=== PATIENT | male | born 1970 | race Caucasian/White ===

== ENCOUNTER → 2020-05-12 10:05 | Outpatient (BNVA) | payer OTHER, SELFPAY | PROVIDERS: PCP Internal Medicine; Visit Provider Physician Assistant | DX: S92.014D Nondisplaced fracture of body of right calcaneus, subsequent encounter for fracture with routine healing (principal) ==

== ENCOUNTER 2020-12-16 05:51 | Emergency (ER) | payer OTHER, SELFPAY ==
--- NOTE | ~2020-12-16 | CT_ITS ---
EXAMINATION: CT ABDOMEN AND PELVIS WITH CONTRAST CLINICAL INFORMATION: Left flank pain COMPARISON: previous CT of the abdomen and pelvis November 2012 TECHNIQUE: Multidetector volumetric images were obtained from the superior aspect of the liver through the pubic symphysis following administration 85 mL of Omnipaque 350 intravenous contrast. Sagittal and coronal reformatted images were obtained on the technologist's workstation. Oral contrast: Yes This CT examination was performed using dose optimization techniques as appropriate, variously including the following: *Automated exposure control *Adjustment of mA and/or kV according to patient size (this includes techniques or standardized protocols for targeted exams where dose is matched to indication/reason for exam; i.e. extremities or head) *Use of iterative reconstruction technique DLP: 2 8 1 mGy-cm FINDINGS: LUNG BASES: The visualized lung bases are unremarkable. LIVER, GALLBLADDER, AND BILIARY TREE: The liver is low in attenuation suggestive of fatty infiltration. No focal liver lesion is seen. The gallbladder is normal. There is no biliary duct dilatation. PANCREAS: Unremarkable. SPLEEN: Unremarkable. ADRENAL GLANDS: Unremarkable. KIDNEYS AND URETERS: The kidneys are normal in size, shape, and attenuation. No hydronephrosis, hydroureter, or calculi seen. There is a small cyst in the lower pole of the left kidney. No follow-up is needed. BLADDER: Unremarkable. GASTROINTESTINAL TRACT: There is diverticulosis of the colon. There is question of mild wall thickening of the sigmoid colon versus changes due to underdistention. There are fluid-filled loops of small and large bowel suggestive of an ileus. There is no evidence of obstruction, perforation or free air. The appendix is normal. The stomach is not optimally distended. ABDOMINAL WALL: No significant hernia is appreciated. There is a soft tissue seen in the left inguinal canal questionable for an undescended testicle. There are postsurgical changes to the left anterior abdominal wall. LYMPH NODES: Normal. VASCULAR: There are varices seen in the pelvis. There is evidence of mild atherosclerotic disease. No aneurysm is seen. PELVIC VISCERA: Unremarkable. OSSEOUS STRUCTURES: There are postoperative changes at the L5-S1 disc level. There is a L4 vertebral body compression fracture. This is new in the interval from 2013 exam but does not appear. CT/CT abdomen pelvis w con IMPRESSION: Diverticulosis of the colon. Question mild wall thickening of the sigmoid colon from mild diverticulitis or colitis versus changes due to underdistention. Enlarged fatty liver. Pelvic varices. Question partially undescended testicle in the left inguinal canal. This could be better evaluated with scrotal ultrasound. Postsurgical changes at the L5-S1 disc space. Moderate L4 vertebral body compression fracture that does not appear acute but is new in the interval from 2013 exam. Fatty liver.
[2020-12-16 06:31] VITALS: BP 128/85; PULSE 80; RESP 16; TEMP 36.9; O2SAT 97; BMI 17.8
--- NOTE | 2020-12-16 06:38 | ED_ITS ---
HPI - Abdominal Pain General Chief Complaint: Abdominal Pain Stated Complaint: Abd pain Time Seen by Provider: 12/16/20 06:34 Source: patient Mode of arrival: ambulatory Limitations: no limitations History of Present Illness HPI narrative: reports weight loss as well MD elicited complaint: abdominal pain Pertinent past history: other (chronic diarrhea and abdominal pain since back surgery 2013) Onset (ago): week(s) (3 (worse over past 3 weeks but chronic issue) ) Pain Consistency: intermittent Location: LUQ and L flank Severity: moderate Quality: stabbing Radiation: none Exacerbating factors: bowel movement Relieving factors: nothing Context: history of similar episodes (since surgery 2013 (back) has had negative colonoscopy) Associated symptoms: nausea and diarrhea Related Data Previous Rx's Medication Instructions Recorded amoxicillin-pot clavulanate 1 tab PO BID #14 tab 12/16/20 [Augmentin] ondansetron 4 mg PO Q8H PRN #20 tab 12/16/20 oxycodone 5 mg PO TID PRN #8 tab 12/16/20 Allergies Allergy/AdvReac Type Severity Reaction Status Date / Time meperidine [Demerol] Allergy Unknown Vomiting Verified 05/12/20 10:09 Review of Systems Review of Systems Constitutional : No Weight loss, No Fever, No Chills ENT/Mouth : No sore throat, No Rhinorrhea Eyes: No Swelling, No Redness Cardiovascular : No Chest Pain, No SOB, NoEdema Respiratory : No Cough, No Sputum, No Wheezing Gastrointestinal : no Nausea, no Vomiting, positive Diarrhea, positive abdominal Pain, No Hematochezia, No Melena Genitourinary : No Dysuria, No Urinary Frequency, No Hematuria, No Urgency Musculoskeletal : No joint pain, No Myalgias, No Joint Swelling Skin : No Skin Lesions, No rash Neuro : No Weakness, No Numbness, No Dizziness, No Headache Psych : No Anxiety/Panic, No Depression Heme/Lymph: No Bruising, No Lymphadenopathy Endocrine : No Polyuria, No Polydipsia All other systems reviewed and are negative. Physical Exam Vital Signs: Vital Signs: Last Vital Signs Temp 98.5 F 12/16/20 07:55 Pulse 90 12/16/20 09:57 Resp 16 12/16/20 09:57 BP 104/77 12/16/20 09:57 Pulse Ox 97 12/16/20 09:57 Body Mass Index 17.8 Appearance: Alert. Oriented X3. No acute distress. Eyes: Pupils equal, round and reactive to light. ENT: Pharynx normal. Neck: Normal inspection. Neck supple. CVS: Normal heart rate and rhythm. Pulses normal. Respiratory: No respiratory distress. Breath sounds normal. Abdomen: Soft and mild LUQ ttp no rebound or guarding Skin: Skin warm and dry. Normal skin color. Normal skin turgor. Extremities: No lower extremity edema. No calf ttp Neuro: Oriented X 3. No motor deficit. No sensory deficit. Course Course Course Narrative: not toxic, not bleeding, no WBC count able to tolerate PO without issue, can be managed as outpatient and follow up with PCP repeat LFTs with PCP MDM - Abdominal Pain MDM Narrative Medical decision making narrative: 50 yo male s/p back surgery in 2013 through abdomen - since then bouts of abdominal pain and > 6 stools per day at this time will need labs, CT scan for mass/obstruction, dispo per results and findings. Differential Diagnosis Differential diagnosis: Likely abdominal pain, constipation, gastroenteritis, ga stritis and pancreatitis Lab Data Result diagrams: 12/16/20 07:41 12/16/20 07:41 Labs: Lab Results 12/16/20 12/16/20 12/16/20 Range/Units 07:41 07:41 07:41 WBC 7.2 (4.8-10.8) X10*3/uL RBC 4.55 L (4.60-5.80) X10*6/uL Hgb 13.4 L (14.0-18.0) g/dl Hct 39.8 L (42-52) % MCV 87.5 (80-98) fL MCH 29.5 (27.0-33.0) pg MCHC 33.7 (31.0-36.0) g/dl RDW 14.7 (11.0-16.0) % Plt Count 221 (160-400) X10*3/uL MPV 9.9 (9.4-12.4) fL Immature Gran % (Auto) 0.3 (0.0-0.4) % Neut % (Auto) 63.2 (45-73) % Lymph % (Auto) 23.5 (20-40) % Stanley % (Auto) 9.9 (2-11) % Eos % (Auto) 2.0 (0-4) % Baso % (Auto) 1.1 (0-2) % Lymph # (Auto) 1.7 (1.2-4.9) X10*3/uL Stanley # (Auto) 0.7 (0.1-1.2) X10*3/uL Eos # (Auto) 0.1 (0.0-0.4) X10*3/uL Baso # (Auto) 0.1 (0.0-0.2) X10*3/uL Abs Immat Gran (auto) 0.02 (0.00-0.03) X10*3/uL Absolute Neuts (auto) 4.5 (2.0-8.3) X10*3/uL Absolute Nucleated RBC 0.000 (0.0-0.012) X10*3/uL Nucleated RBC % (auto) 0.0 (0.0-0.2) /100WBC Hold Blue Top SEE NOTE Sodium 137 (135-145) mmol/L Potassium 4.8 (3.3-5.1) mmol/L Chloride 97 (96-108) mmol/L Carbon Dioxide 26 (22-29) mmol/L Anion Gap 19 (12-20) BUN 3 L (9-16) mg/dL Creatinine 0.70 (0.5-1.4) mg/dL Estim Creat Clear Calc 86.1 Estimated GFR > 60 Random Glucose 77 (60-115) mg/dL Calcium 9.7 (8.4-10.2) mg/dL Total Bilirubin 0.5 (0.0-1.0) mg/dL AST 253 H (5-37) U/L ALT 157 H (0-40) U/L Alkaline Phosphatase 75 (39-117) U/L Total Protein 7.7 (6.5-8.0) g/dL Albumin 4.9 (3.5-5.0) g/dL Lipase 51 (8-78) U/L TSH (0.32-4.0) uIU/mL Urine Color Urine Appearance Urine pH (5.0-8.0) Ur Specific [place] (1.005-1.025) Urine Protein (NEG-TRACE) MG/DL Urine Glucose (UA) (NEG) MG/DL Urine Ketones (NEG) MG/DL Urine Blood (NEG) Urine Nitrite (NEG) Ur Leukocyte Esterase (NEG) Urine Opiates Screen (Not Detect) Ur Barbiturates Screen (Not Detect) Ur Phencyclidine Scrn (Not Detect) Ur Amphetamines Screen (Not Detect) U Benzodiazepines Scrn (Not Detect) Urine Cocaine Screen (Not Detect) U Marijuana (THC) Screen (Not Detect) 12/16/20 12/16/20 12/16/20 Range/Units 07:41 07:43 07:43 WBC (4.8-10.8) X10*3/uL RBC (4.60-5.80) X10*6/uL Hgb (14.0-18.0) g/dl Hct (42-52) % MCV (80-98) fL MCH (27.0-33.0) pg MCHC (31.0-36.0) g/dl RDW (11.0-16.0) % Plt Count (160-400) X10*3/uL MPV (9.4-12.4) fL Immature Gran % (Auto) (0.0-0.4) % Neut % (Auto) (45-73) % Lymph % (Auto) (20-40) % Stanley % (Auto) (2-11) % Eos % (Auto) (0-4) % Baso % (Auto) (0-2) % Lymph # (Auto) (1.2-4.9) X10*3/uL Stanley # (Auto) (0.1-1.2) X10*3/uL Eos # (Auto) (0.0-0.4) X10*3/uL Baso # (Auto) (0.0-0.2) X10*3/uL Abs Immat Gran (auto) (0.00-0.03) X10*3/uL Absolute Neuts (auto) (2.0-8.3) X10*3/uL Absolute Nucleated RBC (0.0-0.012) X10*3/uL Nucleated RBC % (auto) (0.0-0.2) /100WBC Hold Blue Top Sodium (135-145) mmol/L Potassium (3.3-5.1) mmol/L Chloride (96-108) mmol/L Carbon Dioxide (22-29) mmol/L Anion Gap (12-20) BUN (9-16) mg/dL Creatinine (0.5-1.4) mg/dL Estim Creat Clear Calc Estimated GFR Random Glucose (60-115) mg/dL Calcium (8.4-10.2) mg/dL Total Bilirubin (0.0-1.0) mg/dL AST (5-37) U/L ALT (0-40) U/L Alkaline Phosphatase (39-117) U/L Total Protein (6.5-8.0) g/dL Albumin (3.5-5.0) g/dL Lipase (8-78) U/L TSH 0.88 (0.32-4.0) uIU/mL Urine Color YELLOW Urine Appearance CLEAR Urine pH 6.0 (5.0-8.0) Ur Specific [place] <= 1.005 (1.005-1.025) Urine Protein NEG (NEG-TRACE) MG/DL Urine Glucose (UA) NEG (NEG) MG/DL Urine Ketones NEG (NEG) MG/DL Urine Blood NEG (NEG) Urine Nitrite NEG (NEG) Ur Leukocyte Esterase NEG (NEG) Urine Opiates Screen Not Detected (Not Detect) Ur Barbiturates Screen Not Detected (Not Detect) Ur Phencyclidine Scrn Not Detected (Not Detect) Ur Amphetamines Screen Not Detected (Not Detect) U Benzodiazepines Scrn Not Detected (Not Detect) Urine Cocaine Screen Not Detected (Not Detect) U Marijuana (THC) Screen POSITIVE H (Not Detect) Discharge Plan Discharge Clinical Impression: Diverticulitis, Abdominal pain, Fatty liver, Elevated liver enzymes Patient Disposition: Home, Self-Care Instructions: Diverticulitis (ED) Additional Instructions: incidental findings on CT scan Moderate L4 vertebral body compression fracture that does not appear acute but is new in the interval from 2013 exam. Enlarged fatty liver avoid tylenol and alcohol Prescriptions: New ondansetron 4 mg tablet,disintegrating 4 mg PO Q8H PRN (Reason: nausea and vomiting) Qty: 20 RF: 0 amoxicillin-pot clavulanate [Augmentin] 875-125 mg tablet 1 tab PO BID Qty: 14 RF: 0 oxycodone 5 mg tablet 5 mg PO TID PRN (Reason: pain) Qty: 8 RF: 0 Referrals: Kerri Bermudez MD [Primary Care Provider] - 5 days (repeat liver function tests) Stand Alone Forms: Work/School Release [facility] Past Medical History Attestation statement: The following information was validated with the patient. Medical History Calcaneus fracture Surgical History History of back surgery History of hernia surgery History of knee surgery Family History Family History Father No problems noted. Mother No problems noted. Son No problems noted. Daughter No problems noted. Social History Social History (Updated 12/16/20 @ 06:58 by No Hi DO) Alcohol intake: current Alcohol intake frequency: other Alcohol type: beer Smoking Status: Never smoker Use of substances other than those prescribed or required for medical reasons: No Advance Directives: No
[2020-12-16 07:53] LABS: MANUAL DIFF FLAG NO
[2020-12-16 07:55] VITALS: BP 129/80; PULSE 78; RESP 16; TEMP 36.9; O2SAT 97
[2020-12-16 07:58] LABS: Glucose Urine UA NEG (NEG); Leukocyte Esterase Urine NEG (NEG); Nitrite Urine NEG (NEG); Specific Gravity - Urine <= 1.005 (1.005-1.025); Urine Blood NEG (NEG); Urine Ketones NEG (NEG); Urine Protein NEG (NEG-TRACE)
[2020-12-16 07:59] LABS: Appearance Urine CLEAR; Color Urine YELLOW
[2020-12-16 07:59] LABS: Basophils Absolute Auto 0.1 X10*3/uL (0.0-0.2); Basophils Percent Auto 1.1 % (0-2); Eosinophils Absolute Auto 0.1 X10*3/uL (0.0-0.4); Hematocrit 39.8 % (42-52); Hemoglobin 13.4 g/dl (14.0-18.0); Imm Gran Abs Auto 0.02 X10*3/uL (0.00-0.03); Imm Gran Pct Auto 0.3 % (0.0-0.4); Lymphocytes Absolute Auto 1.7 X10*3/uL (1.2-4.9); Lymphocytes Percent Auto 23.5 % (20-40); Mean Corpuscular HGB Conc 33.7 g/dl (31.0-36.0); Mean Corpuscular Hemoglobin 29.5 pg (27.0-33.0); Mean Corpuscular Volume 87.5 fL (80-98); Mean Platelet Volume 9.9 fL (9.4-12.4); Monocytes Absolute Auto 0.7 X10*3/uL (0.1-1.2); Monocytes Percent Auto 9.9 % (2-11); Neutrophils Absolute Auto 4.5 X10*3/uL (2.0-8.3); Neutrophils Percent Auto 63.2 % (45-73); Platelet Count 221 X10*3/uL (160-400); Red Blood Count 4.55 X10*6/uL (4.60-5.80); Red Cell Distribution Width 14.7 % (11.0-16.0); White Blood Count 7.2 X10*3/uL (4.8-10.8)
[2020-12-16] MEDS: 0.9 % Sodium Chloride 1,000 ML 999 ML IVCONT (08:08)
[2020-12-16] MEDS: LORazepam 2 MG/ML VIAL 1 MG IVPUSH (08:09)
[2020-12-16 08:27] LABS: Amphetamine Screen Urine Not Detected (Not Detect); Barbiturates, Urine Not Detected (Not Detect); Benzodiazepines Screen Urine Not Detected (Not Detect); Cannabinoid Screen Urine POSITIVE (Not Detect); Cocaine Screen Urine Not Detected (Not Detect); Opiate Screen Urine Not Detected (Not Detect); Phencyclidine Screen Urine Not Detected (Not Detect)
[2020-12-16 08:32] LABS: Alanine Aminotransferase 157 U/L (0-40); Albumin Level 4.9 g/dL (3.5-5.0); Alkaline Phosphatase 75 U/L (39-117); Anion Gap 19 (12-20); Aspartate Amino Transferase 253 U/L (5-37); Bilirubin Total 0.5 mg/dL (0.0-1.0); Blood Urea Nitrogen 3 mg/dL (9-16); Calcium 9.7 mg/dL (8.4-10.2); Carbon Dioxide 26 mmol/L (22-29); Chloride 97 mmol/L (96-108); Creatinine Clr Calc Pharmacy 86.1; Estimated Glomerular Filt Rate > 60; Glucose Random 77 mg/dL (60-115); Lipase 51 U/L (8-78); Potassium 4.8 mmol/L (3.3-5.1); Sodium 137 mmol/L (135-145); Total Protein 7.7 g/dL (6.5-8.0)
[2020-12-16 08:50] LABS: Thyroid Stimulating Hormone 0.88 uIU/mL (0.32-4.0)
[2020-12-16] MEDS: iohexoL 350 MG/ML 100 ML INFUS..BTL IV (09:32)
[2020-12-16 09:57] VITALS: BP 104/77; PULSE 90; RESP 16; O2SAT 97
[2020-12-16 10:19] VITALS: BP 104/77; PULSE 90; RESP 16; O2SAT 97
== END 2020-12-16 10:35 | disposition home or self-care (01) ==
PROVIDERS: Student in an Organized Health Care Education/Training Program; Emergency Provider Emergency Medicine; PCP Internal Medicine
DX: K57.32 Diverticulitis of large intestine without perforation or abscess without bleeding (principal); R10.10 Upper abdominal pain, unspecified; R79.89 Other specified abnormal findings of blood chemistry; K76.0 Fatty (change of) liver, not elsewhere classified; F12.90 Cannabis use, unspecified, uncomplicated
CPT/HCPCS: 36415; 74177; 80053; 80307; 81003; 83690; 84443; 85025; 96361; 96374; 99284; J2060; Q9967

== ENCOUNTER 2020-12-20 11:30 | Inpatient (IN) | payer OTHER, SELFPAY ==
--- NOTE | ~2020-12-20 | MR_ITS ---
EXAMINATION: MR BRAIN WITHOUT AND WITH CONTRAST CLINICAL INFORMATION: Seizure. COMPARISON: CT head from 12/21/2020. TECHNIQUE: MRI of the brain was obtained using routine sequences without and following the administration of 5 mL of Gadavist intravenous contrast. FINDINGS: No focal restricted diffusion is demonstrated to suggest acute or subacute cerebral ischemia. No evidence of acute or chronic hemorrhagic products on heme-sensitive imaging. Basal ganglia mineralization. Few nonspecific scattered periventricular and deep white matter T2 FLAIR hyperintensities, most notably within the right centrum semiovale. Proportional prominence of the ventricles and sulcal spaces without evidence of obstructive hydrocephalus. No abnormal mass effect. No midline shift. The hippocampi are symmetric in size, contour, and signal intensity. The temporal horns appear symmetric. Normal appearance of the pituitary gland. No abnormalities of the posterior fossa with normal appearance of the brainstem and cerebellum. Normal arterial and venous vascular flow voids are present. No abnormal contrast enhancement. Normal, homogeneous marrow signal. Mild to moderate mucosal thickening of the paranasal sinuses. No signal abnormalities within the mastoids. MR/MR head/brain wo/w con IMPRESSION: 1. No acute intracranial abnormalities. No abnormal intracranial enhancement. 2. Nonspecific white matter changes. Mild generalized cerebral volume loss. 3. No additional MRI abnormalities to explain the patient's spells.
--- NOTE | ~2020-12-20 | CT_ITS ---
EXAMINATION: CT ABDOMEN AND PELVIS WITH CONTRAST CLINICAL INFORMATION: Left lower quadrant pain. Nausea and vomiting. Rule out obstruction. COMPARISON: Previous CT of the abdomen and pelvis 12/16/2020 TECHNIQUE: Multidetector volumetric images were obtained from the superior aspect of the liver through the pubic symphysis following administration 85 mL of Omnipaque 350 intravenous contrast. Sagittal and coronal reformatted images were obtained on the technologist's workstation. Oral contrast: Yes This CT examination was performed using dose optimization techniques as appropriate, variously including the following: *Automated exposure control *Adjustment of mA and/or kV according to patient size (this includes techniques or standardized protocols for targeted exams where dose is matched to indication/reason for exam; i.e. extremities or head) *Use of iterative reconstruction technique DLP: 270 mGy-cm FINDINGS: LUNG BASES: The visualized lung bases are unremarkable. LIVER, GALLBLADDER, AND BILIARY TREE: The liver is low in attenuation suggestive of fatty infiltration. No focal hepatic lesion or biliary ductal dilatation is present. The gallbladder is unremarkable with no evidence of radiopaque gallstones, gallbladder wall thickening, or obvious pericholecystic inflammatory changes. PANCREAS: Unremarkable. SPLEEN: Unremarkable. ADRENAL GLANDS: Unremarkable. KIDNEYS AND URETERS: The kidneys are normal in size, shape, and attenuation. There is a small left renal cyst. No hydronephrosis, hydroureter, or calculi seen. No perinephric stranding. BLADDER: Unremarkable. GASTROINTESTINAL TRACT: There is diverticulosis of the distal colon. There is wall thickening of the distal colon questionable for mild diverticulitis or colitis. This is similar to previous exam. There is no evidence of obstruction. There are fluid-filled loops of small bowel in large bowel probably representing an ileus. The appendix is not identified the stomach is unremarkable. ABDOMINAL WALL: There are postsurgical changes to the left abdominal wall. No hernia is seen. There is increased soft tissue seen high in the left inguinal canal questionable for a partially undescended testicle. Be better evaluated with ultrasound if clinically indicated. LYMPH NODES: Normal. VASCULAR: There are pelvic varices. PELVIC VISCERA: Unremarkable. OSSEOUS STRUCTURES: Postsurgical change at L5-S1. Old L4 compression fracture unchanged. CT/CT abdomen pelvis w con IMPRESSION: Diverticulosis of the distal colon. Mild wall thickening of the distal colon questionable for mild diverticulitis or colitis similar to recent exam. No evidence of obstruction. There are fluid-filled loops of small and large bowel suggestive of an ileus. Fatty liver. Question partially descended left testicle. Pelvic varices.
--- NOTE | ~2020-12-20 | CT_ITS ---
EXAMINATION: CT HEAD WITHOUT CONTRAST CLINICAL INFORMATION: Dizziness and seizure COMPARISON: None TECHNIQUE: Contiguous axial imaging was performed from the skull base to vertex without intravenous administration of contrast. This CT examination was performed using dose optimization techniques as appropriate, variously including the following: *Automated exposure control *Adjustment of mA and/or kV according to patient size (this includes techniques or standardized protocols for targeted exams where dose is matched to indication/reason for exam; i.e. extremities or head) *Use of iterative reconstruction technique DLP: 587 mGy-cm FINDINGS: There is no evidence of acute intracranial hemorrhage or territorial infarction. No abnormal mass effect or midline shift is seen. Ro to white matter differentiation is well preserved. No extra-axial fluid collections are identified. The ventricles are normal in size. There is no abnormal attenuation within the brain parenchyma. No focal bone lesion or fracture is seen. The mastoid air cells and visualized portions of the paranasal sinuses are well aerated. CT/CT head/brain wo con IMPRESSION: Unremarkable exam.
[2020-12-20 11:58] VITALS: BP 152/82; PULSE 88; RESP 16; TEMP 37.1; O2SAT 96; BMI 19.0
[2020-12-20 12:49] LABS: MANUAL DIFF FLAG NO
[2020-12-20 12:51] LABS: Basophils Absolute Auto 0.1 X10*3/uL (0.0-0.2); Basophils Percent Auto 1.3 % (0-2); Eosinophils Absolute Auto 0.2 X10*3/uL (0.0-0.4); Eosinophils Percent Auto 2.7 % (0-4); Hematocrit 39.9 % (42-52); Hemoglobin 13.3 g/dl (14.0-18.0); Imm Gran Abs Auto 0.01 X10*3/uL (0.00-0.03); Imm Gran Pct Auto 0.2 % (0.0-0.4); Lymphocytes Absolute Auto 1.6 X10*3/uL (1.2-4.9); Lymphocytes Percent Auto 26.8 % (20-40); Mean Corpuscular HGB Conc 33.3 g/dl (31.0-36.0); Mean Corpuscular Volume 86.9 fL (80-98); Mean Platelet Volume 9.8 fL (9.4-12.4); Monocytes Absolute Auto 0.6 X10*3/uL (0.1-1.2); Monocytes Percent Auto 10.6 % (2-11); Neutrophils Absolute Auto 3.5 X10*3/uL (2.0-8.3); Neutrophils Percent Auto 58.4 % (45-73); Platelet Count 233 X10*3/uL (160-400); Red Blood Count 4.59 X10*6/uL (4.60-5.80); Red Cell Distribution Width 14.9 % (11.0-16.0)
--- NOTE | 2020-12-20 13:04 | ED.ABDPAIN ---
HPI - Abdominal Pain General Chief Complaint: Abdominal Pain Stated Complaint: abd pain Time Seen by Provider: 12/20/20 12:08 Source: patient Mode of arrival: ambulatory Limitations: no limitations History of Present Illness HPI narrative: 50 y/o male presenting with left sided abdominal pain, nausea, vomiting and diarrhea for the last 5 days. He was seen her adrienne 12/16 for the same - diagnosed with mild diverticulitis and discharged home on Augmentin and pain control. He states he took his 1st dose of antibiotics yesterday. He states he's not a pill fabiano and doesn't like to take medications. He reports vomiting and diarrhea increased in severity over the last 48 hours. He reports vomiting after taking Augmentin last night and again this morning. He contacted his PCP who instructed him to come to the ER for IV antibiotics. MD elicited complaint: abdominal pain Pertinent past history: diverticulitis Onset (ago): day(s) Pain Consistency: constant Location: LLQ Severity: moderate Quality: stabbing and sharp Radiation: L flank Migration to: no migration Exacerbating factors: eating Relieving factors: nothing Context: recent antibiotic use and history of similar episodes Associated symptoms: nausea, vomiting and diarrhea Related Data Previous Rx's Medication Instructions Recorded amoxicillin-pot clavulanate 1 tab PO BID #14 tab 12/16/20 [Augmentin] ondansetron 4 mg PO Q8H PRN #20 tab 12/16/20 oxycodone 5 mg PO TID PRN #8 tab 12/16/20 levofloxacin 500 mg PO DAILY 6 Days #6 tab 12/20/20 metronidazole [Flagyl] 500 mg PO Q12H #14 tab 12/20/20 Allergies Allergy/AdvReac Type Severity Reaction Status Date / Time meperidine [Demerol] Allergy Unknown Vomiting Verified 05/12/20 10:09 Review of Systems Review of Systems Constitutional: No Fever, No Chills ENT/Mouth: No sore throat, No Rhinorrhea, No Swallowing Difficulty Eyes: No Eye Pain, No Swelling, No Redness Cardiovascular: No Chest Pain, No SOB, No Orthopnea, No Edema Respiratory: No Cough, No Sputum, No Wheezing, No dyspnea Gastrointestinal: + Nausea, + Vomiting, + Diarrhea, + abdominal Pain, No Hematochezia, No Melena Genitourinary: No Dysuria, No Urinary Frequency, No Hematuria Musculoskeletal: No joint pain, No Myalgias Skin: No Skin Lesions, No rash Neuro: No Weakness, No Numbness, No Dizziness, + Headache Psych: No Anxiety/Panic, No Depression Heme/Lymph: No Bruising, No Lymphadenopathy Endocrine: No Polyuria, No Polydipsia Physical Exam Vital Signs: Vital Signs: Last Vital Signs Temp 98.7 F 12/20/20 11:58 Pulse 90 12/20/20 16:45 Resp 16 12/20/20 16:45 BP 122/87 12/20/20 16:45 Pulse Ox 95 12/20/20 16:45 Body Mass Index 19.0 Appearance: Alert. Oriented X3. No acute distress. Eyes: Pupils equal, round and reactive to light. ENT: Pharynx normal. Neck: Normal inspection. Neck supple. CVS: Normal heart rate and rhythm. Pulses normal. Respiratory: No respiratory distress. Breath sounds normal. Abdomen: Flat, soft, with LLQ tenderness, no rebound or guarding. +BS x4 Skin: Skin warm and dry. Normal skin color. Normal skin turgor. No rashes. Extremities: No lower extremity edema. Neuro: Oriented X 3. No motor deficit. No sensory deficit. Course Course Course Narrative: 50 y/o male with recently diagnosed mild diverticulitis/colitis, non-compliant with prescribed antibiotics who presents back with vomiting after the 2 doses of Augmentin. Eating and drinking in triage - patient denies. States he has not eaten since yesterday. Vomiting prior to arrival. No blood on vomitus or stool. No fevers or urinary symptoms. Exam reveals some mild LLQ tenderness but not peritonitic. Doubt obstruction, perforation or abscess. Will repeat labs, check lactic acid CRP. IV antibiotics, antiemetics and IVF ordered. Hold off on repeat imaging for now. Reevaluation(s) Reevaluation #1: No leukocytosis. Lactic acid normal. CRP normal. Patient is feeling ok. Given PO trial now, will reassess. Reevaluation #2: Upon reassessment patient reports he did not tolerate PO. He had burning pain and dry heaving. No emesis noted in the bag. He reports he was just dry heaving and had increased pain. Given his persistent N/V and report of pain will get repeat imaging to f/u and r/o abscess, perforation or obstruction. D/w Dr. Hi. Reevaluation #3: CT scan done. IV reglan ordered for reports of ongoing nausea. Pending CT report and tolerance of PO for admission vs d/c home with abx. Signed out to Florence DURAN who will assume care. MDM - Abdominal Pain Lab Data Result diagrams: 12/20/20 12:44 12/20/20 12:44 Labs: Lab Results 12/20/20 12/20/20 12/20/20 Range/Units 12:44 12:44 12:44 WBC 6.0 (4.8-10.8) X10*3/uL RBC 4.59 L (4.60-5.80) X10*6/uL Hgb 13.3 L (14.0-18.0) g/dl Hct 39.9 L (42-52) % MCV 86.9 (80-98) fL MCH 29.0 (27.0-33.0) pg MCHC 33.3 (31.0-36.0) g/dl RDW 14.9 (11.0-16.0) % Plt Count 233 (160-400) X10*3/uL MPV 9.8 (9.4-12.4) fL Immature Gran % (Auto) 0.2 (0.0-0.4) % Neut % (Auto) 58.4 (45-73) % Lymph % (Auto) 26.8 (20-40) % [place] % (Auto) 10.6 (2-11) % Eos % (Auto) 2.7 (0-4) % Baso % (Auto) 1.3 (0-2) % Lymph # (Auto) 1.6 (1.2-4.9) X10*3/uL [place] # (Auto) 0.6 (0.1-1.2) X10*3/uL Eos # (Auto) 0.2 (0.0-0.4) X10*3/uL Baso # (Auto) 0.1 (0.0-0.2) X10*3/uL Abs Immat Gran (auto) 0.01 (0.00-0.03) X10*3/uL Absolute Neuts (auto) 3.5 (2.0-8.3) X10*3/uL Absolute Nucleated RBC 0.000 (0.0-0.012) X10*3/uL Nucleated RBC % (auto) 0.0 (0.0-0.2) /100WBC Sodium 132 L (135-145) mmol/L Potassium 3.9 (3.3-5.1) mmol/L Chloride 93 L (96-108) mmol/L Carbon Dioxide 27 (22-29) mmol/L Anion Gap 16 (12-20) BUN 2 L (9-16) mg/dL Creatinine 0.72 (0.5-1.4) mg/dL Estim Creat Clear Calc 83.7 Estimated GFR > 60 Random Glucose 87 (60-115) mg/dL Lactic Acid 1.3 (0.5-2.0) mmol/L Calcium 9.8 (8.4-10.2) mg/dL Magnesium 2.3 (1.6-2.6) mg/dL Total Bilirubin 0.6 (0.0-1.0) mg/dL Direct Bilirubin 0.2 (0.0-0.5) mg/dL AST 156 H (5-37) U/L ALT 112 H (0-40) U/L Alkaline Phosphatase 73 (39-117) U/L C-Reactive Protein 0.13 (< or = 0.50) mg/dL Total Protein 7.9 (6.5-8.0) g/dL Albumin 5.1 H (3.5-5.0) g/dL Urine Color Urine Appearance Urine pH (5.0-8.0) Ur Specific [place] (1.005-1.025) Urine Protein (NEG-TRACE) MG/DL Urine Glucose (UA) (NEG) MG/DL Urine Ketones (NEG) MG/DL Urine Blood (NEG) Urine Nitrite (NEG) Ur Leukocyte Esterase (NEG) 12/20/20 Range/Units 13:22 WBC (4.8-10.8) X10*3/uL RBC (4.60-5.80) X10*6/uL Hgb (14.0-18.0) g/dl Hct (42-52) % MCV (80-98) fL MCH (27.0-33.0) pg MCHC (31.0-36.0) g/dl RDW (11.0-16.0) % Plt Count (160-400) X10*3/uL MPV (9.4-12.4) fL Immature Gran % (Auto) (0.0-0.4) % Neut % (Auto) (45-73) % Lymph % (Auto) (20-40) % [place] % (Auto) (2-11) % Eos % (Auto) (0-4) % Baso % (Auto) (0-2) % Lymph # (Auto) (1.2-4.9) X10*3/uL [place] # (Auto) (0.1-1.2) X10*3/uL Eos # (Auto) (0.0-0.4) X10*3/uL Baso # (Auto) (0.0-0.2) X10*3/uL Abs Immat Gran (auto) (0.00-0.03) X10*3/uL Absolute Neuts (auto) (2.0-8.3) X10*3/uL Absolute Nucleated RBC (0.0-0.012) X10*3/uL Nucleated RBC % (auto) (0.0-0.2) /100WBC Sodium (135-145) mmol/L Potassium (3.3-5.1) mmol/L Chloride (96-108) mmol/L Carbon Dioxide (22-29) mmol/L Anion Gap (12-20) BUN (9-16) mg/dL Creatinine (0.5-1.4) mg/dL Estim Creat Clear Calc Estimated GFR Random Glucose (60-115) mg/dL Lactic Acid (0.5-2.0) mmol/L Calcium (8.4-10.2) mg/dL Magnesium (1.6-2.6) mg/dL Total Bilirubin (0.0-1.0) mg/dL Direct Bilirubin (0.0-0.5) mg/dL AST (5-37) U/L ALT (0-40) U/L Alkaline Phosphatase (39-117) U/L C-Reactive Protein (< or = 0.50) mg/dL Total Protein (6.5-8.0) g/dL Albumin (3.5-5.0) g/dL Urine Color YELLOW Urine Appearance CLEAR Urine pH 6.5 (5.0-8.0) Ur Specific [place] <= 1.005 (1.005-1.025) Urine Protein NEG (NEG-TRACE) MG/DL Urine Glucose (UA) NEG (NEG) MG/DL Urine Ketones NEG (NEG) MG/DL Urine Blood NEG (NEG) Urine Nitrite NEG (NEG) Ur Leukocyte Esterase NEG (NEG) Discharge Plan Discharge Clinical Impression: Diverticulitis Patient Disposition: Home, Self-Care Instructions: Diverticulitis (ED), Diverticulitis Diet (ED) Additional Instructions: Your lab workup today was unremarkable. Recommend STOPPING the Augmentin antibiotic that was previously prescribed. START taking the levofloxacin tomorrow. You were given the 1st dose in the ER. START taking the metronidazole tonight. Take BOTH antibiotics as directed for 1 full week. Stick to the diet in the information provided. Follow up with your doctor this week. Recommend following up with GI as well. If you have worsening symptoms come back to the ER for further evaluation. Prescriptions: New levofloxacin 500 mg tablet 500 mg PO DAILY 6 Days Qty: 6 RF: 0 metronidazole [Flagyl] 500 mg tablet 500 mg PO Q12H Qty: 14 RF: 0 No Action ondansetron 4 mg tablet,disintegrating 4 mg PO Q8H PRN (Reason: nausea and vomiting) Qty: 20 RF: 0 amoxicillin-pot clavulanate [Augmentin] 875-125 mg tablet 1 tab PO BID Qty: 14 RF: 0 oxycodone 5 mg tablet 5 mg PO TID PRN (Reason: pain) Qty: 8 RF: 0 PMFSH Past Medical History Attestation statement: The following information was validated with the patient. Medical History Calcaneus fracture Surgical History History of back surgery History of hernia surgery History of knee surgery Family History Family History Father No problems noted. Mother No problems noted. Son No problems noted. Daughter No problems noted. Social History Social History (Updated 12/16/20 @ 06:58 by No Hi DO) Alcohol intake: never Smoking Status: Never smoker Use of substances other than those prescribed or required for medical reasons: No Advance Directives: No Advance Directives Information Provided: No
[2020-12-20 13:17] LABS: Lactic Acid 1.3 mmol/L (0.5-2.0)
[2020-12-20] MEDS: ondansetron HCL 4 MG/2 ML VIAL IVPUSH ×2 (13:18→20:21)
[2020-12-20] MEDS: Ketorolac Tromethamine 30 MG/ML VIAL IVPUSH (13:18)
[2020-12-20] MEDS: metroNIDAZOLE/NS 500 MG/100 ML PIGGYBACK 100 MG IV ×2 (13:18→23:04)
[2020-12-20] MEDS: 0.9 % Sodium Chloride 1,000 ML 999 ML IVCONT (13:19)
[2020-12-20 13:30] LABS: Glucose Urine UA NEG (NEG); Leukocyte Esterase Urine NEG (NEG); Nitrite Urine NEG (NEG); PH 6.5 (5.0-8.0); Specific Gravity - Urine <= 1.005 (1.005-1.025); Urine Blood NEG (NEG); Urine Ketones NEG (NEG); Urine Protein NEG (NEG-TRACE)
[2020-12-20 13:31] LABS: Alanine Aminotransferase 112 U/L (0-40); Albumin Level 5.1 g/dL (3.5-5.0); Alkaline Phosphatase 73 U/L (39-117); Anion Gap 16 (12-20); Aspartate Amino Transferase 156 U/L (5-37); Bilirubin Direct 0.2 mg/dL (0.0-0.5); Bilirubin Total 0.6 mg/dL (0.0-1.0); Blood Urea Nitrogen 2 mg/dL (9-16); Calcium 9.8 mg/dL (8.4-10.2); Carbon Dioxide 27 mmol/L (22-29); Chloride 93 mmol/L (96-108); Creatinine Clr Calc Pharmacy 83.7; Estimated Glomerular Filt Rate > 60; Glucose Random 87 mg/dL (60-115); Magnesium 2.3 mg/dL (1.6-2.6); Potassium 3.9 mmol/L (3.3-5.1); Sodium 132 mmol/L (135-145); Total Protein 7.9 g/dL (6.5-8.0)
[2020-12-20 13:32] LABS: Appearance Urine CLEAR; Color Urine YELLOW
[2020-12-20] MEDS: levoFLOXacin/D5W 500 MG/100 ML PIGGYBACK 100 MG IV (14:20)
[2020-12-20 14:34] LABS: C Reactive Protein 0.13 mg/dL (< or = 0.50)
[2020-12-20 14:42] VITALS: BP 129/75; PULSE 82; RESP 21; O2SAT 96
[2020-12-20] MEDS: Metoclopramide HCl 10 MG/2 ML VIAL IVPUSH (16:21)
[2020-12-20] MEDS: iohexoL 350 MG/ML 100 ML INFUS..BTL IV (16:36)
[2020-12-20 16:45] VITALS: BP 122/87; PULSE 90; RESP 16; O2SAT 95
--- NOTE | 2020-12-20 18:16 | PM.IMHP ---
History of Present Illness Date of Service: 12/20/20 Chief Complaint: Abdominal pain. Review of Systems Review of Systems: Gen: no fever Resp: no sob, no cough CV: no chest, no ADKINS, no leg edema GI: + n/v, + abd pain Neuro: No confusion Yes all other systems are reviewed and are negative [facility] Medical History Calcaneus fracture Cognitive capacity: 50-year-old male with no significant past medical history although he states that he has a issues with weight loss of unclear etiology. He was seen in the emergency room on December 16 with acute abdominal pain and a CT scan at the time showed mild diverticulitis and he was prescribed Augmentin and has failed to take any of the pills citing that he is not a pill person he finally took a dose yesterday and stated that he could not tolerate the medicine as is induced nausea and vomiting and abdominal discomfort. He related that he was having trouble eating as soon as he eats he will experience diarrhea shortly thereafter. He reports no blood in the stool there is no fever or chill. A CT scan in the abdomen and pelvis today reveal a mild persistent diverticulitis his WBC is normal he has no fever he is given IV Levaquin in the emergency room. Functional capacity: independent ambulation Family History Father No problems noted. Mother No problems noted. Son No problems noted. Daughter No problems noted. Pertinent family history: heart disease, diabetes, HTN Surgical History History of back surgery History of hernia surgery History of knee surgery Social History (Updated 12/21/20 @ 09:18 by Sly Malik MD) Household Members: Friend(s) Housing: House Smoking Status: Never smoker Use of substances other than those prescribed or required for medical reasons: Yes Substance Use Type: Marijuana Substance Use Type Other:: Denies other substances Currently Displaying Signs/Symptoms of Drug Intoxication Withdrawal: No Have you been hit, kicked, punched, or otherwise hurt by someone within the past year? If so, by whom?: No Do you feel safe in your current relationship?: No Current Relationship Is there a partner from a previous relationship who is making you feel unsafe now?: No Are you made to feel afraid or neglected: No Advance Directives: No Advance Directives Information Provided: No Do you have thoughts of harming others: None Do you have a plan to hurt others: No Plan Recently lost weight without trying: No Eating poorly because of decreased appetite: Yes Nutrition Risks: Acute nausea or vomiting x1 week and Poor intake 0-25% >4 days service: No Current occupational status: unemployed Meds Allergies Allergy/AdvReac Type Severity Reaction Status Date / Time meperidine [Demerol] Allergy Unknown Vomiting Verified 05/12/20 10:09 Physical Exam Vital Signs and Narrative: Vital Signs: Last Vital Signs Temp 98.7 F 12/20/20 11:58 Pulse 90 12/20/20 16:45 Resp 16 12/20/20 16:45 BP 122/87 12/20/20 16:45 Pulse Ox 95 12/20/20 16:45 Body Mass Index 19.0 Constitutional Awake and Alert, No apparent distress Neck Supple, No lymphadenopathy Cardiovascular RRR, No M/R/G, S1 S2, No S3 S4, No pedal edema Respiratory Lungs clear, No respiratory distress Gastrointestinal soft, mild tendernes, no guarding, no distention Skin No rash Neurological Alert & oriented x3 Psychological Appropriate affect Results Labs CBC and Chem 7: 12/20/20 12:44 12/20/20 12:44 Labs: Laboratory Results - last 24 hr 12/20/20 12/20/20 12/20/20 12:44 12:44 12:44 MCV 86.9 MCH 29.0 MCHC 33.3 RDW 14.9 Plt Count 233 MPV 9.8 Immature Gran % (Auto) 0.2 Neut % (Auto) 58.4 Lymph % (Auto) 26.8 Benson % (Auto) 10.6 Eos % (Auto) 2.7 Baso % (Auto) 1.3 Lymph # (Auto) 1.6 Benson # (Auto) 0.6 Eos # (Auto) 0.2 Baso # (Auto) 0.1 Abs Immat Gran (auto) 0.01 Absolute Neuts (auto) 3.5 Absolute Nucleated RBC 0.000 Nucleated RBC % (auto) 0.0 Anion Gap 16 Estim Creat Clear Calc 83.7 Estimated GFR > 60 Random Glucose 87 Lactic Acid 1.3 Calcium 9.8 Magnesium 2.3 Total Bilirubin 0.6 Direct Bilirubin 0.2 AST 156 H ALT 112 H Alkaline Phosphatase 73 C-Reactive Protein 0.13 Total Protein 7.9 Albumin 5.1 H Urine Color Urine Appearance Urine pH Ur Specific [place] Urine Protein Urine Glucose (UA) Urine Ketones Urine Blood Urine Nitrite Ur Leukocyte Esterase 12/20/20 13:22 MCV MCH MCHC RDW Plt Count MPV Immature Gran % (Auto) Neut % (Auto) Lymph % (Auto) Benson % (Auto) Eos % (Auto) Baso % (Auto) Lymph # (Auto) Benson # (Auto) Eos # (Auto) Baso # (Auto) Abs Immat Gran (auto) Absolute Neuts (auto) Absolute Nucleated RBC Nucleated RBC % (auto) Anion Gap Estim Creat Clear Calc Estimated GFR Random Glucose Lactic Acid Calcium Magnesium Total Bilirubin Direct Bilirubin AST ALT Alkaline Phosphatase C-Reactive Protein Total Protein Albumin Urine Color YELLOW Urine Appearance CLEAR Urine pH 6.5 Ur Specific [place] <= 1.005 Urine Protein NEG Urine Glucose (UA) NEG Urine Ketones NEG Urine Blood NEG Urine Nitrite NEG Ur Leukocyte Esterase NEG Imaging Radiologist's Impressions: Impressions Abdomen/Pelvis CT 12/20/20 16:01 IMPRESSION: Diverticulosis of the distal colon. Mild wall thickening of the distal colon questionable for mild diverticulitis or colitis similar to recent exam. No evidence of obstruction. There are fluid-filled loops of small and large bowel suggestive of an ileus. Fatty liver. Question partially descended left testicle. Pelvic varices. Assessment and Plan (1) Diverticulitis: Status: Acute (2) Unintentional weight loss: Status: Acute 50 year old male with mild acute diverticulitis, abdominal pain and chronic weight loss and mild to moderate protein calory malnutrion of some sort Diverticultisl appear mild--continue Flagyl and Levaquin, liquid diet, GI consult Weight loss and protein calory malnutrition--work up for celiac disease work Elevated LFTs mild trend and see what GI has to say mild hyponatremia--monitor Diarrhea, check cdif,
--- NOTE | 2020-12-20 18:47 | PC.NURSE ---
called for report, no answer
--- NOTE | 2020-12-20 19:16 | PC.NURSE ---
nurse to nurse report given to Tavon TORRES
[2020-12-20 19:46] VITALS: BP 141/86; PULSE 72; RESP 20; TEMP 36.4; O2SAT 96
[2020-12-20] MEDS: Morphine Sulfate 2 MG/ML CARTRIDGE IVPUSH (20:21)
[2020-12-20] MEDS: Dextrose 5 % and 0.45 % NaCl 1,000 ML 100 ML IVCONT (20:21)
[2020-12-20] MEDS: Enoxaparin Sodium 40 MG/0.4 ML SYRINGE SUBCUT (20:22)
[2020-12-20 23:31] VITALS: BP 132/91; PULSE 91; RESP 20; TEMP 36.3; O2SAT 97
[2020-12-21] VITALS (7 sets, daily range): BP systolic 112–151; BP diastolic 71–88; PULSE 74–86; RESP 16–20; TEMP 36.2–36.8; O2SAT 94–97
[2020-12-21] MEDS: Morphine Sulfate 2 MG/ML CARTRIDGE IVPUSH ×4 (02:30→21:00)
[2020-12-21 03:55] LABS: CDIFF Ag Negative (Negative); CDiff Toxin Negative (Negative)
[2020-12-21 03:56] LABS: CDIFF Internal ctrl Dots and bkg OK (V)
[2020-12-21] MEDS: metroNIDAZOLE/NS 500 MG/100 ML PIGGYBACK 100 MG IV ×3 (06:52→22:22)
[2020-12-21] MEDS: Dextrose 5 % and 0.45 % NaCl 1,000 ML 100 ML IVCONT ×2 (08:11→20:47)
[2020-12-21] MEDS: 0.9 % Sodium Chloride Flush 3 ML SYRINGE IVFLUSH (08:12)
--- NOTE | 2020-12-21 08:41 | MHC.CM.PN ---
EMR REVIEWED, PT ADMITTED W/ACUTE DIVERTICULITIS, CM MET W/PT WHO REPORTS HE IS INDEPENDENT, DENIES USE OF DME, NO HOME SERVICES, PT VERIFIES HIS PCP DR WYNNE AT [facility] AND REPORTS HE WOULD LIKE TO COMPLETE A HCP PRIOR TO D/C. D/C PLAN: HOME SELF-CARE, FAMILY FOR TRANSPORT.
[2020-12-21] MEDS: LORazepam 2 MG/ML VIAL IM (08:47)
[2020-12-21] MEDS: Haloperidol Lactate 5 MG/ML VIAL 2 MG IM (08:50)
--- NOTE | 2020-12-21 09:30 | HO.PM.IMPN ---
Subjective Subjective Date of Service: 12/21/20 Interval History: Seen in follow-up of acute diverticulitis. While the patient is not having any more abdominal pain. He had an episode of seizure this morning followed by a violent-like, agresive post ictal state requiring multiple medication to restrain him and also required hald and ativan to treat his agitation, he bit his tongue with the seizure and lost a tooth--He is back to his baseline and denies taking any substance, he state he last drank 2 beers a week ago Review of Systems Gen: no fever Resp: no sob, no cough CV: no chest, no ADKINS, no leg edema GI: No n/v, no abd pain Neuro: No confusion after seizure Physical Exam Vital Signs: Vital Signs: Last Vital Signs Temp 98.2 F 12/21/20 08:00 Pulse 74 12/21/20 08:00 Resp 18 12/21/20 08:00 BP 123/79 12/21/20 08:00 Pulse Ox 95 12/21/20 08:00 Body Mass Index 19.0 Const: Other: Constitutional Awake and Alert, No apparent distress Neck Supple, No lymphadenopathy\ HEEnT--he bit his tongue on right side Cardiovascular RRR, No M/R/G, S1 S2, No S3 S4, No pedal edema Respiratory Lungs clear, No respiratory distress Gastrointestinal Non tender, Non-distended Skin No rash Neurological Alert & oriented x3, no focal deficit but earlier right after seizure was confused Psychological Appropriate affect Objective Data Current Medications Generic Name Dose Route Start Last Admin Trade Name Freq PRN Reason Stop Dose Admin Acetaminophen 650 mg 12/20/20 19:13 Acetaminophen Supp 650 Mg Supp.Rect SD Q6H PRN Pain, Mild (Pain Scale 1-3) Enoxaparin Sodium 40 mg 12/20/20 21:00 12/20/20 20:22 Enoxaparin Sodium 40 Mg/0.4 Ml Syringe SUBCUT 40 mg Q24H SERGIO Administration Dextrose/Sodium Chloride 1,000 mls @ 100 mls/hr 12/20/20 20:00 12/21/20 08:11 D51/2ns IVCONT 100 mls/hr .Q10H SERGIO Administration Metronidazole 500 mg in 100 mls @ 100 mls/hr 12/20/20 23:00 12/21/20 08:11 Flagyl IV Infused Q8H SERGIO Infusion Morphine Sulfate 2 mg 12/20/20 19:16 12/21/20 06:51 Morphine Sulfate 2 Mg/Ml Cartridge IVPUSH 2 mg Q4H PRN Administration Pain, Severe (Pain Scale 7-10) Ondansetron HCl 4 mg 12/20/20 19:13 12/20/20 20:21 Ondansetron Hcl 4 Mg/2 Ml Vial IVPUSH 4 mg Q8H PRN Administration Nausea and Vomiting Sodium Chloride 3 ml 12/21/20 00:00 12/21/20 08:12 0.9 % Sodium Chloride Flush 3 Ml Syringe IVFLUSH 3 ml QSHIFT SERGIO Administration Labs CBC & Chem 7: 12/20/20 12:44 12/20/20 12:44 Assessment and Plan (1) Diverticulitis: Status: Acute (2) Unintentional weight loss: Status: Acute Assessment and Plan: 50 year old male with mild acute diverticulitis, abdominal pain and chronic weight loss and mild to moderate protein calory malnutrion of some sort Diverticultisl appear mild--continue Flagyl and Ceftriaxone, liquid diet, GI consult Weight loss and protein calory malnutrition--work up for celiac disease work Elevated LFTs mild trend and see what GI has to say--may need liver US mild hyponatremia--monitor Seizure--check divalent, CT of head, Neuro consult, EEG, Utox Diarrhea, Negative C dif
--- NOTE | 2020-12-21 10:35 | PC.NURSE ---
rapid response called for patient having seizure like episode. 2 mg im ativan taken from pyxis and given to patient. 2 mg im haldol given. charted by primary rn
--- NOTE | 2020-12-21 10:36 | PM.NEUROCN ---
History of Present Illness Data of Consult Service Date: 12/21/20 Primary Care Provider: Mariah 50 years old man who apparently had no significant past medical history except recent abdominal pain attributed to diverticulitis was admitted for treatment and had received dose of antibiotic, probably Levaquin. He had no previous history of seizure disorder. This morning he was noted to have a generalized seizure. He had no recollection of what had happened. There was no physical injury or incontinence. He was in the bed when this happened. [facility] Past Medical History Medical History Calcaneus fracture Functional capacity: independent ambulation Family History Family History Father No problems noted. Mother No problems noted. Son No problems noted. Daughter No problems noted. Surgical History Surgical History History of back surgery History of hernia surgery History of knee surgery Social History Social History (Updated 12/21/20 @ 09:18 by Sly Malik MD) Household Members: Friend(s) Housing: House Smoking Status: Never smoker Use of substances other than those prescribed or required for medical reasons: Yes Substance Use Type: Marijuana Substance Use Type Other:: Denies other substances Currently Displaying Signs/Symptoms of Drug Intoxication Withdrawal: No Have you been hit, kicked, punched, or otherwise hurt by someone within the past year? If so, by whom?: No Do you feel safe in your current relationship?: No Current Relationship Is there a partner from a previous relationship who is making you feel unsafe now?: No Are you made to feel afraid or neglected: No Advance Directives: No Advance Directives Information Provided: No Do you have thoughts of harming others: None Do you have a plan to hurt others: No Plan Recently lost weight without trying: No Eating poorly because of decreased appetite: Yes Nutrition Risks: Acute nausea or vomiting x1 week and Poor intake 0-25% >4 days service: No Current occupational status: unemployed Meds Allergies Allergy/AdvReac Type Severity Reaction Status Date / Time meperidine [Demerol] Allergy Unknown Vomiting Verified 05/12/20 10:09 Active Medications: Current Medications Generic Name Dose Route Start Last Admin Trade Name Freq PRN Reason Stop Dose Admin Acetaminophen 650 mg 12/20/20 19:13 Acetaminophen Supp 650 Mg Supp.Rect MS Q6H PRN Pain, Mild (Pain Scale 1-3) Enoxaparin Sodium 40 mg 12/20/20 21:00 12/20/20 20:22 Enoxaparin Sodium 40 Mg/0.4 Ml Syringe SUBCUT 40 mg Q24H SERGIO Administration Dextrose/Sodium Chloride 1,000 mls @ 100 mls/hr 12/20/20 20:00 12/21/20 08:11 D51/2ns IVCONT 100 mls/hr .Q10H SERGIO Administration Metronidazole 500 mg in 100 mls @ 100 mls/hr 12/20/20 23:00 12/21/20 08:11 Flagyl IV Infused Q8H SERGIO Infusion Morphine Sulfate 2 mg 12/20/20 19:16 12/21/20 06:51 Morphine Sulfate 2 Mg/Ml Cartridge IVPUSH 2 mg Q4H PRN Administration Pain, Severe (Pain Scale 7-10) Ondansetron HCl 4 mg 12/20/20 19:13 12/20/20 20:21 Ondansetron Hcl 4 Mg/2 Ml Vial IVPUSH 4 mg Q8H PRN Administration Nausea and Vomiting Sodium Chloride 3 ml 12/21/20 00:00 12/21/20 08:12 0.9 % Sodium Chloride Flush 3 Ml Syringe IVFLUSH 3 ml QSHIFT SERGIO Administration Physical Exam Vital Signs: Vital Signs: Last Vital Signs Temp 98.2 F 12/21/20 08:00 Pulse 74 12/21/20 08:00 Resp 18 12/21/20 08:00 BP 123/79 12/21/20 08:00 Pulse Ox 95 12/21/20 08:00 Body Mass Index 19.0 He was drowsy but able to open his eyes make an eye contact and answer questions. He knew where he was but was not sure why he was here. He was following commands. Pupils were equal and reactive to light and extraocular muscles were intact. Visual turner seem to be full. Skin was pale and yellowish. There was no pronator drift. Deep tendon reflexes were 1+ with equivocal plantars. There was no focal weakness. Results Labs CBC & Chem 7: 12/20/20 12:44 12/20/20 12:44 Labs: Short CBC 12/20/20 Range/Units 12:44 WBC 6.0 (4.8-10.8) X10*3/uL Hgb 13.3 L (14.0-18.0) g/dl Hct 39.9 L (42-52) % Plt Count 233 (160-400) X10*3/uL BMP 12/20/20 12:44 Sodium 132 L Potassium 3.9 Chloride 93 L Carbon Dioxide 27 BUN 2 L Creatinine 0.72 Calcium 9.8 Liver Function 12/20/20 Range/Units 12:44 Total Bilirubin 0.6 (0.0-1.0) mg/dL Direct Bilirubin 0.2 (0.0-0.5) mg/dL AST 156 H (5-37) U/L ALT 112 H (0-40) U/L Alkaline Phosphatase 73 (39-117) U/L Albumin 5.1 H (3.5-5.0) g/dL Urine 12/20/20 Range/Units 13:22 Urine Color YELLOW Urine Appearance CLEAR Urine pH 6.5 (5.0-8.0) Ur Specific [place] <= 1.005 (1.005-1.025) Urine Protein NEG (NEG-TRACE) MG/DL Urine Glucose (UA) NEG (NEG) MG/DL His head CT revealed mild diffuse cerebral and cerebellar atrophy and mild chronic microvascular ischemic type changes. Assessment and Plan (1) Seizure: Problem details: 50 years old man who was admitted with abdominal pain and diagnosis of diverticulitis was noted to have a generalized convulsion this morning. He was awake historian but reported no previous history of seizure disorder. At this time he was also somewhat postictal and history could not be relied upon. His head CT reveal diffuse atrophy for his age suggesting that they might be long-term exposure to alcohol. Also he was probably treated with Levaquin type of antibiotic recently, which sometime can trigger seizure. At this time my recommendation is appropriate treatment for abdominal issues but a voiding Levaquin type of antibiotic, and EEG, an MRI of brain with and without contrast. Status: Acute
--- NOTE | 2020-12-21 10:41 | PM.GICN ---
History of Present Illness Data of Consult Service Date: 12/21/20 Requesting physician: Sly Malik Primary Care Provider: Unknown Physician HPI Reason for consult: diverticulitis, weight loss 50-year-old male with hx of back surgery 2005 who I am asked to see for assessment for diverticulitis and weight loss. He had lower abdominal pain 1 week ago and came to ED with dx of diverticulitis made. He was non compliant with PO augmentin given to him on d/c and came back to the ED with further c/o post prandial diarrhea and ongoing abdominal pain. The pain is midl to moderate and in LLQ and goes to the right side of abdomen. He has poor appetite and lost about 10# over 2 weeks. He does say he never felt right since back surgery 2005 but can;t really specify in what sense. He also had colonoscopy 2013 but is vague on details. does admit to small amounts of red blood on wiping sometimes, A repeat CT scan revealed persistent mild diverticulitis, but no fever or raised WCC. He got levaquin. Today he had a seizure on the floor and is awaiting further neuro w/u--Ct head was negative. He doens;t feel 100% still after the seizure. He denies alcohol intake or recreational drug use. LFT were mildly raised, Review of Systems Review of Systems: Gen: no fever Resp: no sob, no cough CV: no chest, no ADKINS, no leg edema GI: No n/v, no abd pain Neuro: No confusion after seizure Yes all other systems are reviewed and are negative [facility] Past Medical History Medical History Calcaneus fracture Functional capacity: independent ambulation Family History Family History Father No problems noted. Mother No problems noted. Son No problems noted. Daughter No problems noted. Pertinent family history: heart disease, diabetes, HTN Surgical History Surgical History History of back surgery History of hernia surgery History of knee surgery Social History Social History (Updated 12/21/20 @ 09:18 by Sly Malik MD) Household Members: Friend(s) Housing: House Smoking Status: Never smoker Use of substances other than those prescribed or required for medical reasons: Yes Substance Use Type: Marijuana Substance Use Type Other:: Denies other substances Currently Displaying Signs/Symptoms of Drug Intoxication Withdrawal: No Have you been hit, kicked, punched, or otherwise hurt by someone within the past year? If so, by whom?: No Do you feel safe in your current relationship?: No Current Relationship Is there a partner from a previous relationship who is making you feel unsafe now?: No Are you made to feel afraid or neglected: No Advance Directives: No Advance Directives Information Provided: No Do you have thoughts of harming others: None Do you have a plan to hurt others: No Plan Recently lost weight without trying: No Eating poorly because of decreased appetite: Yes Nutrition Risks: Acute nausea or vomiting x1 week and Poor intake 0-25% >4 days service: No Current occupational status: unemployed Meds Allergies Allergy/AdvReac Type Severity Reaction Status Date / Time meperidine [Demerol] Allergy Unknown Vomiting Verified 05/12/20 10:09 Active Medications: Current Medications Generic Name Dose Route Start Last Admin Trade Name Freq PRN Reason Stop Dose Admin Acetaminophen 650 mg 12/20/20 19:13 Acetaminophen Supp 650 Mg Supp.Rect [place] Q6H PRN Pain, Mild (Pain Scale 1-3) Enoxaparin Sodium 40 mg 12/20/20 21:00 12/20/20 20:22 Enoxaparin Sodium 40 Mg/0.4 Ml Syringe SUBCUT 40 mg Q24H SERGIO Administration Dextrose/Sodium Chloride 1,000 mls @ 100 mls/hr 12/20/20 20:00 12/21/20 08:11 D51/2ns IVCONT 100 mls/hr .Q10H SERGIO Administration Metronidazole 500 mg in 100 mls @ 100 mls/hr 12/20/20 23:00 12/21/20 08:11 Flagyl IV Infused Q8H SERGIO Infusion Morphine Sulfate 2 mg 12/20/20 19:16 12/21/20 06:51 Morphine Sulfate 2 Mg/Ml Cartridge IVPUSH 2 mg Q4H PRN Administration Pain, Severe (Pain Scale 7-10) Ondansetron HCl 4 mg 12/20/20 19:13 12/20/20 20:21 Ondansetron Hcl 4 Mg/2 Ml Vial IVPUSH 4 mg Q8H PRN Administration Nausea and Vomiting Sodium Chloride 3 ml 12/21/20 00:00 12/21/20 08:12 0.9 % Sodium Chloride Flush 3 Ml Syringe IVFLUSH 3 ml QSHIFT SERGIO Administration Physical Exam Vital Signs: Vital Signs: Last Vital Signs Temp 98.2 F 12/21/20 08:00 Pulse 74 12/21/20 08:00 Resp 18 12/21/20 08:00 BP 123/79 12/21/20 08:00 Pulse Ox 95 12/21/20 08:00 Body Mass Index 19.0 Const: Other: Constitutional Awake and Alert, No apparent distress Neck Supple, No lymphadenopathy\ HEEnT--he bit his tongue on right side Cardiovascular RRR, No M/R/G, S1 S2, No S3 S4, No pedal edema Respiratory Lungs clear, No respiratory distress Gastrointestinal Non tender, Non-distended Skin No rash Neurological Alert & oriented x3, no focal deficit but earlier right after seizure was confused Psychological Appropriate affect Results Labs CBC & Chem 7: 12/20/20 12:44 12/20/20 12:44 Labs: Short CBC 12/20/20 Range/Units 12:44 WBC 6.0 (4.8-10.8) X10*3/uL Hgb 13.3 L (14.0-18.0) g/dl Hct 39.9 L (42-52) % Plt Count 233 (160-400) X10*3/uL BMP 12/20/20 12:44 Sodium 132 L Potassium 3.9 Chloride 93 L Carbon Dioxide 27 BUN 2 L Creatinine 0.72 Calcium 9.8 Liver Function 12/20/20 Range/Units 12:44 Total Bilirubin 0.6 (0.0-1.0) mg/dL Direct Bilirubin 0.2 (0.0-0.5) mg/dL AST 156 H (5-37) U/L ALT 112 H (0-40) U/L Alkaline Phosphatase 73 (39-117) U/L Albumin 5.1 H (3.5-5.0) g/dL Urine 12/20/20 Range/Units 13:22 Urine Color YELLOW Urine Appearance CLEAR Urine pH 6.5 (5.0-8.0) Ur Specific [place] <= 1.005 (1.005-1.025) Urine Protein NEG (NEG-TRACE) MG/DL Urine Glucose (UA) NEG (NEG) MG/DL Imaging CT scan - pelvis: Attestation: I personally reviewed and interpreted this imaging study as follows: My impression: gastric thickening, duodenal hyperattenuation, diverticular disease with mild stranding in sigmoid area Assessment and Plan (1) Unintentional weight loss: Status: Acute (2) Diverticulitis: Status: Acute (3) Elevated LFTs: Status: Acute 1/ Weight loss with mild diverticulitis, post prandial diarrhea, BUN only 2! 2/ abn LFT 3/ mild anemia PLAN 1/ discussed EGD and colonoscopy for further eval to r/o neoplasial, colitis, crohns enteropathy, he wants to hold off on colonoscopy and prefers to go with the EGD onyl at this time. 2/ Recommend US liver, r/o gallstones, structural liver disease, check hep serologies, celiac panel, AMa, ALYCIA< SMA, SLA, Igg, iron studies, and ferritin, TSH 3/ fecal fat, fecal elastase, fecal calprotectin 4/ measure stool output and consistency-look for objective signs of diarrhea 5/ chekc UPEP and SPEP
[2020-12-21 11:03] LABS: Alanine Aminotransferase 78 U/L (0-40); Alkaline Phosphatase 60 U/L (39-117); Aspartate Amino Transferase 90 U/L (5-37); Bilirubin Direct 0.3 mg/dL (0.0-0.5); Bilirubin Total 0.5 mg/dL (0.0-1.0)
--- NOTE | 2020-12-21 11:15 | PC.NURSE ---
Patient witnessed by home housekeeper to be sitting on side of bed then suddenly lay backwards in bed. This RN was outside room and came in right away to find patient laying on back across the bed shaking and tremoring. Not responding. Rapid response called. Witnessed this activity for about 45 seconds. Turned patient around in bed and started bleeding from mouth. Layed patient on side. Patient then began thrashing arms and legs and trying to get up. 3 security guards restrained patient. IV access became dislodged during activity and struggle. IM ativan given per MD order. Patient woke up wide eyed and agitated, struggling to move. IM haldol given per MD order. Reassured patient that he was ok and explained what happened. patient bit tongue during seizure and lost a piece of his tooth which was placed in a small cup. Patient states he just fell asleep and then woke up with people around him holding him down. New orders for neuro and CT brain and labs. Patient currently resting comfortably in bed. vital signs stable.
[2020-12-21] MEDS: cefTRIAXone sodium 1 GM in 0.9 % Sodium Chloride 50 ML IV (14:12)
[2020-12-21 14:57] LABS: Amphetamine Screen Urine Not Detected (Not Detect); Barbiturates, Urine Not Detected (Not Detect); Benzodiazepines Screen Urine Not Detected (Not Detect); Cannabinoid Screen Urine POSITIVE (Not Detect); Cocaine Screen Urine Not Detected (Not Detect); Opiate Screen Urine POSITIVE (Not Detect); Phencyclidine Screen Urine Not Detected (Not Detect)
[2020-12-21] MEDS: Enoxaparin Sodium 40 MG/0.4 ML SYRINGE SUBCUT (20:50)
[2020-12-22] VITALS (10 sets, daily range): BP systolic 119–161; BP diastolic 78–96; PULSE 69–76; RESP 16–20; TEMP 36.6–36.9; O2SAT 96–99; BMI 19.0
--- NOTE | 2020-12-22 | EEG_ITS ---
This is a 16-channel EEG with an EKG lead. The patient is reported awake during the tracing. Background EEG rhythm is low amplitude fast with no obvious asymmetry or paroxysmal tendency. Photic stimulation does not produce any significant abnormality. Hyperventilation is not performed. Cardiac lead does not reveal any significant abnormality. No sharp wave spikes or paroxysmal tendency noted. IMPRESSION: Unremarkable EEG. MD CAT Ortiz/GOLD / [id number]
[2020-12-22] MEDS: Morphine Sulfate 2 MG/ML CARTRIDGE IVPUSH ×6 (01:25→23:14)
[2020-12-22] MEDS: Dextrose 5 % and 0.45 % NaCl 1,000 ML 100 ML IVCONT ×2 (06:49→18:54)
[2020-12-22] MEDS: metroNIDAZOLE/NS 500 MG/100 ML PIGGYBACK 100 MG IV ×3 (06:52→22:07)
--- NOTE | 2020-12-22 09:23 | HO.PM.IMPN ---
Subjective Subjective Date of Service: 12/22/20 Interval History: f/u for diverticulitis, yesterday had seizure--no further epsisode, MRI shows mild cerebral atrophy Review of Systems Gen: no fever Resp: no sob, no cough CV: no chest, no ADKINS, no leg edema GI: No n/v, no abd pain Neuro: No confusion Physical Exam Vital Signs: Vital Signs: Last Vital Signs Temp 98.4 F 12/22/20 08:00 Pulse 76 12/22/20 08:00 Resp 19 12/22/20 08:00 BP 131/78 12/22/20 08:00 Pulse Ox 97 12/22/20 08:00 Body Mass Index 19.0 Const: Other: Constitutional Awake and Alert, No apparent distress Neck Supple, No lymphadenopathy\ HEENT--he bit his tongue on right side Cardiovascular RRR, No M/R/G, S1 S2, No S3 S4, No pedal edema Respiratory Lungs clear, No respiratory distress Gastrointestinal Non tender, Non-distended Skin No rash Neurological Alert & oriented x3, no focal deficit but earlier right after seizure was confused Psychological Appropriate affect Objective Data Current Medications Generic Name Dose Route Start Last Admin Trade Name Freq PRN Reason Stop Dose Admin Acetaminophen 650 mg 12/20/20 19:13 Acetaminophen Supp 650 Mg Supp.Rect [place] Q6H PRN Pain, Mild (Pain Scale 1-3) Enoxaparin Sodium 40 mg 12/20/20 21:00 12/21/20 20:50 Enoxaparin Sodium 40 Mg/0.4 Ml Syringe SUBCUT 40 mg Q24H SERGIO Administration Dextrose/Sodium Chloride 1,000 mls @ 100 mls/hr 12/20/20 20:00 12/22/20 08:14 D51/2ns IVCONT 100 mls/hr .Q10H SERGIO Infusion Metronidazole 500 mg in 100 mls @ 100 mls/hr 12/20/20 23:00 12/22/20 07:56 Flagyl IV Infused Q8H SERGIO Infusion Ceftriaxone Sodium 1 gm/ 50 mls @ 100 mls/hr 12/21/20 13:00 12/21/20 14:45 Sodium Chloride IV Infused Q24H SERGIO Infusion Morphine Sulfate 2 mg 12/20/20 19:16 12/22/20 05:31 Morphine Sulfate 2 Mg/Ml Cartridge IVPUSH 2 mg Q4H PRN Administration Pain, Severe (Pain Scale 7-10) Ondansetron HCl 4 mg 12/20/20 19:13 12/20/20 20:21 Ondansetron Hcl 4 Mg/2 Ml Vial IVPUSH 4 mg Q8H PRN Administration Nausea and Vomiting Sodium Chloride 3 ml 12/21/20 00:00 12/22/20 00:14 0.9 % Sodium Chloride Flush 3 Ml Syringe IVFLUSH Not Given QSHIFT SERGIO Labs CBC & Chem 7: 12/20/20 12:44 12/20/20 12:44 Microbiology Microbiology Results: Microbiology 12/20/20 13:03 Blood - Venous Blood Culture - Preliminary No growth after 24 hours. 12/20/20 12:44 Blood - Venous Blood Culture - Preliminary No growth after 24 hours. Assessment and Plan (1) Diverticulitis: Status: Acute (2) Unintentional weight loss: Status: Acute Assessment and Plan: 50 year old male with mild acute diverticulitis, abdominal pain and chronic weight loss and mild to moderate protein calory malnutrion of some sort Diverticultisl appear mild--continue Flagyl and Ceftriaxone, liquid diet and advance as tolerated Weight loss and protein calory malnutrition--work up for celiac disease work, EGD on 12/[address] Garnett -Further workup and testing by GI Elevated LFTs mild trend and see what GI has to say--may need liver US mild hyponatremia--monitor Seizure--EEG today, MRI ok other mild volume loss Diarrhea, Negative C dif
[2020-12-22] MEDS: cefTRIAXone sodium 1 GM in 0.9 % Sodium Chloride 50 ML IV (12:07)
[2020-12-22] MEDS: ondansetron HCL 4 MG/2 ML VIAL IVPUSH (12:15)
--- NOTE | 2020-12-22 14:27 | MHC.CLN ---
RE: CONSULT PT IS MODERATELY MALNOURISHED PT WITH MILDLY DEPLETED SUBCUTANEOUS FAT AND MUSCLE MASS, BMI 19 AND REPORTED 10# WT LOSS X 2 WEEKS WITH PROLONGED POOR PO INTAKE AND CHRONIC DIARRHEA PT REPORTED GI ISSUES SINCE S/P BACK SURGERY 2005. PT REPORTS WORSENING SYMPTOMS WITH CHRONIC DIARRHEA X 2 WEEKS. PT'S GOAL WT 130#, BUT WT HX REVEALS 110# 12/2019 PT RECEPTIVE TO DRINKING ENSURE (S/B FLAVOR) TO INCREASE KCALS AND PROTEIN. PT CURRENTLY ABLE TO TOLERATE SOME CLEAR LIQUIDS WILL ADD ENSURE BID; SUPPLEMENT WILL PROVIDE 700KCALS, 40G PROTEIN SEE ALSO CLINICAL NUTRITION ASSESSMENT
[2020-12-22] MEDS: Enoxaparin Sodium 40 MG/0.4 ML SYRINGE SUBCUT (20:12)
[2020-12-22 23:27] LABS: Transglutaminase Ab IgG 1 U/mL; Transglutaminase IgA 1 U/mL
[2020-12-23] VITALS (9 sets, daily range): BP systolic 104–142; BP diastolic 59–84; PULSE 62–78; RESP 16–20; TEMP 36.1–36.8; O2SAT 96–99
[2020-12-23] MEDS: Morphine Sulfate 2 MG/ML CARTRIDGE IVPUSH ×3 (03:34→12:49)
[2020-12-23] MEDS: metroNIDAZOLE/NS 500 MG/100 ML PIGGYBACK 100 MG IV ×2 (06:21→15:14)
[2020-12-23] MEDS: 0.9 % Sodium Chloride Flush 3 ML SYRINGE IVFLUSH (08:33)
[2020-12-23] MEDS: Dextrose 5 % and 0.45 % NaCl 1,000 ML 100 ML IVCONT (08:36)
--- NOTE | 2020-12-23 10:05 | HO.PM.IMPN ---
Subjective Subjective Date of Service: 12/23/20 Interval History: f/u for diverticulitis, no further seizure Review of Systems Gen: no fever Resp: no sob, no cough CV: no chest, no ADKINS, no leg edema GI: No n/v, no abd pain Neuro: No confusion Physical Exam Vital Signs: Vital Signs: Last Vital Signs Temp 98.3 F 12/23/20 07:55 Pulse 74 12/23/20 07:55 Resp 17 12/23/20 07:55 BP 136/76 12/23/20 07:55 Pulse Ox 96 12/23/20 07:55 Body Mass Index 19.0 Const: Other: Constitutional Awake and Alert, No apparent distress Neck Supple, No lymphadenopathy\ HEENT--he bit his tongue on right side Cardiovascular RRR, No M/R/G, S1 S2, No S3 S4, No pedal edema Respiratory Lungs clear, No respiratory distress Gastrointestinal Non tender, Non-distended Skin No rash Neurological Alert & oriented x3, no focal deficit but earlier right after seizure was confused Psychological Appropriate affect Objective Data Current Medications Generic Name Dose Route Start Last Admin Trade Name Freq PRN Reason Stop Dose Admin Acetaminophen 650 mg 12/20/20 19:13 Acetaminophen Supp 650 Mg Supp.Rect [place] Q6H PRN Pain, Mild (Pain Scale 1-3) Enoxaparin Sodium 40 mg 12/20/20 21:00 12/22/20 20:12 Enoxaparin Sodium 40 Mg/0.4 Ml Syringe SUBCUT 40 mg Q24H SERGIO Administration Dextrose/Sodium Chloride 1,000 mls @ 100 mls/hr 12/20/20 20:00 12/23/20 08:36 D51/2ns IVCONT 100 mls/hr .Q10H SERGIO Administration Metronidazole 500 mg in 100 mls @ 100 mls/hr 12/20/20 23:00 12/23/20 07:43 Flagyl IV Infused Q8H SERGIO Infusion Ceftriaxone Sodium 1 gm/ 50 mls @ 100 mls/hr 12/21/20 13:00 12/22/20 13:23 Sodium Chloride IV Infused Q24H SERGIO Infusion Morphine Sulfate 2 mg 12/20/20 19:16 12/23/20 08:34 Morphine Sulfate 2 Mg/Ml Cartridge IVPUSH 2 mg Q4H PRN Administration Pain, Severe (Pain Scale 7-10) Ondansetron HCl 4 mg 12/20/20 19:13 12/22/20 12:15 Ondansetron Hcl 4 Mg/2 Ml Vial IVPUSH 4 mg Q8H PRN Administration Nausea and Vomiting Sodium Chloride 3 ml 12/21/20 00:00 12/23/20 08:33 0.9 % Sodium Chloride Flush 3 Ml Syringe IVFLUSH 3 ml QSHIFT SERGIO Administration Labs CBC & Chem 7: 12/20/20 12:44 12/20/20 12:44 Microbiology Microbiology Results: Microbiology 12/20/20 13:03 Blood - Venous Blood Culture - Preliminary No growth after 48 hours. 12/20/20 12:44 Blood - Venous Blood Culture - Preliminary No growth after 48 hours. Assessment and Plan (1) Diverticulitis: Status: Acute (2) Unintentional weight loss: Status: Acute Assessment and Plan: 50 year old male with mild acute diverticulitis, abdominal pain and chronic weight loss and mild to moderate protein calory malnutrion of some sort Diverticultisl appear mild--continue Flagyl and Ceftriaxone, liquid diet and advance as tolerated Weight loss and protein calory malnutrition--work up for celiac disease work, EGD on 12/[address] Garnett -Further workup and testing by GI, EGD today Elevated LFTs mild trend and see what GI has to say--may need liver US mild hyponatremia--monitor Seizure--EEG result pending, MRI 12/21, ok other mild volume loss Diarrhea, Negative C dif
--- NOTE | 2020-12-23 10:57 | P.CONAN_ITS ---
[facility] Active Problems Active Problems: All Active Problems (Updated 12/21/20 @ 10:53 by Esau Garnett MD) Elevated LFTs (Acute) Seizure (Acute) Unintentional weight loss (Acute) Diverticulitis (Acute) Past Medical History Medical History Calcaneus fracture Functional capacity: independent ambulation Family History Family History Father No problems noted. Mother No problems noted. Son No problems noted. Daughter No problems noted. Surgical History Surgical History History of back surgery History of hernia surgery History of knee surgery Social History Social History Household Members: Friend(s) Housing: House Smoking Status: Never smoker Use of substances other than those prescribed or required for medical reasons: No Substance Use Type: Marijuana Substance Use Type Other:: Denies other substances Currently Displaying Signs/Symptoms of Drug Intoxication Withdrawal: No Have you been hit, kicked, punched, or otherwise hurt by someone within the past year? If so, by whom?: No Do you feel safe in your current relationship?: No Current Relationship Is there a partner from a previous relationship who is making you feel unsafe now?: No Are you made to feel afraid or neglected: No Are you DNR?: No Advance Directives: No Advance Directives Information Provided: No Do you have thoughts of harming others: None Do you have a plan to hurt others: No Plan Recently lost weight without trying: No Eating poorly because of decreased appetite: Yes Nutrition Risks: Acute nausea or vomiting x1 week and Poor intake 0-25% >4 days service: No Current occupational status: unemployed Meds Allergies Allergy/AdvReac Type Severity Reaction Status Date / Time meperidine [Demerol] Allergy Unknown Vomiting Verified 05/12/20 10:09 Active Medications: Current Medications Generic Name Dose Route Start Last Admin Trade Name Freq PRN Reason Stop Dose Admin Acetaminophen 650 mg 12/20/20 19:13 Acetaminophen Supp 650 Mg Supp.Rect [place] Q6H PRN Pain, Mild (Pain Scale 1-3) Enoxaparin Sodium 40 mg 05/11/21 21:00 12/22/20 20:12 Enoxaparin Sodium 40 Mg/0.4 Ml Syringe SUBCUT 40 mg Q24H SERGIO Administration Dextrose/Sodium Chloride 1,000 mls @ 100 mls/hr 12/20/20 20:00 12/23/20 08:36 D51/2ns IVCONT 100 mls/hr .Q10H SERGIO Administration Metronidazole 500 mg in 100 mls @ 100 mls/hr 12/20/20 23:00 12/23/20 07:43 Flagyl IV Infused Q8H SERGIO Infusion Ceftriaxone Sodium 1 gm/ 50 mls @ 100 mls/hr 12/21/20 13:00 12/22/20 13:23 Sodium Chloride IV Infused Q24H SERGIO Infusion Morphine Sulfate 2 mg 12/20/20 19:16 12/23/20 08:34 Morphine Sulfate 2 Mg/Ml Cartridge IVPUSH 2 mg Q4H PRN Administration Pain, Severe (Pain Scale 7-10) Ondansetron HCl 4 mg 12/20/20 19:13 12/22/20 12:15 Ondansetron Hcl 4 Mg/2 Ml Vial IVPUSH 4 mg Q8H PRN Administration Nausea and Vomiting Sodium Chloride 3 ml 12/21/20 00:00 12/23/20 08:33 0.9 % Sodium Chloride Flush 3 Ml Syringe IVFLUSH 3 ml QSHIFT SERGIO Administration Exam Exam Date and Time: December 23, 2020 1057 Height,Weight and Vital Signs: Height 5 ft 2 in Weight 47.174 kg Last Vital Signs Temp 97.0 F 12/23/20 10:02 Pulse 64 12/23/20 10:02 Resp 18 12/23/20 10:02 BP 142/59 H 12/23/20 10:02 Pulse Ox 97 12/23/20 10:02 Pertinent Lab Results Pertinent Lab Results: Laboratory Tests 12/20/20 12/20/20 12/20/20 12:44 12:44 12:44 WBC 6.0 RBC 4.59 L Hgb 13.3 L Hct 39.9 L MCV 86.9 MCH 29.0 MCHC 33.3 RDW 14.9 Plt Count 233 MPV 9.8 Immature Gran % (Auto) 0.2 Neut % (Auto) 58.4 Lymph % (Auto) 26.8 Gilliam % (Auto) 10.6 Eos % (Auto) 2.7 Baso % (Auto) 1.3 Lymph # (Auto) 1.6 Gilliam # (Auto) 0.6 Eos # (Auto) 0.2 Baso # (Auto) 0.1 Abs Immat Gran (auto) 0.01 Absolute Neuts (auto) 3.5 Absolute Nucleated RBC 0.000 Nucleated RBC % (auto) 0.0 Sodium 132 L Potassium 3.9 Chloride 93 L Carbon Dioxide 27 Anion Gap 16 BUN 2 L Creatinine 0.72 Estim Creat Clear Calc 83.7 Estimated GFR > 60 Random Glucose 87 Lactic Acid 1.3 Calcium 9.8 Magnesium 2.3 Total Bilirubin 0.6 Direct Bilirubin 0.2 AST 156 H ALT 112 H Alkaline Phosphatase 73 C-Reactive Protein 0.13 Total Protein 7.9 Albumin 5.1 H Urine Color Urine Appearance Urine pH Ur Specific [place] Urine Protein Urine Glucose (UA) Urine Ketones Urine Blood Urine Nitrite Ur Leukocyte Esterase Urine Opiates Screen Ur Barbiturates Screen Ur Phencyclidine Scrn Ur Amphetamines Screen U Benzodiazepines Scrn Urine Cocaine Screen U Marijuana (THC) Screen Tiss Transglutamin IgG Tiss Transglutamin IgA C. difficile Toxin A&B C. difficile Antigen C. difficile Interpret 12/20/20 12/20/20 12/21/20 13:22 18:40 02:55 WBC RBC Hgb Hct MCV MCH MCHC RDW Plt Count MPV Immature Gran % (Auto) Neut % (Auto) Lymph % (Auto) Gilliam % (Auto) Eos % (Auto) Baso % (Auto) Lymph # (Auto) Gilliam # (Auto) Eos # (Auto) Baso # (Auto) Abs Immat Gran (auto) Absolute Neuts (auto) Absolute Nucleated RBC Nucleated RBC % (auto) Sodium Potassium Chloride Carbon Dioxide Anion Gap BUN Creatinine Estim Creat Clear Calc Estimated GFR Random Glucose Lactic Acid Calcium Magnesium Total Bilirubin Direct Bilirubin AST ALT Alkaline Phosphatase C-Reactive Protein Total Protein Albumin Urine Color YELLOW Urine Appearance CLEAR Urine pH 6.5 Ur Specific [place] <= 1.005 Urine Protein NEG Urine Glucose (UA) NEG Urine Ketones NEG Urine Blood NEG Urine Nitrite NEG Ur Leukocyte Esterase NEG Urine Opiates Screen Ur Barbiturates Screen Ur Phencyclidine Scrn Ur Amphetamines Screen U Benzodiazepines Scrn Urine Cocaine Screen U Marijuana (THC) Screen Tiss Transglutamin IgG 1 Tiss Transglutamin IgA 1 C. difficile Toxin A&B Negative C. difficile Antigen Negative C. difficile Interpret SEE NOTE 12/21/20 12/21/20 09:54 14:20 WBC RBC Hgb Hct MCV MCH MCHC RDW Plt Count MPV Immature Gran % (Auto) Neut % (Auto) Lymph % (Auto) Gilliam % (Auto) Eos % (Auto) Baso % (Auto) Lymph # (Auto) Gilliam # (Auto) Eos # (Auto) Baso # (Auto) Abs Immat Gran (auto) Absolute Neuts (auto) Absolute Nucleated RBC Nucleated RBC % (auto) Sodium Potassium Chloride Carbon Dioxide Anion Gap BUN Creatinine Estim Creat Clear Calc Estimated GFR Random Glucose Lactic Acid Calcium 9.0 D Magnesium 2.0 Total Bilirubin 0.5 Direct Bilirubin 0.3 AST 90 H ALT 78 H Alkaline Phosphatase 60 C-Reactive Protein Total Protein 6.0 L D Albumin 4.0 D Urine Color Urine Appearance Urine pH Ur Specific [place] Urine Protein Urine Glucose (UA) Urine Ketones Urine Blood Urine Nitrite Ur Leukocyte Esterase Urine Opiates Screen POSITIVE H Ur Barbiturates Screen Not Detected Ur Phencyclidine Scrn Not Detected Ur Amphetamines Screen Not Detected U Benzodiazepines Scrn Not Detected Urine Cocaine Screen Not Detected U Marijuana (THC) Screen POSITIVE H Tiss Transglutamin IgG Tiss Transglutamin IgA C. difficile Toxin A&B C. difficile Antigen C. difficile Interpret Airway Mallampati Class: II TM Dist: >3cm Neck ROM: Full Heart: RRR Lungs: CTA
--- NOTE | 2020-12-23 11:38 | MHC.SHP ---
Pre-Procedural Eval Section A The patient is an INPATIENT: Yes The History & Physical has been completed within 30 days and I have reviewed it.: Yes Section B Chief Complaint: Acute Diverticulitis Allergies: Allergies Allergy/AdvReac Type Severity Reaction Status Date / Time meperidine [Demerol] Allergy Unknown Vomiting Verified 05/12/20 10:09 Plan Diagnosis/Plan: Unchanged I have reviewed the history and physical and performed a pertinent physical examination on my patient. No changes have occurred unless specified.
--- NOTE | 2020-12-23 11:52 | P.BOP_ITS ---
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
--- NOTE | 2020-12-23 11:53 | W.PM.OPN ---
Operative Note Operative Note Date of Service: 12/23/20 Narrative: Procedure Description: EGD FLEXIBLE TRANSORAL UPPER GASTROINTESTINAL ENDOSCOPY UPPER ENDOSCOPY Consent: Indications for the procedure and potential complications of bleeding, perforation, reaction to medications and missed diagnosis were discussed with the patient and informed consent was obtained. Instrument: Olympus GIF H 190 J mid size upper endoscope Monitoring: Vital signs and clinical assessment, continuous EKG monitoring, Pulse oximetry, Carbon Dioxide monitoring and blood pressure monitoring were done throughout the procedure. Procedure: The patient was placed in the left lateral decubitis position and pre-procedure medications were administered and a bite block was placed. The endoscope was inserted into the mouth and advanced under direct vision to the third part of duodenum. A careful inspection was made as the upper endoscope was withdrawn including a retroflexed examination of the proximal stomach; Findings and interventions are described below. Findings: Larynx:normal Esophagus: GE junction at 40 cm, diaphragm hiatus at 40 cm, esophagitis noted, bx taken from GEJ Stomach: Patchy gastric erythema with nodularity. Biopsies were obtained. Grade 2 flap valve on retroflexed examination of the cardia. Duodenum: 10 mm crateriform ulcer in the distal bulb, bx taken, also superficial ulcer in proximal second part of duodneum 8-10 mm which was biopsied. random duodenal bx also taken. Intervention: Biopsies as noted above Impression/Findings: carolee grade III duodenal ulcers gastritis esophagitis PLAN: commence high dose PPI, i.e pantoprazole 40 mg bid for 3 months then titrate down check gastrin level if h pylori pos then treat confirm NSAID hx again with patient.
[2020-12-23] MEDS: cefTRIAXone sodium 1 GM in 0.9 % Sodium Chloride 50 ML IV (12:50)
--- NOTE | 2020-12-23 12:50 | MHC.CLN ---
F/U PT IS MODERATELY MALNOURISHED PT WITH MILDLY DEPLETED SUBCUTANEOUS FAT AND MUSCLE MASS, BMI 19 AND REPORTED 10# WT LOSS X 2 WEEKS WITH PROLONGED POOR PO INTAKE AND CHRONIC DIARRHEA DIET ADVANCED TO REGULAR PO 50% AVG PT RECEPTIVE TO DRINKING ENSURE (S/B FLAVOR) TO INCREASE KCALS AND PROTEIN. WILL RE-START ENSURE BID; SUPPLEMENT WILL PROVIDE 700KCALS, 40G PROTEIN MONITOR PO INTAKE CLOSELY
--- NOTE | 2020-12-23 15:57 | MHC.CM.PN ---
PER HOSPITALIST PT WILL D/C TODAY HOME SELF-CARE, FAMILY TO TRANSPORT.
--- NOTE | 2020-12-23 17:34 | PM.DS ---
DS: Providers Provider Date of Service: 01/10/21 Date of admission: 12/20/20 18:15 Primary care physician: Unknown Physician Consults: 12/20/20 19:13 Consult to Gastroenterology Routine Consulting Provider: Esau Garnett Reason for consultation: ACUTE DIVERTICULITIS 12/21/20 09:12 Consult to Neurology Routine Consulting Provider: [facility] Reason for consultation: seizure DS: Diagnosis Discharge Diagnosis (1) Diverticulitis: Status: Acute (2) Unintentional weight loss: Status: Acute DS: Medications Discharge Medications Home Medications: Previous Rx's Medication Instructions Recorded amoxicillin-pot clavulanate 1 tab PO BID #14 tab 12/16/20 [Augmentin] ondansetron 4 mg PO Q8H PRN #20 tab 12/16/20 oxycodone 5 mg PO TID PRN #8 tab 12/16/20 omeprazole 40 mg PO BID #60 cap 12/23/20 DS: Summary Hospital Course Hospital Course: Cognitive capacity: 50-year-old male with no significant past medical history although he states that he has a issues with weight loss of unclear etiology. He was seen in the emergency room on December 16 with acute abdominal pain and a CT scan at the time showed mild diverticulitis and he was prescribed Augmentin and has failed to take any of the pills citing that he is not a pill person he finally took a dose yesterday and stated that he could not tolerate the medicine as is induced nausea and vomiting and abdominal discomfort. He related that he was having trouble eating as soon as he eats he will experience diarrhea shortly thereafter. He reports no blood in the stool there is no fever or chill. A CT scan in the abdomen and pelvis today reveal a mild persistent diverticulitis his WBC is normal he has no fever he is given IV Levaquin in the emergency room. Functional capacity: independent ambulation Hospital course 1. Acute diverticultis--while in the hospital, he was treated with IV Cftriaxone and Flagyl and seem to have improved and should complete Augmentin that was previously prescribed yet he didn't take. Because he was having unsual abdominal pain and weight loss, he was evaluated by Dr. Garnett and ultimately had EGD whish showed duodenitis with biopsy taken 2. Duodenitis seen on EGD with be treated with BID Prilosec and will follow up with DR. Garnett for further workup 3. Seizure--he had a convulsive seizure day after admission, being his first, he states he doen't drink that much alcohol 2 beers or so a week and therefore we don't think related to alcohol, he was evaluated by Dr. day he had a CT and MRI of head both showed volume loss otherwise no acute finding. EEG was normal. Dr. Day instructs him not to drive for 6 months seizure freee and should follow up with Dr. Day Time Spent with Patient Time attestation: Total time spent providing and/or coordinating discharge services: Discharge coordination time: Greater than 30 minutes Quality: Stroke Does the patient have a stroke diagnosis?: No Physical Exam Vital Signs: Vital Signs: Last Vital Signs Temp 98 F 12/23/20 15:36 Pulse 62 12/23/20 15:36 Resp 18 12/23/20 15:36 BP 131/77 12/23/20 15:36 Pulse Ox 99 12/23/20 15:36 Body Mass Index 19.0 Constitutional Awake and Alert, No apparent distress Neck Supple, No lymphadenopathy Cardiovascular RRR, No M/R/G, S1 S2, No S3 S4, No pedal edema Respiratory Lungs clear, No respiratory distress Gastrointestinal Non tender, Non-distended Skin No rash Neurological Alert & oriented x3 Psychological Appropriate affect DS: Data Data Completed and Pending Pending studies at discharge: Pending at discharge 12/23/20 11:50 Surgical [PTH] Routine Labs on day of discharge: Laboratory Results - last 24 hr 12/20/20 18:40 Tiss Transglutamin IgG 1 Tiss Transglutamin IgA 1 Preliminary micro results at discharge 12/20/20 13:03 Blood Culture - Preliminary Blood - Venous No growth after 48 hours. 12/20/20 12:44 Blood Culture - Preliminary Blood - Venous No growth after 48 hours. Discharge Plan Discharge Anticipated Discharge Date/Time: 12/23/20 15:47 Patient Disposition: Home, Self-Care Discharge Diagnosis: Diverticulitis, seizure, weight loss Referrals: Esau Garnett MD [Physician] - 1 Week (call for appointment) Edil Day MD [Physician] - 1 Week (follow up on seizure, call for appointment) Physician,Unknown [Primary Care Provider] - 1 Week Discharge Medications: New omeprazole 40 mg capsule,delayed release(DR/EC) 40 mg PO BID Qty: 60 RF: 0 Continued ondansetron 4 mg tablet,disintegrating 4 mg PO Q8H PRN (Reason: nausea and vomiting) Qty: 20 RF: 0 amoxicillin-pot clavulanate [Augmentin] 875-125 mg tablet 1 tab PO BID Qty: 14 RF: 0 oxycodone 5 mg tablet 5 mg PO TID PRN (Reason: pain) Qty: 8 RF: 0 Discharge Orders: Discharge Order (Routine); Ordered 12/23/20 Ordered By: Sly Malik Diet: advance to usual diet Activity on Discharge: As tolerated Stand Alone Forms: Patient Portal Discharge page Activity Restrictions/Additional Instructions: No driving for 6 months Care Plan Goals: Full work up for weight loss, resulition of diverticulitis Health Concerns: Weight loss, seizure, diverticulitis Plan of Treatment: Take Augmentin previously given to you in Emergency Do no take Ibuprofen or asprin or drink alcohol alcohol and follow up with Dr. Garnett, GI doctor Because you had seizure, you should not drive for 6 months seeizure free--you should go see Dr. Day, Neurologist Assessment: SEE above Patient Instructions: Diverticulitis (ED), Diverticulitis Diet (ED) Discharge Date/Time: 12/23/20 17:40
[2020-12-26 10:41] LABS: Gastrin 42 pg/mL (<=100)
== END 2020-12-23 17:40 | disposition home or self-care (01) | DRG 384 ==
LOC: HO.ED 15:01 → HO.EDOVER 18:33 → HO.S3 18:38
PROVIDERS: Internal Medicine Gastroenterology; Physician Assistant; Admitting Provider Internal Medicine; Emergency Provider Emergency Medicine; Visit Provider Internal Medicine
PROC: 0DJ08ZZ Inspection of Upper Intestinal Tract, Via Natural or Artificial Opening Endoscopic (ICD-10-PCS; CPT 43235; principal; 2020-12-23 11:00)
DX: K26.9 Duodenal ulcer, unspecified as acute or chronic, without hemorrhage or perforation (principal); K57.32 Diverticulitis of large intestine without perforation or abscess without bleeding; E44.0 Moderate protein-calorie malnutrition; Z68.1 Body mass index [BMI] 19.9 or less, adult; K20.90 Esophagitis, unspecified without bleeding; K29.70 Gastritis, unspecified, without bleeding; R56.9 Unspecified convulsions
CPT/HCPCS: 36415; 70450; 70553; 74177; 80048; 80076; 80307; 81003; 82310; 82941; 83516; 83605; 83735; 85025; 86140; 87040; 87324; 87449; 88305; 88312; 88342; 94799; 95816; 96365; 96368; 96375; 99285; A9585; J0696; J1650; J1885; J1956; J2060; J2250; J2270; J2405; J2765; Q9967

== ENCOUNTER 2021-03-10 02:43 | Emergency (ER) | payer OTHER, SELFPAY ==
--- NOTE | ~2021-03-10 | CT_ITS ---
EXAMINATION: CT ABDOMEN AND PELVIS WITH CONTRAST CLINICAL INFORMATION: Left lower Quadrant pain COMPARISON: 12/20/2020 TECHNIQUE: Multidetector volumetric images were obtained from the superior aspect of the liver through the pubic symphysis following administration 85 mL of Omnipaque 350 intravenous contrast. Sagittal and coronal reformatted images were obtained on the technologist's workstation. Oral contrast: No This CT examination was performed using dose optimization techniques as appropriate, variously including the following: *Automated exposure control *Adjustment of mA and/or kV according to patient size (this includes techniques or standardized protocols for targeted exams where dose is matched to indication/reason for exam; i.e. extremities or head) *Use of iterative reconstruction technique DLP: 303 mGy-cm FINDINGS: LUNG BASES: The visualized lung bases are unremarkable. LIVER, GALLBLADDER, AND BILIARY TREE: The liver is normal in size, shape, and attenuation. No focal hepatic lesion or biliary ductal dilatation is present. Gallbladder unremarkable. PANCREAS: Unremarkable. SPLEEN: Unremarkable. ADRENAL GLANDS: Unremarkable. KIDNEYS AND URETERS: The kidneys are normal in size, shape, and attenuation. No hydronephrosis, hydroureter, or calculi seen. No perinephric stranding. BLADDER: Unremarkable. GASTROINTESTINAL TRACT: Sigmoid colonic diverticulosis. Stable chronic mild wall thickening sigmoid colon without pericolic fat stranding. Remainder of the gastrointestinal tract is unremarkable. ABDOMINAL WALL: No significant hernia is appreciated. LYMPH NODES: Normal. VASCULAR: Aorta is atherosclerotic but normal caliber. Patent venous structures. PELVIC VISCERA: Unremarkable. OSSEOUS STRUCTURES: Unremarkable. CT/CT abdomen pelvis w con IMPRESSION: * Chronic sigmoid diverticular disease. No filling evidence of active diverticulitis, although low-grade chronic inflammation is quite likely. * No additional potential etiology for the patient's left lower quadrant pain is identified.
[2021-03-10 03:07] VITALS: BP 136/88; PULSE 90; RESP 16; TEMP 36.7; O2SAT 95; BMI 17.2
--- NOTE | 2021-03-10 03:32 | ED.ABDPAIN ---
HPI - Abdominal Pain General Chief Complaint: Abdominal Pain Stated Complaint: Abd pain Time Seen by Provider: 03/10/21 03:20 Source: patient Mode of arrival: ambulatory History of Present Illness HPI narrative: 51-year-old male with history of diverticulitis comes in with worsening left lower quadrant pain for the past 3 days and associated nausea and vomiting as well as diarrhea. Otherwise, patient denies any shortness of breath, chest pain, urinary pain/burning. Related Data Previous Rx's Medication Instructions Recorded amoxicillin 875 mg-potassium 1 tab PO BID #14 tab 12/16/20 clavulanate 125 mg tablet (Augmentin) ondansetron 4 mg disintegrating 4 mg PO Q8H PRN #20 tab 12/16/20 tablet oxycodone 5 mg tablet 5 mg PO TID PRN #8 tab 12/16/20 omeprazole 40 mg capsule,delayed 40 mg PO BID #60 cap 12/23/20 release amoxicillin 875 mg-potassium 1 tab PO Q12H 10 Days #20 tab 03/10/21 clavulanate 125 mg tablet (Augmentin) ondansetron HCl 4 mg tablet 4 mg PO Q12H #20 tab 03/10/21 (Zofran) Allergies Allergy/AdvReac Type Severity Reaction Status Date / Time meperidine [Demerol] Allergy Unknown Vomiting Verified 05/12/20 10:09 Review of Systems Review of Systems Pertinent positives and negatives as stated in HPI 10 point review of systems is otherwise negative. Physical Exam Vital Signs: Vital Signs: Last Vital Signs Temp 98.1 F 03/10/21 03:07 Pulse 90 03/10/21 03:07 Resp 16 03/10/21 03:07 BP 136/88 03/10/21 03:07 Pulse Ox 95 03/10/21 03:07 Body Mass Index 17.2 VITAL SIGNS: Reviewed. GENERAL: Well developed, well nourished, in no acute distress. HEAD: Normocephalic/atraumatic EYES: PERRLA, EOMI EARS: Ext canals without abnormality OROPHARYNX: no oral lesions noted, posterior pharynx clear LUNGS: Normal breath sounds. No adventitious sounds or accessory muscle use. SpO2<95> CARDIOVASCULAR: Regular rate and rhythm without noted murmurs ABDOMEN: Soft, tenderness to palpation left lower quadrant with voluntary guarding but no rebound, non-distended with bowel sounds. SKIN: Inspection of the skin reveals no rashes NEUROLOGIC: Alert and oriented x 4. Strength and sensation to light touch were grossly intact x 4. Course Course Course Narrative: 51-year-old male with history and clinical presentation consistent with diverticulitis and less likely renal colic or UTI. Review of all investigations consistent with chronic diverticulitis and on further questioning patient states he stopped taking his antibiotics after his last episode citing that it impaired his ability to eat food which he needs because ?he does not weigh much?. Patient has no leukocytosis and is noted to be be intoxicated. Patient received IV fluids and an isolated dose of antibiotics. Patient continues to have dry heaves which is likely secondary to an alcoholic gastritis picture. He will receive Reglan/Benadryl and then be discharged on antibiotics and Zofran with instructions to take Zofran 20 minutes prior to antibiotics to help facilitate completion of the course of antibiotics. Signed out to Dr Astorga: f/u resolution of nausea/vomiting. MDM - Abdominal Pain Lab Data Result diagrams: 03/10/21 03:56 03/10/21 03:56 Labs: Lab Results 03/10/21 03/10/21 03/10/21 Range/Units 03:56 03:56 03:56 WBC 5.4 (4.8-10.8) X10*3/uL RBC 4.68 (4.60-5.80) X10*6/uL Hgb 13.3 L (14.0-18.0) g/dl Hct 39.5 L (42-52) % MCV 84.4 (80-98) fL MCH 28.4 (27.0-33.0) pg MCHC 33.7 (31.0-36.0) g/dl RDW 19.5 H (11.0-16.0) % Plt Count 162 D (160-400) X10*3/uL MPV 9.3 L (9.4-12.4) fL Immature Gran % (Auto) 0.2 (0.0-0.4) % Neut % (Auto) 56.2 (45-73) % Lymph % (Auto) 27.8 (20-40) % [place] % (Auto) 10.1 (2-11) % Eos % (Auto) 4.2 H (0-4) % Baso % (Auto) 1.5 (0-2) % Lymph # (Auto) 1.5 (1.2-4.9) X10*3/uL [place] # (Auto) 0.6 (0.1-1.2) X10*3/uL Eos # (Auto) 0.2 (0.0-0.4) X10*3/uL Baso # (Auto) 0.1 (0.0-0.2) X10*3/uL Abs Immat Gran (auto) 0.01 (0.00-0.03) X10*3/uL Absolute Neuts (auto) 3.1 (2.0-8.3) X10*3/uL Absolute Nucleated RBC 0.000 (0.0-0.012) X10*3/uL Nucleated RBC % (auto) 0.0 (0.0-0.2) /100WBC Sodium 137 (135-145) mmol/L Potassium 4.4 (3.3-5.1) mmol/L Chloride 100 (96-108) mmol/L Carbon Dioxide 25 (22-29) mmol/L Anion Gap 16 (12-20) BUN 3 L (9-16) mg/dL Creatinine 0.75 (0.5-1.4) mg/dL Estim Creat Clear Calc 76.4 Estimated GFR > 60 Random Glucose 81 (60-115) mg/dL Calcium 9.3 (8.4-10.2) mg/dL Total Bilirubin 0.5 (0.0-1.0) mg/dL AST 200 H (5-37) U/L ALT 111 H (0-40) U/L Alkaline Phosphatase 74 D (39-117) U/L Total Protein 7.3 D (6.5-8.0) g/dL Albumin 4.5 (3.5-5.0) g/dL Lipase 60 (8-78) U/L Urine Color Urine Appearance Urine pH (5.0-8.0) Ur Specific [place] (1.005-1.025) Urine Protein (NEG-TRACE) MG/DL Urine Glucose (UA) (NEG) MG/DL Urine Ketones (NEG) MG/DL Urine Blood (NEG) Urine Nitrite (NEG) Ur Leukocyte Esterase (NEG) Urine Opiates Screen (Not Detect) Ur Barbiturates Screen (Not Detect) Ur Phencyclidine Scrn (Not Detect) Ur Amphetamines Screen (Not Detect) U Benzodiazepines Scrn (Not Detect) Urine Cocaine Screen (Not Detect) U Marijuana (THC) Screen (Not Detect) Ethyl Alcohol 183 mg/dL 03/10/21 03/10/21 Range/Units 04:39 04:39 WBC (4.8-10.8) X10*3/uL RBC (4.60-5.80) X10*6/uL Hgb (14.0-18.0) g/dl Hct (42-52) % MCV (80-98) fL MCH (27.0-33.0) pg MCHC (31.0-36.0) g/dl RDW (11.0-16.0) % Plt Count (160-400) X10*3/uL MPV (9.4-12.4) fL Immature Gran % (Auto) (0.0-0.4) % Neut % (Auto) (45-73) % Lymph % (Auto) (20-40) % [place] % (Auto) (2-11) % Eos % (Auto) (0-4) % Baso % (Auto) (0-2) % Lymph # (Auto) (1.2-4.9) X10*3/uL [place] # (Auto) (0.1-1.2) X10*3/uL Eos # (Auto) (0.0-0.4) X10*3/uL Baso # (Auto) (0.0-0.2) X10*3/uL Abs Immat Gran (auto) (0.00-0.03) X10*3/uL Absolute Neuts (auto) (2.0-8.3) X10*3/uL Absolute Nucleated RBC (0.0-0.012) X10*3/uL Nucleated RBC % (auto) (0.0-0.2) /100WBC Sodium (135-145) mmol/L Potassium (3.3-5.1) mmol/L Chloride (96-108) mmol/L Carbon Dioxide (22-29) mmol/L Anion Gap (12-20) BUN (9-16) mg/dL Creatinine (0.5-1.4) mg/dL Estim Creat Clear Calc Estimated GFR Random Glucose (60-115) mg/dL Calcium (8.4-10.2) mg/dL Total Bilirubin (0.0-1.0) mg/dL AST (5-37) U/L ALT (0-40) U/L Alkaline Phosphatase (39-117) U/L Total Protein (6.5-8.0) g/dL Albumin (3.5-5.0) g/dL Lipase (8-78) U/L Urine Color STRAW Urine Appearance CLEAR Urine pH 6.0 (5.0-8.0) Ur Specific [place] <= 1.005 (1.005-1.025) Urine Protein NEG (NEG-TRACE) MG/DL Urine Glucose (UA) NEG (NEG) MG/DL Urine Ketones NEG (NEG) MG/DL Urine Blood NEG (NEG) Urine Nitrite NEG (NEG) Ur Leukocyte Esterase NEG (NEG) Urine Opiates Screen Not Detected (Not Detect) Ur Barbiturates Screen Not Detected (Not Detect) Ur Phencyclidine Scrn Not Detected (Not Detect) Ur Amphetamines Screen Not Detected (Not Detect) U Benzodiazepines Scrn Not Detected (Not Detect) Urine Cocaine Screen Not Detected (Not Detect) U Marijuana (THC) Screen POSITIVE H (Not Detect) Ethyl Alcohol mg/dL Discharge Plan Discharge Clinical Impression: Diverticulitis Patient Disposition: Home, Self-Care Instructions: Amoxicillin/Clavulanate Potassium (By mouth), Ondansetron (By mouth), Diverticulitis (ED), Diverticulitis Diet (ED) Additional Instructions: 1. Resume all home medications as prescribed and stop drinking alcohol. 2. Recommend taking the Zofran approximately 20 minutes prior to taking your antibiotic to help facilitate your completion of the entire course. 3. Follow-up with Dr. Garnett in the next 1-2 days for re-evaluation. Return to the ER for acute worsening of your symptoms. Prescriptions: New amoxicillin-pot clavulanate [Augmentin] 875-125 mg tablet 1 tab PO Q12H 10 Days Qty: 20 RF: 0 ondansetron HCl [Zofran] 4 mg tablet 4 mg PO Q12H Qty: 20 RF: 0 No Action ondansetron 4 mg tablet,disintegrating 4 mg PO Q8H PRN (Reason: nausea and vomiting) Qty: 20 RF: 0 amoxicillin-pot clavulanate [Augmentin] 875-125 mg tablet 1 tab PO BID Qty: 14 RF: 0 oxycodone 5 mg tablet 5 mg PO TID PRN (Reason: pain) Qty: 8 RF: 0 omeprazole 40 mg capsule,delayed release(DR/EC) 40 mg PO BID Qty: 60 RF: 0 Referrals: Esau Garnett MD [Physician] - 2 days (Re-evaluation for presentation abdominal discomfort, patient endorses he did not complete entire course of antibiotics that he was last prescribed. No acute disease identified, chronic diverticular disease, discharged on antibiotics with Zofran to help facilitate compliance.) [facility] Past Medical History Source: nursing notes reviewed Medical History Calcaneus fracture Diverticulitis Surgical History History of back surgery History of hernia surgery History of knee surgery Family History Family History Father No problems noted. Mother No problems noted. Son No problems noted. Daughter No problems noted. Social History Social History Household Members: Friend(s) Housing: House Alcohol intake: unknown Smoked in Last 30 Days: Yes Use of substances other than those prescribed or required for medical reasons: Refusing to respond Substance Use Type: Marijuana Advance Directives: No service: No Current occupational status: unemployed
[2021-03-10] MEDS: Ketorolac Tromethamine 15 MG/ML VIAL IVPUSH (04:00)
[2021-03-10 04:01] LABS: Basophils Absolute Auto 0.1 X10*3/uL (0.0-0.2); Basophils Percent Auto 1.5 % (0-2); Eosinophils Absolute Auto 0.2 X10*3/uL (0.0-0.4); Eosinophils Percent Auto 4.2 % (0-4); Hematocrit 39.5 % (42-52); Hemoglobin 13.3 g/dl (14.0-18.0); Imm Gran Abs Auto 0.01 X10*3/uL (0.00-0.03); Imm Gran Pct Auto 0.2 % (0.0-0.4); Lymphocytes Absolute Auto 1.5 X10*3/uL (1.2-4.9); Lymphocytes Percent Auto 27.8 % (20-40); MANUAL DIFF FLAG NO; Mean Corpuscular HGB Conc 33.7 g/dl (31.0-36.0); Mean Corpuscular Hemoglobin 28.4 pg (27.0-33.0); Mean Corpuscular Volume 84.4 fL (80-98); Mean Platelet Volume 9.3 fL (9.4-12.4); Monocytes Absolute Auto 0.6 X10*3/uL (0.1-1.2); Monocytes Percent Auto 10.1 % (2-11); Neutrophils Absolute Auto 3.1 X10*3/uL (2.0-8.3); Neutrophils Percent Auto 56.2 % (45-73); Platelet Count 162 X10*3/uL (160-400); Red Blood Count 4.68 X10*6/uL (4.60-5.80); Red Cell Distribution Width 19.5 % (11.0-16.0); White Blood Count 5.4 X10*3/uL (4.8-10.8)
[2021-03-10 04:36] LABS: Alanine Aminotransferase 111 U/L (0-40); Albumin Level 4.5 g/dL (3.5-5.0); Alkaline Phosphatase 74 U/L (39-117); Anion Gap 16 (12-20); Aspartate Amino Transferase 200 U/L (5-37); Bilirubin Total 0.5 mg/dL (0.0-1.0); Blood Urea Nitrogen 3 mg/dL (9-16); Calcium 9.3 mg/dL (8.4-10.2); Carbon Dioxide 25 mmol/L (22-29); Chloride 100 mmol/L (96-108); Creatinine Clr Calc Pharmacy 76.4; Estimated Glomerular Filt Rate > 60; Glucose Random 81 mg/dL (60-115); Lipase 60 U/L (8-78); Potassium 4.4 mmol/L (3.3-5.1); Sodium 137 mmol/L (135-145); Total Protein 7.3 g/dL (6.5-8.0)
[2021-03-10 05:05] LABS: Glucose Urine UA NEG (NEG); Leukocyte Esterase Urine NEG (NEG); Nitrite Urine NEG (NEG); Specific Gravity - Urine <= 1.005 (1.005-1.025); Urine Blood NEG (NEG); Urine Ketones NEG (NEG); Urine Protein NEG (NEG-TRACE)
[2021-03-10] MEDS: iohexoL 350 MG/ML 100 ML INFUS..BTL 85 ML IV (05:06)
[2021-03-10 05:19] LABS: Appearance Urine CLEAR; Color Urine STRAW
[2021-03-10 05:25] LABS: Amphetamine Screen Urine Not Detected (Not Detect); Barbiturates, Urine Not Detected (Not Detect); Benzodiazepines Screen Urine Not Detected (Not Detect); Cannabinoid Screen Urine POSITIVE (Not Detect); Cocaine Screen Urine Not Detected (Not Detect); Opiate Screen Urine Not Detected (Not Detect); Phencyclidine Screen Urine Not Detected (Not Detect)
[2021-03-10 06:31] LABS: Ethanol 183 mg/dL
[2021-03-10] MEDS: Piperacillin Sodium/Tazobactam 3.375 GM in 0.9 % Sodium Chloride 50 ML IV (06:39)
[2021-03-10] MEDS: 0.9 % Sodium Chloride 2,000 ML 999 ML IV (06:39)
--- NOTE | 2021-03-10 07:30 | PC.NURSE ---
md aware of pt vomiting- plan to order meds
[2021-03-10 07:33] VITALS: RESP 16
[2021-03-10] MEDS: Metoclopramide HCl 10 MG/2 ML VIAL IVPUSH (07:48)
[2021-03-10] MEDS: Famotidine/PF 20 MG/2 ML VIAL IVPUSH (07:48)
[2021-03-10] MEDS: diphenhydrAMINE HCL 50 MG/ML VIAL 25 MG IVPUSH (07:48)
--- NOTE | 2021-03-10 09:13 | PC.NURSE ---
pt sipping gatorade in room and given gingerale for po challenge and pt aware of plan of care to dc home.
--- NOTE | 2021-03-10 09:26 | PC.NURSE ---
pt presented with dc paperwork states im still sick and im still in pain! pt educated about importance of taking abx and finishing course to help him feel better. pt not happy with this rn responce and requested to speak to md. aware and will have a conversation with pt.
== END 2021-03-10 09:51 | disposition home or self-care (01) ==
PROVIDERS: Emergency Provider Student in an Organized Health Care Education/Training Program
DX: K57.32 Diverticulitis of large intestine without perforation or abscess without bleeding (principal); R10.32 Left lower quadrant pain; F10.920 Alcohol use, unspecified with intoxication, uncomplicated; Y90.6 Blood alcohol level of 120-199 mg/100 ml; F12.90 Cannabis use, unspecified, uncomplicated; Z79.899 Other long term (current) drug therapy
CPT/HCPCS: 36415; 74177; 80053; 80307; 81003; 82077; 83690; 85025; 96361; 96365; 96375; 99285; J1200; J1885; J2405; J2543; J2765; Q9967

== ENCOUNTER → 2021-04-14 08:58 | Outpatient (BNVA) | payer OTHER, SELFPAY | PROVIDERS: Visit Provider Internal Medicine Gastroenterology ==

== ENCOUNTER → 2021-05-03 08:11 | Day surgery (SDC) | payer OTHER, SELFPAY ==
[2021-04-27 13:15] VITALS: BMI 17.2
--- NOTE | 2021-05-02 09:16 | P.CONAN_ITS ---
Documented by User: Radha Graham NP 05/09/21 13:11 HPI - Anesthesia Eval Consult details Narrative: 51yo M for Upper Endoscopy s/p EGD with TIVA 12/2020 [facility] Active Problems Active Problems: All Active Problems (Updated 04/27/21 @ 13:11 by Meliza Clarke RN) Elevated LFTs (Acute) Peptic ulcer disease (Acute) Past Medical History Medical History (Updated 05/13/21 @ 00:03 by Maynor Rai) Asthma Calcaneus fracture Diverticulitis Diverticulitis Intractable vomiting Peptic ulcer disease Seizures Family History Family History Father No problems noted. Mother No problems noted. Son No problems noted. Daughter No problems noted. Surgical History Surgical History H/O colonoscopy History of back surgery History of esophagogastroduodenoscopy (EGD) History of hernia surgery History of knee surgery Social History Social History (Updated 05/04/21 @ 12:29 by Suzy Zeng MD) Household Members: Friend(s) Household Members Other:: 2 Housing: House Do you presently have visiting nurse or other home services: No Alcohol intake: current Alcohol intake frequency: a few times a month Alcohol type: beer Patient Tobacco Use Status: Former Tobacco user Substance Use Type: Marijuana service: No Current occupational status: unemployed Meds Allergies Allergy/AdvReac Type Severity Reaction Status Date / Time meperidine [Demerol] Allergy Unknown Vomiting Verified 04/14/21 08:59 Home Medications Medication Instructions Recorded Confirmed Last Taken Type multivitamin 1 tab PO DAILY 05/03/21 05/03/21 Unknown History Exam Exam Date and Time: May 02, 2021 0916 Height,Weight and Vital Signs: Height 5 ft 4 in Weight 45.452 kg Assessment and Plan Assessment Anesthesia Assessment: Chart Reviewed Documented by User: Suzy Zeng MD 05/25/21 09:53 [facility] Past Medical History Medical History (Updated 05/13/21 @ 00:03 by Maynor Rai) Asthma Calcaneus fracture Diverticulitis Diverticulitis Intractable vomiting Peptic ulcer disease Seizures Family History Family History Father No problems noted. Mother No problems noted. Son No problems noted. Daughter No problems noted. Family history of problems with anesthesia: No Surgical History Surgical History H/O colonoscopy History of back surgery History of esophagogastroduodenoscopy (EGD) History of hernia surgery History of knee surgery History of Problems with Anesthesia: No Social History Social History (Updated 05/04/21 @ 12:29 by Suzy Zeng MD) Household Members: Friend(s) Household Members Other:: 2 Housing: House Do you presently have visiting nurse or other home services: No Alcohol intake: current Alcohol intake frequency: a few times a month Alcohol type: beer Patient Tobacco Use Status: Former Tobacco user Substance Use Type: Marijuana service: No Current occupational status: unemployed Meds Allergies Allergy/AdvReac Type Severity Reaction Status Date / Time meperidine [Demerol] Allergy Unknown Vomiting Verified 04/14/21 08:59 Home Medications Medication Instructions Recorded Confirmed Last Taken Type multivitamin 1 tab PO DAILY 05/03/21 05/03/21 Unknown History Exam Airway Mallampati Class: II TM Dist: >3cm Neck ROM: Full Heart: RRR Lungs: CTAB Assessment and Plan Assessment Anesthesia Assessment: Anesthesia Plan Discussed Final Anesthetic Review Family History of Problems with Anesthesia: No History of Problems with Anesthesia: No NPO: Yes ASA Class: III Final Preanesthetic Review: No Changes in Pt Med Stat, Meds/Allgs Chart Reviewed, Consent Obtained/Reviewed and Anes Risks/Benef Reviewed Patient Risk: Intermediate Procedure Risk: Low Assessment/Block/Sedation in SS: Assess/Block/Sedation-SS Anesthetic Plan Anesthetic Plan: GA Disposition: Standard PACU and Inp. Admit - Standard Bed
--- NOTE | 2021-05-03 08:34 | PC.NURSE ---
pt arrived to [facility] c/o nausea, abd pain and diahrrea. pt stated i was up all night really sick vomitting green stuff. pt appears pale at this time. no temp noted. Dr. Ellington at bedside to evaluate patient per Dr. Ellington patient procedure to be cancelled for today. Dr. Garnett at bedside and agreeable. pt offered to go to ER for further workup and agreeable. MD to MD completed by Dr. Ellington. patient transported to ER via wheelchair by this RN.
== END ==
PROVIDERS: Visit Provider Internal Medicine Gastroenterology
DX: K27.9 Peptic ulcer, site unspecified, unspecified as acute or chronic, without hemorrhage or perforation (principal); Z53.29 Procedure and treatment not carried out because of patient's decision for other reasons

== ENCOUNTER 2021-05-03 08:45 | Inpatient (IN) | payer OTHER, SELFPAY ==
[2021-05-03] VITALS (10 sets, daily range): BP systolic 106–143; BP diastolic 66–93; PULSE 63–108; RESP 14–20; TEMP 36.7–36.9; O2SAT 4–99; BMI 17.2
--- NOTE | ~2021-05-03 | CT_ITS ---
EXAMINATION: CT ABDOMEN AND PELVIS WITH CONTRAST CLINICAL INFORMATION: Left-sided abdominal pain. History of diverticulitis. COMPARISON: Previous CT of the abdomen and pelvis February 2021 TECHNIQUE: Multidetector volumetric images were obtained from the superior aspect of the liver through the pubic symphysis following administration 85 mL of Omnipaque 350 intravenous contrast. Sagittal and coronal reformatted images were obtained on the technologist's workstation. Oral contrast: Yes This CT examination was performed using dose optimization techniques as appropriate, variously including the following: *Automated exposure control *Adjustment of mA and/or kV according to patient size (this includes techniques or standardized protocols for targeted exams where dose is matched to indication/reason for exam; i.e. extremities or head) *Use of iterative reconstruction technique DLP: 268 mGy-cm FINDINGS: LUNG BASES: The visualized lung bases are unremarkable. LIVER, GALLBLADDER, AND BILIARY TREE: The liver is low in attenuation suggestive of fatty infiltration. No focal liver lesion is seen. The gallbladder is normal. There is no biliary duct dilatation. PANCREAS: Unremarkable. SPLEEN: Unremarkable. ADRENAL GLANDS: Unremarkable. KIDNEYS AND URETERS: The kidneys are normal in size, shape, and attenuation. No hydronephrosis, hydroureter, or calculi seen. There is a small left renal cyst that is stable. No imaging follow-up needed.. BLADDER: Unremarkable. GASTROINTESTINAL TRACT: There is diverticulosis of the colon. There is wall thickening of the sigmoid colon and stranding of the surrounding fat suggestive of mild sigmoid diverticulitis or colitis. This is similar to previous exams. Bowel in the right lower quadrant is not well imaged due to artifact from orthopedic hardware. Small and large bowel is otherwise unremarkable. The appendix is normal. The stomach is normal. ABDOMINAL WALL: No significant hernia is appreciated. LYMPH NODES: Normal. VASCULAR: There is evidence of atherosclerotic disease. No hernia is seen. PELVIC VISCERA: Unremarkable. OSSEOUS STRUCTURES: There is evidence of previous disc surgery with orthopedic hardware at L5-S1. There is a moderate L1 vertebral body compression fracture and Schmorl's node that appears unchanged. CT/CT abdomen pelvis w con IMPRESSION: Diverticulosis of the colon. Wall thickening of the sigmoid colon and stranding of the fat suggestive of mild diverticulitis or colitis. This is similar to previous exams. Fatty infiltration of the liver.
--- NOTE | 2021-05-03 08:56 | ED.NAVMDI ---
HPI - Nausea/Vomiting/Diarrhea General Chief complaint: Abdominal Pain Stated complaint: n/v Time Seen by Provider: 05/03/21 08:48 Source: patient Mode of arrival: ambulatory Limitations: no limitations History of Present Illness HPI Narrative: 51 y/o male with history of diverticulitis, PUD, recurrent vomiting who presents to the ER from short stay surgery with intractable nausea and vomiting. Patient reports a longstanding issue with recurrent vomiting dating back to 2005 when he had back surgery. He was at short stay to get an EGD for further workup. He reports at 4am he woke up with left sided abdominal pain that followed persistent vomiting and dry heaving. He went to Short Stay with ongoing symptoms and was sent to the ER for further evaluation. He reports the pain and persistent dry heaving feels similar to his prior presentation in December when he had diverticulitis and required admission because of inability to tolerate PO. MD elicited complaint: nausea, vomiting and abdominal pain Onset (ago): hour(s) (8) Description of vomiting: watery Associated nausea: Yes Associated abdominal pain: Yes Location of pain: LLQ Radiation: LUQ Pain consistency: constant Severity: moderate Quality: cramping and stabbing Exacerbating factors: vomiting Relieving factors: none Associated symptoms: loss of appetite, malaise, nausea/vomiting and weakness Related Data Home Medications Medication Instructions Recorded Confirmed multivitamin 1 tab PO DAILY 05/03/21 05/03/21 Previous Rx's Medication Instructions Recorded ondansetron 4 mg disintegrating 4 mg PO Q8H #60 tab 04/14/21 tablet pantoprazole 40 mg granules 40 mg PO DAILY #30 ea 04/14/21 delayed-release for susp in packet sucralfate 100 mg/mL oral 10 ml PO BID #1000 ml 04/20/21 suspension (Carafate) Allergies Allergy/AdvReac Type Severity Reaction Status Date / Time meperidine [Demerol] Allergy Unknown Vomiting Verified 04/14/21 08:59 Review of Systems Review of Systems: Constitutional: No Fever, No Chills ENT/Mouth: No sore throat, No Rhinorrhea, No Swallowing Difficulty Eyes: No Eye Pain, No Swelling, No Redness Cardiovascular: No Chest Pain, No SOB, No Orthopnea, No Edema Respiratory: No Cough, No Sputum, No Wheezing, No dyspnea Gastrointestinal: + Nausea, + Vomiting, + Diarrhea, + abdominal Pain, No Hematochezia, No Melena Genitourinary: No Dysuria, No Urinary Frequency, No Hematuria Musculoskeletal: No joint pain, No Myalgias Skin: No Skin Lesions, No rash Neuro: + Weakness, No Numbness, No Dizziness, + Headache Psych: No Anxiety/Panic, No Depression Heme/Lymph: No Bruising, No Lymphadenopathy Endocrine: No Polyuria, No Polydipsia Gastrointestinal: Gastrointestinal: Reports nausea PMFSH Past Medical History Medical History (Updated 05/03/21 @ 12:02 by RICKI Valdez) Calcaneus fracture Diverticulitis Seizures Surgical History (Updated 04/27/21 @ 13:05 by Meliza Clarke RN) H/O colonoscopy History of back surgery History of esophagogastroduodenoscopy (EGD) History of hernia surgery History of knee surgery Family History Family History Father No problems noted. Mother No problems noted. Son No problems noted. Daughter No problems noted. Social History Social History (Updated 04/27/21 @ 13:18 by Meliza Clarke RN) Household Members: Friend(s) Housing: House Alcohol intake: unknown Patient Tobacco Use Status: Former Tobacco user Use of substances other than those prescribed or required for medical reasons: Unknown Advance Directives: No Advance Directives Information Provided: No service: No Current occupational status: unemployed Physical Exam Vital Signs: Vital Signs: Last Vital Signs Temp 98.1 F 05/03/21 11:43 Pulse 68 05/03/21 12:17 Resp 18 05/03/21 10:18 BP 131/66 05/03/21 12:17 Pulse Ox 97 05/03/21 12:17 Body Mass Index 17.2 Appearance: Alert. Oriented X3. Dry heaving Eyes: Pupils equal, round and reactive to light. ENT: Pharynx normal. Neck: Normal inspection. Neck supple. CVS: Normal heart rate and rhythm. Pulses normal. Respiratory: No respiratory distress. Breath sounds normal. Abdomen: Normal inspection, left sided tenderness and guarding. no rebound. +BS x4 Skin: Skin warm and dry. Normal skin color. Normal skin turgor. No rashes. Extremities: No lower extremity edema. Neuro: Oriented X 3. No motor deficit. No sensory deficit. Course Course Course Narrative: 51 y/o male presenting from short stay surgery with left sided abdominal pain and vomiting since 4am. Presentation feels similar to his prior episodes of diverticultiis. IV zofran, IV morphine and IVF ordered. Will get labs and CT scan for further evaluation - he has left sided tenderness and guarding on exam. HR elevated most likely due to pain and vomiting. Afebrile. Reevaluation(s) Reevaluation #1: No leukocytosis. CT scan pending. Pain continued and nausea persists. Additional IV morphine and zofran ordered. Reevaluation #2: CT scan showing mild diverticulitis / colitis similar to prior imaging. Given his pain and inability to tolerate PO will admit for further management. IV rocephin and flagyl ordered. Lactic acid elevated - getting IVF bolus. Hospitalist TT for admission. Reglan orderd for ongoing nausea. Plan for admission with GI consult. MDM - Nausea/Vomiting/Diarrhea Lab Data Result diagrams: 05/03/21 09:02 05/03/21 09:02 Labs: Lab Results 05/03/21 05/03/21 05/03/21 Range/Units 09:02 09:02 09:02 WBC 6.4 (4.8-10.8) X10*3/uL RBC 4.46 L (4.60-5.80) X10*6/uL Hgb 13.8 L (14.0-18.0) g/dl Hct 40.3 L (42-52) % MCV 90.4 (80-98) fL MCH 30.9 (27.0-33.0) pg MCHC 34.2 (31.0-36.0) g/dl RDW 16.7 H (11.0-16.0) % Plt Count 164 (160-400) X10*3/uL MPV 9.6 (9.4-12.4) fL Immature Gran % (Auto) 0.3 (0.0-0.4) % Neut % (Auto) 76.4 H (45-73) % Lymph % (Auto) 14.7 L (20-40) % [place] % (Auto) 6.4 (2-11) % Eos % (Auto) 0.6 (0-4) % Baso % (Auto) 1.6 (0-2) % Lymph # (Auto) 0.9 L (1.2-4.9) X10*3/uL [place] # (Auto) 0.4 (0.1-1.2) X10*3/uL Eos # (Auto) 0.0 (0.0-0.4) X10*3/uL Baso # (Auto) 0.1 (0.0-0.2) X10*3/uL Abs Immat Gran (auto) 0.02 (0.00-0.03) X10*3/uL Absolute Neuts (auto) 4.9 (2.0-8.3) X10*3/uL Absolute Nucleated RBC 0.000 (0.0-0.012) X10*3/uL Nucleated RBC % (auto) 0.0 (0.0-0.2) /100WBC Sodium 141 (135-145) mmol/L Potassium 4.3 (3.3-5.1) mmol/L Chloride 102 (96-108) mmol/L Carbon Dioxide 25 (22-29) mmol/L Anion Gap 18 (12-20) BUN 3 L (9-16) mg/dL Creatinine 0.75 (0.5-1.4) mg/dL Estim Creat Clear Calc 76.4 Estimated GFR > 60 Random Glucose 85 (60-115) mg/dL Lactic Acid (0.5-2.0) mmol/L Calcium 9.4 (8.4-10.2) mg/dL Magnesium 1.9 (1.6-2.6) mg/dL Total Bilirubin 0.4 (0.0-1.0) mg/dL Direct Bilirubin 0.3 (0.0-0.5) mg/dL AST 130 H (5-37) U/L ALT 61 H (0-40) U/L Alkaline Phosphatase 88 (39-117) U/L Total Protein 7.4 (6.5-8.0) g/dL Albumin 4.7 (3.5-5.0) g/dL Lipase 56 (8-78) U/L COVID-19 ([place]) Negative (Negative) COVID-19 Clin Com See Note 05/03/21 Range/Units 11:49 WBC (4.8-10.8) X10*3/uL RBC (4.60-5.80) X10*6/uL Hgb (14.0-18.0) g/dl Hct (42-52) % MCV (80-98) fL MCH (27.0-33.0) pg MCHC (31.0-36.0) g/dl RDW (11.0-16.0) % Plt Count (160-400) X10*3/uL MPV (9.4-12.4) fL Immature Gran % (Auto) (0.0-0.4) % Neut % (Auto) (45-73) % Lymph % (Auto) (20-40) % [place] % (Auto) (2-11) % Eos % (Auto) (0-4) % Baso % (Auto) (0-2) % Lymph # (Auto) (1.2-4.9) X10*3/uL [place] # (Auto) (0.1-1.2) X10*3/uL Eos # (Auto) (0.0-0.4) X10*3/uL Baso # (Auto) (0.0-0.2) X10*3/uL Abs Immat Gran (auto) (0.00-0.03) X10*3/uL Absolute Neuts (auto) (2.0-8.3) X10*3/uL Absolute Nucleated RBC (0.0-0.012) X10*3/uL Nucleated RBC % (auto) (0.0-0.2) /100WBC Sodium (135-145) mmol/L Potassium (3.3-5.1) mmol/L Chloride (96-108) mmol/L Carbon Dioxide (22-29) mmol/L Anion Gap (12-20) BUN (9-16) mg/dL Creatinine (0.5-1.4) mg/dL Estim Creat Clear Calc Estimated GFR Random Glucose (60-115) mg/dL Lactic Acid 2.7 H* (0.5-2.0) mmol/L Calcium (8.4-10.2) mg/dL Magnesium (1.6-2.6) mg/dL Total Bilirubin (0.0-1.0) mg/dL Direct Bilirubin (0.0-0.5) mg/dL AST (5-37) U/L ALT (0-40) U/L Alkaline Phosphatase (39-117) U/L Total Protein (6.5-8.0) g/dL Albumin (3.5-5.0) g/dL Lipase (8-78) U/L COVID-19 ([place]) (Negative) COVID-19 Clin Com Critical Care Time Critical Care Time Critical Care Time: Yes Total Critical Care Time: 38 Attestation: I have personally provided critical care time exclusive of time spent on separately billable procedures. Time includes review of lab data, radiology results, discussion with consultants, and monitoring for potential decompensation. Intervention performed as documented. Discharge Plan Discharge Clinical Impression: Diverticulitis Intractable vomiting Qualifiers: Vomiting type: unspecified Nausea presence: with nausea Qualified Code(s): R11.2 - Nausea with vomiting, unspecified Patient Disposition: Admitted As Inpatient
[2021-05-03] MEDS: 0.9 % Sodium Chloride 1,000 ML 999 ML IVCONT (09:03)
[2021-05-03 09:09] LABS: MANUAL DIFF FLAG NO
[2021-05-03] MEDS: ondansetron HCL 4 MG/2 ML VIAL IVPUSH ×2 (09:09→11:40)
[2021-05-03 09:12] LABS: Basophils Absolute Auto 0.1 X10*3/uL (0.0-0.2); Basophils Percent Auto 1.6 % (0-2); Eosinophils Percent Auto 0.6 % (0-4); Hematocrit 40.3 % (42-52); Hemoglobin 13.8 g/dl (14.0-18.0); Imm Gran Abs Auto 0.02 X10*3/uL (0.00-0.03); Imm Gran Pct Auto 0.3 % (0.0-0.4); Lymphocytes Absolute Auto 0.9 X10*3/uL (1.2-4.9); Lymphocytes Percent Auto 14.7 % (20-40); Mean Corpuscular HGB Conc 34.2 g/dl (31.0-36.0); Mean Corpuscular Hemoglobin 30.9 pg (27.0-33.0); Mean Corpuscular Volume 90.4 fL (80-98); Mean Platelet Volume 9.6 fL (9.4-12.4); Monocytes Absolute Auto 0.4 X10*3/uL (0.1-1.2); Monocytes Percent Auto 6.4 % (2-11); Neutrophils Absolute Auto 4.9 X10*3/uL (2.0-8.3); Neutrophils Percent Auto 76.4 % (45-73); Platelet Count 164 X10*3/uL (160-400); Red Blood Count 4.46 X10*6/uL (4.60-5.80); Red Cell Distribution Width 16.7 % (11.0-16.0); White Blood Count 6.4 X10*3/uL (4.8-10.8)
[2021-05-03 09:30] LABS: COVID-19 Test Negative (Negative)
[2021-05-03] MEDS: Morphine Sulfate 4 MG/ML CARTRIDGE IVPUSH (09:37)
[2021-05-03 09:38] LABS: Alanine Aminotransferase 61 U/L (0-40); Albumin Level 4.7 g/dL (3.5-5.0); Alkaline Phosphatase 88 U/L (39-117); Anion Gap 18 (12-20); Aspartate Amino Transferase 130 U/L (5-37); Bilirubin Direct 0.3 mg/dL (0.0-0.5); Bilirubin Total 0.4 mg/dL (0.0-1.0); Calcium 9.4 mg/dL (8.4-10.2); Carbon Dioxide 25 mmol/L (22-29); Chloride 102 mmol/L (96-108); Creatinine Clr Calc Pharmacy 76.4; Estimated Glomerular Filt Rate > 60; Glucose Random 85 mg/dL (60-115); Lipase 56 U/L (8-78); Magnesium 1.9 mg/dL (1.6-2.6); Potassium 4.3 mmol/L (3.3-5.1); Sodium 141 mmol/L (135-145); Total Protein 7.4 g/dL (6.5-8.0)
[2021-05-03 09:49] LABS: Blood Urea Nitrogen 3 mg/dL (9-16)
[2021-05-03] MEDS: iohexoL 350 MG/ML 100 ML INFUS..BTL IV (10:14)
[2021-05-03] MEDS: Morphine Sulfate 4 MG/ML CARTRIDGE IM (11:40)
[2021-05-03] MEDS: Lactated Ringers 1,000 ML 999 ML IV (11:40)
[2021-05-03] MEDS: cefTRIAXone sodium 2 GM in 0.9 % Sodium Chloride 50 ML IV (11:54)
[2021-05-03] MEDS: metroNIDAZOLE/NS 500 MG/100 ML PIGGYBACK 100 MG IV (12:13)
--- NOTE | 2021-05-03 12:18 | PC.NURSE ---
pt in bed, feelaing nauseas with some retching, given Zofran and morphine for pain. pt aware of plan to be admitted to the hospital
[2021-05-03 12:25] LABS: Lactic Acid 2.7 mmol/L (0.5-2.0)
--- NOTE | 2021-05-03 12:54 | PHA.MEDREC ---
Pharmacy Consult ? Medication Reconciliation Pharmacy has completed the medication reconciliation. Reports he has taken them because he cannot hold them down. Jayne Willoughby, MeñoD
[2021-05-03 12:57] LABS: Appearance Urine CLEAR; Color Urine YELLOW; Glucose Urine UA NEG (NEG); Leukocyte Esterase Urine NEG (NEG); Nitrite Urine NEG (NEG); Urine Blood NEG (NEG); Urine Ketones 15 MG/DL (NEG); Urine Protein NEG (NEG-TRACE)
[2021-05-03] MEDS: Metoclopramide HCl 10 MG/2 ML VIAL IVPUSH (13:30)
[2021-05-03] MEDS: diphenhydrAMINE HCL 50 MG/ML VIAL 25 MG IVPUSH (13:30)
--- NOTE | 2021-05-03 13:34 | PC.NURSE ---
GI MD with pt, plan to admit and re-attempt endoscopy tomorrow.
--- NOTE | 2021-05-03 13:36 | P.HPHOSP_ITS ---
History of Present Illness Date of Service: 05/03/21 Chief Complaint: Intractable nausea and vomiting, abdominal pain A 51 years old male with PMH of diverticulitis, PUD who presents to the hospital with intractable nausea and vomiting with abdominal pain for 1 day [employer]. The patient was planned to do upper endoscopy today for evaluation of his symptoms but overnight he started to have abdominal pain associated with nausea and vomiting. He could not tolerate anything by mouth and has been dry heaving. Denies fever but reporting chills. Denies any chest pain, shortness of breath, palpitation, rash or urinary symptoms. He reports that the problem started around 2005 when he had back surgery requiring abdominal approach. In the emergency CT scan was concerning for possible colitis. Admitted for further evaluation and treatment. Review of Systems Review of Systems: No fever, but reporting chills and feeling weak No chest pain, palpitation No shortness of breath or coughing Generalized abdominal pain associated with significant nausea and vomiting, episodes of diarrhea No urinary symptoms No any rash or wounds Yes all other systems are reviewed and are negative [facility] Medical History Calcaneus fracture Diverticulitis Seizures Family History Father No problems noted. Mother No problems noted. Son No problems noted. Daughter No problems noted. Pertinent family history: No problems reported Surgical History H/O colonoscopy History of back surgery History of esophagogastroduodenoscopy (EGD) History of hernia surgery History of knee surgery Social History Household Members: Friend(s) Housing: House Alcohol intake: unknown Patient Tobacco Use Status: Former Tobacco user Use of substances other than those prescribed or required for medical reasons: Unknown Advance Directives: No Advance Directives Information Provided: No service: No Current occupational status: unemployed Meds Allergies Allergy/AdvReac Type Severity Reaction Status Date / Time meperidine [Demerol] Allergy Unknown Vomiting Verified 04/14/21 08:59 Active Medications: Current Medications Promethazine HCl 6.25 mg/ (Sodium Chloride) 50.25 mls @ 201 mls/hr IV ONCE ONE Stop: 05/03/21 13:35 Metoclopramide HCl (Metoclopramide Hcl 5 Mg Tablet) 5 mg PO TIDAC [facility] Pharmacy Consult (Consult Rx Perform Med Rec) 1 each MISCELLANE ONCE PRN PRN Reason: Consult order Home Medications Medication Instructions Recorded Confirmed Last Taken Type multivitamin 1 tab PO DAILY 05/03/21 05/03/21 Unknown History Physical Exam Vital Signs and Narrative: Vital Signs: Last Vital Signs Temp 98.1 F 05/03/21 11:43 Pulse 68 05/03/21 12:17 Resp 18 05/03/21 10:18 BP 131/66 05/03/21 12:17 Pulse Ox 97 05/03/21 12:17 Body Mass Index 17.2 Const: Other: Constitutional : Alert, oriented, not in distress Neck : Normal inspection, Supple Cardiovascular : RRR, S1 S2, no lower extremity edema Respiratory : Good bilateral air entry, no crackles, wheezes or rhonchi Gastrointestinal: soft, lax, decrease bowel sounds, mild generalized tenderness mainly in the left lower quadrant. Skin : Warm, Dry Neurological : Alert & oriented x3, No focal deficit Results Labs CBC and Chem 7: 05/03/21 09:02 05/03/21 09:02 Labs: Laboratory Results - last 24 hr 05/03/21 05/03/21 05/03/21 09:02 09:02 09:02 MCV 90.4 MCH 30.9 MCHC 34.2 RDW 16.7 H Plt Count 164 MPV 9.6 Immature Gran % (Auto) 0.3 Neut % (Auto) 76.4 H Lymph % (Auto) 14.7 L [place] % (Auto) 6.4 Eos % (Auto) 0.6 Baso % (Auto) 1.6 Lymph # (Auto) 0.9 L [place] # (Auto) 0.4 Eos # (Auto) 0.0 Baso # (Auto) 0.1 Abs Immat Gran (auto) 0.02 Absolute Neuts (auto) 4.9 Absolute Nucleated RBC 0.000 Nucleated RBC % (auto) 0.0 Anion Gap 18 Estim Creat Clear Calc 76.4 Estimated GFR > 60 Random Glucose 85 Lactic Acid Calcium 9.4 Magnesium 1.9 Total Bilirubin 0.4 Direct Bilirubin 0.3 AST 130 H ALT 61 H Alkaline Phosphatase 88 Total Protein 7.4 Albumin 4.7 Lipase 56 Urine Color Urine Appearance Urine pH Ur Specific [place] Urine Protein Urine Glucose (UA) Urine Ketones Urine Blood Urine Nitrite Ur Leukocyte Esterase COVID-19 ([place]) Negative COVID-19 Clin Com See Note 05/03/21 05/03/21 11:39 11:49 MCV MCH MCHC RDW Plt Count MPV Immature Gran % (Auto) Neut % (Auto) Lymph % (Auto) [place] % (Auto) Eos % (Auto) Baso % (Auto) Lymph # (Auto) [place] # (Auto) Eos # (Auto) Baso # (Auto) Abs Immat Gran (auto) Absolute Neuts (auto) Absolute Nucleated RBC Nucleated RBC % (auto) Anion Gap Estim Creat Clear Calc Estimated GFR Random Glucose Lactic Acid 2.7 H* Calcium Magnesium Total Bilirubin Direct Bilirubin AST ALT Alkaline Phosphatase Total Protein Albumin Lipase Urine Color YELLOW Urine Appearance CLEAR Urine pH 7.0 Ur Specific [place] 1.020 Urine Protein NEG Urine Glucose (UA) NEG Urine Ketones 15 Urine Blood NEG Urine Nitrite NEG Ur Leukocyte Esterase NEG COVID-19 ([place]) COVID-19 Clin Com Imaging Radiologist's Impressions: Impressions Abdomen/Pelvis CT 05/03/21 09:19 IMPRESSION: Diverticulosis of the colon. Wall thickening of the sigmoid colon and stranding of the fat suggestive of mild diverticulitis or colitis. This is similar to previous exams. Fatty infiltration of the liver. Assessment and Plan (1) Peptic ulcer disease: Status: Acute (2) Diverticulitis: Status: Acute (3) Intractable vomiting: Qualifiers: Nausea presence: with nausea Vomiting type: unspecified Qualified Code(s): R11.2 - Nausea with vomiting, unspecified Status: Acute (4) Elevated LFTs: Status: Acute (5) Lactic acidosis: Status: Acute A 51 years old male with PMH of diverticulitis, PUD who presents to the hospital with intractable nausea and vomiting with abdominal pain for 1 day [employer]. Acute colitis Could be infection was or inflammatory in origin Pending blood cultures CT scan as above Start ceftriaxone and Flagyl IV fluids Intractable nausea From infection, PUD Use Zofran and Phenergan as needed Reglan with meals to get GI evaluation Continue omeprazole and Carafate Clear liquids and advanced diet as tolerated Elevated LFT Could be secondary to infection Will monitor LFT for now Lactic acidosis Secondary to dehydration not severe sepsis Give IV fluid Repeat LA DVT PPX SCDs and early ambulation Quality Stroke Does the patient have a stroke diagnosis?: No VTE Prior VTE?: No VTE Risk Level:: Medical - moderate - high VTE Device Contraindication: Treatment Not Indicated VTE Drug Contraindication: N/A - Med Ordered
[2021-05-03] MEDS: Dextrose 5 % and 0.9 % NaCl 1,000 ML 100 ML IVCONT (13:50)
[2021-05-03 13:53] LABS: Reflex Lactate? Lactic Acid Added
[2021-05-03] MEDS: Pantoprazole Sodium 40 MG/10 ML VIAL IVPUSH (14:30)
[2021-05-03] MEDS: Sucralfate Oral Suspension 1 GM/10 ML ORAL.SUSP PO ×2 (14:30→21:54)
[2021-05-03 14:35] LABS: ~Lactic Acid-LAB USE ONLY 2.8 mmol/L (0.5-2.0)
[2021-05-03] MEDS: Morphine Sulfate 4 MG/ML CARTRIDGE 2 MG IVPUSH (15:55)
[2021-05-03 16:16] LABS: Reflex Lactate? 2 Y
[2021-05-03 16:50] LABS: ~Lactic Acid-LAB USE ONLY 1.3 mmol/L (0.5-2.0)
[2021-05-03] MEDS: Metoclopramide HCl 5 MG TABLET PO (17:29)
--- NOTE | 2021-05-03 17:38 | PC.NURSE ---
at approx 1730 t/w entered the room to check the pt and his fluids. this RN flushed his IV and restarted the D5NS - pt became rigid and began seizing. pt was rolled to his side, suctioned as he had bit his tongue and was bleeding. O2 was started on the PT as he became cyanotic and he was given 2mg of Ativan. seizure lasted approximately 1 min. post-ictal pt was confused and restless. MD Horner notified. pt vitals currently stable SaO2 99% on 4L NC, HR 114 BP 120/82
--- NOTE | 2021-05-03 17:45 | PC.NURSE ---
Dr. Horner in the room to assess pt
[2021-05-03] MEDS: LORazepam 2 MG/ML VIAL IVPUSH (17:56)
[2021-05-03] MEDS: PHENobarbitaL sodium 130 MG/ML VIAL 180 MG IM (18:17)
[2021-05-03] MEDS: Omeprazole 40 MG CAPSULE.DR PO (18:17)
--- NOTE | 2021-05-03 18:30 | PC.NURSE ---
pt resistant to having the O2 via NC on his sulaiman - highly encouraged to. pt SaO2 at 88% on room air, he was started on 4L NC and came up to 95% when he leaves it on his face
--- NOTE | 2021-05-03 21:15 | PC.NURSE ---
pt more awake, asking about what happened. reported he has only ever had a seizure once before. denies drinking history. Reports only drinking once a week.
--- NOTE | 2021-05-03 22:19 | MHC.CM.PN ---
CM met with admitted patient, with bed assignment pending. Pt is alert and orientated x3. Pt had seizure earlier, but is awake and able to answer questions. Pt stays with friends. Address listed is for his mail only. 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 Pt has not received any vaccines. Pt uses no DME, and has no services. Pt denies alcohol abuse. HCP is on file. HCP Rah Ashby ([phone]). Contact is Mya Moreno-malu ([phone]). D/C plan is home without services. Transportation home by girlfriend. CM to follow for d/c needs.
[2021-05-03] MEDS: PHENobarbitaL sodium 130 MG/ML VIAL 136 MG IM (23:24)
[2021-05-04] VITALS (13 sets, daily range): BP systolic 99–138; BP diastolic 67–88; PULSE 61–82; RESP 15–22; TEMP 35.9–37.6; O2SAT 92–100; BMI 17.2
--- NOTE | 2021-05-04 06:17 | PM.GICN ---
History of Present Illness Data of Consult Service Date: 05/04/21 Requesting physician: Dimitrios Horner Primary Care Provider: Kerri Bermudez MD HPI Reason for consult: nausea, abdo pain 51 years old male with PMH of diverticulitis, and PUD who I am seeing for assessment for abdominal pain, and nausea. He was supposed to get an EGD yesterday but was c/o severe nausea and vomiting-non bloody with upper abdominal pain 10/10 worse with food with radiation to left side and chills as well as bouts of non bloody diarrhea. Due to these concerns the EGD was cancelled and the patient was sent to the ED. He also has chronci poor appetite and weight loss. no melena or rectal bleeding. He had not been taking PPi since his EGD 12/30 even liquis suspension which I had given his as he said he couldn;t tolerate. He denies THC use recently, last use 2 months ago-- prior urine tox screen have been pos for THC. He has had similar bouts on and off and had an EGD 12/30 with duodenal ulcers, gastritis and erosive esophagitis. CT scan in ED this admission with mild colitis or diveerticulitis similar to recent prior CT scans, labs with nml WCC and chronic anemia. He also has ASt>ALT elevation but denies alcohol ingestion except for odd occasion. TTG and gastrin levels haev been nml in past, denies nsaid use or ingestion of poorly cooked foods. Review of Systems Review of Systems: No fever, but reporting chills and feeling weak No chest pain, palpitation No shortness of breath or coughing Generalized abdominal pain associated with significant nausea and vomiting, episodes of diarrhea No urinary symptoms No any rash or wounds Yes all other systems are reviewed and are negative Gastrointestinal: Gastrointestinal: Reports nausea PMFSH Past Medical History Medical History (Updated 05/04/21 @ 11:40 by Elvira Purdy RN) Asthma Calcaneus fracture Diverticulitis Seizures Family History Family History Father No problems noted. Mother No problems noted. Son No problems noted. Daughter No problems noted. Pertinent family history: No problems reported Surgical History Surgical History H/O colonoscopy History of back surgery History of esophagogastroduodenoscopy (EGD) History of hernia surgery History of knee surgery Social History Social History (Updated 05/04/21 @ 12:29 by Suzy Zeng MD) Household Members: Friend(s) Household Members Other:: 2 Housing: House Do you presently have visiting nurse or other home services: No Alcohol intake: current Alcohol intake frequency: a few times a month Alcohol type: beer Patient Tobacco Use Status: Former Tobacco user Substance Use Type: Marijuana service: No Current occupational status: unemployed Meds Allergies Allergy/AdvReac Type Severity Reaction Status Date / Time meperidine [Demerol] Allergy Unknown Vomiting Verified 04/14/21 08:59 Active Medications: Current Medications Acetaminophen (Acetaminophen 325 Mg Tablet) 650 mg PO Q6H PRN PRN Reason: Pain, Mild (Pain Scale 1-3) Dextrose/Sodium Chloride (D5ns) 1,000 mls @ 100 mls/hr IVCONT .Q10H [facility] Last Admin: 05/03/21 13:50 Dose: 100 mls/hr Documented by: Medication (No Benzodiazepines) 1 each MISCELLANE DAILY [facility] Metoclopramide HCl (Metoclopramide Hcl 5 Mg Tablet) 5 mg PO TIDAC [facility] Last Admin: 05/03/21 17:29 Dose: 5 mg Documented by: Morphine Sulfate (Morphine Sulfate 4 Mg/Ml Cartridge) 2 mg IVPUSH Q4H PRN; Protocol PRN Reason: Pain, Severe (Pain Scale 7-10) Last Admin: 05/03/21 15:55 Dose: 2 mg Documented by: Omeprazole (Omeprazole 40 Mg Capsule.Dr) 40 mg PO BID@0630,1630 [facility] Last Admin: 05/03/21 18:17 Dose: 40 mg Documented by: Ondansetron HCl (Ondansetron Hcl 4 Mg/2 Ml Vial) 4 mg IVPUSH Q8H PRN PRN Reason: Nausea and Vomiting Pharmacy Consult (Consult Rx Perform Med Rec) 1 each MISCELLANE ONCE PRN PRN Reason: Consult order Phenobarbital (Phenobarbital 30 Mg Tablet) 30 mg PO BID [facility]; Protocol Stop: 05/05/21 21:01 Phenobarbital (Phenobarbital 15 Mg Tablet) 15 mg PO BID [facility]; Protocol Stop: 05/07/21 21:01 Phenobarbital (Phenobarbital 15 Mg Tablet) 15 mg PO DAILY [facility]; Protocol Stop: 05/09/21 09:01 Sodium Chloride (0.9 % Sodium Chloride Flush 3 Ml Syringe) 3 ml IVFLUSH QSHIFT [facility] Last Admin: 05/03/21 15:55 Dose: Not Given Documented by: Sucralfate (Sucralfate Oral Suspension 1 Gm/10 Ml Oral.Susp) 1 gm PO TID [facility] Last Admin: 05/03/21 21:54 Dose: 1 gm Documented by: Home Medications Medication Instructions Recorded Confirmed Last Taken Type multivitamin 1 tab PO DAILY 05/03/21 05/03/21 Unknown History Physical Exam Vital Signs: Vital Signs: Last Vital Signs Temp 98.1 F 05/03/21 11:43 Pulse 83 05/03/21 23:23 Resp 14 05/03/21 23:23 BP 106/71 05/03/21 23:23 Pulse Ox 97 05/03/21 23:23 Body Mass Index 17.2 Const: Other: Constitutional : Alert, oriented, in distress, non bloody emesis Neck : Normal inspection, Supple Cardiovascular : RRR, S1 S2, no lower extremity edema Respiratory : Good bilateral air entry, no crackles, wheezes or rhonchi Gastrointestinal: soft, lax, decrease bowel sounds, mild generalized tenderness mainly in the left lower and upper quadrant. Skin : Warm, Dry Neurological : Alert & oriented x3, No focal deficit MS: nml Psych--nml affect Extrem: General: Yes normal to inspection Results Labs CBC & Chem 7: 05/04/21 07:12 05/04/21 07:12 Labs: Short CBC 05/03/21 Range/Units 09:02 WBC 6.4 (4.8-10.8) X10*3/uL Hgb 13.8 L (14.0-18.0) g/dl Hct 40.3 L (42-52) % Plt Count 164 (160-400) X10*3/uL BMP 05/03/21 09:02 Sodium 141 Potassium 4.3 Chloride 102 Carbon Dioxide 25 BUN 3 L Creatinine 0.75 Calcium 9.4 Liver Function 05/03/21 Range/Units 09:02 Total Bilirubin 0.4 (0.0-1.0) mg/dL Direct Bilirubin 0.3 (0.0-0.5) mg/dL AST 130 H (5-37) U/L ALT 61 H (0-40) U/L Alkaline Phosphatase 88 (39-117) U/L Albumin 4.7 (3.5-5.0) g/dL Urine 05/03/21 Range/Units 11:39 Urine Color YELLOW Urine Appearance CLEAR Urine pH 7.0 (5.0-8.0) Ur Specific [place] 1.020 (1.005-1.025) Urine Protein NEG (NEG-TRACE) MG/DL Urine Glucose (UA) NEG (NEG) MG/DL Assessment and Plan (1) Peptic ulcer disease: Status: Acute (2) Diverticulitis: Status: Acute (3) Intractable vomiting: Qualifiers: Nausea presence: with nausea Vomiting type: unspecified Qualified Code(s): R11.2 - Nausea with vomiting, unspecified Status: Acute (4) Elevated LFTs: Status: Acute (5) Lactic acidosis: Status: Acute A/P: 1/ Pain with nausea and vomting, may have worsening PUD given he had not been taking PPI, DDX: canniboid hyperemesis syndrome (less likely), cyclical vomiting, surreptitious use of alcohol, gastroparesis 2/chronic diverticulitis or colitis - last colonoscopy 2012, does have some lower GI sx, 1/ EGD for further assessment -may need colonoscopy in pt vs o/p depending on clinical response to fludis and treatment 2/ stool tests c/s and c diff if documented to have diarrhea 3/ check fecal fat and fecal elastase 4/ watch for alcohol withdrawal, can check for carbohydrate def transferrin which is a marker of heavy alcohol use Procedures Date of Service Date of Service: 05/04/21
[2021-05-04 07:18] LABS: Mean Corpuscular Volume 91.8 fL (80-98); PLT CLUMP 1
[2021-05-04] MEDS: PHENobarbitaL 30 MG TABLET PO ×2 (07:18→20:31)
[2021-05-04] MEDS: Omeprazole 40 MG CAPSULE.DR PO ×2 (07:19→18:08)
[2021-05-04] MEDS: Sucralfate Oral Suspension 1 GM/10 ML ORAL.SUSP PO ×3 (07:19→20:32)
[2021-05-04 07:20] LABS: Hematocrit 38.2 % (42-52); Mean Corpuscular Hemoglobin 31.3 pg (27.0-33.0); Mean Platelet Volume 9.5 fL (9.4-12.4); Platelet Count 144 X10*3/uL (160-400); Red Blood Count 4.16 X10*6/uL (4.60-5.80); Red Cell Distribution Width 16.1 % (11.0-16.0); White Blood Count 8.6 X10*3/uL (4.8-10.8)
[2021-05-04] MEDS: Morphine Sulfate 4 MG/ML CARTRIDGE 2 MG IVPUSH ×4 (07:22→23:25)
[2021-05-04 07:38] LABS: Anion Gap 14 (12-20); Blood Urea Nitrogen 4 mg/dL (9-16); Calcium 8.9 mg/dL (8.4-10.2); Carbon Dioxide 27 mmol/L (22-29); Chloride 96 mmol/L (96-108); Estimated Glomerular Filt Rate > 60; Glucose Random 92 mg/dL (60-115); Potassium 3.4 mmol/L (3.3-5.1); Sodium 134 mmol/L (135-145)
--- NOTE | 2021-05-04 08:22 | PC.NURSE ---
called pharmacy for sharan, stated it will be delivered
[2021-05-04] MEDS: Metoclopramide HCl 5 MG TABLET PO ×3 (08:36→18:08)
--- NOTE | 2021-05-04 09:29 | PC.NURSE ---
pt being transferred to med surg by yris chen, report given to assistant county attorney. pt was not npo since midnight, pt is now awaiting npo x2 hrs for planned upper study.
--- NOTE | 2021-05-04 11:02 | PC.NURSE ---
Pt transported to endoscopy
--- NOTE | 2021-05-04 11:17 | MHC.SHP ---
Pre-Procedural Eval Section A Date of Service: 05/04/21 The patient is an INPATIENT: Yes The History & Physical has been completed within 30 days and I have reviewed it.: Yes Section B Chief Complaint: NAUSEA \ VOMIITNG ABD PAIN Allergies: Allergies Allergy/AdvReac Type Severity Reaction Status Date / Time meperidine [Demerol] Allergy Unknown Vomiting Verified 04/14/21 08:59 Plan Diagnosis/Plan: Unchanged I have reviewed the history and physical and performed a pertinent physical examination on my patient. No changes have occurred unless specified.
--- NOTE | 2021-05-04 11:44 | P.CDIC_ITS ---
CDI Concurrent Query Documentation Clarification: PHYSICIAN'S DOCUMENTATION REQUEST Date of Query: 05/04/21 1144 Patient Name: Rhys Gamez Admit Date: 05/03/21 Dear Doctor, A review of the medical record indicates additional documentation may be needed. Please review below and update the documentation accordingly. BMI Risk Factors/Clinical Indicators/Treatments Body mass index: 17.3 5' 4 loss of appetitem malaise, nausea and vomiting weakness, dehydration. If possible, please provide an associated diagnosis related to the abnormal BMI, such as: For a BMI <= 19: * Underweight * Weight loss * Cachexia * Anorexia * Malnourished, mild, moderate or severe Or: * BMI is not significant * Other (please specify) * Unable to determine Use of terms such as suspected, likely, concern for, or probable (associated with a specific diagnosis that is being evaluated, monitored, or treated as if it exists) are acceptable and can be coded in the inpatient setting, when documented at the time of discharge. Thank you, Irma Dodge [facility], CDIS Extension: [phone] Please use your independent medical judgment in providing your response. THIS QUERY IS PART OF THE PERMANENT MEDICAL RECORD Provider Response: Other Other Diagnosis: underweight
--- NOTE | 2021-05-04 12:05 | HO.ANESPROP2 ---
HPI - Anesthesia Eval Consult details Narrative: 51 yo male patient for EGD secondary to intractable vomiting. Procedure postponed from yesterday. Lactic acidosis yesterday- resolved post IV fluids PMFSH Active Problems Active Problems: All Active Problems (Updated 05/04/21 @ 11:40 by Elvira Purdy RN) Elevated LFTs (Acute) Peptic ulcer disease (Acute) Diverticulitis (Acute) Intractable vomiting (Acute) Lactic acidosis (Acute) ? ETOH abuse. States does not drink but on further questioning, does admit to drinking. Last drank 'a few days ago' Does not know how much- 'a few beers Witnessed seizure in ER thought to be ETOH related. Had seizure in 12/2020 also thought to be ETOH related. Neurology w/u at that time did not reveal any abnormalities. ETOH at that time 183.ETOH level not checked this admission. Patient fidgety- does not remember that he had this procedure done in December or that he had any investigation done related to the seizure + Marijuana use- initially denied. Last used 'a few days ago Past Medical History Medical History (Updated 05/04/21 @ 11:40 by Elvira Purdy RN) Asthma Calcaneus fracture Diverticulitis Seizures Family History Family History Father No problems noted. Mother No problems noted. Son No problems noted. Daughter No problems noted. Family history of problems with anesthesia: No Surgical History Surgical History H/O colonoscopy History of back surgery History of esophagogastroduodenoscopy (EGD) History of hernia surgery History of knee surgery History of Problems with Anesthesia: No Social History Social History (Updated 05/04/21 @ 12:29 by Suzy Zeng MD) Household Members: Friend(s) Household Members Other:: 2 Housing: House Do you presently have visiting nurse or other home services: No Alcohol intake: current Alcohol intake frequency: a few times a month Alcohol type: beer Patient Tobacco Use Status: Former Tobacco user Substance Use Type: Marijuana service: No Current occupational status: unemployed Meds Allergies Allergy/AdvReac Type Severity Reaction Status Date / Time meperidine [Demerol] Allergy Unknown Vomiting Verified 04/14/21 08:59 Active Medications: Current Medications Acetaminophen (Acetaminophen 325 Mg Tablet) 650 mg PO Q6H PRN PRN Reason: Pain, Mild (Pain Scale 1-3) Dextrose/Sodium Chloride (D5ns) 1,000 mls @ 100 mls/hr IVCONT .Q10H [facility] Last Admin: 05/04/21 07:12 Dose: Not Given Documented by: Medication (No Benzodiazepines) 1 each MISCELLANE DAILY [facility] Metoclopramide HCl (Metoclopramide Hcl 5 Mg Tablet) 5 mg PO TIDAC [facility] Last Admin: 05/04/21 08:36 Dose: 5 mg Documented by: Morphine Sulfate (Morphine Sulfate 4 Mg/Ml Cartridge) 2 mg IVPUSH Q4H PRN; Protocol PRN Reason: Pain, Severe (Pain Scale 7-10) Last Admin: 05/04/21 07:22 Dose: 2 mg Documented by: Omeprazole (Omeprazole 40 Mg Capsule.) 40 mg PO BID@0630,1630 [facility] Last Admin: 05/04/21 07:19 Dose: 40 mg Documented by: Ondansetron HCl (Ondansetron Hcl 4 Mg/2 Ml Vial) 4 mg IVPUSH Q8H PRN PRN Reason: Nausea and Vomiting Pharmacy Consult (Consult Rx Perform Med Rec) 1 each MISCELLANE ONCE PRN PRN Reason: Consult order Phenobarbital (Phenobarbital 30 Mg Tablet) 30 mg PO BID [facility]; Protocol Stop: 05/05/21 21:01 Last Admin: 05/04/21 07:18 Dose: 30 mg Documented by: Phenobarbital (Phenobarbital 15 Mg Tablet) 15 mg PO BID [facility]; Protocol Stop: 05/07/21 21:01 Phenobarbital (Phenobarbital 15 Mg Tablet) 15 mg PO DAILY [facility]; Protocol Stop: 05/09/21 09:01 Sodium Chloride (0.9 % Sodium Chloride Flush 3 Ml Syringe) 3 ml IVFLUSH QSHIFT [facility] Last Admin: 05/04/21 07:13 Dose: Not Given Documented by: Sucralfate (Sucralfate Oral Suspension 1 Gm/10 Ml Oral.Susp) 1 gm PO TID [facility] Last Admin: 05/04/21 07:19 Dose: 1 gm Documented by: Home Medications Medication Instructions Recorded Confirmed Last Taken Type multivitamin 1 tab PO DAILY 05/03/21 05/03/21 Unknown History Exam Exam Date and Time: May 04, 2021 1205 Height,Weight and Vital Signs: Height 5 ft 4 in Weight 45.359 kg Last Vital Signs Temp 99.6 F 05/04/21 11:35 Pulse 63 05/04/21 11:35 Resp 16 05/04/21 11:35 BP 125/79 05/04/21 11:35 Pulse Ox 95 05/04/21 11:35 Pertinent Lab Results Pertinent Lab Results: Laboratory Tests 05/03/21 05/03/21 05/03/21 09:02 09:02 09:02 WBC 6.4 RBC 4.46 L Hgb 13.8 L Hct 40.3 L MCV 90.4 MCH 30.9 MCHC 34.2 RDW 16.7 H Plt Count 164 MPV 9.6 Immature Gran % (Auto) 0.3 Neut % (Auto) 76.4 H Lymph % (Auto) 14.7 L [place] % (Auto) 6.4 Eos % (Auto) 0.6 Baso % (Auto) 1.6 Lymph # (Auto) 0.9 L [place] # (Auto) 0.4 Eos # (Auto) 0.0 Baso # (Auto) 0.1 Abs Immat Gran (auto) 0.02 Absolute Neuts (auto) 4.9 Absolute Nucleated RBC 0.000 Nucleated RBC % (auto) 0.0 Sodium 141 Potassium 4.3 Chloride 102 Carbon Dioxide 25 Anion Gap 18 BUN 3 L Creatinine 0.75 Estim Creat Clear Calc 76.4 Estimated GFR > 60 Random Glucose 85 Lactic Acid Lactic Acid Fup @ 2Hr Lactic Acid Fup @ 4Hr Calcium 9.4 Magnesium 1.9 Total Bilirubin 0.4 Direct Bilirubin 0.3 AST 130 H ALT 61 H Alkaline Phosphatase 88 Total Protein 7.4 Albumin 4.7 Lipase 56 Urine Color Urine Appearance Urine pH Ur Specific [place] Urine Protein Urine Glucose (UA) Urine Ketones Urine Blood Urine Nitrite Ur Leukocyte Esterase COVID-19 ([place]) Negative COVID-19 Clin Com See Note 05/03/21 05/03/21 05/03/21 11:39 11:49 14:13 WBC RBC Hgb Hct MCV MCH MCHC RDW Plt Count MPV Immature Gran % (Auto) Neut % (Auto) Lymph % (Auto) [place] % (Auto) Eos % (Auto) Baso % (Auto) Lymph # (Auto) [place] # (Auto) Eos # (Auto) Baso # (Auto) Abs Immat Gran (auto) Absolute Neuts (auto) Absolute Nucleated RBC Nucleated RBC % (auto) Sodium Potassium Chloride Carbon Dioxide Anion Gap BUN Creatinine Estim Creat Clear Calc Estimated GFR Random Glucose Lactic Acid 2.7 H* Lactic Acid Fup @ 2Hr 2.8 H* Lactic Acid Fup @ 4Hr Calcium Magnesium Total Bilirubin Direct Bilirubin AST ALT Alkaline Phosphatase Total Protein Albumin Lipase Urine Color YELLOW Urine Appearance CLEAR Urine pH 7.0 Ur Specific [place] 1.020 Urine Protein NEG Urine Glucose (UA) NEG Urine Ketones 15 Urine Blood NEG Urine Nitrite NEG Ur Leukocyte Esterase NEG COVID-19 ([place]) COVID-19 FinalCAD Com 05/03/21 05/04/21 05/04/21 16:31 07:12 07:12 WBC 8.6 RBC 4.16 L Hgb 13.0 L Hct 38.2 L MCV 91.8 MCH 31.3 MCHC 34.0 RDW 16.1 H Plt Count 144 L MPV 9.5 Immature Gran % (Auto) Neut % (Auto) Lymph % (Auto) [place] % (Auto) Eos % (Auto) Baso % (Auto) Lymph # (Auto) [place] # (Auto) Eos # (Auto) Baso # (Auto) Abs Immat Gran (auto) Absolute Neuts (auto) Absolute Nucleated RBC 0.000 Nucleated RBC % (auto) 0.0 Sodium 134 L Potassium 3.4 D Chloride 96 Carbon Dioxide 27 Anion Gap 14 BUN 4 L Creatinine 0.69 Estim Creat Clear Calc 83.0 Estimated GFR > 60 Random Glucose 92 Lactic Acid Lactic Acid Fup @ 2Hr Lactic Acid Fup @ 4Hr 1.3 Calcium 8.9 Magnesium Total Bilirubin Direct Bilirubin AST ALT Alkaline Phosphatase Total Protein Albumin Lipase Urine Color Urine Appearance Urine pH Ur Specific [place] Urine Protein Urine Glucose (UA) Urine Ketones Urine Blood Urine Nitrite Ur Leukocyte Esterase COVID-19 ([place]) COVID-19 Clin Com Airway Mallampati Class: II TM Dist: >3cm Neck ROM: Full Loose/Missing/Broken Teeth: Yes (Poor. Many missing) Heart: RRR Lungs: Bilateral inspiratory and expiratory wheezes Assessment and Plan Assessment Anesthesia Assessment: Anesthesia Plan Discussed and Chart Reviewed Final Anesthetic Review Family History of Problems with Anesthesia: No History of Problems with Anesthesia: No NPO: Yes ASA Class: III and Emergency Final Preanesthetic Review: No Changes in Pt Med Stat, Meds/Allgs Chart Reviewed, Consent Obtained/Reviewed and Anes Risks/Benef Reviewed Patient Risk: Intermediate Procedure Risk: Low Assessment/Block/Sedation in SS: Assess/Block/Sedation-SS Anesthetic Plan Anesthetic Plan: GA Disposition: Standard PACU and Inp. Admit - Standard Bed
[2021-05-04] MEDS: Albuterol Sulfate (0.083%) 2.5 MG/3 ML VIAL.NEB INHALE (12:12)
--- NOTE | 2021-05-04 12:51 | P.BOP_ITS ---
Brief Operative Note Date of Service: 05/04/21 Pre-op diagnosis: nausea, vomiting and abdominal pain Post-op diagnosis: same Procedure: see op note Surgeon: Esau Garnett MD Anesthesia: MAC Was an Residential Sales Manager used for this Procedure?: No Estimated blood loss (mL): 0 Condition: stable Disposition: PACU
--- NOTE | 2021-05-04 12:52 | W.PM.OPN ---
Operative Note Operative Note Date of Service: 05/04/21 Narrative: Procedure Description: EGD FLEXIBLE TRANSORAL UPPER GASTROINTESTINAL ENDOSCOPY UPPER ENDOSCOPY Consent: Indications for the procedure and potential complications of bleeding, perforation, reaction to medications and missed diagnosis were discussed with the patient and informed consent was obtained. Instrument: Olympus GIF H 190 J mid size upper endoscope Monitoring: Vital signs and clinical assessment, continuous EKG monitoring, Pulse oximetry, Carbon Dioxide monitoring and blood pressure monitoring were done throughout the procedure. Procedure: The patient was placed in the left lateral decubitis position and pre-procedure medications were administered and a bite block was placed. The endoscope was inserted into the mouth and advanced under direct vision to the third part of duodenum. A careful inspection was made as the upper endoscope was withdrawn including a retroflexed examination of the proximal stomach; Findings and interventions are described below. Findings: Larynx:normal Esophagus: GE junction at 43 cm, diaphragm hiatus at 43 cm, LA grade C erosive esophagitis noted with erythema and bogginess at the GEJ Stomach: Patchy gastric erythema but no ulcers noted. Grade 2 flap valve on retroflexed examination of the cardia. Duodenum: Normal bulb and descending duodenum, Intervention: none Impression/Findings: gastritis erosive esophagitis PLAN: recommence pantoprazole 40 mg daily, if not tolerated then carafate trial 1 g TID outpatient colonoscopy as he is feeling much better today, a advance diet and see if tolerated complete ABX course
--- NOTE | 2021-05-04 13:53 | HO.PM.IMPN ---
Subjective Subjective Date of Service: 05/04/21 Interval History: the patient was seen and evaluated this morning Laying in bed, feels mild improvement overnight Less nausea and vomiting Denies any fever, chills or shortness of breath No reported other overnight events. Review of Systems No fever, but reporting chills and feeling weak No chest pain, palpitation No shortness of breath or coughing Generalized abdominal pain improving No urinary symptoms No any rash or wounds Physical Exam Vital Signs: Vital Signs: Last Vital Signs Temp 97 F 05/04/21 13:39 Pulse 74 05/04/21 13:39 Resp 18 05/04/21 13:39 BP 101/67 05/04/21 13:39 Pulse Ox 97 05/04/21 13:39 Body Mass Index 17.2 Const: Other: Constitutional : Alert, oriented, not in distress Neck : Normal inspection, Supple Cardiovascular : RRR, S1 S2, no lower extremity edema Respiratory : Good bilateral air entry, no crackles, wheezes or rhonchi Gastrointestinal: soft, lax, decrease bowel sounds, mild generalized tenderness mainly in the left lower quadrant. Skin : Warm, Dry Neurological : Alert & oriented x3, No focal deficit Objective Data Active Medications Acetaminophen (Acetaminophen 325 Mg Tablet) 650 mg PO Q6H PRN PRN Reason: Pain, Mild (Pain Scale 1-3) Dextrose/Sodium Chloride (D5ns) 1,000 mls @ 100 mls/hr IVCONT .Q10H [facility] Last Admin: 05/04/21 07:12 Dose: Not Given Documented by: BLANCO Non-Admin Reason: See Note Lactated Ringer's (Lr) 1,000 mls @ 100 mls/hr IVCONT .Q10H [facility] Medication (No Benzodiazepines) 1 each MISCELLANE DAILY [facility] Metoclopramide HCl (Metoclopramide Hcl 5 Mg Tablet) 5 mg PO TIDAC [facility] Last Admin: 05/04/21 08:36 Dose: 5 mg Documented by: BLANCO Morphine Sulfate (Morphine Sulfate 4 Mg/Ml Cartridge) 2 mg IVPUSH Q4H PRN; Protocol PRN Reason: Pain, Severe (Pain Scale 7-10) Last Admin: 05/04/21 07:22 Dose: 2 mg Documented by: BLANCO Omeprazole (Omeprazole 40 Mg Estrella.) 40 mg PO BID@0630,1630 [facility] Last Admin: 05/04/21 07:19 Dose: 40 mg Documented by: ALEN Ondansetron HCl (Ondansetron Hcl 4 Mg/2 Ml Vial) 4 mg IVPUSH Q8H PRN PRN Reason: Nausea and Vomiting Pharmacy Consult (Consult Rx Perform Med Rec) 1 each MISCELLANE ONCE PRN PRN Reason: Consult order Phenobarbital (Phenobarbital 30 Mg Tablet) 30 mg PO BID [facility]; Protocol Stop: 05/05/21 21:01 Last Admin: 05/04/21 07:18 Dose: 30 mg Documented by: ALEN Phenobarbital (Phenobarbital 15 Mg Tablet) 15 mg PO BID [facility]; Protocol Stop: 05/07/21 21:01 Phenobarbital (Phenobarbital 15 Mg Tablet) 15 mg PO DAILY [facility]; Protocol Stop: 05/09/21 09:01 Sodium Chloride (0.9 % Sodium Chloride Flush 3 Ml Syringe) 3 ml IVFLUSH QSHIFT [facility] Last Admin: 05/04/21 07:13 Dose: Not Given Documented by: BLANCO Non-Admin Reason: See Note Sucralfate (Sucralfate Oral Suspension 1 Gm/10 Ml Oral.Susp) 1 gm PO TID [facility] Last Admin: 05/04/21 07:19 Dose: 1 gm Documented by: ALEN Labs CBC & Chem 7: 05/04/21 07:12 05/04/21 07:12 Labs: Laboratory Results - last 24 hr 05/03/21 05/03/21 05/04/21 14:13 16:31 07:12 MCV 91.8 MCH 31.3 MCHC 34.0 RDW 16.1 H Plt Count 144 L MPV 9.5 Absolute Nucleated RBC 0.000 Nucleated RBC % (auto) 0.0 Anion Gap Estim Creat Clear Calc Estimated GFR Random Glucose Lactic Acid Fup @ 2Hr 2.8 H* Lactic Acid Fup @ 4Hr 1.3 Calcium 05/04/21 07:12 MCV MCH MCHC RDW Plt Count MPV Absolute Nucleated RBC Nucleated RBC % (auto) Anion Gap 14 Estim Creat Clear Calc 83.0 Estimated GFR > 60 Random Glucose 92 Lactic Acid Fup @ 2Hr Lactic Acid Fup @ 4Hr Calcium 8.9 Microbiology Microbiology Results: Microbiology 05/03/21 11:49 Blood Culture - Preliminary Blood - Venous No growth after 24 hours. 05/03/21 11:49 Blood Culture - Preliminary Blood - Venous No growth after 24 hours. Assessment and Plan (1) Peptic ulcer disease: Status: Acute (2) Intractable vomiting: Status: Acute (3) Diverticulitis: Status: Acute (4) Colitis: Status: Acute (5) Elevated LFTs: Status: Acute (6) Seizure: Status: Acute Assessment and Plan: A 51 years old male with PMH of diverticulitis, PUD who presents to the hospital with intractable nausea and vomiting with abdominal pain for 1 day [employer]. Acute colitis Could be infection was or inflammatory in origin Pending blood cultures CT scan as above Continue ceftriaxone and Flagyl IV fluids Intractable nausea From infection, PUD Use Zofran and Phenergan as needed Reglan with meals GI consult, to do endoscopy and other stool tests Continue omeprazole and Carafate Clear liquids and advanced diet as tolerated Seizure Reported tonic-clonic in the emergency On phenobarbital for now To get Neurology evaluation for long-term plan Elevated LFT Could be secondary to infection Will monitor LFT for now Lactic acidosis Secondary to dehydration not severe sepsis Resolved DVT PPX SCDs and early ambulation Quality Stroke Does the patient have a stroke diagnosis?: No VTE Prior VTE?: No VTE Risk Level:: Medical - moderate - high VTE Device Contraindication: Treatment Not Indicated VTE Drug Contraindication: N/A - Med Ordered
[2021-05-04] MEDS: Dextrose 5 % and 0.9 % NaCl 1,000 ML 100 ML IVCONT ×2 (14:21→23:32)
[2021-05-04] MEDS: cefTRIAXone sodium 1 GM in 0.9 % Sodium Chloride 50 ML IV (14:36)
[2021-05-04] MEDS: metroNIDAZOLE/NS 500 MG/100 ML PIGGYBACK 100 MG IV (15:16)
--- NOTE | 2021-05-04 16:48 | PM.NEUROCN ---
History of Present Illness Data of Consult Service Date: 05/04/21 Primary Care Provider: MD MIAN Tellez Reason for consult: Seizure 51 years old man who was admitted to hospital with abdominal pain nausea or vomiting apparently had generalized convulsion in emergency room, as per documentation. He said that he never had a seizure and he did not and Review of Systems Review of Systems: Recent abdominal pain nausea and vomiting. [facility] Past Medical History Medical History (Updated 05/04/21 @ 13:57 by Dimitrios Horner MD) Asthma Calcaneus fracture Diverticulitis Seizures Family History Family History Father No problems noted. Mother No problems noted. Son No problems noted. Daughter No problems noted. Surgical History Surgical History H/O colonoscopy History of back surgery History of esophagogastroduodenoscopy (EGD) History of hernia surgery History of knee surgery Social History Social History (Updated 05/04/21 @ 12:29 by Suzy Zeng MD) Household Members: Friend(s) Household Members Other:: 2 Housing: House Do you presently have visiting nurse or other home services: No Alcohol intake: current Alcohol intake frequency: a few times a month Alcohol type: beer Patient Tobacco Use Status: Former Tobacco user Substance Use Type: Marijuana service: No Current occupational status: unemployed Meds Allergies Allergy/AdvReac Type Severity Reaction Status Date / Time meperidine [Demerol] Allergy Unknown Vomiting Verified 04/14/21 08:59 Active Medications: Current Medications Acetaminophen (Acetaminophen 325 Mg Tablet) 650 mg PO Q6H PRN PRN Reason: Pain, Mild (Pain Scale 1-3) Dextrose/Sodium Chloride (D5ns) 1,000 mls @ 100 mls/hr IVCONT .Q10H [facility] Stop: 05/04/21 20:00 Last Admin: 05/04/21 14:21 Dose: 100 mls/hr Documented by: Ceftriaxone Sodium 1 gm/ (Sodium Chloride) 50 mls @ 100 mls/hr IV Q24H [facility] Last Infusion: 05/04/21 15:06 Dose: Infused Documented by: Metronidazole (Flagyl) 500 mg in 100 mls @ 100 mls/hr IV Q8H [facility] Last Admin: 05/04/21 15:16 Dose: 100 mls/hr Documented by: Medication (No Benzodiazepines) 1 each MISCELLANE DAILY [facility] Metoclopramide HCl (Metoclopramide Hcl 5 Mg Tablet) 5 mg PO TIDAC [facility] Last Admin: 05/04/21 14:36 Dose: 5 mg Documented by: Morphine Sulfate (Morphine Sulfate 4 Mg/Ml Cartridge) 2 mg IVPUSH Q4H PRN; Protocol PRN Reason: Pain, Severe (Pain Scale 7-10) Last Admin: 05/04/21 15:21 Dose: 2 mg Documented by: Omeprazole (Omeprazole 40 Mg Capsule.Dr) 40 mg PO BID@0630,1630 [facility] Last Admin: 05/04/21 07:19 Dose: 40 mg Documented by: Ondansetron HCl (Ondansetron Hcl 4 Mg/2 Ml Vial) 4 mg IVPUSH Q8H PRN PRN Reason: Nausea and Vomiting Ondansetron HCl (Ondansetron Hcl 4 Mg/2 Ml Vial) 4 mg IVPUSH ONCE PRN PRN Reason: Nausea and Vomiting Pharmacy Consult (Consult Rx Perform Med Rec) 1 each MISCELLANE ONCE PRN PRN Reason: Consult order Phenobarbital (Phenobarbital 30 Mg Tablet) 30 mg PO BID [facility]; Protocol Stop: 05/05/21 21:01 Last Admin: 05/04/21 07:18 Dose: 30 mg Documented by: Phenobarbital (Phenobarbital 15 Mg Tablet) 15 mg PO BID [facility]; Protocol Stop: 05/07/21 21:01 Phenobarbital (Phenobarbital 15 Mg Tablet) 15 mg PO DAILY [facility]; Protocol Stop: 05/09/21 09:01 Sodium Chloride (0.9 % Sodium Chloride Flush 3 Ml Syringe) 3 ml IVFLUSH QSHIFT [facility] Last Admin: 05/04/21 07:13 Dose: Not Given Documented by: Sucralfate (Sucralfate Oral Suspension 1 Gm/10 Ml Oral.Susp) 1 gm PO TID [facility] Last Admin: 05/04/21 15:16 Dose: 1 gm Documented by: Home Medications Medication Instructions Recorded Confirmed Last Taken Type multivitamin 1 tab PO DAILY 05/03/21 05/03/21 Unknown History Physical Exam Vital Signs: Vital Signs: Last Vital Signs Temp 97 F 05/04/21 13:39 Pulse 74 05/04/21 13:39 Resp 18 05/04/21 13:39 BP 101/67 05/04/21 13:39 Pulse Ox 97 05/04/21 13:39 Body Mass Index 17.2 Neuro: Other: He was alert and awake with normal spontaneity of speech fluency comprehension and wake affect. Pupils were round reactive to light. Extraocular muscles were intact. Visual turner are full. Face was symmetrical. Deep tendon reflexes were absent with flexor plantars. Results Labs CBC & Chem 7: 05/04/21 07:12 05/04/21 07:12 Labs: Short CBC 05/04/21 Range/Units 07:12 WBC 8.6 (4.8-10.8) X10*3/uL Hgb 13.0 L (14.0-18.0) g/dl Hct 38.2 L (42-52) % Plt Count 144 L (160-400) X10*3/uL BMP 05/04/21 07:12 Sodium 134 L Potassium 3.4 D Chloride 96 Carbon Dioxide 27 BUN 4 L Creatinine 0.69 Calcium 8.[address] and MRI of brain with and without contrast were reviewed. No acute pathology was noted. There was mild diffuse atrophy and and ischemic right periventricular frontal area lesion. Microbiology Microbiology Results: Microbiology 05/03/21 11:49 Blood - Venous Blood Culture - Preliminary No growth after 24 hours. 05/03/21 11:49 Blood - Venous Blood Culture - Preliminary No growth after 24 hours. Assessment and Plan (1) Seizure: Status: Acute 51 years old man who came with GI problems and abdominal pain including nausea and vomiting apparently had a convulsion in emergency room. He had never had a seizure, denied alcohol use or any significant head injury, and did not remember what had happened. His brain imaging has revealed mild diffuse atrophy that suggested underlying tendency for alcohol use but he denied that. There was 1 right frontal deep white matter lesion probably an ischemic lesion. At this time I do not recommend starting him on any antiepileptic. An EEG can be considered and medicine should be considered only if there was EEG suggestion of epilepsy. Procedures Date of Service Date of Service: 05/04/21
[2021-05-04] MEDS: Acetaminophen 325 MG TABLET 650 MG PO (18:10)
[2021-05-05] MEDS: metroNIDAZOLE/NS 500 MG/100 ML PIGGYBACK 100 MG IV ×2 (00:28→07:42)
[2021-05-05 04:00] VITALS: BP 133/88; PULSE 69; RESP 17; TEMP 36.4; O2SAT 97
[2021-05-05] MEDS: Morphine Sulfate 4 MG/ML CARTRIDGE 2 MG IVPUSH ×3 (04:06→14:15)
[2021-05-05] MEDS: Omeprazole 40 MG CAPSULE.DR PO (05:46)
[2021-05-05 06:41] LABS: Alanine Aminotransferase 30 U/L (0-40); Albumin Level 3.5 g/dL (3.5-5.0); Alkaline Phosphatase 66 U/L (39-117); Anion Gap 14 (12-20); Aspartate Amino Transferase 60 U/L (5-37); Bilirubin Direct 0.3 mg/dL (0.0-0.5); Bilirubin Total 0.5 mg/dL (0.0-1.0); Blood Urea Nitrogen 2 mg/dL (9-16); Calcium 8.4 mg/dL (8.4-10.2); Carbon Dioxide 28 mmol/L (22-29); Chloride 96 mmol/L (96-108); Creatinine Clr Calc Pharmacy 80.7; Estimated Glomerular Filt Rate > 60; Glucose Random 145 mg/dL (60-115); Potassium 3.9 mmol/L (3.3-5.1); Sodium 134 mmol/L (135-145); Total Protein 5.5 g/dL (6.5-8.0)
[2021-05-05 07:16] VITALS: BP 146/89; PULSE 74; RESP 18; TEMP 36.4; O2SAT 91
[2021-05-05] MEDS: Sucralfate Oral Suspension 1 GM/10 ML ORAL.SUSP PO ×2 (07:42→14:20)
[2021-05-05] MEDS: PHENobarbitaL 30 MG TABLET PO (07:42)
[2021-05-05] MEDS: Metoclopramide HCl 5 MG TABLET PO ×2 (07:42→10:56)
--- NOTE | 2021-05-05 10:46 | HO.POSTANES ---
Post Anesthesia Evaluation Post Anesthesia Evaluation Vital Signs: Vital Signs Temp Pulse Resp BP Pulse Ox 05/05/21 07:16 97.5 F 74 18 146/89 H 91 L 05/05/21 04:00 97.5 F 69 17 133/88 97 05/04/21 23:35 97.3 F 69 17 127/86 96 Anesthesia: Monitored Mental Status: Awake Pain Control: Satisfactory Nausea/Vomiting: None Hydration: Adequate Anesthesia-Related Issues: No Anes. Related Issues
[2021-05-05 11:47] VITALS: BP 119/85; PULSE 71; RESP 18; TEMP 36.6; O2SAT 98
[2021-05-05 14:06] VITALS: BMI 17.2
[2021-05-05] MEDS: cefTRIAXone sodium 1 GM in 0.9 % Sodium Chloride 50 ML IV (14:19)
[2021-05-05] MEDS: 0.9 % Sodium Chloride Flush 3 ML SYRINGE IVFLUSH (14:26)
--- NOTE | 2021-05-05 14:40 | PM.DS ---
DS: Providers Provider Date of Service: 05/05/21 Date of admission: 05/03/21 13:24 Primary care physician: Kerri Bermudez MD Consults: 05/03/21 13:34 Consult to Gastroenterology Routine Consulting Provider: Esau Garnett Reason for consultation: intractable nausea\vomiting for your eval 05/04/21 11:16 Consult to Neurology Routine Consulting Provider: [facility] Reason for consultation: Witnessed Seizure for your kind eval. Attending physician on discharge: Eran Green DS: Diagnosis Discharge Diagnosis (1) Seizure: Status: Acute (2) Colitis: Status: Acute DS: Summary Hospital Course Hospital Course: From H&P on admission A 51 years old male with PMH of diverticulitis, PUD who presents to the hospital with intractable nausea and vomiting with abdominal pain for 1 day [employer]. The patient was planned to do upper endoscopy today for evaluation of his symptoms but overnight he started to have abdominal pain associated with nausea and vomiting.? He could not tolerate anything by mouth and has been dry heaving.? Denies fever but reporting chills.? Denies any chest pain, shortness of breath, palpitation, rash or urinary symptoms. He reports that the problem started around 2005 when he had back surgery requiring abdominal approach. In the emergency CT scan was concerning for possible colitis.? Admitted for further evaluation and treatment. Abdominal pain. CT scan showing possible colitis. Patient was started on ceftriaxone and Flagyl. Patient was seen by GI and due to history of peptic ulcer disease and vomiting he underwent endoscopy which showed gastritis/erosive esophagitis. He was recommended to continue on PPI. He is instructed to follow-up with GI and may need outpatient colonoscopy. Seizure. Patient had tonic clonic seizure while in the emergency department. He had seizure on last admission in December as well. At that time he had a brain MRI which showed generalized atrophy as well as EEG which was unremarkable. Patient was evaluated by Neurology. Ultimately the decision was made to start patient on Keppra 250 mg b.i.d. as this is the 2nd episode of seizure. He adamantly denied alcohol use. He should call to schedule follow-up appointment with Neurology to schedule outpatient ambulatory EEG. He is instructed not to drive, or bathe alone. Time Spent with Patient Time attestation: Total time spent providing and/or coordinating discharge services: Discharge coordination time: Greater than 30 minutes Quality: Stroke Does the patient have a stroke diagnosis?: No Physical Exam Vital Signs: Vital Signs: Last Vital Signs Temp 98 F 05/05/21 11:47 Pulse 71 05/05/21 11:47 Resp 18 05/05/21 11:47 BP 119/85 05/05/21 11:47 Pulse Ox 98 05/05/21 11:47 Body Mass Index 17.2 Const: Orientation/consciousness: patient oriented x3 HENMT: Head: Yes normocephalic and Yes atraumatic Eyes: Sclerae: sclerae normal Resp: Effort & Inspection: normal respiratory effort and no respiratory distress Cardio: Rate: regular rate Rhythm: regular rhythm GI: Palpation (GI): Soft to palpation and nontender Neuro: General: patient oriented x3 Cranial nerves: Yes CN's II-XII intact bilaterally and Yes Bilaterally intact EOM present DS: Data Data Completed and Pending Completed studies during hospitalization [Text1]: Procedures Excision of Duodenum, Via Natural or Artificial Opening Endoscopic, Diagnostic (12/20/20) Excision of Esophagogastric Junction, Via Natural or Artificial Opening Endoscopic, Diagnostic (12/20/20) Excision of Stomach, Pylorus, Via Natural or Artificial Opening Endoscopic, Diagnostic (12/20/20) Labs on day of discharge: Laboratory Results - last 24 hr 05/05/21 05:32 Sodium 134 L Potassium 3.9 Chloride 96 Carbon Dioxide 28 Anion Gap 14 BUN 2 L Creatinine 0.71 Estim Creat Clear Calc 80.7 Estimated GFR > 60 Random Glucose 145 H D Calcium 8.4 Total Bilirubin 0.5 Direct Bilirubin 0.3 AST 60 H ALT 30 Alkaline Phosphatase 66 D Total Protein 5.5 L D Albumin 3.5 D Preliminary micro results at discharge 05/03/21 11:49 Blood Culture - Preliminary Blood - Venous No growth after 48 hours. 05/03/21 11:49 Blood Culture - Preliminary Blood - Venous No growth after 48 hours. Discharge Plan Discharge Patient Disposition: Home, Self-Care Discharge Diagnosis: Erosive esophagitis, gastritis Colitis Seizure Referrals: Esau Garnett MD [Physician] - 1 Week Basil Hull MD [Physician] - 1 Week Kerri Bermudez MD [Primary Care Provider] - 1 Week Discharge Medications: New levetiracetam [Keppra] 250 mg tablet 250 mg PO BID 30 Days Qty: 60 RF: 0 metronidazole [Flagyl] 500 mg tablet 500 mg PO Q8H 5 Days Qty: 15 RF: 0 cefuroxime axetil 500 mg tablet 500 mg PO BID 5 Days Qty: 10 RF: 0 Continued sucralfate [Carafate] 100 mg/mL suspension 10 ml PO BID Qty: 1000 RF: 0 multivitamin Tablet 1 tab PO DAILY RF: 0 ondansetron 4 mg tablet,disintegrating 4 mg PO Q8H Qty: 60 RF: 2 pantoprazole [address] for susp in packet 40 mg PO DAILY Qty: 30 RF: 2 Discharge Orders: Discharge Order (Routine); Ordered 05/05/21 Ordered By: Crystal Tristan Activity on Discharge: see below Stand Alone Forms: Patient Portal Discharge page Care Plan Goals: Stay healthy and out of the hospital Health Concerns: Colitis Seizures Gastritis/esophagitis Plan of Treatment: Colitis-continue course of antibiotics Gastritis/esophagitis. Continue taking pantoprazole. Call to schedule follow-up with GI Seizure. Start taking Keppra. Call to schedule follow-up appointment with Neurology. No driving, swimming alone, bathing alone. Assessment: see discharge summary
[2021-05-05 15:17] VITALS: BP 152/86; PULSE 70; RESP 18; TEMP 36.4; O2SAT 98
--- NOTE | 2021-05-05 15:31 | MHC.CM.PN ---
PT CLEARED TO DC HOME TODAY WITH NO SERVICES PT TO SELF ARRANGE TRANSPORT
== END 2021-05-05 15:34 | disposition home or self-care (01) | DRG 381 ==
LOC: HO.ED 12:02 → HO.EDOVER 13:48 → HO.ISO 05-04 08:40 → HO.EDOVER 05-04 13:02 → HO.ISO 05-04 13:42 → HO.S3 05-04 15:34
PROVIDERS: Internal Medicine Gastroenterology; Physician Assistant; Admitting Provider Student in an Organized Health Care Education/Training Program; Emergency Provider Emergency Medicine; PCP Internal Medicine; Visit Provider Physician Assistant Medical
PROC: 0DJ08ZZ Inspection of Upper Intestinal Tract, Via Natural or Artificial Opening Endoscopic (ICD-10-PCS; CPT 43235; principal; 2021-05-04 15:50)
DX: K22.10 Ulcer of esophagus without bleeding (principal); E87.2 Acidosis; Z68.1 Body mass index [BMI] 19.9 or less, adult; R56.9 Unspecified convulsions; K52.9 Noninfective gastroenteritis and colitis, unspecified; K29.70 Gastritis, unspecified, without bleeding; R63.6 Underweight; Z20.822 Contact with and (suspected) exposure to COVID-19; Z87.891 Personal history of nicotine dependence; Z79.899 Other long term (current) drug therapy
CPT/HCPCS: 36415; 74177; 80048; 80076; 81003; 83605; 83690; 83735; 85025; 85027; 87040; 87635; 96361; 96365; 96372; 96375; 96376; 99285; 99291; J0696; J1200; J2060; J2270; J2405; J2550; J2560; J2765; J3010; Q9967

== ENCOUNTER 2021-06-08 12:30 | Outpatient (REF) | payer OTHER, SELFPAY ==
[2021-06-08 13:52] LABS: COVID-19 Test Negative (Negative)
== END 2021-06-08 12:31 | disposition home or self-care (01) ==
LOC: HO.LAB 12:30
PROVIDERS: Visit Provider Internal Medicine
DX: Z20.822 Contact with and (suspected) exposure to COVID-19 (principal)
CPT/HCPCS: 36415; 87635; C9803

== ENCOUNTER 2023-06-05 14:07 | Inpatient (IN) | payer OTHER, MEDICAID, SELFPAY ==
--- NOTE | ~2023-06-05 | XR_ITS ---
EXAMINATION: XR HIP, RIGHT CLINICAL INFORMATION: Right hip pain COMPARISON: Pelvis radiograph from 10/02/2018 TECHNIQUE: Two views of the right hip. FINDINGS: No acute visible fracture or dislocation. Degenerative changes of the bilateral femoral acetabular joints. Lumbosacral spinal hardware noted. Joint spaces and alignment are maintained. Bowel gas is unremarkable. Surgical suture overlying the pelvis. Soft tissues are unremarkable. XR/XR hip RT w [id number] IMPRESSION: 1. No acute visible fracture or dislocation. 2. Degenerative changes of the bilateral femoral acetabular joints.
--- NOTE | ~2023-06-05 | CT_ITS ---
EXAMINATION: CT HEAD WITHOUT CONTRAST CLINICAL INFORMATION: Seizure COMPARISON: Head CT from 12/21/2020 TECHNIQUE: Contiguous axial imaging was performed from the skull base to vertex without intravenous administration of contrast. This CT examination was performed using dose optimization techniques as appropriate, variously including the following: *Automated exposure control *Adjustment of mA and/or kV according to patient size (this includes techniques or standardized protocols for targeted exams where dose is matched to indication/reason for exam; i.e. extremities or head) *Use of iterative reconstruction technique DLP: 559 mGy-cm FINDINGS: No evidence of intracranial hemorrhage, extra-axial surface collection, focal mass effect or midline shift. There is an old area of hypoattenuation in deep white matter of the right frontal lobe; this could be sequela of chronic microangiopathy. Otherwise, the brain parenchyma has grossly normal attenuation. The corley-white matter differentiation is well preserved. No evidence of an acute major vascular territory infarction. There is mild parenchymal volume loss with commensurate prominence of ventricles and sulci; no hydrocephalus. No acute findings within the posterior fossa. The cerebellar hemispheres are normal position. There is mucosal thickening of the inferior right frontal sinus. The mastoid air cells are well aerated. The orbits, globes and temporomandibular joints are unremarkable. CT/CT head/brain wo IV con IMPRESSION: No evidence of intracranial mass, hemorrhage or acute infarction. No acute intracranial pathology compared to 12/21/2020.
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
--- NOTE | ~2023-06-05 | US_ITS ---
EXAMINATION: US ABDOMEN COMPLETE CLINICAL INFORMATION: LFTs. EtOH. COMPARISON: CT abdomen and pelvis 05/03/2021. TECHNIQUE: Real-time imaging of the abdominal viscera. Limited visualization due to bowel gas. FINDINGS: PANCREAS: Limited visualization of pancreatic tail and head. Imaged portion of pancreatic body is unremarkable. ABDOMINAL AORTA: Atherosclerosis in the mid abdominal aorta. INFERIOR VENA CAVA: Visualized portions are normal. LIVER: Increased hepatic parenchymal heterogeneity and echogenicity which could be associated with hepatic steatosis or hepatocellular disease and substantially limits visualization. GALLBLADDER: No gallstones. No gallbladder wall thickening. COMMON BILE DUCT: Normal in caliber measuring 0.5 cm in diameter. RIGHT KIDNEY: No hydronephrosis. No renal calculi. Renal cortical thickness is normal. Limited visualization. The kidney measures 9.7 cm in maximum dimension. LEFT KIDNEY: No hydronephrosis. No renal calculi. Renal cortical thickness is normal. Limited visualization. The kidney measures 9.7 cm in maximum dimension. SPLEEN: Poorly visualized. The spleen measures 7.1 cm in maximum dimension. FREE FLUID: None. US/US abdomen complete IMPRESSION: 1. Increased hepatic parenchymal heterogeneity and echogenicity which could be associated with hepatic steatosis or hepatocellular disease and substantially limits visualization. 2. No hydronephrosis. No renal calculi. The left renal cyst identified on exam of 05/03/2021 is not clearly identified, although visualization limited due to bowel gas.
[2023-06-05 14:38] VITALS: BP 136/62; PULSE 104; O2SAT 98
[2023-06-05 14:40] VITALS: BP 137/97; PULSE 99; RESP 18; TEMP 36.6; O2SAT 93; BMI 13.6
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
[2023-06-05 15:12] LABS: Glucose, Whole Blood 143 mg/dL (60-115)
[2023-06-05] MEDS: levETIRAcetam in NaCl (iso-os) 1,000 MG/100 ML PIGGYBACK 400 MG IV (15:24)
[2023-06-05] MEDS: LORazepam 2 MG/ML VIAL 1 MG IVPUSH (15:25)
[2023-06-05 15:27] LABS: MANUAL DIFF FLAG NO
[2023-06-05 15:31] LABS: Basophils Percent Auto 0.3 % (0-2); Hematocrit 36.4 % (42.0-52.0); Hemoglobin 12.5 g/dl (14.0-18.0); Imm Gran Abs Auto 0.29 X10*3/uL (0.00-0.03); Imm Gran Pct Auto 2.7 % (0.0-0.4); Lymphocytes Absolute Auto 0.4 X10*3/uL (1.2-4.9); Lymphocytes Percent Auto 3.8 % (20-40); Mean Corpuscular HGB Conc 34.3 g/dl (31.0-36.0); Mean Corpuscular Hemoglobin 33.2 pg (27.0-33.0); Mean Corpuscular Volume 96.6 fL (80.0-98.0); Mean Platelet Volume 10.2 fL (9.4-12.4); Monocytes Absolute Auto 0.5 X10*3/uL (0.1-1.2); Neutrophils Absolute Auto 9.4 x10*3/uL (2.0-8.3); Neutrophils Percent Auto 88.2 % (45-73); Platelet Count 81 X10*3/uL (160-400); Red Blood Count 3.77 X10*6/uL (4.60-5.80); Red Cell Distribution Width 13.8 % (11.0-16.0); White Blood Count 10.7 X10*3/uL (4.8-10.8)
--- NOTE | 2023-06-05 15:33 | PC.NURSE ---
patient had witnessed seizure around 1455, lasted aprox 1 minute. patient had tonic clonic movement. patient placed on non rebreather, IV line placed, given IV and IM ativan, IV keppra. fluids running now, medicated per OCT. patient now on 3l NC, confused, post ictal. noted to have bit his tongue.
[2023-06-05] MEDS: LORazepam 2 MG/ML VIAL IM (15:40)
[2023-06-05] MEDS: 0.9 % Sodium Chloride 1,000 ML 999 ML IVCONT (15:40)
[2023-06-05 15:42] VITALS: BP 104/85; PULSE 80; RESP 18; O2SAT 96
[2023-06-05 15:43] LABS: Alanine Aminotransferase 30 U/L (0-40); Albumin Level 4.2 g/dL (3.5-5.0); Alkaline Phosphatase 127 U/L (39-117); Anion Gap 23 (12-20); Aspartate Amino Transferase 79 U/L (5-37); Blood Urea Nitrogen 5 mg/dL (9-16); Calcium 9.9 mg/dL (8.4-10.2); Carbon Dioxide 21 mmol/L (22-29); Chloride 92 mmol/L (96-108); Creatinine Clr Calc Pharmacy 62.6; Estimated Glomerular Filt Rate > 60; Ethanol < 10 mg/dL; Glucose Random 113 mg/dL (60-115); Potassium 3.2 mmol/L (3.3-5.1); Sodium 133 mmol/L (135-145); Total Protein 7.9 g/dL (6.5-8.0)
--- NOTE | 2023-06-05 17:02 | PC.NURSE ---
patient provided his daughters phone number, tried calling [facility]. left voicemail asking to call back. patients daughters name is shayla purdy, phone number provided is [phone]
[2023-06-05 17:33] LABS: Appearance Urine Cloudy; Color Urine Yellow; Glucose Urine UA Negative (Negative); Leukocyte Esterase Urine Negative (Negative); Nitrite Urine Negative (Negative); UMIC TRIGGER UACC YES; Urine Blood Small (1+) (Negative); Urine Ketones Trace mg/dL (Negative); Urine Protein 30 (1+) mg/dL (Neg-Trace)
[2023-06-05 17:42] LABS: Bacteria Urine None Seen (None Seen); Hyaline Casts Urine 0-2 /LPF (0-2); RBC Urine 0-2 /HPF (0-2); Squamous Epithelial Cell Urine 0-2 /HPF (0-2); WBC Urine 0-5 /HPF (0-5)
[2023-06-05 17:46] LABS: Amphetamine Screen Urine Not Detected (Not Detect); Barbiturates, Urine Not Detected (Not Detect); Benzodiazepines Screen Urine Not Detected (Not Detect); Cannabinoid Screen Urine POSITIVE (Not Detect); Cocaine Screen Urine Not Detected (Not Detect); Fentanyl, urine Not Detected (Not Detect); Opiate Screen Urine Not Detected (Not Detect); Phencyclidine Screen Urine Not Detected (Not Detect)
[2023-06-05 18:03] VITALS: BP 108/78; PULSE 85; RESP 17; TEMP 37.4; O2SAT 96
[2023-06-05] MEDS: PHENobarbitaL sodium 130 MG/ML IM ONCE 176.8 MG IM (18:09)
--- NOTE | 2023-06-05 18:11 | PHA.MEDREC ---
Pharmacy Consult ? Medication Reconciliation Pharmacy has completed the medication reconciliation. Patient reports no medications expect a multivitamin. Jayne Willoughby, MeñoD
--- NOTE | 2023-06-05 18:21 | PC.NURSE ---
patient remainds agitated and restless, fixated on going to find his car. patient started on phenobarbital protocol, VSS.
--- NOTE | 2023-06-05 18:41 | PC.NURSE ---
patient incontinent of urine, patient cleaned up new pads and blankets given, repositioned in bed
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
[2023-06-05] MEDS: Potassium Chloride/H20 10 MEQ/100 ML PIGGYBACK 100 MEQ IV ×3 (19:12→22:33)
[2023-06-05] MEDS: Enoxaparin Sodium 40 MG/0.4 ML SYRINGE SUBCUT (19:13)
[2023-06-05] MEDS: Thiamine HCL 100 MG in 0.9 % Sodium Chloride 100 ML 202 MG IV (19:38)
--- NOTE | 2023-06-05 20:29 | PC.NURSE ---
Pt is restless in bed, continues to put himself upside down on the stretcher. Pt had a 20g IV in the right AC, I attempted to wrap the IV and put a board on pt's arm to assist with IV medication administration. Pt continued to move his arm and pulled his IV out. I placed another IV in the left forearm. When flushing IV, previous IV spot began bleeding. Bleeding is controlled, and spot was bandaged. New IV is working well, fluids running appropriately. Next administration of potassium is delayed due to IV problems. Pt is A&O but confused, asking about his car and not following instructions, he did not know he had socks on, and he continues to twist and move in bed. Pt did have a drink of water, was able to swallow without complications
[2023-06-05] MEDS: PHENobarbitaL sodium 130 MG/ML VIAL IM Q3Hx2 IM (21:22)
[2023-06-05 21:46] VITALS: BMI 17.5
[2023-06-05] MEDS: 0.9 % Sodium Chloride Flush 3 ML SYRINGE IVFLUSH (22:21)
[2023-06-05 22:32] VITALS: BP 132/83; PULSE 112; RESP 18; TEMP 37.7; O2SAT 96
--- NOTE | 2023-06-06 | EEG_ITS ---
This is a 16-channel EEG with an EKG lead. The patient is awake during the tracing. Background EEG rhythm is 16 to 20 hertz, 5- to 20-microvolt posteriorly and lower amplitude fast anteriorly. Photic stimulation does not produce any significant driving. Cardiac lead does not reveal any significant abnormality. No sharp wave spikes or paroxysmal tendencies noted. IMPRESSION: Unremarkable EEG. MD CAT Ortiz/GOLD / [id number]
[2023-06-06] MEDS: Potassium Chloride/H20 10 MEQ/100 ML PIGGYBACK 100 MEQ IV (00:04)
[2023-06-06] MEDS: PHENobarbitaL sodium 130 MG/ML VIAL IM Q3Hx2 IM (00:04)
[2023-06-06] MEDS: Acetaminophen 325 MG TABLET 650 MG PO ×2 (00:05→20:49)
[2023-06-06] MEDS: Melatonin 3 MG TABLET 6 MG PO ×2 (00:05→20:50)
[2023-06-06] MEDS: LORazepam 2 MG/ML VIAL 1 MG IVPUSH (01:04)
[2023-06-06 04:00] VITALS: BP 116/74; PULSE 94; RESP 18; TEMP 36.8; O2SAT 97
[2023-06-06 05:50] LABS: MANUAL DIFF FLAG NO
[2023-06-06 06:00] LABS: Basophils Percent Auto 0.2 % (0-2); Hematocrit 35.2 % (42.0-52.0); Hemoglobin 11.9 g/dl (14.0-18.0); Imm Gran Abs Auto 0.06 X10*3/uL (0.00-0.03); Imm Gran Pct Auto 0.7 % (0.0-0.4); Lymphocytes Absolute Auto 0.6 X10*3/uL (1.2-4.9); Lymphocytes Percent Auto 7.7 % (20-40); Mean Corpuscular HGB Conc 33.8 g/dl (31.0-36.0); Mean Corpuscular Hemoglobin 32.3 pg (27.0-33.0); Mean Corpuscular Volume 95.7 fL (80.0-98.0); Mean Platelet Volume 11.7 fL (9.4-12.4); Monocytes Absolute Auto 0.7 X10*3/uL (0.1-1.2); Neutrophils Percent Auto 83.4 % (45-73); Red Blood Count 3.68 X10*6/uL (4.60-5.80); Red Cell Distribution Width 13.4 % (11.0-16.0); White Blood Count 8.4 X10*3/uL (4.8-10.8)
[2023-06-06 06:02] LABS: Platelet Count 69 X10*3/uL (160-400)
[2023-06-06 06:15] LABS: Anion Gap 19 (12-20); Blood Urea Nitrogen 7 mg/dL (9-16); Carbon Dioxide 17 mmol/L (22-29); Chloride 97 mmol/L (96-108); Creatinine Clr Calc Pharmacy 92.1; Estimated Glomerular Filt Rate > 60; Glucose Random 61 mg/dL (60-115); Potassium 3.3 mmol/L (3.3-5.1); Sodium 130 mmol/L (135-145)
[2023-06-06 07:15] VITALS: BP 113/80; PULSE 107; RESP 18; TEMP 37; O2SAT 97
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
[2023-06-06] MEDS: Thiamine HCL 100 MG TABLET PO (09:28)
[2023-06-06] MEDS: PHENobarbitaL 30 MG TABLET PO ×2 (09:28→20:12)
[2023-06-06] MEDS: 0.9 % Sodium Chloride Flush 3 ML SYRINGE IVFLUSH ×3 (09:29→20:12)
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
[2023-06-06] MEDS: PHENobarbitaL sodium 130 MG/ML VIAL IM (12:56)
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
[2023-06-06 15:48] VITALS: BP 104/83; PULSE 115; RESP 17; O2SAT 95
[2023-06-06] MEDS: PHENobarbitaL sodium 65 MG/ML VIAL IM (15:50)
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
[2023-06-06 19:55] VITALS: BP 101/60; PULSE 117; RESP 18; TEMP 37.2; O2SAT 95
[2023-06-06] MEDS: hydrOXYzine HCL 25 MG TABLET PO (20:49)
[2023-06-07 04:00] VITALS: BP 103/76; PULSE 104; RESP 20; TEMP 36.6; O2SAT 96
[2023-06-07] MEDS: Acetaminophen 325 MG TABLET 650 MG PO ×3 (06:23→22:43)
[2023-06-07 07:51] VITALS: BP 91/70; PULSE 102; RESP 18; TEMP 36.2; O2SAT 93
--- NOTE | 2023-06-07 09:14 | P.CDIM_ITS ---
PROVIDER RESPONSE TEXT: To clarify, the appropriate diagnosis supported by the clinical indicators: Hyponatremia QUERY TEXT: PHYSICIAN'S DOCUMENTATION REQUEST Date of Query: 06/07/2023 08:15 AM EDT Patient Name: ALEM MARTINO Admit Date: 06/06/2023 Dear Jeffrey Menchaca, A review of the medical record indicates additional documentation may be needed. Please review below and update the documentation accordingly. Clinical Indicators: LAB FINDINGS: sodium 130 L Based on the above, is there a diagnosis that correlates with these lab findings: Hyponatremia Labs indicate a diagnosis of (please specify) Other (explain)Clinically unable to determine (explain)Thank you, Irma Dodge, CCS, CDIS Use of terms such as suspected, likely, concern for, or probable (associated with a specific diagnosi s that is being evaluated, monitored, or treated as if it exists) are acceptable and can be coded in the inpatient se tting, when documented at the time of discharge. Please use your independent medical judgment in providing your response. THIS QUERY IS PART OF THE PERMANENT MEDICAL RECORD
--- NOTE | 2023-06-07 09:14 | P.CDIM_ITS ---
PROVIDER RESPONSE TEXT: To clarify, the appropriate diagnosis supported by the clinical indicators: Underweight QUERY TEXT: PHYSICIAN'S DOCUMENTATION REQUEST Date of Query: 06/07/2023 08:13 AM EDT Patient Name: ALEM MARTINO Admit Date: 06/06/2023 Dear Jeffrey Menchaca, A review of the medical record indicates additional documentation may be needed. Please review below and update the documentation accordingly. Clinical Indicators: Nursing notes Height and Weight: BMI 17.5 Underweight 5ft 4in 46.2kg If possible, please provide an associated diagnosis related to the abnormal BMI, such as: Underweight Weight loss Other (explain)Clinically unable to determine (explain)Thank you, Irma Dodge, CCS, CDIS Use of terms such as suspected, likely, concern for, or probable (associated with a specific diagnosi s that is being evaluated, monitored, or treated as if it exists) are acceptable and can be coded in the inpatient se tting, when documented at the time of discharge. Please use your independent medical judgment in providing your response. THIS QUERY IS PART OF THE PERMANENT MEDICAL RECORD
[2023-06-07 09:22] LABS: Hematocrit 40.2 % (42.0-52.0); Hemoglobin 14.4 g/dl (14.0-18.0); Mean Corpuscular HGB Conc 35.8 g/dl (31.0-36.0); Mean Platelet Volume 10.4 fL (9.4-12.4); Red Blood Count 4.37 X10*6/uL (4.60-5.80); Red Cell Distribution Width 12.8 % (11.0-16.0); White Blood Count 8.5 X10*3/uL (4.8-10.8)
[2023-06-07 09:29] LABS: INTERNATIONAL NORM RATIO 0.9 (0.9-1.1); Prothrombin Time 10.9 SEC (11.1-13.3)
[2023-06-07 09:30] LABS: Platelet Count 83 X10*3/uL (160-400)
[2023-06-07 09:39] LABS: Alanine Aminotransferase 28 U/L (0-40); Albumin Level 3.6 g/dL (3.5-5.0); Alkaline Phosphatase 93 U/L (39-117); Anion Gap 16 (12-20); Aspartate Amino Transferase 110 U/L (5-37); Bilirubin Direct 0.4 mg/dL (0.0-0.5); Blood Urea Nitrogen 8 mg/dL (9-16); Calcium 9.5 mg/dL (8.4-10.2); Carbon Dioxide 23 mmol/L (22-29); Chloride 94 mmol/L (96-108); Creatinine Clr Calc Pharmacy 89.2; Estimated Glomerular Filt Rate > 60; Glucose Fasting 132 mg/dL (60-99); Magnesium 1.7 mg/dL (1.6-2.6); Potassium 2.8 mmol/L (3.3-5.1); Sodium 130 mmol/L (135-145); Total Protein 6.9 g/dL (6.5-8.0)
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
[2023-06-07] MEDS: Thiamine HCL 100 MG TABLET PO (10:27)
[2023-06-07] MEDS: Potassium Chloride ER 20 MEQ TAB.ER.PRT 40 MEQ PO (10:27)
[2023-06-07] MEDS: Multivitamin TABLET 1 TAB PO (10:27)
[2023-06-07 10:30] VITALS: BP 86/64; PULSE 113
[2023-06-07 11:05] VITALS: BMI 17.5
--- NOTE | 2023-06-07 11:16 | MHC.CLN ---
NUTRITION DIET=REGULAR DIET. PER CONVERSATION WITH PATIENT, ADDING GELATEIN BID. PROVIDES ADDITIONAL 320 KCALS, 40 G PROTEIN. REPORTS THAT WEIGHT HAS BEEN STABLE AND UNABLE TO GAIN WEIGHT. PATIENT WITH ETOH USE DISORDER AND HX WITHDRAWAL. QUALIFIES NON SEVERE, MODERATE, MALNUTRITION IN THE CONTEXT OF SOCIAL BEHAVIORAL/ENVIRONMENTAL CIRCUMSTANCES. CURRENT INTAKE 50-75%. FOLLOW FOR PO INTAKE.
[2023-06-07] MEDS: 0.9 % Sodium Chloride 1,000 ML 999 ML IV (12:03)
[2023-06-07 14:10] VITALS: BP 103/62; PULSE 105
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
[2023-06-07 15:11] VITALS: BP 93/66; PULSE 107; RESP 16; TEMP 36.8; O2SAT 96
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
[2023-06-07] MEDS: 0.9 % Sodium Chloride Flush 3 ML SYRINGE IVFLUSH ×2 (16:51→20:19)
[2023-06-07 19:18] VITALS: BP 107/57; PULSE 109; RESP 18; TEMP 36.8; O2SAT 97
[2023-06-07] MEDS: levETIRAcetam 250 MG TABLET 750 MG PO (20:17)
[2023-06-07] MEDS: PHENobarbitaL 30 MG TABLET PO (20:17)
[2023-06-07] MEDS: Melatonin 3 MG TABLET 6 MG PO (22:42)
[2023-06-07] MEDS: hydrOXYzine HCL 25 MG TABLET PO (22:43)
[2023-06-08 03:30] VITALS: BP 108/80; PULSE 99; RESP 16; TEMP 36.1; O2SAT 98
[2023-06-08 06:03] LABS: PLT CLUMP 1; Red Cell Distribution Width 12.7 % (11.0-16.0)
[2023-06-08 06:05] LABS: Hematocrit 34.7 % (42.0-52.0); Hemoglobin 12.1 g/dl (14.0-18.0); Mean Corpuscular HGB Conc 34.9 g/dl (31.0-36.0); Mean Corpuscular Hemoglobin 33.1 pg (27.0-33.0); Mean Corpuscular Volume 94.8 fL (80.0-98.0); Mean Platelet Volume 10.8 fL (9.4-12.4); Platelet Count 84 X10*3/uL (160-400); Red Blood Count 3.66 X10*6/uL (4.60-5.80); White Blood Count 7.3 X10*3/uL (4.8-10.8)
[2023-06-08 06:21] LABS: Anion Gap 12 (12-20); Blood Urea Nitrogen 6 mg/dL (9-16); Calcium 8.7 mg/dL (8.4-10.2); Carbon Dioxide 24 mmol/L (22-29); Chloride 97 mmol/L (96-108); Creatinine Clr Calc Pharmacy 103.8; Estimated Glomerular Filt Rate > 60; Glucose Fasting 91 mg/dL (60-99); Magnesium 1.6 mg/dL (1.6-2.6); Potassium 3.3 mmol/L (3.3-5.1); Sodium 130 mmol/L (135-145)
[2023-06-08 07:25] VITALS: BP 118/78; PULSE 110; RESP 18; TEMP 36; O2SAT 96
[2023-06-08] MEDS: 0.9 % Sodium Chloride Flush 3 ML SYRINGE IVFLUSH ×3 (08:40→20:20)
[2023-06-08] MEDS: Thiamine HCL 100 MG TABLET PO (08:40)
[2023-06-08] MEDS: Multivitamin TABLET 1 TAB PO (08:40)
[2023-06-08] MEDS: Naltrexone HCl 50 MG TABLET PO (08:40)
[2023-06-08] MEDS: PHENobarbitaL 15 MG TABLET PO ×2 (08:40→20:19)
[2023-06-08] MEDS: Acetaminophen 325 MG TABLET 650 MG PO ×2 (08:44→20:20)
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
--- NOTE | 2023-06-08 14:09 | MHC.RECOVRN ---
locomotive engineer met with patient in room 369-1. Patient is A+Ox3, however appears to be grimacing in pain. He is laying down. He denies any withdrawal symptoms- however does report increased pain in his right hip. He reports that he had PT earlier and has been experiencing this pain ever since. Patient states I think something is wrong. I think I need an X-ray of my hip. Something's not right. Patient verbalized awareness of [facility] OV 06/14 at 10:15am. Aware of location. Notified BRIAN Mojica of patient's concerns/reports. He agreed to contact hospitalist.
[2023-06-08 15:42] VITALS: BP 122/78; PULSE 115; RESP 18; TEMP 36.4; O2SAT 97
[2023-06-08 20:00] VITALS: BP 101/68; PULSE 87; RESP 18; TEMP 36.4; O2SAT 95
[2023-06-08] MEDS: levETIRAcetam 250 MG TABLET 750 MG PO (20:19)
[2023-06-08] MEDS: Melatonin 3 MG TABLET 6 MG PO (20:29)
[2023-06-09 03:06] VITALS: BP 109/67; PULSE 96; RESP 18; TEMP 36.1; O2SAT 94
[2023-06-09 07:12] VITALS: BP 106/72; PULSE 107; RESP 18; TEMP 36.7; O2SAT 97
[2023-06-09] MEDS: 0.9 % Sodium Chloride Flush 3 ML SYRINGE IVFLUSH (08:58)
[2023-06-09] MEDS: Naltrexone HCl 50 MG TABLET PO (08:58)
[2023-06-09] MEDS: Thiamine HCL 100 MG TABLET PO (08:58)
[2023-06-09] MEDS: Acetaminophen 325 MG TABLET 650 MG PO (08:58)
[2023-06-09] MEDS: PHENobarbitaL 15 MG TABLET PO (08:59)
[2023-06-09] MEDS: Multivitamin TABLET 1 TAB PO (08:59)
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
--- NOTE | 2023-06-09 09:35 | P.F2F_ITS ---
Service Date Service Date: 06/09/23 Encounter Date of encounter: 06/09/23 Reasons for Services Signs and symptoms assessed: seizures, unsteady Reason for retirement: medication management, medication treatment and teach disease management Reason for physical therapy: home safety and mobility and therapeutic exercises Homebound: Leaving the home is medically contraindicated at this time without the asist of a device and/or another person due th the listed conditions above and below. Reason homebound: unsteady gait / fall risk Certification: Based on the above findings, I certify that this patient is confined to the home and needs intermittent retirement care, physical therapy and/or speech therapy, or continues to need occupational therapy. The patient is under my care, and I have initiated the establishment of the plan of care. The patient will be followed by a physician who will periodically review the plan of care. Time Spent With Patient Time: Total time managing care of this patient today ____ minutes.
--- NOTE | 2023-06-09 09:40 | MHC.CM.PN ---
PT WILL DC HOME TODAY WITH HOME HEALTH ORDERS REFERRAL MADE TO [facility] PT MAY NEED ASSIST WITH TRANSPORT
--- NOTE | 2023-06-09 10:04 | MHC.CM.PN ---
Addendum entered by Odalys Delgadillo 06/09/23 11:21: [facility] SECURED TRANSPORT COMPLETED AT 1117 HOURS Original Note: CM MET WITH PT TO DISCUSS DC PLAN CM INFORMED HIM VNA CANNOT BE ARRANGED DUE TO LACK OF PCP PT REPORTS BEING COMFORTABLE WITH NO VNA PT DOES NOT HAVE TRANSPORT HOME CM EXPLAINED AN ATTEMPT WOULD BE MADE TO SECURE A [facility] PT REPORTS HE NOW LIVES AT [address] TASK SENT TO [facility] REG TO UPDATE ADDRESS
[2023-06-09] MEDS: hydrOXYzine HCL 25 MG TABLET PO (10:22)
== END 2023-06-09 11:14 | disposition home health service (06) | DRG 897 ==
LOC: HO.ED 19:20 → HO.EDOVER 19:44 → HO.S3 20:00
PROVIDERS: Emergency Medicine; Admitting Provider Student in an Organized Health Care Education/Training Program; Emergency Provider Emergency Medicine; Visit Provider Internal Medicine
DX: F10.239 Alcohol dependence with withdrawal, unspecified (principal); E87.1 Hypo-osmolality and hyponatremia; Z68.1 Body mass index [BMI] 19.9 or less, adult; R63.6 Underweight; D69.59 Other secondary thrombocytopenia; K70.0 Alcoholic fatty liver; R56.9 Unspecified convulsions; E87.6 Hypokalemia; Z87.891 Personal history of nicotine dependence; Z79.899 Other long term (current) drug therapy
CPT/HCPCS: 36415; 70450; 73502; 76700; 80048; 80053; 80076; 80307; 81001; 82947; 83735; 85025; 85027; 85610; 95816; 97161; 99285; J1650; J1953; J2060; J2560; J3411

== ENCOUNTER → 2023-06-05 15:24 | Outpatient (BNV) | payer OTHER, SELFPAY | PROVIDERS: Emergency Provider Emergency Medicine; Visit Provider Student in an Organized Health Care Education/Training Program | DX: R56.9 Unspecified convulsions (principal) | CPT/HCPCS: 99222; 99232; 99239; G0180 ==

== ENCOUNTER 2025-01-03 15:26 | Inpatient (IN) | payer OTHER, SELFPAY ==
--- NOTE | ~2025-01-03 | CT_ITS ---
CLINICAL HISTORY: ams, fall CT head without contrast COMPARISON: CT/SR - CT HEAD/BRAIN WO IV CON - 06/06/23 17:50 EDT FINDINGS: Global cerebral volume loss and chronic microvascular ischemic changes. No acute intracranial hemorrhage, extra-axial fluid collection, mass effect, or midline shift. Ventricular system and basilar cisterns are patent. Ro-white matter differentiation is maintained. No gross orbital abnormality. No suspicious or acute bone lesion. Mastoid air cells and paranasal sinuses are predominantly clear. IMPRESSION: 1. No acute intracranial abnormality. 2. Global cerebral volume loss and chronic microvascular ischemic changes. This document has been electronically signed by: Damon Terrell MD on 01/03/2025 20:25:05
--- NOTE | ~2025-01-03 | XR_ITS ---
EXAMINATION: XR SHOULDER, LEFT CLINICAL INFORMATION: Fell out of bed COMPARISON: Chest x-ray 01/03/2025. TECHNIQUE: AP external rotation, Grashey, scapular Y, and axillary views of the left shoulder. FINDINGS: Mild diffuse osteopenia. No acute fracture, dislocation, or suspicious bone lesion. Normal alignment. Left distal clavicular fracture noted, age indeterminate. This was present on chest x-ray 01/03/2025. The glenohumeral joint is normal. The AC joint is normal. There is a type I acromion. No undersurface spurring. The subacromial space is preserved. Remainder of the soft tissue and bony structures appear normal. XR/XR shoulder LT min 2V IMPRESSION: 1. Left distal clavicular fracture, age indeterminate. Correlate with point tenderness over the AC joint. 2. The remainder of the examination is normal. Electronically signed by: Lawson Jiménez MD 01/11/2025 08:47 AM EDT
--- NOTE | ~2025-01-03 | XR_ITS ---
CLINICAL HISTORY: dyspnea 1 view chest x-ray Comparison: None Findings: No consolidation or effusion. Heart size is normal. No acute fracture. IMPRESSION: 1. No acute findings. This document has been electronically signed by: Nury Denise MD on 01/03/2025 23:49:56
[2025-01-03 15:31] VITALS: BP 153/94; PULSE 102; RESP 18; TEMP 36.8; O2SAT 98; BMI 20.2
--- NOTE | 2025-01-03 16:24 | ED.GENADULT ---
HPI - General Adult General Chief complaint: ETOH/Substance Use Stated complaint: alcohol w/d-seizures Time Seen by Provider: 01/03/25 16:12 Source: patient and family Mode of arrival: wheelchair Limitations: other History of Present Illness ED Provider: Dr. Laura Astorga HPI narrative: patient comes to the emergency room by private vehicle. Patient comes accompanied by his nephew who is his healthcare proxy. The in a few explains that 5 days ago, the patient and his nephew went on a fishing trip to [place]. it is known that patient drinks 24 +bottles of alcohol every day for several years. When they were in [place] at their fishing trip, patient did not have access to his regular amount of alcohol. Four days ago, patient had a seizure and was taken to [facility] in [place]. Patient was on Precedex for several days and was on a phenobarb protocol. Today in the morning, the family needed to return to [place] and they did not want to live the patient back in [place]. They signed him out against medical advice and they brought him immediately to [facility]. The patient's nephew, Rah Ashby is invoked healthcare proxy. Patient is awake, alert and oriented x 2, to person and place. Also, patient is having trouble remembering the name some some of his family members. patient states that he does not want to be here. Patient states that he does not drink alcohol, states that he only drinks beer which is not alcohol . patient states that he drank alcohol 2 days ago. However, it has been 4 days per patient's nephew. patient admits that in the past he has had multiple alcohol withdrawal seizures Related Data Home Medications ?Medication ?Instructions ?Recorded ?Confirmed multivitamin 1 tab PO DAILY 06/05/23 06/05/23 Previous Rx's ?Medication ?Instructions ?Recorded levetiracetam 250 mg tablet 750 mg (3 x 250 mg) PO BEDTIME #30 06/09/23 tabs Allergies Allergy/AdvReac Type Severity Reaction Status Date / Time meperidine [Demerol] Allergy Unknown Vomiting Verified 01/03/25 15:37 Review of Systems Review of Systems: Constitutional : No Weight loss, No Fever, No Chills, No Night Sweats, No Fatigue, No Malaise ENT/Mouth : No Hearing loss, No Ear Pain, No Nasal Congestion, No Sinus Pain, No Hoarseness, No sore throat, No Rhinorrhea, No Swallowing Difficulty Eyes: No Eye Pain, No Swelling, No Redness, No Foreign Body, No Discharge, No Vision Changes Cardiovascular : No Chest Pain, No SOB, No Dyspnea on Exertion, No Orthopnea, No Edema, No Palpitations Respiratory : No Cough, No Sputum, No Wheezing, No Smoke Exposure, No Dyspnea Gastrointestinal : No Nausea, No Vomiting, No Diarrhea, No Constipation, No abdominal Pain, No Hematochezia, No Melena Genitourinary : no irregular bleeding, No Dysuria, No Urinary Frequency, No Hematuria, No Urinary Incontinence, No Urgency, No Flank Pain, No Urinary Flow Changes, No Hesitancy Musculoskeletal : No joint pain, No Myalgias, No Joint Swelling Skin : No Skin Lesions, No rash Neuro : No Weakness, No Numbness, No Paresthesias, No Loss of Consciousness, No Dizziness, No Headache Psych : No Anxiety/Panic, No Depression, No SI/HI/AH/VH, admits to drinking heavily beer daily, admits that he has had multiple alcohol withdrawal seizures in the past Heme/Lymph: No Bruising, No Bleeding,No Lymphadenopathy Endocrine : No Polyuria, No Polydipsia, No Temperature Intolerance [facility] Past Medical History Medical History Asthma Intractable vomiting Diverticulitis Seizures Peptic ulcer disease Diverticulitis Calcaneus fracture Surgical History H/O colonoscopy History of esophagogastroduodenoscopy (EGD) History of knee surgery History of back surgery History of hernia surgery Family History Family History Father No problems noted. Mother No problems noted. Son No problems noted. Daughter No problems noted. Social History Social History Household Members: Family Household Members Other:: 2 Housing: House Do you presently have visiting nurse or other home services: No Unable to assess alcohol history related to: Unknown Alcohol intake: current Alcohol intake frequency: a few times a month Alcohol type: beer Patient Tobacco Use Status: Former Tobacco user Smoked in Last 30 Days: No Use of substances other than those prescribed or required for medical reasons: No Substance Use Type: Marijuana Advance Directives: Yes Advance Directives on File: Yes Advance Directives Date on File: 12/26/20 service: No Current occupational status: unemployed Physical Exam ED Vital Signs: Vital Signs - 24 hr 01/03/25 15:31 01/03/25 17:50 Temperature 98.3 F 97.7 F Pulse Rate 102 H 105 H Respiratory Rate 18 15 Blood Pressure 153/94 H 133/92 H Pulse Oximetry 98 97 Oxygen Delivery Method Room Air Room Air BMI result Body Mass Index 20.2 Const Other: Appearance: Alert. Oriented X3. No acute distress. Patient looks unwell, somnolent, easily arousable Eyes: Pupils equal, round and reactive to light. ENT: Pharynx normal. Neck: Normal inspection. Neck supple. No lymph nodes noted. No crepitus CVS: Normal heart rate and rhythm. Pulses normal. Normal S1 and S2 Respiratory: No respiratory distress. Breath sounds normal. No Wheezing. No rales Abdomen: Soft and nontender. No rigidity. No distention. Skin: Skin warm and dry. Normal skin color. Normal skin turgor. Extremities: No lower extremity edema. No Lacerations. No Rash Neuro: Oriented X 3. No motor deficit. No sensory deficit. Moving all extremities. No slurred speech. CN 2 through 12 grossly intact Psych: calm, cooperative, normal affect Course Course Course Narrative: patient had an alcohol withdrawal seizure 4 days ago. Patient was signed AMA from the ICU today from [facility]. Did not complete treatment. Family did not want to live them behind in [place]. They brought him immediately to [facility]. until this morning, patient was on a Precedex drip and phenobarb protocol Patient is awake alert, still confused. Healthcare proxy is invoked all of patient's labs and imaging pending. Patient will need to be admitted patient will be restarted on phenobarb protocol. at this time, patient's blood pressure 153/94, heart rate 102, respirations 18, oxygen saturation 98% on room air Medications Administered Discontinued Medications Generic Name Dose Route Start Last Admin Trade Name Freq PRN Reason Stop Dose Admin Diazepam 5 mg 01/03/25 15:57 01/03/25 17:08 Diazepam 5 Mg Tablet PO 01/03/25 15:58 5 mg ONCE ONE Administration Phenobarbital Sodium 240 mg 01/03/25 17:00 01/03/25 17:08 Phenobarbital Sodium 130 Mg/Ml Im Once IM 01/03/25 17:01 240 mg ONCE@1700 SERGIO Administration Thiamine HCl 100 mg 01/03/25 15:57 01/03/25 17:08 Thiamine Hcl 100 Mg Tablet PO 01/03/25 15:58 100 mg ONCE ONE Administration Medical Decision Making Medical Decision Making [facility] Narrative: the family brought with them records from [facility]. A CT scan of the head was done on December 31 showing generalized volume loss with marked midbrain atrophy CT scan of the abdomen: No acute obstructive or inflammatory process seen, no infiltration of liver noted My interpretation of labs: No significant abnormality patient's hematology and chemistry, ETOH negative Patient's vitals stable I discussed the patient with Dr. Malik from the Medicine team, patient being admitted Differential Diagnosis Differential Diagnoses: The differential diagnosis associated with the presentation includes (Medication sedation, alcohol withdrawal, polysubstance abuse) Admission/Observation Consideration of admission/observation: Escalation of care including admission/observation considered Consult Healthcare Provider Management of the patient was discussed with: Hospitalist Lab Data MDM Lab Attestation statement: I reviewed the patient's lab results. 01/03/25 16:36 01/03/25 16:36 Labs: Lab Results 01/03/25 Range/Units 16:36 WBC 9.3 (4.8-10.8) X10*3/uL RBC 3.97 L (4.60-5.80) X10*6/uL Hgb 12.5 L (14.0-18.0) g/dl Hct 36.2 L (42.0-52.0) % MCV 91.2 (80.0-98.0) fL MCH 31.5 (27.0-33.0) pg MCHC 34.5 (31.0-36.0) g/dl RDW 15.4 (11.0-16.0) % Plt Count 75 L (160-400) X10*3/uL MPV 11.7 (9.4-12.4) fL Immature Gran % (Auto) 1.1 H (0.0-0.4) % Neut % (Auto) 77.8 H (45-73) % Lymph % (Auto) 11.0 L (20-40) % Nash % (Auto) 9.8 (2-11) % Eos % (Auto) 0.1 (0-4) % Baso % (Auto) 0.2 (0-2) % Lymph # (Auto) 1.0 L (1.2-4.9) X10*3/uL Nash # (Auto) 0.9 (0.1-1.2) X10*3/uL Eos # (Auto) 0.0 (0.0-0.4) X10*3/uL Baso # (Auto) 0.0 (0.0-0.2) X10*3/uL Abs Immat Gran (auto) 0.10 H (0.00-0.03) X10*3/uL Absolute Neuts (auto) 7.2 (2.0-8.3) x10*3/uL Absolute Nucleated RBC 0.000 (0.0-0.012) X10*3/uL Nucleated RBC % (auto) 0.0 (0.0-0.2) /100WBC Smear Tech's Comments VERIFIED Sodium 135 (135-145) mmol/L Potassium 4.0 (3.3-5.1) mmol/L Chloride 98 (96-108) mmol/L Carbon Dioxide 28 (22-29) mmol/L Anion Gap 13 (12-20) BUN 5 L (9-16) mg/dL Creatinine 0.53 (0.5-1.4) mg/dL Estim Creat Clear Calc 115.3 Estimated GFR > 60 Random Glucose 91 (60-115) mg/dL Calcium 9.3 D (8.4-10.2) mg/dL Total Bilirubin 0.8 (0.0-1.0) mg/dL AST 87 H (5-37) U/L ALT 51 H (0-40) U/L Alkaline Phosphatase 79 (39-117) U/L Total Protein 7.2 (6.5-8.0) g/dL Albumin 4.0 (3.5-5.0) g/dL Salicylates < 5.0 L (15-30) mg/dL Acetaminophen < 3 (<30) mcg/mL Ethyl Alcohol < 10 mg/dL Independent Historian Clinical information obtained from an independent historian. History obtained from or confirmed by: Other (Nephew, healthcare proxy) Critical Care Time Critical Care Time Critical Care Time: Yes Total Critical Care Time: 60 Attestation: I have personally provided critical care time. Time includes review of lab data, radiology results, discussion with consultants, and monitoring for potential decompensation. Intervention performed as documented. Discharge Plan Discharge Clinical Impression: Alcohol withdrawal, Encephalopathy Patient Disposition: Admitted As Inpatient Prescriptions: No Action multivitamin Tablet 1 tab PO DAILY levetiracetam 250 mg Tablet 750 mg PO BEDTIME Qty: 30 0RF Print Language: Ugandan
--- NOTE | 2025-01-03 16:45 | PC.NURSE ---
pt unable to complete participation in CIWA assessment, pt answering incomprehensibly to some questions. pt alert to person and place, aware of his birthday, pt believes it is 1982 and that he is here because he fell out of a 3rd story window. otherwise pt CIWA 5 from questions he is able to answer, Dr. Astorga made aware. pt reports pain to his back where he does have a small bruise to his mid back, unknown etiology. Garcia RN Placed u/s guided 20G to R upper arm, labs obtained and sent. pt mildly tachycardic on bedside tele at 100-106. changed over into green rogelio for obs, pts denies SI/HI, belongings inventoried and placed behind head of stretcher.
[2025-01-03 16:50] LABS: Basophils Percent Auto 0.2 % (0-2); Eosinophils Percent Auto 0.1 % (0-4); Hematocrit 36.2 % (42.0-52.0); Hemoglobin 12.5 g/dl (14.0-18.0); Imm Gran Pct Auto 1.1 % (0.0-0.4); MANUAL DIFF FLAG SCAN; Mean Corpuscular HGB Conc 34.5 g/dl (31.0-36.0); Mean Corpuscular Hemoglobin 31.5 pg (27.0-33.0); Mean Corpuscular Volume 91.2 fL (80.0-98.0); Mean Platelet Volume 11.7 fL (9.4-12.4); Monocytes Absolute Auto 0.9 X10*3/uL (0.1-1.2); Monocytes Percent Auto 9.8 % (2-11); Neutrophils Absolute Auto 7.2 x10*3/uL (2.0-8.3); Neutrophils Percent Auto 77.8 % (45-73); PLT CLUMP 1; Red Blood Count 3.97 X10*6/uL (4.60-5.80); Red Cell Distribution Width 15.4 % (11.0-16.0); SCAN SMEAR FLAG 1
--- NOTE | 2025-01-03 16:50 | PC.NURSE ---
pt speech moderately slurred, RR even, wet sounding. will preform nursing swallow eval prior to PO administration of meds.
[2025-01-03 17:02] LABS: Acetaminophen LAB < 3 mcg/mL (<30); Alanine Aminotransferase 51 U/L (0-40); Alkaline Phosphatase 79 U/L (39-117); Anion Gap 13 (12-20); Aspartate Amino Transferase 87 U/L (5-37); Bilirubin Total 0.8 mg/dL (0.0-1.0); Blood Urea Nitrogen 5 mg/dL (9-16); Calcium 9.3 mg/dL (8.4-10.2); Carbon Dioxide 28 mmol/L (22-29); Chloride 98 mmol/L (96-108); Creatinine Clr Calc Pharmacy 115.3; Estimated Glomerular Filt Rate > 60; Ethanol < 10 mg/dL; Glucose Random 91 mg/dL (60-115); Salicylate < 5.0 mg/dL (15-30); Sodium 135 mmol/L (135-145); Total Protein 7.2 g/dL (6.5-8.0)
[2025-01-03] MEDS: diazePAM 5 MG TABLET PO (17:08)
[2025-01-03] MEDS: Thiamine HCL 100 MG TABLET PO ×2 (17:08→18:58)
[2025-01-03] MEDS: PHENobarbitaL sodium 130 MG/ML IM ONCE 240 MG IM (17:08)
--- NOTE | 2025-01-03 17:12 | PC.NURSE ---
Patient passed nursing swallow eval, Patient medicated per MAR, patient tolerated medication
[2025-01-03 17:20] LABS: Platelet Count 75 X10*3/uL (160-400); SLIDE REVIEW VERIFIED; White Blood Count 9.3 X10*3/uL (4.8-10.8)
[2025-01-03 17:50] VITALS: BP 133/92; PULSE 105; RESP 15; TEMP 36.5; O2SAT 97
--- NOTE | 2025-01-03 18:08 | PC.NURSE ---
pt slumped forward in bed, reaching sideways to bed rails. pt reports he is trying to take the broom apart. eyes minimally tracking this RN with conversation. informed pt he was in the hospital. pt with nonsensical response. MD Astorga made aware
[2025-01-03 18:53] VITALS: BP 121/86; PULSE 94; RESP 17; TEMP 36.6; O2SAT 97
--- NOTE | 2025-01-03 18:54 | PC.NURSE ---
this rn assumed care of pt, pt assisted in boost in bed. vss. pt offers no complaints at this time, though pt is not answering questions appropriate. camera in place for pt safety
[2025-01-03] MEDS: Folic Acid 1 MG TABLET PO (18:58)
[2025-01-03] MEDS: Enoxaparin Sodium 40 MG/0.4 ML SYRINGE SUBCUT (18:58)
[2025-01-03] MEDS: Lactated Ringers 1,000 ML 100 ML IVCONT (18:58)
--- NOTE | 2025-01-03 19:00 | PM.IMHP ---
History of Present Illness Date of Service: 01/03/25 Chief Complaint: alcohol use This is a 54-year-old male with pertinent history of alcohol use disorder, seizure disorder noncompliant with Keppra who was brought to the emergency department after signing out AMA from [facility] for ongoing alcohol withdrawal. Patient is a poor historian and unable to obtain history from the patient. History obtained from ER provider and chart review. Patient does have a history of alcohol withdrawal seizures and states he drinks about 24 bottles of alcohol every day. Patient did not have access to alcohol when he went on a family trip to [place] and he had alcohol withdrawal seizures. Patient was admitted to ICU at [facility] with Precedex and on phenobarb protocol. Patient's family was leaving [place] and hence they signed out AMA from [facility] in brought him to the ER at [facility] in private vehicle. Patient is only oriented x2 the time of my evaluation. Unable to provide a history. Patient does admit alcohol use. He was previously discharged on Keppra by Neurology but states he does not take any medications as he does not believe in them. Unable to obtain complete review of systems but he denies abdominal pain In the emergency department, CT head negative and patient was initiated on phenobarb protocol. Review of Systems Review of Systems: Yes Unobtainable due to mental status [facility] Medical History Asthma Intractable vomiting Diverticulitis Seizures Peptic ulcer disease Diverticulitis Calcaneus fracture Family History Father No problems noted. Mother No problems noted. Son No problems noted. Daughter No problems noted. Surgical History H/O colonoscopy History of esophagogastroduodenoscopy (EGD) History of knee surgery History of back surgery History of hernia surgery Social History Household Members: Family Household Members Other:: 2 Housing: House Do you presently have visiting nurse or other home services: No Unable to assess alcohol history related to: Refusing to respond Alcohol intake: current Alcohol intake frequency: a few times a month Alcohol type: beer Patient Tobacco Use Status: Former Tobacco user Smoked in Last 30 Days: No Use of substances other than those prescribed or required for medical reasons: No Substance Use Type: Marijuana Advance Directives: Yes Advance Directives on File: Yes Advance Directives Date on File: 12/26/20 Nutrition Risks: No Nutritional Risk service: No Current occupational status: unemployed Meds Allergies Allergy/AdvReac Type Severity Reaction Status Date / Time meperidine [Demerol] Allergy Unknown Vomiting Verified 01/03/25 15:37 Active Medications: Current Medications Acetaminophen (Acetaminophen 325 Mg Tablet) 650 mg PO Q6H PRN PRN Reason: Pain, Mild 1-3,fever,headache Calcium Carbonate (Calcium Carbonate 750 Mg Tab.Chew) 750 mg PO Q4H PRN PRN Reason: Heartburn Enoxaparin Sodium (Enoxaparin Sodium 40 Mg/0.4 Ml Syringe) 40 mg SUBCUT Q24H REPLACED BY [facility] Last Admin: 01/03/25 18:58 Dose: 40 mg Folic Acid (Folic Acid 1 Mg Tablet) 1 mg PO DAILY REPLACED BY [facility] Stop: 01/05/25 09:01 Last Admin: 01/03/25 18:58 Dose: 1 mg Lactated Ringer's (Lr) 1,000 mls @ 100 mls/hr IVCONT .Q10H REPLACED BY [facility] Last Admin: 01/03/25 18:58 Dose: 100 mls/hr Magnesium Hydroxide (Milk Of Magnesia 30 Ml Oral.Susp) 30 ml PO DAILY PRN PRN Reason: Constipation Melatonin (Melatonin 3 Mg Tablet) 6 mg PO BEDTIME PRN PRN Reason: Insomnia Ondansetron HCl (Ondansetron Hcl 4 Mg/2 Ml Vial) 4 mg IVPUSH Q8H PRN PRN Reason: Nausea and Vomiting Pharmacy Consult (Consult Rx Etoh Phenob Im/Po) 1 each MISCELLANE ONCE PRN; Protocol PRN Reason: Consult order Phenobarbital (Phenobarbital 15 Mg Tablet) 45 mg PO BID REPLACED BY [facility] Stop: 01/05/25 21:01 Phenobarbital (Phenobarbital 15 Mg Tablet) 15 mg PO BID REPLACED BY [facility] Stop: 01/07/25 21:01 Phenobarbital (Phenobarbital 15 Mg Tablet) 15 mg PO DAILY REPLACED BY [facility] Stop: 01/09/25 09:01 Phenobarbital Sodium (Phenobarbital Sodium 130 Mg/Ml Vial Im Q3hx2) 180 mg IM 1999,2300 [facility] Stop: 01/03/25 23:01 Polyethylene Glycol (Polyethylene Glycol 3350 17 Gm Powd.Pack) 17 gm PO DAILY PRN PRN Reason: Constipation Sodium Chloride (0.9 % Sodium Chloride Flush 3 Ml Syringe) 3 ml IVFLUSH QSHIFT [facility] Thiamine HCl (Thiamine Hcl 100 Mg Tablet) 100 mg PO DAILY [facility] Stop: 01/05/25 09:01 Last Admin: 01/03/25 18:58 Dose: 100 mg Home Medications ?Medication ?Instructions ?Recorded ?Confirmed ?Last Taken ?Type multivitamin 1 tab PO DAILY 06/05/23 06/05/23 Unknown History Physical Exam Vital Signs and Narrative: Vital Signs: Last Vital Signs Temp 97.9 F 01/03/25 18:53 Pulse 94 01/03/25 18:53 Resp 17 01/03/25 18:53 BP 121/86 01/03/25 18:53 Pulse Ox 97 01/03/25 18:53 O2 Del Method Room Air 01/03/25 18:53 BMI result Body Mass Index 20.2 Middle-aged male lying in bed in no distress Neck supple, no JVD Regular rate and rhythm, S1-S2 heard Regular breath sounds bilaterally, no wheezing or crackles appreciated Abdomen soft nontender, no guarding, no rigidity Patient is awake, alert and oriented oriented x2 No pedal edema Results Labs 01/03/25 16:36 01/03/25 16:36 Labs: Laboratory Results - last 24 hr 01/03/25 16:36 MCV 91.2 MCH 31.5 MCHC 34.5 RDW 15.4 Plt Count 75 L MPV 11.7 Immature Gran % (Auto) 1.1 H Neut % (Auto) 77.8 H Lymph % (Auto) 11.0 L [place] % (Auto) 9.8 Eos % (Auto) 0.1 Baso % (Auto) 0.2 Lymph # (Auto) 1.0 L [place] # (Auto) 0.9 Eos # (Auto) 0.0 Baso # (Auto) 0.0 Abs Immat Gran (auto) 0.10 H Absolute Neuts (auto) 7.2 Absolute Nucleated RBC 0.000 Nucleated RBC % (auto) 0.0 Smear Tech's Comments VERIFIED Anion Gap 13 Estim Creat Clear Calc 115.3 Estimated GFR > 60 Random Glucose 91 Calcium 9.3 D Total Bilirubin 0.8 AST 87 H ALT 51 H Alkaline Phosphatase 79 Total Protein 7.2 Albumin 4.0 Salicylates < 5.0 L Acetaminophen < 3 Ethyl Alcohol < 10 Assessment and Plan (1) Alcohol withdrawal: Status: Acute (2) Encephalopathy: Status: Acute Plan This is a 54-year-old male with pertinent history of alcohol use disorder, seizure disorder noncompliant with Keppra who was brought to the emergency department after signing out AMA from [facility] for ongoing alcohol withdrawal. #. Alcohol use disorder: Patient initiated on phenobarb protocol in the ER. Monitor CIWA. Initiated thiamine. Consulting Addiction Team #. Acute toxic encephalopathy in the setting of above: Obtaining ammonia #. Elevated transaminases and thrombocytopenia in the setting of alcohol use: Defer therapeutic Lovenox #. Seizure disorder: Does have a history of alcohol withdrawal seizures but was seen by Neurology previously and initiated on Keppra. Patient is noncompliant with it. Will re-initiate Keppra 750 mg at bedtime Med rec pending DVT prophylaxis: Mechanical Full code Admit as inpatient and will require two night minimum hospital stay for monitoring of mentation, treatment of alcohol withdrawal (as above), which is not possible in a lesser acute setting. Quality Stroke Does the patient have a stroke diagnosis?: No VTE Prior VTE?: No VTE Risk Level:: Medical - moderate - high VTE Device Contraindication: Treatment Not Indicated VTE Drug Contraindication: N/A - Med Ordered
--- NOTE | 2025-01-03 19:03 | PC.NURSE ---
pt medicated per mar with po medications, pt tolerated well whole in pudding.
[2025-01-03] MEDS: PHENobarbitaL sodium 130 MG/ML VIAL IM (19:24)
--- NOTE | 2025-01-03 19:24 | PC.NURSE ---
pt increasingly confused, trying to climb out of bed. aware, medicated per oct.
[2025-01-03] MEDS: levETIRAcetam 250 MG TABLET 750 MG PO (19:26)
--- NOTE | 2025-01-03 19:40 | PC.NURSE ---
new iv accessed obtained at this time, 22g in left wrist. pt US guided iv flushing but is hard to flush at this time. vss
[2025-01-03] MEDS: PHENobarbitaL sodium 130 MG/ML VIAL IM Q3Hx2 180 MG IM ×2 (20:30→23:23)
--- NOTE | 2025-01-03 21:01 | PC.NURSE ---
pt bladder scan of 200, pt able to void in urinal approx. 200ml of yellow urine. sample sent to lab
[2025-01-03 21:37] LABS: Amphetamine Screen Urine Not Detected (Not Detect); Barbiturates, Urine POSITIVE (Not Detect); Benzodiazepines Screen Urine POSITIVE (Not Detect); Buprenorphine Scr Not Detected (Not Detect); Cannabinoid Screen Urine POSITIVE (Not Detect); Cocaine Screen Urine Not Detected (Not Detect); Fentanyl, urine Not Detected (Not Detect); Methadone Screen, Urine Not Detected (Not Detect); Opiate Screen Urine Not Detected (Not Detect); Oxycodone Screen Urine Not Detected (Not Detect); Phencyclidine Screen Urine Not Detected (Not Detect)
--- NOTE | 2025-01-03 22:11 | PC.NURSE ---
pt placed onto hospital bed for comfort and safety at this time.
[2025-01-03 22:24] VITALS: BP 126/90; PULSE 99; RESP 23; TEMP 37.2; O2SAT 98
[2025-01-03 22:30] LABS: Ammonia 38 umol/L (13-55)
[2025-01-03] MEDS: diazePAM 10 MG/2 ML CARTRIDGE 5 MG IVPUSH (23:23)
[2025-01-03 23:25] VITALS: BP 128/85; PULSE 94; RESP 20; TEMP 37; O2SAT 99
--- NOTE | 2025-01-03 23:38 | PC.NURSE ---
pt noted to have gugrling sound in throat, provider aware. attempted to suction with no change. xray obtained
[2025-01-03 23:41] LABS: VBG Base Excess 3.8 mmol/L; VBG HCO3 25 mmol/L (22-26); VBG pCO2 28 mmHg; VBG pH 7.55 (7.32-7.43); VBG pO2 209 mmHg
[2025-01-03 23:44] LABS: Venous Blood Gas Refer to POC result
[2025-01-04] VITALS (8 sets, daily range): BP systolic 106–148; BP diastolic 70–95; PULSE 90–109; RESP 15–24; TEMP 36.1–36.8; O2SAT 94–98
[2025-01-04] MEDS: diazePAM 10 MG/2 ML CARTRIDGE IVPUSH (01:56)
--- NOTE | 2025-01-04 01:56 | PC.NURSE ---
pt increasingly more agitated, attempting to remove medical devices, hallucinating visually and auditory. pt is not a&o. pt medicated per mar.
[2025-01-04] MEDS: Lactated Ringers 1,000 ML 100 ML IVCONT ×2 (05:02→15:10)
--- NOTE | 2025-01-04 06:12 | PC.NURSE ---
pt awake and continue to attempt to remove medical devices, pt attempting to jump out of bed stating i need to walk the little girls dog . pt intermittent spitting up. pt remains confused. CIWA=20/ aware and plan to medicate pt.
[2025-01-04] MEDS: PHENobarbitaL sodium 130 MG/ML VIAL IM (06:21)
[2025-01-04] MEDS: Thiamine HCL 200 MG in 0.9 % Sodium Chloride 100 ML 204 MG IV ×3 (06:21→22:40)
[2025-01-04] MEDS: Pantoprazole Sodium 40 MG/10 ML VIAL IVPUSH ×2 (08:08→15:54)
[2025-01-04] MEDS: 0.9 % Sodium Chloride Flush 3 ML SYRINGE IVFLUSH ×3 (08:09→22:40)
--- NOTE | 2025-01-04 10:22 | PHA.MEDREC ---
Pharmacy Consult ? Medication Reconciliation Pharmacy has completed the medication reconciliation, spoke to patient's HCP Rah who confirmed that the patient does not take any medications at all bc he does not have a PCP and is always too drunk to show up to any doctor's appointments . Said patient says he takes a daily multivitamin but said he doesn't actually take it.
[2025-01-04] MEDS: PHENobarbitaL sodium 65 MG/ML VIAL 45 MG IM ×2 (10:33→22:39)
--- NOTE | 2025-01-04 11:45 | MHC.SL.SWA ---
Speech Pathologist Impression:Severe Pharyngeal Dysphagia Dysphasia Diet Status: No Change Liquid Consistency and Strategies for Safe Swallow: Liquid Intake Recommendation: NPO Solid Food Consistency: Dietary Recommendations: NPO Additional Modifications to Solid Foods: Patient presents with severe pharyngeal dysphagia. Patient with multiple effortful swallows, gurgling, throat clearing, then producing delayed wet cough. Per MD, patient w/ difficulty managing secretions. Recommend continue NPO for now. STRAIGHTENING PRESS OPERATOR to re-assess tomorrow a.m., if no improvement is seen, patient may benefit from further assessment with MBSS. Oral Medication Intake: NPO Please contact the pharmacy regarding appropriate crushable or liquid drug formulations that are available whenever modified delivery is recommended. Supervision While Eating and Drinking for Safe Swallow: PO with STRAIGHTENING PRESS OPERATOR Recommendation for Speech: Further Testing Needed Inpatient Speech Therapy Comment: STRAIGHTENING PRESS OPERATOR will continue to follow daily while inpatient Frequency/Duration: M-F PRN Date Range for Service Req: Timeline to reassess: Instrument Mechanics Supervisor Clinican/Clinical Fellow: No Supervisory Statement: I have reviewed and agree with the student/clinical fellow's documentation: N/A Speech Language Pathologist: Ella Roman M.A., [facility]-STRAIGHTENING PRESS OPERATOR
--- NOTE | 2025-01-04 14:54 | HO.PM.IMPN ---
Subjective Subjective Date of Service: 01/04/25 Interval History: According to provider in chart review, pt more lethargic and encephalopathic than at presentation Somnolent but arousable, though minimally interactive Will state name but little else Review of Systems Review of Systems: Yes Unobtainable due to mental status Physical Exam Vital Signs: Vital Signs: Last Vital Signs Temp 97.0 F 01/04/25 11:20 Pulse 109 H 01/04/25 11:20 Resp 17 01/04/25 11:20 BP 107/70 01/04/25 11:20 Pulse Ox 94 01/04/25 11:20 O2 Del Method Room Air 01/04/25 11:20 BMI result Body Mass Index 20.2 General: Alert and oriented to self only, somnolent but arousable, though falling back asleep before answering questions fully. Unkempt. In no acute distress Resp: Bilateral coarse breath sounds CVS: S1, S2, RRR GI: +BS, NT, no distention Skin: Warm, dry Neuro: Cranial nerves II-XII grossly intact bilaterally. Motor grossly intact bilaterally Extremities: No edema Objective Data Active Medications Acetaminophen (Acetaminophen 325 Mg Tablet) 650 mg PO Q6H PRN PRN Reason: Pain, Mild 1-3,fever,headache Calcium Carbonate (Calcium Carbonate 750 Mg Tab.Chew) 750 mg PO Q4H PRN PRN Reason: Heartburn Folic Acid (Folic Acid 1 Mg Tablet) 1 mg PO DAILY [facility] Stop: 01/05/25 09:01 Last Admin: 01/04/25 10:20 Dose: Not Given Documented By: PRINCE Non-Admin Reason: Patient Condition Contraindication Lactated Ringer's (Lr) 1,000 mls @ 100 mls/hr IVCONT .Q10H [facility] Last Admin: 01/04/25 05:02 Dose: 100 mls/hr Documented By: LARA Thiamine HCl 200 mg/ Sodium (Chloride) 102 mls @ 204 mls/hr IV Q8H [facility] Stop: 01/05/25 14:29 Levetiracetam (Levetiracetam 250 Mg Tablet) 750 mg PO BEDTIME ONE Stop: 01/04/25 21:01 Magnesium Hydroxide (Milk Of Magnesia 30 Ml Oral.Susp) 30 ml PO DAILY PRN PRN Reason: Constipation Melatonin (Melatonin 3 Mg Tablet) 6 mg PO BEDTIME PRN PRN Reason: Insomnia Ondansetron HCl (Ondansetron Hcl 4 Mg/2 Ml Vial) 4 mg IVPUSH Q8H PRN PRN Reason: Nausea and Vomiting Pantoprazole Sodium (Pantoprazole Sodium 40 Mg/10 Ml Vial) 40 mg IVPUSH BID@0630,1630 [facility] Stop: 01/05/25 06:31 Last Admin: 01/04/25 08:08 Dose: 40 mg Documented By: TOBI Pharmacy Consult (Consult Rx Etoh Phenob Im/Po) 1 each MISCELLANE ONCE PRN; Protocol PRN Reason: Consult order Phenobarbital (Phenobarbital 15 Mg Tablet) 15 mg PO BID [facility] Stop: 01/07/25 21:01 Phenobarbital (Phenobarbital 15 Mg Tablet) 15 mg PO DAILY [facility] Stop: 01/09/25 09:01 Phenobarbital Sodium (Phenobarbital Sodium 65 Mg/Ml Vial) 45 mg IM BID [facility] Stop: 01/05/25 21:01 Last Admin: 01/04/25 10:33 Dose: 45 mg Documented By: PRINCE Polyethylene Glycol (Polyethylene Glycol 3350 17 Gm Powd.Pack) 17 gm PO DAILY PRN PRN Reason: Constipation Sodium Chloride (0.9 % Sodium Chloride Flush 3 Ml Syringe) 3 ml IVFLUSH QSHIFT [facility] Last Admin: 01/04/25 08:09 Dose: 3 ml Documented By: TOBI Labs 01/03/25 16:36 01/03/25 16:36 Labs: Laboratory Results - last 24 hr 01/03/25 01/03/25 01/03/25 16:36 20:58 21:57 MCV 91.2 MCH 31.5 MCHC 34.5 RDW 15.4 Plt Count 75 L MPV 11.7 Immature Gran % (Auto) 1.1 H Neut % (Auto) 77.8 H Lymph % (Auto) 11.0 L [place] % (Auto) 9.8 Eos % (Auto) 0.1 Baso % (Auto) 0.2 Lymph # (Auto) 1.0 L [place] # (Auto) 0.9 Eos # (Auto) 0.0 Baso # (Auto) 0.0 Abs Immat Gran (auto) 0.10 H Absolute Neuts (auto) 7.2 Absolute Nucleated RBC 0.000 Nucleated RBC % (auto) 0.0 Smear Tech's Comments VERIFIED VBG pH VBG pCO2 VBG pO2 VBG HCO3 VBG O2 Saturation VBG Base Excess Anion Gap 13 Estim Creat Clear Calc 115.3 Estimated GFR > 60 Random Glucose 91 Calcium 9.3 D Total Bilirubin 0.8 AST 87 H ALT 51 H Alkaline Phosphatase 79 Ammonia 38 Total Protein 7.2 Albumin 4.0 Salicylates < 5.0 L Urine Opiates Screen Not Detected Ur Buprenorphine Scrn Not Detected Ur Oxycodone Screen Not Detected Urine Methadone Screen Not Detected Urine Fentanyl Screen Not Detected Acetaminophen < 3 Ur Barbiturates Screen POSITIVE H Ur Phencyclidine Scrn Not Detected Ur Amphetamines Screen Not Detected U Benzodiazepines Scrn POSITIVE H Urine Cocaine Screen Not Detected U Marijuana (THC) Screen POSITIVE H Ethyl Alcohol < 10 01/03/25 23:37 MCV MCH MCHC RDW Plt Count MPV Immature Gran % (Auto) Neut % (Auto) Lymph % (Auto) [place] % (Auto) Eos % (Auto) Baso % (Auto) Lymph # (Auto) [place] # (Auto) Eos # (Auto) Baso # (Auto) Abs Immat Gran (auto) Absolute Neuts (auto) Absolute Nucleated RBC Nucleated RBC % (auto) Smear Tech's Comments VBG pH 7.55 H VBG pCO2 28 VBG pO2 209 VBG HCO3 25 VBG O2 Saturation 99.0 VBG Base Excess 3.8 Anion Gap Estim Creat Clear Calc Estimated GFR Random Glucose Calcium Total Bilirubin AST ALT Alkaline Phosphatase Ammonia Total Protein Albumin Salicylates Urine Opiates Screen Ur Buprenorphine Scrn Ur Oxycodone Screen Urine Methadone Screen Urine Fentanyl Screen Acetaminophen Ur Barbiturates Screen Ur Phencyclidine Scrn Ur Amphetamines Screen U Benzodiazepines Scrn Urine Cocaine Screen U Marijuana (THC) Screen Ethyl Alcohol Assessment and Plan (1) Encephalopathy: Status: Acute (2) Alcohol withdrawal: Status: Acute Plan This is a 54-year-old male with pertinent history of alcohol use disorder, seizure disorder noncompliant with Keppra who was brought to the emergency department after signing out AMA from [facility] for ongoing alcohol withdrawal. Acute alcohol withdrawal Pt reportedly drinks 24-36 beers daily Went into acute alcohol withdrawal with seizures while on family fishing trip to [place] 5 days ago Admitted to ICU at [facility] in [place] on Precedex and phenobarb protocol Family signed him out of ICU AMA, brought to [facility] for continued detox Pt more encephalopathic than earlier Continue phenobarb IM protocol, thiamine IV IVF, Protonix IV Seizure and aspiration precautions Monitor on CIWA Addiction medicine consult Monitor on telemetry Acute metabolic encephalopathy In the setting of above Treat as above Diet Seen and evaluated by speech Unable to tolerate diet, will be reassessed tomorrow by INDUSTRIAL SAFETY AND HEALTH TECHNICIAN NPO for now If no improvement tomorrow, consider MBSS Thrombocytopenia Platelets 75 Likely secondary to alcohol use disorder Follow CBC Full code Pt's nephew Rah Ashby is the invoked health care proxy DVT prophylaxis: Pneumatic compression due to thrombocytopenia Pt will require continued hospitalization for continued treatment for acute metabolic encephalopathy in the setting of acute alcohol withdrawal that will require close cardiac monitoring and administration of phenobarb protocol. Quality Stroke Does the patient have a stroke diagnosis?: No VTE Prior VTE?: No VTE Risk Level:: Medical - moderate - high VTE Device Contraindication: Treatment Not Indicated VTE Drug Contraindication: N/A - Med Ordered
[2025-01-05] VITALS (7 sets, daily range): BP systolic 85–137; BP diastolic 53–82; PULSE 79–120; RESP 16–18; TEMP 36.2–36.9; O2SAT 92–96
[2025-01-05] MEDS: levETIRAcetam in NaCl (iso-os) 500 MG/100 ML PIGGYBACK 400 MG IV (02:15)
[2025-01-05] MEDS: Lactated Ringers 1,000 ML 100 ML IVCONT ×2 (02:17→11:05)
[2025-01-05] MEDS: Thiamine HCL 200 MG in 0.9 % Sodium Chloride 100 ML 204 MG IV (06:13)
[2025-01-05] MEDS: Pantoprazole Sodium 40 MG/10 ML VIAL IVPUSH (06:13)
[2025-01-05 07:32] LABS: Hematocrit 33.3 % (42.0-52.0); Mean Corpuscular Volume 93.8 fL (80.0-98.0); Mean Platelet Volume 11.4 fL (9.4-12.4); Platelet Count 123 X10*3/uL (160-400); Red Blood Count 3.55 X10*6/uL (4.60-5.80); Red Cell Distribution Width 15.7 % (11.0-16.0); White Blood Count 7.3 X10*3/uL (4.8-10.8)
[2025-01-05] MEDS: PHENobarbitaL sodium 65 MG/ML VIAL 45 MG IM ×2 (07:57→20:13)
[2025-01-05] MEDS: Folic Acid 1 MG TABLET PO (07:57)
[2025-01-05 08:00] LABS: Anion Gap 16 (12-20); Blood Urea Nitrogen < 3 mg/dL (9-16); Calcium 8.6 mg/dL (8.4-10.2); Carbon Dioxide 26 mmol/L (22-29); Chloride 100 mmol/L (96-108); Estimated Glomerular Filt Rate > 60; Glucose Random 67 mg/dL (60-115); Magnesium 1.5 mg/dL (1.6-2.6); Potassium 3.7 mmol/L (3.3-5.1); Sodium 138 mmol/L (135-145)
[2025-01-05] MEDS: Magnesium Sulfate/H2O 2 GM/50 ML PIGGYBACK IV (09:41)
--- NOTE | 2025-01-05 10:58 | MHC.SL.SWA ---
Risk of Aspiration Due to: tongue s/p fall Dysphasia Diet Status: UPGRADE Liquid Consistency and Strategies for Safe Swallow: Liquid Intake Recommendation: Thin Liquid Intake Strategies: Small Sips No Straws Solid Food Consistency: Dietary Recommendations: Grnd/Mech Altered (NDD2) Oral Medication Intake: Crushed with Puree Please contact the pharmacy regarding appropriate crushable or liquid drug formulations that are available whenever modified delivery is recommended. Compensatory Strategies and Precautions to be Taken for Safe Swallow: Sitting Upright (90 deg) No Straw Small Bites and Sips Alternate Liquids/Solids Supervision While Eating and Drinking for Safe Swallow: Direct Supervision (1:1) Recommendation for Speech: Further Testing Needed Inpatient Speech Therapy Comment: Recommend UPGRADE to GROUND solids (NDD2) and THIN liquids (NO STRAWS). Recommend pills crushed in puree if possible. This is recommended as safest least restrictive diet at this time d/t difficulty w/ tongue coordination s/p biting tongue during fall. Pt w/ difficulty feeding; consistently hit chin when attempting to bring food to mouth. Recommend full supervision to assist w/ feeding when needed. Commercial Lender Clinican/Clinical Fellow: No Supervisory Statement: I have reviewed and agree with the student/clinical fellow's documentation: N/A Speech Language Pathologist: Leti Quiros M.A., CCC-CORNER BLOCK CUTTER
--- NOTE | 2025-01-05 11:00 | MHC.CM.PN ---
Per med record, pt. is confused at this time, CM spoke with his nephew and HCP, Rah, HCP is invoked. Pt. does not have a PCP, he is a severe alcoholic who drinks 24 beers a day. He was walking prior to his seizure, since the seizure, he cannot walk and does not recognize family members. DCP will be home if he is able to, or SNF. CM to follow for DC needs.
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
--- NOTE | 2025-01-05 14:11 | P.PNIM_ITS ---
Subjective Subjective Date of Service: 01/05/25 Interval History: disoriented, denies EtOH problem or seizure says he fell out of bed or maybe off a roof; history unreliable; pt [facility] Review of Systems Review of Systems: Yes Unobtainable due to mental status Physical Exam 2 Vital Signs: Vital Signs: Last Vital Signs Temp 97.2 F 01/05/25 11:39 Pulse 115 H 01/05/25 13:34 Resp 18 01/05/25 11:39 BP 109/71 01/05/25 13:34 Pulse Ox 96 01/05/25 13:34 O2 Del Method Room Air 01/05/25 11:39 BMI result Body Mass Index 20.2 Gen: in no acute distress but disheveled HEENT: sclera anicteric, moist mucus membranes Neck: supple Lungs: clear to auscultation bilaterally Heart: regular, tachycardic, no murmurs Abd: soft, non-tender, non-distended Ext: no edema Skin: warm/well-perfused Neuro: alert and oriented to self only, tremulous Psych: insight impaired Objective Data Active Medications Acetaminophen (Acetaminophen 325 Mg Tablet) 650 mg PO Q6H PRN PRN Reason: Pain, Mild 1-3,fever,headache Calcium Carbonate (Calcium Carbonate 750 Mg Tab.Chew) 750 mg PO Q4H PRN PRN Reason: Heartburn Lactated Ringer's (Lr) 1,000 mls @ 100 mls/hr IVCONT .Q10H [facility] Last Admin: 01/05/25 11:05 Dose: 100 mls/hr Documented By: PRINCE Thiamine HCl 200 mg/ Sodium (Chloride) 102 mls @ 204 mls/hr IV Q8H [facility] Stop: 01/05/25 14:29 Last Infusion: 01/05/25 07:01 Dose: Infused Documented By: RADHA Levetiracetam (Levetiracetam 250 Mg Tablet) 750 mg PO BEDTIME [facility] Magnesium Hydroxide (Milk Of Magnesia 30 Ml Oral.Susp) 30 ml PO DAILY PRN PRN Reason: Constipation Melatonin (Melatonin 3 Mg Tablet) 6 mg PO BEDTIME PRN PRN Reason: Insomnia Ondansetron HCl (Ondansetron Hcl 4 Mg/2 Ml Vial) 4 mg IVPUSH Q8H PRN PRN Reason: Nausea and Vomiting Pharmacy Consult (Consult Rx Etoh Phenob Im/Po) 1 each MISCELLANE ONCE PRN; Protocol PRN Reason: Consult order Phenobarbital (Phenobarbital 15 Mg Tablet) 15 mg PO BID [facility] Stop: 01/07/25 21:01 Phenobarbital (Phenobarbital 15 Mg Tablet) 15 mg PO DAILY [facility] Stop: 01/09/25 09:01 Phenobarbital Sodium (Phenobarbital Sodium 65 Mg/Ml Vial) 45 mg IM BID [facility] Stop: 01/05/25 21:01 Last Admin: 01/05/25 07:57 Dose: 45 mg Documented By: PRINCE Polyethylene Glycol (Polyethylene Glycol 3350 17 Gm Powd.Pack) 17 gm PO DAILY PRN PRN Reason: Constipation Sodium Chloride (0.9 % Sodium Chloride Flush 3 Ml Syringe) 3 ml IVFLUSH QSHIFT [facility] Last Admin: 01/05/25 07:55 Dose: Not Given Documented By: PRINCE Non-Admin Reason: IV Running Labs 01/05/25 07:07 01/05/25 07:07 Labs: Laboratory Results - last 24 hr 01/05/25 07:07 MCV 93.8 MCH 31.0 MCHC 33.0 RDW 15.7 Plt Count 123 L D MPV 11.4 Absolute Nucleated RBC 0.000 Nucleated RBC % (auto) 0.0 Anion Gap 16 Estim Creat Clear Calc 130.0 Estimated GFR > 60 Random Glucose 67 Calcium 8.6 D Magnesium 1.5 L Assessment and Plan (1) Encephalopathy: Status: Acute (2) Alcohol withdrawal: Status: Acute Plan hospital d3 for 54yo M with AUD, seizure disorder noncompliant with levetiracetam who was reportedly admitted to the MICU at [facility] in [place], [place] for severe EtOH withdrawal requiring dexmedetomidine drip; signed out AMA by family so they could bring him closer to home and readmitted to [facility] [place] [place] for ongoing management acute EtOH withdrawal - continue phenobarbital - IV thiamine for question of Wernicke syndrome - Addiction Medicine consultation pending seizure disorder - resumed levetiracetam - advise against driving acute toxic encephalopathy - RN MIDWIFE: NDD2 solids, thin liquids - HCP invoked [pt's nephew Rah Ashby] thrombocytopenia - due to EtOH; improving VTE ppx - enoxaparin dispo - PT eval: STR In my clinical judgment, the patient requires continued inpatient hospitalization for the following reasons: severe EtOH withdrawal Total time managing care of this patient today: 40 minutes. Quality Stroke Does the patient have a stroke diagnosis?: No VTE Prior VTE?: No VTE Risk Level:: Medical - moderate - high VTE Device Contraindication: Treatment Not Indicated VTE Drug Contraindication: N/A - Med Ordered
[2025-01-05] MEDS: PHENobarbitaL sodium 130 MG/ML VIAL IM (16:14)
[2025-01-05] MEDS: 0.9 % Sodium Chloride Flush 3 ML SYRINGE IVFLUSH (20:14)
[2025-01-05] MEDS: levETIRAcetam 250 MG TABLET 750 MG PO (20:14)
[2025-01-05] MEDS: Acetaminophen 325 MG TABLET 650 MG PO (20:27)
[2025-01-06] MEDS: Lactated Ringers 500 ML 999 ML IV (01:04)
[2025-01-06 02:43] VITALS: BP 115/75
[2025-01-06 03:52] VITALS: BP 140/90; PULSE 98; RESP 16; TEMP 36.3; O2SAT 96
[2025-01-06 07:10] VITALS: BP 135/79; PULSE 100; RESP 17; TEMP 36.9; O2SAT 94
[2025-01-06 07:18] LABS: INTERNATIONAL NORM RATIO 1.1 (0.9-1.1); Prothrombin Time 12.2 SEC (10.9-12.4)
[2025-01-06 08:01] LABS: Alanine Aminotransferase 29 U/L (0-40); Albumin Level 3.1 g/dL (3.5-5.0); Alkaline Phosphatase 73 U/L (39-117); Aspartate Amino Transferase 62 U/L (5-37); Bilirubin Total 0.5 mg/dL (0.0-1.0); Blood Urea Nitrogen 3 mg/dL (9-16); Calcium 8.2 mg/dL (8.4-10.2); Creatinine Clr Calc Pharmacy 117.5; Estimated Glomerular Filt Rate > 60; Glucose Random 93 mg/dL (60-115); Magnesium 1.8 mg/dL (1.6-2.6); Total Protein 5.6 g/dL (6.5-8.0)
[2025-01-06 08:29] LABS: Anion Gap 12 (12-20); Carbon Dioxide 27 mmol/L (22-29); Chloride 100 mmol/L (96-108); Potassium 2.8 mmol/L (3.3-5.1); Sodium 136 mmol/L (135-145)
[2025-01-06] MEDS: PHENobarbitaL 15 MG TABLET PO ×2 (09:22→21:06)
[2025-01-06] MEDS: Potassium Chloride ER 20 MEQ TAB.ER.PRT 40 MEQ PO (09:22)
[2025-01-06] MEDS: Potassium Chloride/H20 10 MEQ/100 ML PIGGYBACK 100 MEQ IV ×4 (09:23→17:31)
[2025-01-06] MEDS: 0.9 % Sodium Chloride Flush 3 ML SYRINGE IVFLUSH ×3 (09:33→21:34)
[2025-01-06 11:11] VITALS: BP 90/60; PULSE 100; RESP 17; TEMP 36.7; O2SAT 97
--- NOTE | 2025-01-06 13:58 | P.PNIM_ITS ---
Subjective Subjective Date of Service: 01/06/25 Interval History: shakiness improving, no seizures reviewed records from [facility] Review of Systems Review of Systems: Yes all other systems are reviewed and are negative Physical Exam 2 Vital Signs: Vital Signs: Last Vital Signs Temp 98.0 F 01/06/25 11:11 Pulse 100 01/06/25 11:11 Resp 17 01/06/25 11:11 BP 90/60 01/06/25 11:11 Pulse Ox 97 01/06/25 11:11 O2 Del Method Room Air 01/06/25 11:11 BMI result Body Mass Index 20.2 Gen: in no acute distress but disheveled HEENT: sclera anicteric, moist mucus membranes Neck: supple Lungs: clear to auscultation bilaterally Heart: regular, tachycardic, no murmurs Abd: soft, non-tender, non-distended Ext: no edema Skin: warm/well-perfuse to self and place, no focal weakness Psych: insight impaired Objective Data Active Medications Acetaminophen (Acetaminophen 325 Mg Tablet) 650 mg PO Q6H PRN PRN Reason: Pain, Mild 1-3,fever,headache Last Admin: 01/05/25 20:27 Dose: 650 mg Documented By: ALISSA Calcium Carbonate (Calcium Carbonate 750 Mg Tab.Chew) 750 mg PO Q4H PRN PRN Reason: Heartburn Levetiracetam (Levetiracetam 250 Mg Tablet) 750 mg PO BEDTIME [facility] Last Admin: 01/05/25 20:14 Dose: 750 mg Documented By: ALISSA Magnesium Hydroxide (Milk Of Magnesia 30 Ml Oral.Susp) 30 ml PO DAILY PRN PRN Reason: Constipation Melatonin (Melatonin 3 Mg Tablet) 6 mg PO BEDTIME PRN PRN Reason: Insomnia Ondansetron HCl (Ondansetron Hcl 4 Mg/2 Ml Vial) 4 mg IVPUSH Q8H PRN PRN Reason: Nausea and Vomiting Pharmacy Consult (Consult Rx Etoh Phenob Im/Po) 1 each MISCELLANE ONCE PRN; Protocol PRN Reason: Consult order Phenobarbital (Phenobarbital 15 Mg Tablet) 15 mg PO BID [facility] Stop: 01/07/25 21:01 Last Admin: 01/06/25 09:22 Dose: 15 mg Documented By: HO.SZOTPAT Phenobarbital (Phenobarbital 15 Mg Tablet) 15 mg PO DAILY [facility] Stop: 01/09/25 09:01 Polyethylene Glycol (Polyethylene Glycol 3350 17 Gm Powd.Pack) 17 gm PO DAILY PRN PRN Reason: Constipation Sodium Chloride (0.9 % Sodium Chloride Flush 3 Ml Syringe) 3 ml IVFLUSH QSHIFT [facility] Last Admin: 01/06/25 09:33 Dose: 3 ml Documented By: ROGER Labs 01/05/25 07:07 01/06/25 06:30 Labs: Laboratory Results - last 24 hr 01/06/25 06:30 PT 12.2 INR 1.1 Anion Gap 12 Estim Creat Clear Calc 117.5 Estimated GFR > 60 Random Glucose 93 Calcium 8.2 L Magnesium 1.8 Total Bilirubin 0.5 AST 62 H ALT 29 Alkaline Phosphatase 73 Total Protein 5.6 L Albumin 3.1 L Assessment and Plan (1) Encephalopathy: Status: Acute (2) Alcohol withdrawal: Status: Acute Plan hospital d4 for 54yo M with AUD, seizure disorder noncompliant with levetiracetam who was admitted to the MICU at [facility] in [place] 12/31-01/03 for severe EtOH withdrawal with seizurerequiring dexmedetomidine drip + phenobarbital taper; signed out AMA by family so they could bring him closer to home and readmitted to [facility] [place] ongoing management acute EtOH withdrawal - provoked by sudden reduction in EtOH intake on family vacation in [place] - reviewed [facility] records: pt was admitted 12/31-01/03 after witnessed seizure from EtOH withdrawal. CTH showed volume loss + midbrain atrophy, CT A/P negative, EEG negative. - continue phenobarbital - IV thiamine for question of Wernicke syndrome - Addiction Medicine consulted seizure disorder - resumed levetiracetam - advised against driving acute toxic encephalopathy - HIP HOP PERFORMERS: NDD2 solids, thin liquids - HCP invoked [pt's nephew Rah Ashby] thrombocytopenia - due to EtOH; improving VTE ppx - enoxaparin dispo - PT eval: STR In my clinical judgment, the patient requires continued inpatient hospitalization for the following reasons: severe EtOH withdrawal Total time managing care of this patient today: 40 minutes. Quality Stroke Does the patient have a stroke diagnosis?: No VTE Prior VTE?: No VTE Risk Level:: Medical - moderate - high VTE Device Contraindication: Treatment Not Indicated VTE Drug Contraindication: N/A - Med Ordered
[2025-01-06 15:22] VITALS: BP 144/83; PULSE 101; RESP 18; TEMP 37.2; O2SAT 95
--- NOTE | 2025-01-06 16:19 | MHC.SL.SWA ---
Speech Pathologist Impression: Mild to moderate dysphagia Risk of Aspiration Due to: Dysphasia Diet Status: Recommend UPGRADE to GROUND solids (NDD2) and THIN liquids (NO STRAWS). Recommend pills crushed in puree if possible. This is recommended as safest least restrictive diet at this time d/t difficulty w/ tongue coordination s/p biting tongue during fall. Pt w/ difficulty feeding; consistently hit chin when attempting to bring food to mouth. Recommend full supervision to assist w/ feeding when needed. Liquid Consistency and Strategies for Safe Swallow: Liquid Intake Recommendation: Thin Liquid Intake Strategies: Small Sips No Straws Solid Food Consistency: Dietary Recommendations: Grnd/Mech Altered (NDD2) Additional Modifications to Solid Foods: Oral Medication Intake: Whole with Puree Please contact the pharmacy regarding appropriate crushable or liquid drug formulations that are available whenever modified delivery is recommended. Compensatory Strategies and Precautions to be Taken for Safe Swallow: Sitting Upright (90 deg) No Straw Small Bites and Sips Alternate Liquids/Solids Supervision While Eating and Drinking for Safe Swallow: Direct Supervision (1:1) Foods to Avoid: Swallowing Recommended Treatments: Recommendation for Speech: Further Testing Needed Inpatient Speech Therapy Comment: Pt sipped thins by straw and ate small tsps of puree during dysphagia treatment. Pt alert to task, more coordinated with self feeding. Chronic cough intermittent, not considered s/s of aspiration. Pt verbalized understanding of safety precautions. Pt stated he wants to go home. CAREER SPECIALIST continues to follow pt for safety of PO intake. Frequency/Duration: M-F PRN Date Range for Service Req: Timeline to reassess: Notary Public Clinican/Clinical Fellow: No Supervisory Statement: I have reviewed and agree with the student/clinical fellow's documentation: N/A Speech Language Pathologist: Caty Pérez M.S., CCC-CAREER SPECIALIST
[2025-01-06 20:00] VITALS: BP 108/76; PULSE 122; RESP 18; TEMP 37.7; O2SAT 96
[2025-01-06] MEDS: Acetaminophen 325 MG TABLET 650 MG PO (21:05)
[2025-01-06] MEDS: Melatonin 3 MG TABLET 6 MG PO (21:05)
[2025-01-06] MEDS: levETIRAcetam 250 MG TABLET 750 MG PO (21:06)
[2025-01-07] VITALS (7 sets, daily range): BP systolic 106–121; BP diastolic 67–81; PULSE 93–115; RESP 16–18; TEMP 36.4–37.6; O2SAT 93–100
[2025-01-07] MEDS: Acetaminophen 325 MG TABLET 650 MG PO ×2 (03:04→22:00)
[2025-01-07 07:09] LABS: Hematocrit 31.2 % (42.0-52.0); Hemoglobin 10.3 g/dl (14.0-18.0); Mean Corpuscular Hemoglobin 31.3 pg (27.0-33.0); Mean Corpuscular Volume 94.8 fL (80.0-98.0); Mean Platelet Volume 10.1 fL (9.4-12.4); Platelet Count 246 X10*3/uL (160-400); Red Blood Count 3.29 X10*6/uL (4.60-5.80); White Blood Count 8.2 X10*3/uL (4.8-10.8)
[2025-01-07 07:46] LABS: Alanine Aminotransferase 24 U/L (0-40); Albumin Level 3.1 g/dL (3.5-5.0); Alkaline Phosphatase 75 U/L (39-117); Anion Gap 12 (12-20); Aspartate Amino Transferase 55 U/L (5-37); Bilirubin Total 0.5 mg/dL (0.0-1.0); Blood Urea Nitrogen 3 mg/dL (9-16); Calcium 8.6 mg/dL (8.4-10.2); Carbon Dioxide 26 mmol/L (22-29); Chloride 103 mmol/L (96-108); Creatinine Clr Calc Pharmacy 122.2; Estimated Glomerular Filt Rate > 60; Glucose Random 98 mg/dL (60-115); Magnesium 1.8 mg/dL (1.6-2.6); Potassium 3.3 mmol/L (3.3-5.1); Sodium 138 mmol/L (135-145); Total Protein 5.7 g/dL (6.5-8.0)
[2025-01-07] MEDS: 0.9 % Sodium Chloride Flush 3 ML SYRINGE IVFLUSH (09:31)
[2025-01-07] MEDS: PHENobarbitaL 15 MG TABLET PO ×2 (09:31→21:57)
--- NOTE | 2025-01-07 10:46 | MHC.SL.SWA ---
Speech Pathologist Impression: Risk of Aspiration Due to: Dysphasia Diet Status: Recommend continue on Ground Mechanical (NDD2) with thin liquids, pills whole with puree. Liquid Consistency and Strategies for Safe Swallow: Liquid Intake Recommendation: Thin Liquid Intake Strategies: Small Sips No Straws Solid Food Consistency: Dietary Recommendations: Grnd/Mech Altered (NDD2) Additional Modifications to Solid Foods: Oral Medication Intake: Whole with Puree Please contact the pharmacy regarding appropriate crushable or liquid drug formulations that are available whenever modified delivery is recommended. Compensatory Strategies and Precautions to be Taken for Safe Swallow: Sitting Upright (90 deg) Liquids from Cup Small Bites and Sips Alternate Liquids/Solids Avoid Specific Foods Supervision While Eating and Drinking for Safe Swallow: Direct Supervision (1:1) Foods to Avoid: Swallowing Recommended Treatments: Compens. Strategy Educat. Recommendation for Speech: Further Testing Needed Inpatient Speech Therapy Comment: Patient seen at breakfast this morning, sitter present in room, with patient already progressing through meal. Patient was pleasant and communicative, managing both solid foods and liquids with no evident difficulty. Patient continues to express preference for current food consistencies (ground foods supplemented with purees). Recommend continue on Ground Mechanical (NDD2) with thin liquids, pills whole with puree. Frequency/Duration: M-F PRN Date Range for Service Req: Timeline to reassess: Cloth Washer Operator Clinican/Clinical Fellow: No Supervisory Statement: I have reviewed and agree with the student/clinical fellow's documentation: N/A Speech Language Pathologist: Zulma Mackay M.A., CCC-RUBBER TIRE CURER
--- NOTE | 2025-01-07 12:44 | HO.ADDICTPRO ---
Subjective Subjective Date of Service: 01/07/25 Reason For Visit: alcohol w/d-seizures Interim History: Patient seen in follow up for AUD Awake, alert. Denies any alcohol use, aside from a beer once in a while Denies any history of treatment, denies any history of seizure. Hospitalist progress note, with regards to records reviewed from stay in [facility] : CTH showed volume loss + midbrain atrophy, CT A/P negative, EEG negative Irritable when asked about these things--inquiring when he can leave. Chart reviewed, K 3.3 Withdrawal sx subsided Review of Systems Constitutional: Reports as per HPI and Reports no additional constitutional complaints Mental Status Exam Mental Status Exam Level of Consciousness: Awake and Alert Patient Behavior: Guarded Affect Description: Appropriate and Blunted Speech Pattern: Clear Thought Content: positive for Garrison Judgement: Poor Diagnostics Vital Signs (24Hr): Vital Signs - 24 hr 01/06/25 15:22 01/06/25 20:00 01/07/25 00:00 Temperature 98.9 F 99.8 F 98.4 F Pulse Rate 101 H 122 H 103 H Respiratory Rate 18 18 18 Blood Pressure 144/83 H 108/76 109/78 Pulse Oximetry 95 96 95 Oxygen Delivery Method Room Air Room Air Room Air 01/07/25 04:00 01/07/25 08:00 01/07/25 10:59 Temperature 97.6 F 98.3 F Pulse Rate 99 93 93 Respiratory Rate 18 16 Blood Pressure 106/69 121/79 121/79 Pulse Oximetry 93 100 100 Oxygen Delivery Method Room Air Room Air 01/07/25 11:29 Temperature 98.5 F Pulse Rate 115 H Respiratory Rate 16 Blood Pressure 117/81 Pulse Oximetry 94 Oxygen Delivery Method Room Air BMI result Body Mass Index 20.2 Labs 01/07/25 06:55 01/07/25 06:55 Labs: Laboratory Results - last 48 hr 01/06/25 01/07/25 06:30 06:55 WBC 8.2 RBC 3.29 L Hgb 10.3 L Hct 31.2 L MCV 94.8 MCH 31.3 MCHC 33.0 RDW 16.0 Plt Count 246 D MPV 10.1 Absolute Nucleated RBC 0.000 Nucleated RBC % (auto) 0.0 PT 12.2 INR 1.1 Sodium 136 138 Potassium 2.8 L* D 3.3 Chloride 100 103 Carbon Dioxide 27 26 Anion Gap 12 12 BUN 3 L 3 L Creatinine 0.52 0.50 Estim Creat Clear Calc 117.5 122.2 Estimated GFR > 60 > 60 Random Glucose 93 98 Calcium 8.2 L 8.6 Magnesium 1.8 1.8 Total Bilirubin 0.5 0.5 AST 62 H 55 H ALT 29 24 Alkaline Phosphatase 73 75 Total Protein 5.6 L 5.7 L Albumin 3.1 L 3.1 L Medications Medications Current Medications Acetaminophen (Acetaminophen 325 Mg Tablet) 650 mg PO Q6H PRN PRN Reason: Pain, Mild 1-3,fever,headache Last Admin: 01/07/25 03:04 Dose: 650 mg Calcium Carbonate (Calcium Carbonate 750 Mg Tab.Chew) 750 mg PO Q4H PRN PRN Reason: Heartburn Levetiracetam (Levetiracetam 250 Mg Tablet) 750 mg PO BEDTIME [facility] Last Admin: 01/06/25 21:06 Dose: 750 mg Magnesium Hydroxide (Milk Of Magnesia 30 Ml Oral.Susp) 30 ml PO DAILY PRN PRN Reason: Constipation Melatonin (Melatonin 3 Mg Tablet) 6 mg PO BEDTIME PRN PRN Reason: Insomnia Last Admin: 01/06/25 21:05 Dose: 6 mg Ondansetron HCl (Ondansetron Hcl 4 Mg/2 Ml Vial) 4 mg IVPUSH Q8H PRN PRN Reason: Nausea and Vomiting Pharmacy Consult (Consult Rx Etoh Phenob Im/Po) 1 each MISCELLANE ONCE PRN; Protocol PRN Reason: Consult order Phenobarbital (Phenobarbital 15 Mg Tablet) 15 mg PO BID [facility] Stop: 01/07/25 21:01 Last Admin: 01/07/25 09:31 Dose: 15 mg Phenobarbital (Phenobarbital 15 Mg Tablet) 15 mg PO DAILY [facility] Stop: 01/09/25 09:01 Polyethylene Glycol (Polyethylene Glycol 3350 17 Gm Powd.Pack) 17 gm PO DAILY PRN PRN Reason: Constipation Sodium Chloride (0.9 % Sodium Chloride Flush 3 Ml Syringe) 3 ml IVFLUSH QSHIFT [facility] Last Admin: 01/07/25 09:31 Dose: 3 ml Trazodone HCl (Trazodone Hcl 50 Mg Tablet) 50 mg PO BEDTIME PRN PRN Reason: Insomnia Allergies Allergies Allergy/AdvReac Type Severity Reaction Status Date / Time meperidine [Demerol] Allergy Unknown Vomiting Verified 01/03/25 15:37 Assessment & Plan Assessment & Plan (1) Alcohol use disorder, severe, dependence: Status: Acute Code(s): F10.20 - Alcohol dependence, uncomplicated Assessment and Plan: withdrawal managed --patient declines DYLAN or referrals for treatment of AUD in the community continue PO thiamine ongoing presentation likely due to cerebral (mid brain) atrophy and ongoing etoh use. No insight regarding alcohol use, medical history or current admission no follow up indicated at this time from [facility] Total time managing care of this patient today __25__ minutes.
--- NOTE | 2025-01-07 13:24 | MHC.CM.PN ---
PT is rec. STR for pt. referrals out and CM was informed by ref source that pt. will have a co pay of $80 per day, he has [employer] for ins. CM spoke to HCP, (patient is confused). HCP said pt. will not agree to pay co-pay, and wants to go home. Referral submitted to financial counselors, HCP willing to work with them, to see if pt. is elgible for [facility].
--- NOTE | 2025-01-07 14:06 | HO.PM.IMPN ---
Subjective Subjective Date of Service: 01/07/25 Interval History: denies seizure disorder denies EtOH disorder Review of Systems Review of Systems: Yes all other systems are reviewed and are negative Physical Exam Vital Signs: Vital Signs: Last Vital Signs Temp 98.5 F 01/07/25 11:29 Pulse 115 H 01/07/25 11:29 Resp 16 01/07/25 11:29 BP 117/81 01/07/25 11:29 Pulse Ox 94 01/07/25 11:29 O2 Del Method Room Air 01/07/25 11:29 BMI result Body Mass Index 20.2 Gen: in no acute distress but disheveled HEENT: sclera anicteric, moist mucus membranes Neck: supple Lungs: clear to auscultation bilaterally Heart: regular, tachycardic, no murmurs Abd: soft, non-tender, non-distended Ext: no edema Skin: warm/well-perfuse to self and place, no focal weakness Psych: insight impaired Objective Data Active Medications Acetaminophen (Acetaminophen 325 Mg Tablet) 650 mg PO Q6H PRN PRN Reason: Pain, Mild 1-3,fever,headache Last Admin: 01/07/25 03:04 Dose: 650 mg Documented By: ALISSA Calcium Carbonate (Calcium Carbonate 750 Mg Tab.Chew) 750 mg PO Q4H PRN PRN Reason: Heartburn Levetiracetam (Levetiracetam 250 Mg Tablet) 750 mg PO BEDTIME [facility] Last Admin: 01/06/25 21:06 Dose: 750 mg Documented By: ALISSA Magnesium Hydroxide (Milk Of Magnesia 30 Ml Oral.Susp) 30 ml PO DAILY PRN PRN Reason: Constipation Melatonin (Melatonin 3 Mg Tablet) 6 mg PO BEDTIME PRN PRN Reason: Insomnia Last Admin: 01/06/25 21:05 Dose: 6 mg Documented By: ALISSA Ondansetron HCl (Ondansetron Hcl 4 Mg/2 Ml Vial) 4 mg IVPUSH Q8H PRN PRN Reason: Nausea and Vomiting Pharmacy Consult (Consult Rx Etoh Phenob Im/Po) 1 each MISCELLANE ONCE PRN; Protocol PRN Reason: Consult order Phenobarbital (Phenobarbital 15 Mg Tablet) 15 mg PO BID [facility] Stop: 01/07/25 21:01 Last Admin: 01/07/25 09:31 Dose: 15 mg Documented By: JACOB Phenobarbital (Phenobarbital 15 Mg Tablet) 15 mg PO DAILY [facility] Stop: 01/09/25 09:01 Polyethylene Glycol (Polyethylene Glycol 3350 17 Gm Powd.Pack) 17 gm PO DAILY PRN PRN Reason: Constipation Sodium Chloride (0.9 % Sodium Chloride Flush 3 Ml Syringe) 3 ml IVFLUSH QSHIFT [facility] Last Admin: 01/07/25 09:31 Dose: 3 ml Documented By: JACOB Trazodone HCl (Trazodone Hcl 50 Mg Tablet) 50 mg PO BEDTIME PRN PRN Reason: Insomnia Labs 01/07/25 06:55 01/07/25 06:55 Labs: Laboratory Results - last 24 hr 01/07/25 06:55 MCV 94.8 MCH 31.3 MCHC 33.0 RDW 16.0 Plt Count 246 D MPV 10.1 Absolute Nucleated RBC 0.000 Nucleated RBC % (auto) 0.0 Anion Gap 12 Estim Creat Clear Calc 122.2 Estimated GFR > 60 Random Glucose 98 Calcium 8.6 Magnesium 1.8 Total Bilirubin 0.5 AST 55 H ALT 24 Alkaline Phosphatase 75 Total Protein 5.7 L Albumin 3.1 L Assessment and Plan (1) Encephalopathy: Status: Acute (2) Alcohol withdrawal: Status: Acute Plan hospital d5 for 54yo M with AUD, seizure disorder noncompliant with levetiracetam who was admitted to the MICU at [facility] in [place] 12/31-01/03 for severe EtOH withdrawal with seizurerequiring dexmedetomidine drip + phenobarbital taper; signed out AMA by family so they could bring him closer to home and readmitted to [facility] for ongoing management acute EtOH withdrawal - provoked by sudden reduction in EtOH intake on family vacation in [place] - reviewed [facility] records: pt was admitted 12/31-01/03 after witnessed seizure from EtOH withdrawal. CTH showed volume loss + midbrain atrophy, CT A/P negative, EEG negative. - continue phenobarbital - IV thiamine for question of Wernicke syndrome - Addiction Medicine consulted seizure disorder - resumed levetiracetam - advised against driving acute toxic encephalopathy - TERMITE CONTROL SERVICE REPRESENTATIVE: NDD2 solids, thin liquids - HCP invoked [pt's nephew Rah Ashby] thrombocytopenia - due to EtOH; resolved VTE ppx - enoxaparin dispo - PT eval: STR due to very unsteady gait In my clinical judgment, the patient requires continued inpatient hospitalization for the following reasons: severe EtOH withdrawal Total time managing care of this patient today: 35 minutes. Quality Stroke Does the patient have a stroke diagnosis?: No VTE Prior VTE?: No VTE Risk Level:: Medical - moderate - high VTE Device Contraindication: Treatment Not Indicated VTE Drug Contraindication: N/A - Med Ordered
[2025-01-07] MEDS: levETIRAcetam 250 MG TABLET 750 MG PO (21:56)
[2025-01-08] VITALS: BP 136/83; PULSE 103; RESP 16; TEMP 36.8; O2SAT 93
[2025-01-08 00:20] LABS: Hematocrit 28.7 % (42.0-52.0); Hemoglobin 9.8 g/dl (14.0-18.0); Mean Corpuscular HGB Conc 34.1 g/dl (31.0-36.0); Mean Corpuscular Hemoglobin 31.8 pg (27.0-33.0); Mean Corpuscular Volume 93.2 fL (80.0-98.0); Platelet Count 303 X10*3/uL (160-400); Red Blood Count 3.08 X10*6/uL (4.60-5.80); Red Cell Distribution Width 16.3 % (11.0-16.0); White Blood Count 9.4 X10*3/uL (4.8-10.8)
--- NOTE | 2025-01-08 01:49 | PM.EVENT ---
Event Note Date of Service: 01/08/25 Event Note: 11:42 PM - Contacted by nursing patient had milagro red blood in his stool and blood actively dripping out. Pt denies dizziness/lightheadedness. Reports this happens occasionally when he pushes too hard to have a BM, denies hx of hemorrhoids. CBC stat done showed Hgb 9.8 (prior 10.3). Will continue to monitor. Time Spent With Patient Time: Total time managing care of this patient today ____ minutes.
--- NOTE | 2025-01-08 02:02 | PC.NURSE ---
Pt noted to have milagro red blood in stool and on wipes, with blood dripping out of rectum. Pt denies dizziness/lightheadedness. Reports this happens occasionally when he pushes too hard to have a BM, denies hx of hemorrhoids. Small hemorrhoid visualized on outer anus. Provider Abdulkadir Brooks notified. CBC ordered and obtained.
[2025-01-08 04:00] VITALS: BP 134/92; PULSE 94; RESP 16; TEMP 36.6; O2SAT 96
[2025-01-08 07:20] VITALS: BP 115/80; PULSE 110; RESP 18; TEMP 36.4; O2SAT 96
[2025-01-08] MEDS: 0.9 % Sodium Chloride Flush 3 ML SYRINGE IVFLUSH ×3 (08:19→21:06)
[2025-01-08] MEDS: PHENobarbitaL 15 MG TABLET PO (08:19)
[2025-01-08 08:28] LABS: Anion Gap 10 (12-20); Blood Urea Nitrogen 4 mg/dL (9-16); Calcium 9.1 mg/dL (8.4-10.2); Carbon Dioxide 25 mmol/L (22-29); Chloride 102 mmol/L (96-108); Creatinine Clr Calc Pharmacy 117.5; Estimated Glomerular Filt Rate > 60; Glucose Random 92 mg/dL (60-115); Potassium 3.4 mmol/L (3.3-5.1); Sodium 134 mmol/L (135-145)
[2025-01-08] MEDS: polyethylene glycoL 3350 17 GM POWD.PACK PO (09:31)
[2025-01-08] MEDS: Sennosides/Docusate Sodium TABLET 2 TAB PO (09:31)
--- NOTE | 2025-01-08 10:21 | MHC.SL.SWA ---
Speech Pathologist Impression: Risk of Aspiration, Oral Phase Dysphagia Dysphasia Diet Status: Recommend UPGRADE to CHOPPED/ADVANCED (NDD3) with THIN liquids, pills whole with puree. Soft sandwiches are ok. Liquid Consistency and Strategies for Safe Swallow: Liquid Intake Recommendation: Thin Liquid Intake Strategies: Small Sips Solid Food Consistency: Dietary Recommendations: Chopped/Advanced (NDD3) Oral Medication Intake: Whole with Puree Please contact the pharmacy regarding appropriate crushable or liquid drug formulations that are available whenever modified delivery is recommended. Compensatory Strategies and Precautions to be Taken for Safe Swallow: Sitting Upright (90 deg) Liquids from Cup Small Bites and Sips Alternate Liquids/Solids Avoid Specific Foods Supervision While Eating and Drinking for Safe Swallow: Total Assistance (1:1) Swallowing Recommended Treatments: Compens. Strategy Educat. Recommendation for Speech: Further Testing Needed Inpatient Speech Therapy Comment: Patient w/ decayed dentition, in poor condition. Patient reports pain with manipulating solids, bruising and wounds from biting tongue Frequency/Duration: M-F PRN Date Range for Service Req: Timeline to reassess: Manager Floor Clinican/Clinical Fellow: No Supervisory Statement: I have reviewed and agree with the student/clinical fellow's documentation: N/A Speech Language Pathologist: Ella Roman M.A., CCC-BOOK SALESMAN
--- NOTE | 2025-01-08 11:42 | P.PNIM_ITS ---
Subjective Subjective Date of Service: 01/08/25 Interval History: overnight pt had BRBPR; pt said it was from straining while defecating unsteady gait but more alert, oriented Review of Systems Review of Systems: Yes all other systems are reviewed and are negative Physical Exam 2 Vital Signs: Vital Signs: Last Vital Signs Temp 97.6 F 01/08/25 07:20 Pulse 110 H 01/08/25 07:20 Resp 18 01/08/25 07:20 BP 115/80 01/08/25 07:20 Pulse Ox 96 01/08/25 07:20 O2 Del Method Room Air 01/08/25 07:20 BMI result Body Mass Index 20.2 Gen: in no acute distress but disheveled HEENT: sclera anicteric, moist mucus membranes Neck: supple Lungs: clear to auscultation bilaterally Heart: regular, tachycardic, no murmurs Abd: soft, non-tender, non-distended Ext: no edema Skin: warm/well-perfused Neuro: alert and oriented to self and place, no focal weakness Psych: insight impaired Objective Data Active Medications Acetaminophen (Acetaminophen 325 Mg Tablet) 650 mg PO Q6H PRN PRN Reason: Pain, Mild 1-3,fever,headache Last Admin: 01/07/25 22:00 Dose: 650 mg Documented By: GUALBERTO Bisacodyl (Bisacodyl 5 Mg Tablet.Dr) 10 mg PO BEDTIME [facility] Calcium Carbonate (Calcium Carbonate 750 Mg Tab.Chew) 750 mg PO Q4H PRN PRN Reason: Heartburn Lactulose (Lactulose 20 Gm/30 Ml Solution) 40 gm PO DAILY PRN PRN Reason: Constipation Levetiracetam (Levetiracetam 250 Mg Tablet) 750 mg PO BEDTIME [facility] Last Admin: 01/07/25 21:56 Dose: 750 mg Documented By: GUALBERTO Magnesium Hydroxide (Milk Of Magnesia 30 Ml Oral.Susp) 30 ml PO DAILY PRN PRN Reason: Constipation Melatonin (Melatonin 3 Mg Tablet) 6 mg PO BEDTIME PRN PRN Reason: Insomnia Last Admin: 01/06/25 21:05 Dose: 6 mg Documented By: ALISSA Ondansetron HCl (Ondansetron Hcl 4 Mg/2 Ml Vial) 4 mg IVPUSH Q8H PRN PRN Reason: Nausea and Vomiting Pharmacy Consult (Consult Rx Etoh Phenob Im/Po) 1 each MISCELLANE ONCE PRN; Protocol PRN Reason: Consult order Phenobarbital (Phenobarbital 15 Mg Tablet) 15 mg PO DAILY [facility] Stop: 01/09/25 09:01 Last Admin: 01/08/25 08:19 Dose: 15 mg Documented By: AMALIA Polyethylene Glycol (Polyethylene Glycol 3350 17 Gm Powd.Pack) 17 gm PO DAILY [facility] Last Admin: 01/08/25 09:31 Dose: Not Given Documented By: AMALIA Non-Admin Reason: already given Senna/Docusate Sodium (Sennosides/Docusate Sodium Tablet) 2 tab PO BID [facility] Last Admin: 01/08/25 09:31 Dose: 2 tab Documented By: AMALIA Sodium Chloride (0.9 % Sodium Chloride Flush 3 Ml Syringe) 3 ml IVFLUSH QSHIFT [facility] Last Admin: 01/08/25 08:19 Dose: 3 ml Documented By: AMALIA Trazodone HCl (Trazodone Hcl 50 Mg Tablet) 50 mg PO BEDTIME PRN PRN Reason: Insomnia Labs 01/08/25 00:09 01/08/25 07:03 Labs: Laboratory Results - last 24 hr 01/08/25 01/08/25 00:09 07:03 MCV 93.2 MCH 31.8 MCHC 34.1 RDW 16.3 H Plt Count 303 MPV 10.0 Absolute Nucleated RBC 0.000 Nucleated RBC % (auto) 0.0 Hold Purple Top SEE NOTE Anion Gap 10 L Estim Creat Clear Calc 117.5 Estimated GFR > 60 Random Glucose 92 Calcium 9.1 Magnesium 2.0 Assessment and Plan (1) Encephalopathy: Status: Acute (2) Alcohol withdrawal: Status: Acute Plan hospital d6 for 54yo M with AUD, seizure disorder noncompliant with levetiracetam who was admitted to the MICU at [facility] in [place] 12/31-01/03 for severe EtOH withdrawal with seizure requiring dexmedetomidine drip + phenobarbital taper; signed out AMA by family so they could bring him closer to home and readmitted to [facility] for ongoing management. Pt denies seizure disorder or AUD. acute EtOH withdrawal - provoked by sudden reduction in EtOH intake on family vacation in [place] - reviewed [facility] records: pt was admitted 12/31-01/03 after witnessed seizure from EtOH withdrawal. CTH showed volume loss + midbrain atrophy, CT A/P negative, EEG negative. - continue phenobarbital, ends tomorrow - continue IV thiamine for question of Wernicke syndrome, B1 level pending - Addiction Medicine consulted, pt declines services or MAT seizure disorder - resumed levetiracetam - advised against driving acute toxic encephalopathy - DETECTIVE SUPERVISOR: NDD2 solids, thin liquids - HCP invoked [pt's nephew Rah Ashby]; Psychiatry re-evaluation to re- assess capacity thrombocytopenia - due to EtOH; resolved VTE ppx - enoxaparin dispo - PT eval: STR due to very unsteady gait In my clinical judgment, the patient requires continued inpatient hospitalization for the following reasons: severe EtOH withdrawal, capacity in question Total time managing care of this patient today: 35 minutes. Quality Stroke Does the patient have a stroke diagnosis?: No VTE Prior VTE?: No VTE Risk Level:: Medical - moderate - high VTE Device Contraindication: Treatment Not Indicated VTE Drug Contraindication: N/A - Med Ordered
[2025-01-08] MEDS: Thiamine HCL 200 MG in 0.9 % Sodium Chloride 100 ML 202 MG IV ×2 (13:15→21:05)
--- NOTE | 2025-01-08 13:15 | PC.NURSE ---
pt had 1 ep of milagro red blood after having a BM. pt asymptomatic at this time. Dr Santiago notified.
--- NOTE | 2025-01-08 13:27 | MHC.CM.PN ---
Per rounds, pt. is improving in his cognition, will have a psych eval to determine if HCP still invoked. PT rec. STR, CM will discuss with pt. following psych eval. Barrier to STR is co pay, of $80 a day that pt. will have to agree to pay.
[2025-01-08 15:03] VITALS: BP 115/80; PULSE 110; O2SAT 96
--- NOTE | 2025-01-08 15:12 | PM.GICN ---
History of Present Illness Data of Consult Service Date: 01/08/25 Requesting physician: Jewel Santiago Primary Care Provider: None Physician HPI Reason for consult: Hematochezia 54 YM with alcohol use disorder, seizure disorder noncompliant with Keppra admitted to [facility] on 01/03/25 after signing out AMA from [facility] for ongoing alcohol withdrawal. Patient reports falling from a bunk bed on to a concrete floor. Patient does have a history of alcohol withdrawal seizures and states he drinks about 24 bottles of alcohol every day. Patient did not have access to alcohol when he went on a family trip to [place] and he had alcohol withdrawal seizures. Patient was admitted to ICU at [facility] with Precedex and on phenobarb protocol. Patient's family was leaving [place] and hence they signed out AMA from [facility] in brought him to the ER at [facility] in private vehicle. GI consulted for evaluation of hematochezia Event Note per Dr Panchal: 11:42 PM - Contacted by nursing patient had milagro red blood in his stool and blood actively dripping out. Pt denies dizziness/lightheadedness. Reports this happens occasionally when he pushes too hard to have a BM, denies hx of hemorrhoids. CBC stat done showed Hgb 9.8 (prior 10.3). Will continue to monitor Patient reports passing bright red blood per rectum after he strained and pushed to have a bowel movement. Patient notes the blood was on the toilet paper and in the toilet bowl and appeared to be mixed with stool He has had 2 episodes since this am. Patient complains of left lower quadrant pain since she fell and denies any rectal or anal pain. Patient reports having 1-2 bowel movements a day and denies constipation, heartburn or dysphagia. does admit to small amounts of red blood on wiping sometimes, Pt admits to intermittent rectal bleeding x years. Pt admits to drinking a 12 pack of beer daily for the past 6 years and denies marijuana or drug use. 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 He has 4 kids (Daughter is studying to be a PA and son is a pharmacist) Pt reports having a colonoscopy in 2013 at [facility] and is vague on details - stated everything was fine Review of Systems Review of Systems: Yes all other systems are reviewed and are negative PMFSH Past Medical History Medical History Asthma Intractable vomiting Diverticulitis Seizures Peptic ulcer disease Diverticulitis Calcaneus fracture Family History Family History Father No problems noted. Mother No problems noted. Son No problems noted. Daughter No problems noted. Surgical History Surgical History H/O colonoscopy History of esophagogastroduodenoscopy (EGD) History of knee surgery History of back surgery History of hernia surgery Social History Social History Household Members: Friend(s) Household Members Other:: 2 Housing: House Do you presently have visiting nurse or other home services: No Unable to assess alcohol history related to: Refusing to respond Alcohol intake: current Alcohol intake frequency: a few times a month Alcohol type: beer Comment: 1:1 sitter Patient Tobacco Use Status: Former Tobacco user Substance Use Type: Marijuana Advance Directives Date on File: 12/26/20 service: No Current occupational status: unemployed Meds Allergies Allergy/AdvReac Type Severity Reaction Status Date / Time meperidine [Demerol] Allergy Unknown Vomiting Verified 01/03/25 15:37 Active Medications: Current Medications Acetaminophen (Acetaminophen 325 Mg Tablet) 650 mg PO Q6H PRN PRN Reason: Pain, Mild 1-3,fever,headache Last Admin: 01/07/25 22:00 Dose: 650 mg Bisacodyl (Bisacodyl 5 Mg Tablet.Dr) 10 mg PO BEDTIME [facility] Calcium Carbonate (Calcium Carbonate 750 Mg Tab.Chew) 750 mg PO Q4H PRN PRN Reason: Heartburn Thiamine HCl 200 mg/ Sodium (Chloride) 102 mls @ 202 mls/hr IV BID [facility] Last Infusion: 01/08/25 14:05 Dose: Infused Lactulose (Lactulose 20 Gm/30 Ml Solution) 40 gm PO DAILY PRN PRN Reason: Constipation Levetiracetam (Levetiracetam 250 Mg Tablet) 750 mg PO BEDTIME [facility] Last Admin: 01/07/25 21:56 Dose: 750 mg Magnesium Hydroxide (Milk Of Magnesia 30 Ml Oral.Susp) 30 ml PO DAILY PRN PRN Reason: Constipation Melatonin (Melatonin 3 Mg Tablet) 6 mg PO BEDTIME PRN PRN Reason: Insomnia Last Admin: 01/06/25 21:05 Dose: 6 mg Ondansetron HCl (Ondansetron Hcl 4 Mg/2 Ml Vial) 4 mg IVPUSH Q8H PRN PRN Reason: Nausea and Vomiting Pharmacy Consult (Consult Rx Etoh Phenob Im/Po) 1 each MISCELLANE ONCE PRN; Protocol PRN Reason: Consult order Phenobarbital (Phenobarbital 15 Mg Tablet) 15 mg PO DAILY [facility] Stop: 01/09/25 09:01 Last Admin: 01/08/25 08:19 Dose: 15 mg Polyethylene Glycol (Polyethylene Glycol 3350 17 Gm Powd.Pack) 17 gm PO DAILY [facility] Last Admin: 01/08/25 09:31 Dose: 17 gm Senna/Docusate Sodium (Sennosides/Docusate Sodium Tablet) 2 tab PO BID [facility] Last Admin: 01/08/25 09:31 Dose: 2 tab Sodium Chloride (0.9 % Sodium Chloride Flush 3 Ml Syringe) 3 ml IVFLUSH QSHIFT [facility] Last Admin: 01/08/25 08:19 Dose: 3 ml Trazodone HCl (Trazodone Hcl 50 Mg Tablet) 50 mg PO BEDTIME PRN PRN Reason: Insomnia Home Medications ?Medication ?Instructions ?Recorded ?Confirmed ?Last Taken ?Type No Known Home Meds 01/04/25 01/04/25 Unknown History Physical Exam Vital Signs: Vital Signs: Last Vital Signs Temp 97.6 F 01/08/25 07:20 Pulse 110 H 01/08/25 15:03 Resp 18 01/08/25 07:20 BP 115/80 01/08/25 15:03 Pulse Ox 96 01/08/25 15:03 O2 Del Method Room Air 01/08/25 07:20 BMI result Body Mass Index 20.2 Const: General: no acute distress Nutritional Appearance: average body habitus Orientation/consciousness: patient oriented x3 Limitations: ambulation with walker (due to recent fall) HEENT: Head: Yes normal to inspection Ears: hearing grossly normal bilaterally Mouth: Normal oral and palatal mucosa present Eyes: Sclerae: sclerae normal Pupils: Equal, round and reactive pupils present Neck: Neck: Yes normal visual inspection Chest: Chest palpation & inspection: normal inspection of the chest Resp: Effort & Inspection: normal respiratory effort Auscultation: clear to auscultation bilaterally Cardio: Palpation: normal PMI Rate: regular rate Rhythm: regular rhythm Heart sounds: S1 normal heart sound present, S2 normal heart sound present and no murmurs GI: Palpation (GI): Soft to palpation, Tenderness to palpation present (GI) (LLQ with a bruise) and No hepatosplenomegaly present Auscultation: normal bowel sounds Rectal Exam - Male: Yes deferred Skin: General skin exam: no rashes or lesions noted Neuro: General: patient oriented x3, gait normal and moves all extremities Cranial nerves: Yes Equal, round and reactive pupils present Psych: Appearance: grossly normal Mental Status: mental status grossly normal Results Labs 01/08/25 00:09 01/08/25 07:03 Labs: Short CBC 01/08/25 Range/Units 00:09 WBC 9.4 (4.8-10.8) X10*3/uL Hgb 9.8 L (14.0-18.0) g/dl Hct 28.7 L (42.0-52.0) % Plt Count 303 (160-400) X10*3/uL BMP 01/08/25 07:03 Sodium 134 L Potassium 3.4 Chloride 102 Carbon Dioxide 25 BUN 4 L Creatinine 0.52 Calcium 9.1 Assessment and Plan (1) Alcohol use disorder, severe, dependence: Status: Acute (2) Elevated LFTs: Status: Acute (3) Hematochezia: Status: Acute Plan 54 YM with alcohol use disorder, seizure disorder noncompliant with Keppra admitted to [facility] on 01/03/25 after signing out AMA from [facility] for ongoing alcohol withdrawal. Patient reports passing bright red blood per rectum after he strained and pushed to have a bowel movement. Patient notes the blood was on the toilet paper and in the toilet bowl and appeared to be mixed with stool He has had 2 episodes since this am. Pt has an elevated AST likely due to ETOH abuse RECOMMENDATIONS: 1. Agree with CIWA protocol for ETOH withdrawl and bowel regimen for constipation 2. Further evaluation with colonoscopy was discussed with the patient and he was quite adamant that he does not want to undergo a bowel prep and colonoscopy. May be willing to reconsider if bleeding continues. 3. Pt requested empiric treatment for hemorrhoids - order placed for hydrocortisone cream. Procedures Date of Service Date of Service: 01/08/25
[2025-01-08 16:57] VITALS: BP 133/83; PULSE 118; RESP 16; TEMP 37.7; O2SAT 94
[2025-01-08 19:42] VITALS: BP 135/85; PULSE 100; RESP 18; TEMP 36.5; O2SAT 96
[2025-01-08] MEDS: Hydrocortisone 2.5 % Rectal Cr 30 GM TUBE 1 APPL PR (20:58)
[2025-01-08] MEDS: levETIRAcetam 250 MG TABLET 750 MG PO (20:58)
[2025-01-08] MEDS: Acetaminophen 325 MG TABLET 650 MG PO (21:03)
[2025-01-09 03:39] VITALS: BP 145/88; PULSE 95; RESP 18; TEMP 36.8; O2SAT 96
[2025-01-09 06:31] LABS: Hematocrit 28.9 % (42.0-52.0); Hemoglobin 9.8 g/dl (14.0-18.0); Mean Corpuscular HGB Conc 33.9 g/dl (31.0-36.0); Mean Corpuscular Hemoglobin 31.6 pg (27.0-33.0); Mean Corpuscular Volume 93.2 fL (80.0-98.0); Mean Platelet Volume 9.5 fL (9.4-12.4); Platelet Count 434 X10*3/uL (160-400); White Blood Count 6.9 X10*3/uL (4.8-10.8)
[2025-01-09 06:41] LABS: Alanine Aminotransferase 19 U/L (0-40); Albumin Level 3.2 g/dL (3.5-5.0); Alkaline Phosphatase 97 U/L (39-117); Anion Gap 12 (12-20); Aspartate Amino Transferase 41 U/L (5-37); Bilirubin Total 0.4 mg/dL (0.0-1.0); Blood Urea Nitrogen 4 mg/dL (9-16); Calcium 8.8 mg/dL (8.4-10.2); Carbon Dioxide 24 mmol/L (22-29); Chloride 104 mmol/L (96-108); Creatinine Clr Calc Pharmacy 124.7; Estimated Glomerular Filt Rate > 60; Glucose Random 86 mg/dL (60-115); Potassium 3.9 mmol/L (3.3-5.1); Sodium 136 mmol/L (135-145)
[2025-01-09 07:15] VITALS: BP 115/74; PULSE 99; RESP 16; TEMP 36.9; O2SAT 94
[2025-01-09] MEDS: Sennosides/Docusate Sodium TABLET 2 TAB PO (08:41)
[2025-01-09] MEDS: Thiamine HCL 200 MG in 0.9 % Sodium Chloride 100 ML 202 MG IV ×2 (08:42→20:48)
[2025-01-09] MEDS: PHENobarbitaL 15 MG TABLET PO (08:42)
[2025-01-09] MEDS: 0.9 % Sodium Chloride Flush 3 ML SYRINGE IVFLUSH ×3 (08:43→20:49)
[2025-01-09] MEDS: Hydrocortisone 2.5 % Rectal Cr 30 GM TUBE 1 APPL PR ×2 (08:44→20:49)
[2025-01-09] MEDS: Acetaminophen 325 MG TABLET 650 MG PO ×2 (10:44→17:10)
--- NOTE | 2025-01-09 11:09 | HO.PM.IMPN ---
Subjective Subjective Date of Service: 01/09/25 Interval History: denies that he is an alcoholic denies seizure disorder per nephew/HCP, he definitely had a seizure, will 100% go back to drinking as soon as he gets out of here, has multiple DUIs, will likely be kicked out of his rental if he continues to drink, and may have a warrant for leaving the scene of a car crash; interested in filing a section 35 Review of Systems Review of Systems: Yes all other systems are reviewed and are negative Physical Exam Vital Signs: Vital Signs: Last Vital Signs Temp 98.4 F 01/09/25 07:15 Pulse 99 01/09/25 07:15 Resp 16 01/09/25 07:15 BP 115/74 01/09/25 07:15 Pulse Ox 94 01/09/25 07:15 O2 Del Method Room Air 01/09/25 07:15 BMI result Body Mass Index 20.2 Gen: in no acute distress but disheveled HEENT: sclera anicteric, moist mucus membranes Neck: supple Lungs: clear to auscultation bilaterally Heart: regular, tachycardic, no murmurs Abd: soft, non-tender, non-distended Ext: no edema Skin: warm/well-perfused Neuro: alert and oriented to self and place, no focal weakness Psych: insight impaired Objective Data Active Medications Acetaminophen (Acetaminophen 325 Mg Tablet) 650 mg PO Q6H PRN PRN Reason: Pain, Mild 1-3,fever,headache Last Admin: 01/09/25 10:44 Dose: 650 mg Documented By: CLARA Bisacodyl (Bisacodyl 5 Mg Tablet.) 10 mg PO BEDTIME [facility] Last Admin: 01/08/25 21:44 Dose: Not Given Documented By: KANIKA Non-Admin Reason: loose stool Calcium Carbonate (Calcium Carbonate 750 Mg Tab.Chew) 750 mg PO Q4H PRN PRN Reason: Heartburn Hydrocortisone (Hydrocortisone 2.5 % Rectal Cr 30 Gm Tube) 1 appl NE BID [facility] Last Admin: 01/09/25 08:44 Dose: 1 appl Documented By: CLARA Thiamine HCl 200 mg/ Sodium (Chloride) 102 mls @ 202 mls/hr IV BID [facility] Last Infusion: 01/09/25 09:14 Dose: Infused Documented By: CLARA Lactulose (Lactulose 20 Gm/30 Ml Solution) 40 gm PO DAILY PRN PRN Reason: Constipation Levetiracetam (Levetiracetam 250 Mg Tablet) 750 mg PO BEDTIME [facility] Last Admin: 01/08/25 20:58 Dose: 750 mg Documented By: KANIKA Magnesium Hydroxide (Milk Of Magnesia 30 Ml Oral.Susp) 30 ml PO DAILY PRN PRN Reason: Constipation Melatonin (Melatonin 3 Mg Tablet) 6 mg PO BEDTIME PRN PRN Reason: Insomnia Last Admin: 01/06/25 21:05 Dose: 6 mg Documented By: ALISSA Ondansetron HCl (Ondansetron Hcl 4 Mg/2 Ml Vial) 4 mg IVPUSH Q8H PRN PRN Reason: Nausea and Vomiting Pharmacy Consult (Consult Rx Etoh Phenob Im/Po) 1 each MISCELLANE ONCE PRN; Protocol PRN Reason: Consult order Polyethylene Glycol (Polyethylene Glycol 3350 17 Gm Powd.Pack) 17 gm PO DAILY [facility] Last Admin: 01/09/25 08:42 Dose: Not Given Documented By: CLARA Non-Admin Reason: Patient Refused Senna/Docusate Sodium (Sennosides/Docusate Sodium Tablet) 2 tab PO BID [facility] Last Admin: 01/09/25 08:41 Dose: 2 tab Documented By: CLARA Sodium Chloride (0.9 % Sodium Chloride Flush 3 Ml Syringe) 3 ml IVFLUSH QSHIFT [facility] Last Admin: 01/09/25 08:43 Dose: 3 ml Documented By: CLARA Trazodone HCl (Trazodone Hcl 50 Mg Tablet) 50 mg PO BEDTIME PRN PRN Reason: Insomnia Labs 01/09/25 06:01 01/09/25 06:01 Labs: Laboratory Results - last 24 hr 01/09/25 06:01 MCV 93.2 MCH 31.6 MCHC 33.9 RDW 16.0 Plt Count 434 H D MPV 9.5 Absolute Nucleated RBC 0.000 Nucleated RBC % (auto) 0.0 Anion Gap 12 Estim Creat Clear Calc 124.7 Estimated GFR > 60 Random Glucose 86 Calcium 8.8 Total Bilirubin 0.4 AST 41 H ALT 19 Alkaline Phosphatase 97 Total Protein 6.0 L Albumin 3.2 L Assessment and Plan (1) Encephalopathy: Status: Acute (2) Alcohol withdrawal: Status: Acute Plan hospital d7 for 54yo M with AUD, seizure disorder noncompliant with levetiracetam who was admitted to the MICU at [facility] in [place] 12/31-01/03 for severe EtOH withdrawal with seizure requiring dexmedetomidine drip + phenobarbital taper; signed out AMA by family so they could bring him closer to home and readmitted to [facility] for ongoing management. Pt denies seizure disorder or AUD. acute toxic encephalopathy due to EtOH withdrawal - provoked by sudden reduction in EtOH intake on family vacation in [place] - reviewed [facility] records: pt was admitted 12/31-01/03 after witnessed seizure from EtOH withdrawal. CTH showed volume loss + midbrain atrophy with hummingbird sign concerning for PSP but more likely due to EtOH in him, CT A/P negative, EEG negative. - completes phenobarbital taper today - continue IV thiamine for question of Wernicke syndrome, B1 level pending - [employer] SUPER[employer]ENDENT: NDD2 solids, thin liquids - HCP invoked [pt's nephew Rah Ashby]; Psychiatry re-evaluation to re-assess capacity - Addiction Medicine consulted, pt declines services or MAT - Psychiatry consult and OT evaluation pending as to whether pt still has no capacity for decision making - will consult CM + Care Team as pt's HCP wishes to file a section 35 seizure disorder - resumed levetiracetam - advised against driving hematochezia - likely hemorrhoidal; give stool softeners and prn hydrocortisone NE; declines colonoscopy thrombocytopenia - due to EtOH; resolved VTE ppx - enoxaparin dispo - PT eval: STR due to very unsteady gait In my clinical judgment, the patient requires continued inpatient hospitalization for the following reasons: severe EtOH withdrawal, capacity in question Total time managing care of this patient today: 35 minutes. Quality Stroke Does the patient have a stroke diagnosis?: No VTE Prior VTE?: No VTE Risk Level:: Medical - moderate - high VTE Device Contraindication: Treatment Not Indicated VTE Drug Contraindication: N/A - Med Ordered
[2025-01-09 15:22] VITALS: BP 111/62; PULSE 110; RESP 16; TEMP 36.5; O2SAT 96
[2025-01-09 19:06] VITALS: BP 119/79; PULSE 107; RESP 16; TEMP 36.9; O2SAT 96
--- NOTE | 2025-01-09 19:52 | P.CNPS_ITS ---
History of Present Illness Date of Service: 01/10/2025 Chief Complaint: alcohol w/d-seizures Reason for Consult: capacity Requesting physician: Jewel Santiago Discussed with referring provider: Yes Sources of Information: patient interviewed, chart reviewed and crisis/core team assessment reviewed HPI Narrative: Mr. Gamez is a 54 year-old male with hx of alcohol use disorder. He was admitted with altered mental status due to alcohol withdrawal. He was treated with phenobarb and it appears his orientation has improved. However, there have been concern in terms of his ability to care for himself and cognition. Pt seen in his room. He is pleasant. He reports he is here because he felt out of bed and hit his head, which is not the case. He is not able to recall that he was transferred from another hospital to here for treatment of DTs. He reports he is not working and resides with a roommate with whom he shares the rent. He denies SI/HI. He does not present with any s/s of psychosis or delusions. He reports feeling better and hopes to be discharged soon. He declined short term rehab as he reports he would have to pay out of pocket. He is oriented to place, month and year. Not so much to situation and not able to provide much information as to medical treatment receive while here on the unit. This ad copy writer completed clock draw test to assess executive function and visuo spatial skills. He showed severe impairments in that he wrote numbers 1 to 12 on right side of the clock, with left hemispatial neglect. He was not able to place hands, showing stimulus bound response (time instructed to patient was 10 past 11, hands place to 10 and then to 11). [facility] Medical History Asthma Intractable vomiting Diverticulitis Seizures Peptic ulcer disease Diverticulitis Calcaneus fracture Surgical History H/O colonoscopy History of esophagogastroduodenoscopy (EGD) History of knee surgery History of back surgery History of hernia surgery Diagnostics Vital Signs (24Hr): Vital Signs - 24 hr 01/09/25 03:39 01/09/25 07:15 01/09/25 15:22 Temperature 98.3 F 98.4 F 97.7 F Pulse Rate 95 99 110 H Respiratory Rate 18 16 16 Blood Pressure 145/88 H 115/74 111/62 Pulse Oximetry 96 94 96 Oxygen Delivery Method Room Air Room Air Room Air 01/09/25 19:06 Temperature 98.5 F Pulse Rate 107 H Respiratory Rate 16 Blood Pressure 119/79 Pulse Oximetry 96 Oxygen Delivery Method Room Air BMI result Body Mass Index 20.2 Labs 01/09/25 06:01 01/09/25 06:01 Labs: Laboratory Results - last 48 hr 01/08/25 01/08/25 01/09/25 00:09 07:03 06:01 WBC 9.4 6.9 RBC 3.08 L 3.10 L Hgb 9.8 L 9.8 L Hct 28.7 L 28.9 L MCV 93.2 93.2 MCH 31.8 31.6 MCHC 34.1 33.9 RDW 16.3 H 16.0 Plt Count 303 434 H D MPV 10.0 9.5 Absolute Nucleated RBC 0.000 0.000 Nucleated RBC % (auto) 0.0 0.0 Hold Purple Top SEE NOTE Sodium 134 L 136 Potassium 3.4 3.9 Chloride 102 104 Carbon Dioxide 25 24 Anion Gap 10 L 12 BUN 4 L 4 L Creatinine 0.52 0.49 L Estim Creat Clear Calc 117.5 124.7 Estimated GFR > 60 > 60 Random Glucose 92 86 Calcium 9.1 8.8 Magnesium 2.0 Total Bilirubin 0.4 AST 41 H ALT 19 Alkaline Phosphatase 97 Total Protein 6.0 L Albumin 3.2 L Medications Medications Current Medications Acetaminophen (Acetaminophen 325 Mg Tablet) 650 mg PO Q6H PRN PRN Reason: Pain, Mild 1-3,fever,headache Last Admin: 01/09/25 17:10 Dose: 650 mg Bisacodyl (Bisacodyl 5 Mg Tablet.Dr) 10 mg PO BEDTIME [facility] Last Admin: 01/08/25 21:44 Dose: Not Given Calcium Carbonate (Calcium Carbonate 750 Mg Tab.Chew) 750 mg PO Q4H PRN PRN Reason: Heartburn Hydrocortisone (Hydrocortisone 2.5 % Rectal Cr 30 Gm Tube) 1 appl CO BID [facility] Last Admin: 01/09/25 08:44 Dose: 1 appl Thiamine HCl 200 mg/ Sodium (Chloride) 102 mls @ 202 mls/hr IV BID [facility] Last Infusion: 01/09/25 09:14 Dose: Infused Lactulose (Lactulose 20 Gm/30 Ml Solution) 40 gm PO DAILY PRN PRN Reason: Constipation Levetiracetam (Levetiracetam 250 Mg Tablet) 750 mg PO BEDTIME [facility] Last Admin: 01/08/25 20:58 Dose: 750 mg Magnesium Hydroxide (Milk Of Magnesia 30 Ml Oral.Susp) 30 ml PO DAILY PRN PRN Reason: Constipation Melatonin (Melatonin 3 Mg Tablet) 6 mg PO BEDTIME PRN PRN Reason: Insomnia Last Admin: 01/06/25 21:05 Dose: 6 mg Ondansetron HCl (Ondansetron Hcl 4 Mg/2 Ml Vial) 4 mg IVPUSH Q8H PRN PRN Reason: Nausea and Vomiting Pharmacy Consult (Consult Rx Etoh Phenob Im/Po) 1 each MISCELLANE ONCE PRN; Protocol PRN Reason: Consult order Polyethylene Glycol (Polyethylene Glycol 3350 17 Gm Powd.Pack) 17 gm PO DAILY [facility] Last Admin: 01/09/25 08:42 Dose: Not Given Senna/Docusate Sodium (Sennosides/Docusate Sodium Tablet) 2 tab PO BID [facility] Last Admin: 01/09/25 08:41 Dose: 2 tab Sodium Chloride (0.9 % Sodium Chloride Flush 3 Ml Syringe) 3 ml IVFLUSH QSHIFT [facility] Last Admin: 01/09/25 17:11 Dose: 3 ml Trazodone HCl (Trazodone Hcl 50 Mg Tablet) 50 mg PO BEDTIME PRN PRN Reason: Insomnia Allergies Allergies Allergy/AdvReac Type Severity Reaction Status Date / Time meperidine [Demerol] Allergy Unknown Vomiting Verified 01/03/25 15:37 Assessment & Plan Assessment & Plan (1) Cognitive impairment: Status: Acute Code(s): R41.89 - Other symptoms and signs involving cognitive functions and awareness Plan Mr. Gamez is a 54 year-old male with hx of alcohol use disorder who was admitted for tx of DTs in context of alcohol withdrawal. His orientation has improved after receiving tx with phenobarbital. However, there are concern in terms of his baseline cognitive/memory and ability to function. Although he is oriented to place, month and year, not so much to situation. He is also not able to provide much of medical history nor recalled medical treatment here on the unit. This ad copy writer completed clock draw test to assess executive function and visuo spatial skills. Clock draw test showed severe impairments in that he wrote numbers 1 to 12 on right side of the clock, with left hemispatial neglect. He was not able to place hands, showing stimulus bound response (time instructed to patient was 10 past 11, hands place to 10 and then to 11). Left hemispatial neglect points at right parietal/frontal lobe lesion or disfunction. PLAN 1. He does not appear to have capacity even after resolved encephalopathy to make medical decisions. Pending OT assessments to determine extend of cognitive impairments, pattern of cognitive impairments and level of support needed to be safe in the community. 2. continue invoke HCP 3. May want to consult neurology as to etiology of left hemispatial neglect Total time managing care of this patient today __45__ minutes. Patient educated on: diagnosis and medication risk/benefits
[2025-01-09] MEDS: levETIRAcetam 250 MG TABLET 750 MG PO (20:48)
[2025-01-10 03:19] VITALS: BP 108/70; PULSE 100; RESP 16; TEMP 36.7; O2SAT 93
--- NOTE | 2025-01-10 07:36 | P.PNIM_ITS ---
Subjective Subjective Date of Service: 01/10/25 Interval History: wants to go home. reports he has changed and will no longer drink alcohol. When asked why states he needs a place to live, he is unable to tell me what will he will do should he desire to drink again, just states that he wont. Ambulated pt in the wall who is very unsteady depsite walker use. He is oriented x3 but unable to state much about situation. Health care proxy is invoked. He does not have capacity Review of Systems Review of Systems: Yes all other systems are reviewed and are negative Physical Exam 2 Vital Signs: Vital Signs: Last Vital Signs Temp 98.0 F 01/10/25 03:19 Pulse 100 01/10/25 03:19 Resp 16 01/10/25 03:19 BP 108/70 01/10/25 03:19 Pulse Ox 93 01/10/25 03:19 O2 Del Method Room Air 01/10/25 03:19 BMI result Body Mass Index 20.2 Constitutional - Awake and Alert, No apparent distress Eyes - PERRLA, EOMI Cardiovascular - S1S2, RRR, No edema Respiratory - Normal lung expansion, Normal respiratory effort, No respiratory distress, CTA bilaterally Extremities - no calf tenderness bilaterally, no swelling Skin - Warm/Dry Neurological - Alert & oriented x3, vague historian regarding situation. Exectutive function and visiospatial impairment Psychological - Appropriate affect, poor insight Objective Data Active Medications Acetaminophen (Acetaminophen 325 Mg Tablet) 650 mg PO Q6H PRN PRN Reason: Pain, Mild 1-3,fever,headache Last Admin: 01/09/25 17:10 Dose: 650 mg Documented By: CLARA Bisacodyl (Bisacodyl 5 Mg Tablet.Dr) 10 mg PO BEDTIME [facility] Last Admin: 01/09/25 20:48 Dose: Not Given Documented By: KANIKA Non-Admin Reason: loose stool Calcium Carbonate (Calcium Carbonate 750 Mg Tab.Chew) 750 mg PO Q4H PRN PRN Reason: Heartburn Hydrocortisone (Hydrocortisone 2.5 % Rectal Cr 30 Gm Tube) 1 appl [place] BID [facility] Last Admin: 01/09/25 20:49 Dose: 1 appl Documented By: KANIKA Thiamine HCl 200 mg/ Sodium (Chloride) 102 mls @ 202 mls/hr IV BID [facility] Last Infusion: 01/09/25 21:25 Dose: Infused Documented By: KANIKA Lactulose (Lactulose 20 Gm/30 Ml Solution) 40 gm PO DAILY PRN PRN Reason: Constipation Levetiracetam (Levetiracetam 250 Mg Tablet) 750 mg PO BEDTIME [facility] Last Admin: 01/09/25 20:48 Dose: 750 mg Documented By: KANIKA Magnesium Hydroxide (Milk Of Magnesia 30 Ml Oral.Susp) 30 ml PO DAILY PRN PRN Reason: Constipation Melatonin (Melatonin 3 Mg Tablet) 6 mg PO BEDTIME PRN PRN Reason: Insomnia Last Admin: 01/06/25 21:05 Dose: 6 mg Documented By: ALISSA Ondansetron HCl (Ondansetron Hcl 4 Mg/2 Ml Vial) 4 mg IVPUSH Q8H PRN PRN Reason: Nausea and Vomiting Pharmacy Consult (Consult Rx Etoh Phenob Im/Po) 1 each MISCELLANE ONCE PRN; Protocol PRN Reason: Consult order Polyethylene Glycol (Polyethylene Glycol 3350 17 Gm Powd.Pack) 17 gm PO DAILY [facility] Last Admin: 01/09/25 08:42 Dose: Not Given Documented By: CLARA Non-Admin Reason: Patient Refused Senna/Docusate Sodium (Sennosides/Docusate Sodium Tablet) 2 tab PO BID [facility] Last Admin: 01/09/25 20:49 Dose: Not Given Documented By: KANIKA Non-Admin Reason: loose stool Sodium Chloride (0.9 % Sodium Chloride Flush 3 Ml Syringe) 3 ml IVFLUSH QSHIFT [facility] Last Admin: 01/09/25 20:49 Dose: 3 ml Documented By: KANIKA Trazodone HCl (Trazodone Hcl 50 Mg Tablet) 50 mg PO BEDTIME PRN PRN Reason: Insomnia Labs 01/09/25 06:01 01/09/25 06:01 Assessment and Plan (1) Encephalopathy: Status: Acute (2) Alcohol withdrawal: Status: Acute Plan hospital d7 for 54yo M with AUD, seizure disorder noncompliant with levetiracetam who was admitted to the MICU at [facility] in [place] 12/31-01/03 for severe EtOH withdrawal with seizure requiring dexmedetomidine drip + phenobarbital taper; signed out AMA by family so they could bring him closer to home and readmitted to [facility] for ongoing management. Pt denies seizure disorder or AUD. acute toxic encephalopathy due to EtOH withdrawal - provoked by sudden reduction in EtOH intake on family vacation in [place] - reviewed [facility] records: pt was admitted 12/31-01/03 after witnessed seizure from EtOH withdrawal. CTH showed volume loss + midbrain atrophy with hummingbird sign concerning for PSP but more likely due to EtOH in him, CT A/P negative, EEG negative. 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 OT eval pending - will consult CM + Care Team as pt's HCP wishes to file a section 35 Cognitive impairment Per psychiatry, severe impairment with clock drawing Left hemisptial neglect present- neurology consult seizure disorder - resumed levetiracetam - advised against driving hematochezia - likely hemorrhoidal; give stool softeners and prn hydrocortisone [place]; declines colonoscopy thrombocytopenia - due to EtOH; resolved VTE ppx - enoxaparin dispo - PT eval: STR due to very unsteady gait In my clinical judgment, the patient requires continued inpatient hospitalization for the following reasons: severe EtOH withdrawal, lacks capacity- HCP invoked to determine dispo. STR recommended but insurance issues. Total time managing care of this patient today: 35 minutes. Quality Stroke Does the patient have a stroke diagnosis?: No VTE Prior VTE?: No VTE Risk Level:: Medical - moderate - high VTE Device Contraindication: Treatment Not Indicated VTE Drug Contraindication: N/A - Med Ordered
[2025-01-10 08:00] VITALS: BP 122/80; PULSE 114; RESP 18; TEMP 36.5; O2SAT 96
[2025-01-10] MEDS: 0.9 % Sodium Chloride Flush 3 ML SYRINGE IVFLUSH ×2 (09:16→17:29)
[2025-01-10] MEDS: Thiamine HCL 200 MG in 0.9 % Sodium Chloride 100 ML 202 MG IV ×2 (09:16→21:43)
[2025-01-10] MEDS: Hydrocortisone 2.5 % Rectal Cr 30 GM TUBE 1 APPL PR ×2 (09:17→21:46)
[2025-01-10] MEDS: Sennosides/Docusate Sodium TABLET 2 TAB PO (09:18)
[2025-01-10] MEDS: Acetaminophen 325 MG TABLET 650 MG PO (12:55)
[2025-01-10 13:33] LABS: Vitamin B1 755 nmol/L (8-30)
[2025-01-10 15:44] VITALS: BP 110/63; PULSE 102; RESP 16; TEMP 37.2; O2SAT 95
[2025-01-10 20:00] VITALS: BP 119/73; PULSE 98; RESP 14; TEMP 37.7; O2SAT 97
[2025-01-10] MEDS: levETIRAcetam 250 MG TABLET 750 MG PO (21:37)
[2025-01-11 03:38] VITALS: BP 103/66; PULSE 99; RESP 20; TEMP 36.8; O2SAT 94
[2025-01-11] MEDS: Acetaminophen 325 MG TABLET 650 MG PO (05:59)
[2025-01-11 06:47] VITALS: BP 113/68; PULSE 110; RESP 17; TEMP 36.6; O2SAT 96
[2025-01-11 07:55] LABS: MANUAL DIFF FLAG NO
[2025-01-11 07:58] LABS: Basophils Absolute Auto 0.1 X10*3/uL (0.0-0.2); Basophils Percent Auto 0.7 % (0-2); Eosinophils Absolute Auto 0.1 X10*3/uL (0.0-0.4); Eosinophils Percent Auto 1.3 % (0-4); Hematocrit 33.2 % (42.0-52.0); Hemoglobin 10.7 g/dl (14.0-18.0); Imm Gran Abs Auto 0.21 X10*3/uL (0.00-0.03); Imm Gran Pct Auto 1.9 % (0.0-0.4); Lymphocytes Absolute Auto 1.2 X10*3/uL (1.2-4.9); Lymphocytes Percent Auto 10.4 % (20-40); Mean Corpuscular HGB Conc 32.2 g/dl (31.0-36.0); Mean Corpuscular Volume 96.2 fL (80.0-98.0); Mean Platelet Volume 9.3 fL (9.4-12.4); Monocytes Absolute Auto 0.9 X10*3/uL (0.1-1.2); Monocytes Percent Auto 7.6 % (2-11); Neutrophils Absolute Auto 8.8 x10*3/uL (2.0-8.3); Neutrophils Percent Auto 78.1 % (45-73); Platelet Count 546 X10*3/uL (160-400); Red Blood Count 3.45 X10*6/uL (4.60-5.80); Red Cell Distribution Width 16.1 % (11.0-16.0); White Blood Count 11.2 X10*3/uL (4.8-10.8)
--- NOTE | 2025-01-11 08:01 | HO.PM.IMPN ---
Subjective Subjective Date of Service: 01/11/25 Interval History: Patient is awake, alert and oriented x 3, he's complainint left shoulder pain from falling off from bunked bed while vacation in [place] He doesn't appear encephalpathic Review of Systems Review of Systems: Yes all other systems are reviewed and are negative Physical Exam Vital Signs: Vital Signs: Last Vital Signs Temp 98 F 01/11/25 06:47 Pulse 110 H 01/11/25 06:47 Resp 17 01/11/25 06:47 BP 113/68 01/11/25 06:47 Pulse Ox 96 01/11/25 06:47 O2 Del Method Room Air 01/11/25 06:47 BMI result Body Mass Index 20.2 Objective Data Active Medications Acetaminophen (Acetaminophen 325 Mg Tablet) 650 mg PO Q6H PRN PRN Reason: Pain, Mild 1-3,fever,headache Last Admin: 01/11/25 05:59 Dose: 650 mg Documented By: AG Comments: per pt request Bisacodyl (Bisacodyl 5 Mg Tablet.Dr) 10 mg PO BEDTIME [facility] Last Admin: 01/10/25 21:38 Dose: Not Given Documented By: AG Non-Admin Reason: pt refused, loose stools Calcium Carbonate (Calcium Carbonate 750 Mg Tab.Chew) 750 mg PO Q4H PRN PRN Reason: Heartburn Hydrocortisone (Hydrocortisone 2.5 % Rectal Cr 30 Gm Tube) 1 appl [place] BID [facility] Last Admin: 01/10/25 21:46 Dose: 1 appl Documented By: AG Thiamine HCl 200 mg/ Sodium (Chloride) 102 mls @ 202 mls/hr IV BID [facility] Last Infusion: 01/10/25 22:24 Dose: Infused Documented By: AG Lactulose (Lactulose 20 Gm/30 Ml Solution) 40 gm PO DAILY PRN PRN Reason: Constipation Levetiracetam (Levetiracetam 250 Mg Tablet) 750 mg PO BEDTIME [facility] Last Admin: 01/10/25 21:37 Dose: 750 mg Documented By: AG Magnesium Hydroxide (Milk Of Magnesia 30 Ml Oral.Susp) 30 ml PO DAILY PRN PRN Reason: Constipation Melatonin (Melatonin 3 Mg Tablet) 6 mg PO BEDTIME PRN PRN Reason: Insomnia Last Admin: 01/06/25 21:05 Dose: 6 mg Documented By: ALISSA Ondansetron HCl (Ondansetron Hcl 4 Mg/2 Ml Vial) 4 mg IVPUSH Q8H PRN PRN Reason: Nausea and Vomiting Pharmacy Consult (Consult Rx Etoh Phenob Im/Po) 1 each MISCELLANE ONCE PRN; Protocol PRN Reason: Consult order Polyethylene Glycol (Polyethylene Glycol 3350 17 Gm Powd.Pack) 17 gm PO DAILY [facility] Last Admin: 01/10/25 09:18 Dose: Not Given Documented By: CLARA Non-Admin Reason: frequent stools Senna/Docusate Sodium (Sennosides/Docusate Sodium Tablet) 2 tab PO BID [facility] Last Admin: 01/10/25 21:38 Dose: Not Given Documented By: AG Non-Admin Reason: Patient Refused Sodium Chloride (0.9 % Sodium Chloride Flush 3 Ml Syringe) 3 ml IVFLUSH QSHIFT [facility] Last Admin: 01/11/25 00:23 Dose: Not Given Documented By: AG Non-Admin Reason: Previously Administered Trazodone HCl (Trazodone Hcl 50 Mg Tablet) 50 mg PO BEDTIME PRN PRN Reason: Insomnia Labs 01/09/25 06:01 01/09/25 06:01 Labs: Laboratory Results - last 24 hr 01/05/25 14:40 Vitamin B1 755 H Assessment and Plan (1) Encephalopathy: Status: Acute (2) Alcohol withdrawal: Status: Acute Plan hospital d8 for 54yo M with AUD, seizure disorder noncompliant with levetiracetam who was admitted to the MICU at [facility] in [place] 12/31-01/03 for severe EtOH withdrawal with seizure requiring dexmedetomidine drip + phenobarbital taper; signed out AMA by family so they could bring him closer to home and readmitted to [facility] for ongoing management. Pt denies seizure disorder or AUD. acute toxic encephalopathy due to EtOH withdrawal, resolved - provoked by sudden reduction in EtOH intake on family vacation in [place], - reviewed [facility] records: pt was admitted 12/31-01/03 after witnessed seizure from EtOH withdrawal. CTH showed volume loss + midbrain atrophy with hummingbird sign concerning for PSP but more likely due to EtOH in him, CT A/P negative, EEG negative. 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 OT eval pending - will consult CM + Care Team as pt's HCP wishes to file a section 35 Cognitive impairment Per psychiatry, severe impairment with clock drawing Left hemisptial neglect present- neurology consult reconsulting Psych to reevaluate capacity seizure disorder - resumed levetiracetam - advised against driving hematochezia - likely hemorrhoidal; give stool softeners and prn hydrocortisone [place]; declines colonoscopy thrombocytopenia - due to EtOH; resolved VTE ppx - enoxaparin dispo - PT eval: STR due to very unsteady gait In my clinical judgment, the patient requires continued inpatient hospitalization for the following reasons: severe EtOH withdrawal, lacks capacity- HCP invoked to determine dispo. STR recommended but insurance issues. Total time managing care of this patient today: 35 minutes. Quality Stroke Does the patient have a stroke diagnosis?: No VTE Prior VTE?: No VTE Risk Level:: Medical - moderate - high VTE Device Contraindication: Treatment Not Indicated VTE Drug Contraindication: N/A - Med Ordered
[2025-01-11] MEDS: polyethylene glycoL 3350 17 GM POWD.PACK PO (08:11)
[2025-01-11] MEDS: Sennosides/Docusate Sodium TABLET 2 TAB PO ×2 (08:11→21:24)
[2025-01-11] MEDS: Thiamine HCL 200 MG in 0.9 % Sodium Chloride 100 ML 202 MG IV ×2 (08:12→21:24)
[2025-01-11 08:13] LABS: Anion Gap 13 (12-20); Blood Urea Nitrogen 4 mg/dL (9-16); Calcium 9.2 mg/dL (8.4-10.2); Carbon Dioxide 24 mmol/L (22-29); Chloride 100 mmol/L (96-108); Creatinine Clr Calc Pharmacy 111.1; Estimated Glomerular Filt Rate > 60; Glucose Random 108 mg/dL (60-115); Potassium 3.7 mmol/L (3.3-5.1); Sodium 133 mmol/L (135-145)
[2025-01-11] MEDS: Hydrocortisone 2.5 % Rectal Cr 30 GM TUBE 1 APPL PR ×2 (08:14→21:31)
[2025-01-11] MEDS: 0.9 % Sodium Chloride Flush 3 ML SYRINGE IVFLUSH ×3 (08:14→21:25)
--- NOTE | 2025-01-11 10:01 | PM.NEUROCN ---
History of Present Illness Data of Consult Service Date: 01/11/25 Primary Care Provider: None Physician HPI Reason for consult: Dementia 54 years old man with alcoholism was brought to hospital from complications of heavy alcohol use including a recent seizure and was treated for withdrawal. His account was that he fell out of bed that is why he was in hospital. There was no evidence of any recent stroke-like symptoms. He has been drinking heavy amount of alcohol until recently. Review of Systems Review of Systems: No recent cold or flu-like illness. Apparently he had a seizure from not drinking alcohol and was taken to hospital PMF[facility] Past Medical History Medical History Asthma Intractable vomiting Diverticulitis Seizures Peptic ulcer disease Diverticulitis Calcaneus fracture Family History Family History Father No problems noted. Mother No problems noted. Son No problems noted. Daughter No problems noted. Surgical History Surgical History H/O colonoscopy History of esophagogastroduodenoscopy (EGD) History of knee surgery History of back surgery History of hernia surgery Social History Social History Household Members: Friend(s) Household Members Other:: 2 Housing: House Do you presently have visiting nurse or other home services: No Unable to assess alcohol history related to: Refusing to respond Alcohol intake: current Alcohol intake frequency: a few times a month Alcohol type: beer Comment: 1:1 sitter Patient Tobacco Use Status: Former Tobacco user Substance Use Type: Marijuana Advance Directives Date on File: 12/26/20 service: No Current occupational status: unemployed Meds Allergies Allergy/AdvReac Type Severity Reaction Status Date / Time meperidine [Demerol] Allergy Unknown Vomiting Verified 01/03/25 15:37 Active Medications: Current Medications Acetaminophen (Acetaminophen 325 Mg Tablet) 650 mg PO Q6H PRN PRN Reason: Pain, Mild 1-3,fever,headache Last Admin: 01/11/25 05:59 Dose: 650 mg Bisacodyl (Bisacodyl 5 Mg Tablet.Dr) 10 mg PO BEDTIME [facility] Last Admin: 01/10/25 21:38 Dose: Not Given Calcium Carbonate (Calcium Carbonate 750 Mg Tab.Chew) 750 mg PO Q4H PRN PRN Reason: Heartburn Hydrocortisone (Hydrocortisone 2.5 % Rectal Cr 30 Gm Tube) 1 appl [place] BID [facility] Last Admin: 01/11/25 08:14 Dose: 1 appl Thiamine HCl 200 mg/ Sodium (Chloride) 102 mls @ 202 mls/hr IV BID [facility] Last Infusion: 01/11/25 08:44 Dose: Infused Lactulose (Lactulose 20 Gm/30 Ml Solution) 40 gm PO DAILY PRN PRN Reason: Constipation Levetiracetam (Levetiracetam 250 Mg Tablet) 750 mg PO BEDTIME [facility] Last Admin: 01/10/25 21:37 Dose: 750 mg Magnesium Hydroxide (Milk Of Magnesia 30 Ml Oral.Susp) 30 ml PO DAILY PRN PRN Reason: Constipation Melatonin (Melatonin 3 Mg Tablet) 6 mg PO BEDTIME PRN PRN Reason: Insomnia Last Admin: 01/06/25 21:05 Dose: 6 mg Ondansetron HCl (Ondansetron Hcl 4 Mg/2 Ml Vial) 4 mg IVPUSH Q8H PRN PRN Reason: Nausea and Vomiting Pharmacy Consult (Consult Rx Etoh Phenob Im/Po) 1 each MISCELLANE ONCE PRN; Protocol PRN Reason: Consult order Polyethylene Glycol (Polyethylene Glycol 3350 17 Gm Powd.Pack) 17 gm PO DAILY [facility] Last Admin: 01/11/25 08:11 Dose: 17 gm Senna/Docusate Sodium (Sennosides/Docusate Sodium Tablet) 2 tab PO BID [facility] Last Admin: 01/11/25 08:11 Dose: 2 tab Sodium Chloride (0.9 % Sodium Chloride Flush 3 Ml Syringe) 3 ml IVFLUSH QSHIFT [facility] Last Admin: 01/11/25 08:14 Dose: 3 ml Trazodone HCl (Trazodone Hcl 50 Mg Tablet) 50 mg PO BEDTIME PRN PRN Reason: Insomnia Home Medications ?Medication ?Instructions ?Recorded ?Confirmed ?Last Taken ?Type No Known Home Meds 01/04/25 01/04/25 Unknown History Physical Exam Vital Signs: Vital Signs: Last Vital Signs Temp 98 F 01/11/25 06:47 Pulse 110 H 01/11/25 06:47 Resp 17 01/11/25 06:47 BP 113/68 06/02/25 06:47 Pulse Ox 96 01/11/25 06:47 O2 Del Method Room Air 01/11/25 06:47 BMI result Body Mass Index 20.2 Neuro: Other: He is alert and awake with normal spontaneity of speech fluency comprehension and affect. Face is symmetrical. Visual turner are full. There was no pronator drift. [id number] testing is okay. Deep tendon reflexes are absent with flexor plantars. On clot drying test, he was noted to have neglect of right side. He radha most of the clock on left side. Results Labs 01/11/25 07:13 01/11/25 07:13 Labs: Short CBC 01/11/25 Range/Units 07:13 WBC 11.2 H (4.8-10.8) X10*3/uL Hgb 10.7 L (14.0-18.0) g/dl Hct 33.2 L (42.0-52.0) % Plt Count 546 H D (160-400) X10*3/uL BMP 01/11/25 07:13 Sodium 133 L Potassium 3.7 Chloride 100 Carbon Dioxide 24 BUN 4 L Creatinine 0.55 Calcium 9[address] revealed moderate to severe diffuse cerebral and cerebellar central and cortical atrophy. Assessment and Plan (1) Multifactorial dementia: Status: Acute 54 years old man with [id number] probably multifactorial dementia active dementia. There is possibility of underlying tendency for Alzheimer disease and with exposure to significant alcohol, he developed significant diffuse cerebral and cerebellar central and cortical degenerative process resulting in cognitive, behavioral, and physical symptoms. Mainstay of management is reassurance and education, completely stopping alcohol, checking B12 level, supplementation with B complex vitamin including thiamine and folate, and sometime medications mostly for behavioral management. (2) Alzheimer dementia: Qualifiers: Alzheimer's disease onset: early onset Dementia severity: moderate Dementia behavioral or psychological symptom: with other behavioral disturbance Qualified Code(s): G30.0 - Alzheimer's disease with early onset; F02.B18 - Dementia in other diseases classified elsewhere, moderate, with other behavioral disturbance Status: Acute (3) Alcoholic dementia: Qualifiers: Dementia severity: moderate Dementia behavioral or psychological symptom: with other behavioral disturbance Qualified Code(s): F10.27 - Alcohol dependence with alcohol-induced persisting dementia Status: Acute Procedures Date of Service Date of Service: 01/11/25
--- NOTE | 2025-01-11 10:08 | MHC.SL.SWA ---
Speech Pathologist Impression: Adequate oropharyngeal swallow, pt awareness of safety (small bites/small sips) when self-feeding WNL Risk of Aspiration Due to: No further acute risk for aspiration Dysphasia Diet Status: Recommend UPGRADE to REGULAR diet with THIN liquids, pills whole with puree. Liquid Consistency and Strategies for Safe Swallow: Liquid Intake Recommendation: Thin Liquid Intake Strategies: Small Sips Solid Food Consistency: Dietary Recommendations: Regular Additional Modifications to Solid Foods: Oral Medication Intake: Whole with Puree Please contact the pharmacy regarding appropriate crushable or liquid drug formulations that are available whenever modified delivery is recommended. Compensatory Strategies and Precautions to be Taken for Safe Swallow: Sitting Upright (90 deg) Small Bites and Sips Alternate Liquids/Solids Avoid Specific Foods Supervision While Eating and Drinking for Safe Swallow: Intermittent/assist with setup as needed Foods to Avoid: Swallowing Recommended Treatments: Compens. Strategy Educat. Recommendation for Speech: Comment: Pt seen for dysphagia treatment 01/11. Pt sitting upright in bed, feeding himself breakfast. Pt trialed with regular solids: adequate oropharyngeal coordination observed, pt alternated consistencies independently. Recommend REGULAR diet with thin liquids, pills whole with puree. No further SIGNAL INTELLIGENCE ANALYST intervention for dysphagia indicated at this time. MD and RN notified. Frequency/Duration: Date Range for Service Req: Timeline to reassess: Drop Worker Clinican/Clinical Fellow: No Supervisory Statement: I have reviewed and agree with the student/clinical fellow's documentation: N/A Speech Language Pathologist: Caty Pérez M.S., [facility]-SIGNAL INTELLIGENCE ANALYST
[2025-01-11] MEDS: Lidocaine 4 % Patch ADH..PATCH 1 PATCH TRANSDERMA (13:23)
--- NOTE | 2025-01-11 14:04 | MHC.CM.PN ---
Patient awaiting re-eval w/ psych. CM met with patient, who is a+ox3, but does not agree to STR at this time. Discussed w/ HCP/nephew who understands and is agreeable to home w/ outpatient PT. Patient lives w/ roommate/good friend Axel and roommate's daughter. CM will continue to follow.
--- NOTE | 2025-01-11 15:14 | HO.WOUND ---
Wound Consult: Initial 54yr old?male admitted to [facility] on 01/03/25 - See progress notes and H&P for detailed history.? Wound consult placed for Right Arm / AC.? Patient agreeable to assessment and photo documentation.? Patient reports it is due to an IV site at another facility. The site appears to potentially have a small 1cm hematoma underneath the surface of the skin but there is no concern this should reabsorb overtime. There is a stable adherent scab which needs no topical intervention however the patient reports it is often itching and he finds him self scratching the site. In this case I recommend topical vaseline to aid in itching and keep covered with dry gauze and or bandaid. Recommendations: Right AC - Routine cleansing - Apply vaseline to site, may leave SYLVIA however if patient picking may cover with dry gauze or bandaid.
[2025-01-11 15:22] VITALS: BP 103/69; PULSE 102; RESP 18; TEMP 36.8; O2SAT 97
[2025-01-11 15:52] VITALS: BP 103/69; PULSE 102; O2SAT 97
[2025-01-11 19:52] VITALS: BP 112/73; PULSE 108; RESP 16; TEMP 36.6; O2SAT 98
[2025-01-11] MEDS: bisacodyL 5 MG TABLET.DR 10 MG PO (21:24)
[2025-01-11] MEDS: levETIRAcetam 250 MG TABLET 750 MG PO (21:24)
[2025-01-12 03:33] VITALS: BP 112/73; PULSE 91; RESP 18; TEMP 36.5; O2SAT 97
[2025-01-12 07:33] VITALS: BP 109/72; PULSE 100; RESP 20; TEMP 36.3; O2SAT 96
[2025-01-12] MEDS: Sennosides/Docusate Sodium TABLET 2 TAB PO (09:00)
[2025-01-12] MEDS: polyethylene glycoL 3350 17 GM POWD.PACK PO (09:00)
[2025-01-12] MEDS: Lidocaine 4 % Patch ADH..PATCH 1 PATCH TRANSDERMA (09:01)
[2025-01-12] MEDS: Thiamine HCL 200 MG in 0.9 % Sodium Chloride 100 ML 202 MG IV (09:01)
[2025-01-12] MEDS: 0.9 % Sodium Chloride Flush 3 ML SYRINGE IVFLUSH (09:06)
[2025-01-12] MEDS: Hydrocortisone 2.5 % Rectal Cr 30 GM TUBE 1 APPL PR (09:06)
--- NOTE | 2025-01-12 09:56 | P.DS_ITS ---
DS: Providers Provider Date of Service: 01/12/25 Date of admission: 01/03/25 18:16 Date of discharge: 01/12/25 Primary care physician: None Physician Consults: 01/03/25 18:33 Addiction Medicine Provider Routine Consulting Provider: Addiction Covering Reason for consultation: Alcohol dependency Has provider been notified: Yes 01/08/25 08:21 Consult to Gastroenterology Routine Consulting Provider: [facility] Gastroenterology Services Reason for consultation: hematochaezia 01/08/25 11:43 Consult to Psychiatry Routine Consulting Provider: [facility] Psych Covering Reason for consultation: capacity eval; HCP was invoked previously 01/08/25 23:10 Consult to Wound Care Routine Reason for consultation: scab and redness to RAC.From old IV at hospital in [facility] per patient. 01/09/25 11:26 Inpt CARE Team Crisis Consult Stat Comment: Reason for consultation: libby Monreal [HCP invoked] wishes to file section 35 01/10/25 13:58 Consult to Neurology Routine Consulting Provider: [facility] Reason for consultation: left hemispatial neglect etiology 01/11/25 08:07 Consult to Psychiatry Routine Consulting Provider: [facility] Psych Covering Reason for consultation: Please reassess capacity status Has provider been notified: No DS: Diagnosis Discharge Diagnosis (1) Multifactorial dementia: Status: Acute (2) Alzheimer dementia: Status: Acute (3) Alcoholic dementia: Status: Acute DS: Summary Hospital Course Hospital Course: admission hpi Chief Complaint: alcohol use This is a 54-year-old male with pertinent history of alcohol use disorder, seizure disorder noncompliant with Keppra who was brought to the emergency department after signing out AMA from [facility] for ongoing alcohol withdrawal. Patient is a poor historian and unable to obtain history from the patient. History obtained from ER provider and chart review. Patient does have a history of alcohol withdrawal seizures and states he drinks about 24 bottles of alcohol every day. Patient did not have access to alcohol when he went on a family trip to [place] and he had alcohol withdrawal seizures. Patient was admitted to ICU at [facility] with Precedex and on phenobarb protocol. Patient's family was leaving [place] and hence they signed out AMA from [facility] in brought him to the ER at [facility] in private vehicle. Patient is only oriented x2 the time of my evaluation. Unable to provide a history. Patient does admit alcohol use. He was previously discharged on Keppra by Neurology but states he does not take any medications as he does not believe in them. Unable to obtain complete review of systems but he denies abdominal pain In the emergency department, CT head negative and patient was initiated on phenobarb protocol. hospital course: hospital d8 for 54yo M with AUD, seizure disorder noncompliant with levetiracetam who was admitted to the MICU at [facility] ([facility] in [place] 12/31-01/03 for severe EtOH withdrawal with seizure requiring dexmedetomidine drip + phenobarbital taper; signed out AMA by family so they could bring him closer to home and readmitted to [facility] for ongoing management. Pt denies seizure disorder or AUD. He was encephalpathic due to alcohol withdrawal and showed sings of cognitive impairment. acute toxic encephalopathy due to EtOH withdrawal this was provoked by sudden reduction in EtOH intake on family vacation in [place]. Reviewed [facility] records: pt was admitted 12/31-01/03 after witnessed seizure from EtOH withdrawal. CTH showed volume loss + midbrain atrophy with hummingbird sign concerning for PSP but more likely due to EtOH in this patient, CT A/P negative, EEG negative. He was treated with dexmedetomidine drip + phenobarbital taper, which was continued here at [facility]. Additionally was treated with IV thiamine for question of Wernicke syndrome, B1 level elevated. Over the course of hospitalization he has demonstrated improvment in his encephalpathy and is presently oriented x 3, however MOCA and Psych, and Neurology have assessed evidence of cognitive imapriment, proable alcohol related onset of dementia but at this time still has some grap of reality. addiction medicine has seen and given him resources. He is strongly advised to stop drinking. Health care proxy was invoked HCP iis fine with dc home and will provide transportation. We discussed the OT and psych recommendations and he understands HCP is still invoked and that patient will need assistance w/ more complex tasks. He (HCP) is agreeable to that. seizure disorder, to take Keppra and not drive hematochezia - likely hemorrhoidal; give stool softeners and prn hydrocortisone MD; declines colonoscopy, Prep H thrombocytopenia - due to EtOH; resolved Time Attestation Discharge Coordination Time (in mins): 45 Quality: Safe Use of Opioids Does Pt have an Active Cancer Diagnosis on the Problem List?: No Quality: Stroke Does the patient have a stroke diagnosis?: No Physical Exam Vital Signs: Vital Signs: Last Vital Signs Temp 97.4 F 01/12/25 07:33 Pulse 100 01/12/25 07:33 Resp 20 01/12/25 07:33 BP 109/72 01/12/25 07:33 Pulse Ox 96 01/12/25 07:33 O2 Del Method Room Air 01/12/25 07:33 BMI result Body Mass Index 20.2 DS: Data Data Completed and Pending Completed studies during hospitalization [Text1]: Procedures Detoxification Services for Substance Abuse Treatment (06/06/23) Excision of Duodenum, Via Natural or Artificial Opening Endoscopic, Diagnostic (12/20/20) Excision of Esophagogastric Junction, Via Natural or Artificial Opening Endoscopic, Diagnostic (12/20/20) Excision of Stomach, Pylorus, Via Natural or Artificial Opening Endoscopic, Diagnostic (12/20/20) Inspection of Upper Intestinal Tract, Via Natural or Artificial Opening Endoscopic (05/03/21) Discharge Plan Discharge Anticipated Discharge Date/Time: 01/12/25 09:56 Patient Disposition: Home Health Service Discharge Diagnosis: alcohol withdrawal, metabolic encephalopathy, cognitive impairment Referrals: Physician,None [Primary Care Provider] - 1 Week Discharge Medications: New levetiracetam 250 mg Tablet 750 mg PO BEDTIME Qty: 90 0RF thiamine HCl (vitamin B1) 100 mg tablet 100 mg PO DAILY Qty: 90 0RF folic acid 1 mg tablet 1 mg PO DAILY Qty: 90 0RF hydrocortisone [Proctozone-HC] 2.5 % Cream With Perineal Applicator 1 appl MD BID Qty: 30 0RF Discharge Orders: Discharge Order (Routine); Ordered 01/12/25 Ordered By: Sly Malik Diet: Advance to usual diet Activity on Discharge: As tolerated Stand Alone Forms: Patient Portal Discharge page Print Language: German Care Plan Goals: recovery from alcohol withdrawal and metabolic encephalopathy Health Concerns: alcohol dependency metabolic encephalopathy cognitive impairment Plan of Treatment: Avoid alcohol at all cost follow up with your Doctor in a week take all medication as prescribed Assessment: see above
--- NOTE | 2025-01-12 12:27 | MHC.CM.PN ---
Per MD rounds, patient medically cleared for dc. HCP remains invoked. PT rec STR. CM reviewed w/ patient and HCP/nephew Ramez. Also reviewed psych/OT recs with HCP and he understands HCP will remain invoked and patient will require assistance/oversight with complex tasks. HCP and patient decline STR. They are aware home services or outpatient PT may not be able to be arranged until patient re-establishes care w/ PCP office (last seen by Dr. Gonzales in Mar 2021, seen by an DOGMAN/WOMAN in Sep 2023 - awaiting response from office). MD also aware. Additionally, financial services is working on a secondary [employer]. DP: Home w/ family support. Ramez will provide transport at 2pm. RN and aware.
== END 2025-01-12 14:11 | disposition home health service (06) | DRG 897 ==
LOC: HO.ED 18:13 → HO.EDOVER 18:57 → HO.IMC 01-04 07:51 → HO.S3 01-08 13:53
PROVIDERS: Emergency Medicine; Family Medicine; Internal Medicine; Physician Assistant; Student in an Organized Health Care Education/Training Program; Admitting Provider Internal Medicine; Emergency Provider Emergency Medicine; Visit Provider Internal Medicine
DX: F10.239 Alcohol dependence with withdrawal, unspecified (principal); F02.B18 Dementia in other diseases classified elsewhere, moderate, with other behavioral disturbance; G30.9 Alzheimer's disease, unspecified; F10.27 Alcohol dependence with alcohol-induced persisting dementia; D69.59 Other secondary thrombocytopenia; K64.9 Unspecified hemorrhoids; G40.909 Epilepsy, unspecified, not intractable, without status epilepticus; E87.6 Hypokalemia; Z91.148 Patient's other noncompliance with medication regimen for other reason; Z87.891 Personal history of nicotine dependence; Z79.899 Other long term (current) drug therapy
CPT/HCPCS: 36415; 70450; 71045; 73030; 80048; 80053; 80143; 80179; 80307; 82140; 82803; 83735; 84425; 85025; 85027; 85610; 92526; 92610; 97116; 97162; 97166; 97530; 99285; J1650; J1953; J2470; J2560; J3360; J3411; J3475; J3480; J7120

== ENCOUNTER 2025-01-03 18:16 | Outpatient (BNV) | payer OTHER, SELFPAY | END 2025-01-11 08:30 | PROVIDERS: Admitting Provider Internal Medicine; Emergency Provider Emergency Medicine; Visit Provider Radiology Diagnostic Radiology | DX: M25.512 Pain in left shoulder (principal); W06.XXXA Fall from bed, initial encounter | CPT/HCPCS: 73030 ==

== ENCOUNTER 2025-01-03 18:16 | Outpatient (BNV) | payer OTHER, SELFPAY | END 2025-01-03 19:18 | PROVIDERS: Admitting Provider Internal Medicine; Emergency Provider Emergency Medicine; Visit Provider Radiology Diagnostic Radiology | DX: R06.00 Dyspnea, unspecified (principal) | CPT/HCPCS: 70450; 71045 ==

== ENCOUNTER → 2025-01-03 18:16 | Outpatient (BNV) | payer OTHER, SELFPAY | PROVIDERS: Admitting Provider Internal Medicine; Emergency Provider Emergency Medicine; Visit Provider Psychiatry & Neurology Neurology | DX: G30.0 Alzheimer's disease with early onset (principal); F02.B18 Dementia in other diseases classified elsewhere, moderate, with other behavioral disturbance; F10.27 Alcohol dependence with alcohol-induced persisting dementia | CPT/HCPCS: 99222 ==

== ENCOUNTER → 2025-01-03 18:16 | Outpatient (BNV) | payer OTHER, SELFPAY | PROVIDERS: Admitting Provider Internal Medicine; Emergency Provider Emergency Medicine; Visit Provider Internal Medicine Gastroenterology | DX: R74.01 Elevation of levels of liver transaminase levels (principal); K92.1 Melena; F10.20 Alcohol dependence, uncomplicated | CPT/HCPCS: 99222 ==

== ENCOUNTER → 2025-01-03 18:16 | Outpatient (BNV) | payer OTHER, SELFPAY | PROVIDERS: Admitting Provider Internal Medicine; Emergency Provider Emergency Medicine; Visit Provider Nurse Practitioner Psychiatric/Mental Health | DX: F10.20 Alcohol dependence, uncomplicated (principal) | CPT/HCPCS: 99222; 99231 ==

== ENCOUNTER → 2025-01-03 18:16 | Outpatient (BNV) | payer OTHER, SELFPAY | PROVIDERS: Admitting Provider Internal Medicine; Emergency Provider Emergency Medicine; Visit Provider Student in an Organized Health Care Education/Training Program | DX: G93.40 Encephalopathy, unspecified (principal); F10.939 Alcohol use, unspecified with withdrawal, unspecified | CPT/HCPCS: 99222; 99232; 99233 ==

== ENCOUNTER 2025-04-26 08:17 | Outpatient (REF) | payer OTHER, SELFPAY ==
--- OUTSIDE RECORDS SUMMARY | 2025-04-20 12:00 | XMS_ITS | Encounter Summary ---
Author Organization [facility] Address [address] [place] [address] Care Team Providers Care Cigarette Inspector Name Role Phone Andrew Gonzales MD Primary Care Provider [phone] Encounter Details Date Type Department Care Team (Latest Contact Info) Description 04/20/2025 12:00 PM EDT - 04/20/2025 11:59 PM EDT Hospital Encounter XRAY - [address] [phone] Left shoulder pain, unspecified chronicity Discharge Disposition: Home or Self Care Social History Tobacco Use Types Packs/Day Years Used Date Smoking Tobacco: Every Day Cigarettes Last attempted to quit: 08/12/1999 Smokeless Tobacco: Never Alcohol Use Standard Drinks/Week Comments Yes 1.7 (1 standard drink = 0.6 oz p ure alcohol) Sex and Gender Information Value Date Recorded Sex Assigned at Male 04/23/2025 3:10 PM EDT Legal Sex Male 2:21 PM EST Gender Identity Male 04/23/2025 3:10 PM EDT Sexual Orientation Choose not to disclose 2024 3:10 PM EDT documented as of this encounter Medications at Time of Discharge albuterol HFA (PROAIR HFA ; PROVENTIL HFA ; VENTOLIN HFA) 90 mcg/actuation inhaler Inhale 2 Puffs into the lungs 4 times daily as needed for Cough or Wheezing. 09/10/2017 levETIRAcetam (KEPPRA) 250 mg tablet 01/12/2025 documented as of this encounter Discharge Disposition Disposition Code Departure Means Destination Home or Self Care documented in this encounter Plan of Treatment Upcoming Encounters Date Type Department Care Team (Late st Contact Info) Description 05/18/2025 10:30 AM EDT Evaluation Outpatient Rehabilitation - [address] [phone] [place], PT [address] [place] [address] documented as of this encounter Procedures Procedure Name Priority Date/Time Associated Diagnosis Comments XR SHOULDER 2+ VIEWS BILAT Routine 04/20/2025 12:31 PM EDT Left shoulder pain, unspecified chronicity documented in this encounter Results * XR Shoulder 2+ Views bilat (04/20/2025 12:31 PM EDT) Anatomical Region Laterality Modality Upper Extremities, Shoulder Bilateral Radi ographic Imaging 04/20/2025 5:25 PM EDT Impressions 04/20/2025 5:27 PM EDT No acute fracture or dislocation of the bilateral shoulders. Bilateral calcific bursitis. -------- FINAL REPORT -------- Dictated By: Miguel Sher Dictated Date: 04/20/2025 17:25 ET Assigned Physician: Miguel Sher Reviewed and Electronically Signed By: Miguel Sher Signed Date: 04/20/2025 17:27 ET Workstation ID: [id number] Transcribed By: Self Edit Transcribed Date: 04/20/2025 17:25 ET Narrative 04/20/2025 5:27 PM EDT HISTORY: pain TECHNIQUE: 4 views of the bilateral shoulders COMPARISON: None FINDINGS: No acute fracture or dislocation is seen. There is no evidence of malalignment. The AC joint is intact. Small calcifications adjacent to the bilateral humeral heads. Procedure Note Miguel Sher MD - 04/20/2025 HISTORY: pain TECHNIQUE: 4 views of the bilateral shoulders COMPARISON: None FINDINGS: No acute fracture or dislocation is seen. There is no evidence ofmalalignment. The AC joint is intact. Small calcifications adjacent to thebilateral humeral heads. IMPRESSION: No acute fracture or dislocation of the bilateral shoulders. Bilateral calcific bursitis. -------- FINAL REPORT -------- Dictated By: Miguel Sher Dictated Date: 04/20/2025 17:25 ET Assigned Physician: Miguel Sher Reviewed and Electronically Signed By: Miguel Sher Signed Date: 04/20/2025 17:27 ET Workstation ID: [id number] Transcribed By: Self Edit Transcribed Date: 04/20/2025 17:25 ET Andrew Gonzales MD IMG XR PROCEDURES Final Result documented in this encounter Visit Diagnoses Diagnosis Left shoulder pain, unspecified chronicity documented in this encounter Care Teams Cigarette Inspector Relationship Specialty Start Date End Date Andrew Gonzales MD [address] [place] [id number] PCP - General Internal Medicine 06/17/17 documented as of this encounter
--- NOTE | ~2025-04-26 | XR_ITS ---
EXAMINATION: XR SHOULDER 2 OR MORE VIEWS LEFT HISTORY: M25.512 - Pain in left shoulder COMPARISON: Comparison is made with the prior examination dated 01/11/2025. FINDINGS: Three views of the left shoulder are submitted. Bones are osteopenic. There is no acute fracture or dislocation. There is mild narrowing of the glenohumeral and acromioclavicular joints. The soft tissues are unremarkable. XR/XR shoulder LT min 2V IMPRESSION: Osteopenia. Degenerative changes as described. Electronically signed by: Niranjan Santana MD 04/26/2025 08:39 AM EDT
--- OUTSIDE RECORDS SUMMARY | 2025-04-26 09:13 | XMS_ITS | Clinical Summary ---
Author Organization [facility] Address [address] [place] [id number] Phone Care Team Providers Care Data Analytics Developer Name Role Phone Unavailable Primary Care Provider Unavailabl e Social History Tobacco Use Types Packs/Day Years Used Date Smoking Tobacco: Never Assessed Education Answer Date Recorded Are you interested in more education? Not on pascale e 01/12/2025 Are you concerned about learning? Not on file 01/12/2025 No 01/12/2025 No 01/12/2025 Digital Access Answer Date Recorded No 01/12/2025 No 01/12/2025 Reliable internet access at home? Not on file 01/12/2025 Device with a working camera? Not on file Sex and Gender Information Value Date Recorded Sex Assigned at Not on file Legal Sex Male 11:00 AM EDT Gender Identity Not on file Sexual Orientation Not on file Plan of Treatment Not on file Medical Devices Not on file Insurance [facility] [place] [id number] [facility] [employer] [place] [address] [place] [address] [place] [address] [place] [address] CHOICE CHOICE [facility] CHOICE Additional Source Comments The information contained in this document represents components of the legal health record. It is not the complete legal health record.[facility]
--- OUTSIDE RECORDS SUMMARY | 2025-04-26 09:13 | XMS_ITS | Clinical Summary ---
Author Organization [address] Address [address] [place] [address] Phone Care Team Providers Care Residential Monitor Name Role Phone Andrew Gonzales MD Primary Care Provider [phone] Allergies Active Allergy Reactions Criticality Noted Date Comments Meperidine Hcl Nausea And Vomiting 05/17/2008 Medications albuterol HFA (PROAIR HFA ; PROVENTIL HFA ; VENTOLIN HFA) 90 mcg/actuation inhaler Inhale 2 Puffs into the lungs 4 times daily as needed for Cough or Wheezing. 09/10/2017 Active levETIRAcetam (KEPPRA) 250 mg tablet 01/12/2025 Active Active Problems Problem Noted Date Diagnosed Date Seizures (CMS/HCC V24, CMS/HCC V28) 10/09/[address] of the abdomen 12/19/2020 Elevated LFTs 12/19/2020 Abnormal CXR 06/17/2019 Chronic diarrhea 06/16/2019 Displacement of cervical int ervertebral disc without myelopathy 07/25/2011 Radiculitis, cervical 07/25/2011 Rotator cuff tendinitis 07/25/2011 Asthma 05/17/2008 Overview (07/30/2024): Rare symptoms Lumbar disc disease 05/17/2008 Overview (07/30/2024): S/p surgical correction Work related On disability from the state Encounters Date Type Department Care Team Description 04/20/2025 12:00 PM EDT - 04/20/2025 11:59 PM EDT Hospital Encounter SHANNON Douglas [address] [place] [address] Left shoulder pain, unspecified chronicity Discharge Disposition: Home or Self Care 03/18/[address] [phone] Andrew Gonzales MD 03/18/[address] [phone] Andrew Gonzales MD 03/10/2025 10:00 AM EDT Office Visit [address] [phone] Andrew Gonzales MD Dementia, unspecified dementia severity, unspecified dementia type, unspecified whether behavioral, psychotic, or mood disturbance or anxiety (CMS/HCC V24, CMS/HCC V28) (Primary Dx); Alcohol abuse; Left shoulder pain, unspecified chronicity; Patient has healthcare proxy 03/02/[address] [phone] Andrew Gonzales MD 03/01/2025 1:30 PM EDT Office Visit [address] [phone] Andrew Gonzales MD Dementia with agitation, unspecified dementia severity, unspecified dementia type (CMS/HCC V24, CMS/HCC V28) (Primary Dx) 03/01/[address] [phone] Andrew Gonzales MD 01/29/2025 Telephone Adult Medicine [address] [phone] Shayna Medina RN 01/27/2025 Telephone Adult [address] [phone] Maty Davis MA 01/26/2025 10:30 AM EDT Office Visit [address] [phone] Andrew Gonzales MD Accidental fall, subsequent encounter (Primary Dx); Left shoulder pain, unspecified chronicity; Postconcussion syndrome from Last 3 Months Immunizations Name Administration Dates Next Due Td Tetanus diptheria (Tdvax) 7yo and older 04/04 Tdap Tetanus diptheria acell ular pertussis (Boostrix; Adacel) 7yo and older 06/16/2019 Surgical History Surgery Date Site/Laterality Comments HERNIA REPAIR PROCEDURE: REPAIR INGUINAL HERNIA; COMMENT: left COLONOSCOPY 05/06/13 PROCEDURE: HISTORICAL COLONOSCOPY; COMMENT: normal with normal colonic biopsies. Repeat in ten yrs, under propofol BACK SURGERY PROCEDURE: HISTORICAL BACK SURGERY; COMMENT: Medical History Medical History Date Comments Asthma 05/17/2008 DX:Asthma; COMME NT: Rare symptoms Lumbar disc disease 05/17/2008 DX:Lumbar di sc disease; COMMENT: S/p surgical correction Work related On disability from the state Depressive disorder, not els ewhere classified 05/17/2008 DX:Depressive disorder, not elsewhere classified Rotator cuff tendinitis 07/25/2011 DX:Rotat or cuff tendinitis Radiculitis, cervical 07/25/2011 DX:Radicul itis, cervical Displacement of cervical intervertebral disc without myelopathy 07/25/2011 DX:Displacement of cervical intervertebral disc without myelopathy Family History Medical History Relation Name Comments Diabetes Brother 1 Diabetes Father Relation Name Status Comments Brother 1 Alive Brother 2 Alive Daughter Alive Father Alive dm, htn, heart disease Mother Alive stroke Sister Alive Son Alive Social History Tobacco Use Types Packs/Day Years Used Date Smoking Tobacco: Every Day Cigarettes Last attempted to quit: 08/12/1999 Smokeless Tobacco: Never Tobacco Cessation:Ready to Q uit: Not Asked; Counseling Given: Not Answered Alcohol Use Standard Drinks/Week Comments Yes 1.7 (1 standard drink = 0.6 oz p ure alcohol) Sex and Gender Information Value Date Recorded Sex Assigned at Male 04/23/2025 3:10 PM EDT Legal Sex Male 2:21 PM EST Gender Identity Male 04/23/2025 3:10 PM EDT Sexual Orientation Choose not to disclose 2024 3:10 PM EDT Obstetrics History Last Filed Vital Signs Vital Sign Reading Time Taken Comments Blood Pressure 94/70 03/10/2025 9:47 AM EDT Pulse 72 03/10/2025 9:47 AM EDT Temperature 36.4 C (97.6 F) 03/10/2025 9:47 AM EDT Respiratory Rate 12 03/10/2025 9:47 AM EDT Oxygen Saturation - - Inhaled Oxygen Concentration - - Weight 44.9 kg (99 lb) 03/10/2025 9:47 AM EDT Height 162.6 cm (5' 4 ) 03/10/2025 9:47 AM EDT Body Mass Index 16.99 03/10/2025 9:47 AM EDT Plan of Treatment Upcoming Encounters Date Type Department Care Team (Late st Contact Info) Description 05/18/2025 10:30 AM EDT Evaluation Outpatient [address] [phone] Low Burgess, PT [address] [place] [address] Health Maintenance Due Date Last Done Comments Hepatitis A Vaccines (1 of 2 - Risk 2-dose series) 02/18/1991 Hepatitis B Vaccines (1 of 3 - 19+ 3-dose series) 02/18/1991 Pneumococcal Vaccine: 50+ Years (1 of 2 - PCV) 02/18/1991 Zoster Vaccines (1 of 2) 02/18/2022 Social Influencers of Health Screening 07/21/2022 Colorectal Cancer Screening: Colonoscopy 05/06/2023 05/06/2013 Depression Screening 08/12/2024 COVID-19 Vaccine (1 - 2023-2 5 season) 2025 Influenza Vaccine (#1) 2025 Cholesterol Screening (Lipid Panel) 10/09/2028 10/09/2023 DTaP,Tdap,and Td Vaccines (3 - Td or Tdap) 06/16/2029 06/16/2019, 04/04/2006 HIV Screening Completed 06/16/2019 Hepatitis C Screening Completed 12/03/2023 HIB Vaccines Aged Out No longer eligi ble based on patient's age to complete this topic HPV Vaccines Aged Out No longer eligi ble based on patient's age to complete this topic IPV Vaccines Aged Out No longer eligi ble based on patient's age to complete this topic MMR Vaccines Aged Out No longer eligi ble based on patient's age to complete this topic Meningococcal ACWY Vaccine Aged Out N o longer eligible based on patient's age to complete this topic Meningococcal B Vaccine Aged Out No l onger eligible based on patient's age to complete this topic RSV Immunization Patients Under 20 months Aged Out No longer eligible b ased on patient's age to complete this topic Varicella Vaccines Aged Out No longer eligible based on patient's age to complete this topic Procedures Procedure Name Priority Date/Time Associated Diagnosis Comments XR SHOULDER 2+ VIEWS BILAT Routine 04/20/2025 12:31 PM EDT Left shoulder pain, unspecified chronicity HEPATITIS C SCREENING Routine 12/03/2023 LIPID PANEL Routine 10/09/2023 HIV SCREENING Routine 06/16/2019 COLONOSCOPY Routine 05/06/2013 from Last 3 Months or Most Recently Relevant to Health Maintenance Results * XR Shoulder 2+ Views bilat [...] Signed Date: 04/20/2025 17:27 ET Workstation ID: [id number] Transcribed By: Self Edit Transcribed Date: 04/20/2025 [...] Signed Date: 04/20/2025 17:27 ET Workstation ID: [id number] Transcribed By: Self Edit Transcribed Date: 04/20/2025 17:25 ET Result [facility] Andrew Gonzales MD IMG XR PROCEDURES Final Result * Hepatitis C Screening (12/03/2023) [facility] Hepatitis C Screening abstracted [facility] Provider HEALTH MAINTENANCE Final Result * Lipid panel (10/09/2023) [facility] LDL/HDL Ratio 2 0 - 4 Triglycerides 60 0 - 150 mg/dL Cholesterol 191 0 - 200 mg/dL HDL 117 >=40 mg/dL LDL Cholesterol 62 >=40 mg/dL Blood Venous blood specimen / Unknown Result [facility] Provider LAB BLOOD ORDERABLES Jennifer l Result * HIV Screening (06/16/2019) [facility] HIV Screening abstracted Result [facility] Provider HEALTH MAINTENANCE Final Result * Colonoscopy (05/06/2013) [facility] Colonoscopy normal, abstracted Anatomical Region Laterality Modality Other Result [facility] Roddy MOLINA HEALTH MAINTENANCE Final Result from Last 3 Months or Most Recently Relevant to Health Maintenance Insurance [employer] Care Teams Residential Monitor Relationship Specialty Start Date End Date Andrew Gonzales MD [address] [place] [address] PCP - General Internal Medicine 06/17/17
== END 2025-04-26 08:18 | disposition home or self-care (01) ==
LOC: HO.HOSX 08:17
DX: S42.002D Fracture of unspecified part of left clavicle, subsequent encounter for fracture with routine healing (principal); M25.612 Stiffness of left shoulder, not elsewhere classified; W20.8XXD Other cause of strike by thrown, projected or falling object, subsequent encounter
CPT/HCPCS: 73030

== ENCOUNTER 2025-04-26 08:25 | Outpatient (AMB) | payer OTHER, SELFPAY ==
[2025-04-26 08:41] VITALS: BMI 20.1
--- NOTE | 2025-04-26 08:41 | MHC.OFFVIS ---
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 Patient reports back on 01/07/25 he rolled out of bed while sleeping landing on his shoulder. Patient ended up having a seizure and ended up in comma. Patient states his shoulder has been in pain since with pain radiating up the neck and down the arm. He complains of limited ROM. He has not been taking any pain medications but has been applying icy hot and heat to relief pain. Denies previous surgeries to the left shoulder. 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 Patient reports back on 01/07/25 he rolled out of bed while sleeping landing on his shoulder. Of note, the patient was admitted to the hospital around this time for severe alcohol withdrawals with delirium tremens. Patient ended up having a seizure and ended up in comma. Patient states his shoulder has been in pain since with pain radiating up the neck and down the arm. He complains of limited ROM. He has not been taking any pain medications but has been applying icy hot and heat to relief pain. Denies previous surgeries to the left shoulder. [facility] Medical History (Updated 04/26/25 @ 08:58 by RICKI Stephens) Asthma Intractable vomiting Diverticulitis Seizures Peptic ulcer disease Diverticulitis Calcaneus fracture Surgical History (Updated 04/26/25 @ 08:46 by TARIK Campbell) H/O colonoscopy History of esophagogastroduodenoscopy (EGD) History of back surgery History of hernia surgery Family History Father No problems noted. Mother No problems noted. Son No problems noted. Daughter No problems noted. Social History (Updated 04/26/25 @ 08:45 by TARIK Campbell) Household Members: Friend(s) Household Members Other:: 2 Housing: House Do you presently have visiting nurse or other home services: No Unable to assess alcohol history related to: Refusing to respond Alcohol intake: current Alcohol intake frequency: a few times a month Alcohol type: beer Comment: 1:1 sitter Patient Tobacco Use Status: Former Tobacco user Tobacco use type: Cigar Substance Use Type: Marijuana Advance Directives Date on File: 12/26/20 service: No Current occupational status: retired Current occupation: rt handed Review of Systems Const All systems reviewed & are unremarkable except as noted in HPI and below Physical Exam Vital Signs: BMI result Body Mass Index 20.1 Extrem Other: Patient's left shoulder normal to inspection No erythema, ecchymosis, edema noted No lacerations, abrasions, open areas No evidence of infection Patient reports tenderness to palpation of the posterior and superior aspect of the left shoulder No tenderness to palpation at level of clavicle fracture No tenderness to palpation of bicipital groove, anterior shoulder, or elsewhere in the left shoulder Patient is able to forward flex the left shoulder to approximately 80 degrees, reports significant pain beyond this Patient is able to externally rotate to approximately 80 degrees with bilateral shoulders without difficulty Distal sensation intact Capillary refill brisk Results Reviewed Results Reviewed: X-rays obtained in the office today and independently reviewed by me, Paul Howe PA-C, demonstrate nondisplaced fracture of the left distal clavicle with evidence of good interval bony healing. Assessment & Plan Assessment & Plan (1) Closed left clavicular fracture: Code(s): S42.002A - Fracture of unspecified part of left clavicle, initial encounter for closed fracture Category: Medical (2) Stiffness of left shoulder joint: Code(s): M25.612 - Stiffness of left shoulder, not elsewhere classified Category: Medical Plan 1. Closed left clavicle fracture Date of injury 01/04/2025 With associated stiffness Patient is educated about this condition Patient is educated about the typical treatment course At this time, patient is referred to physical therapy for range of motion and strengthening as tolerated of the left shoulder in the setting of an old clavicle fracture Patient is educated he should go to PT to work on this range of motion exercises and that this is likely the best way to improve the function that he is missing Patient understands this and is amenable to this plan Follow-up in 8-10 weeks for [id number] check, sooner with any acute concerns Orders: Orders XR shoulder LT min 2V Today M25.512 - Pain in left shoulder PT Evaluation and Treatment Today M25.612 - Stiffness of left shoulder, not elsewhere classified, S42.002A - Fracture of unspecified part of left clavicle, initial encounter for closed fracture Coding Level of Care Code New Pt Level 3 (70038) Diagnoses Closed left clavicular fracture S42.002A Stiffness of left shoulder joint M25.612
== END 2025-04-26 09:02 | disposition home or self-care (01) ==
LOC: HO.HOS 08:26
DX: S42.002A Fracture of unspecified part of left clavicle, initial encounter for closed fracture (principal); M25.612 Stiffness of left shoulder, not elsewhere classified
CPT/HCPCS: 99203

== ENCOUNTER → 2025-04-26 08:27 | Outpatient (BNV) | payer OTHER, SELFPAY | PROVIDERS: Visit Provider Radiology Diagnostic Radiology | DX: M25.512 Pain in left shoulder (principal) | CPT/HCPCS: 73030 ==

== ENCOUNTER 2025-06-01 08:56 | Outpatient (AMB) | payer OTHER, SELFPAY ==
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
[2025-06-01 09:05] VITALS: BP 110/90; RESP 16; BMI 16.5
--- OUTSIDE RECORDS SUMMARY | 2025-06-01 09:29 | XMS_ITS | Clinical Summary ---
Author Organization [facility] Address [address] [place] [id number] Phone Care Team Providers Care Retail Cashier Associate Name Role Phone Unavailable Primary Care Provider [...] file Medical Devices Not on file Insurance [facility] [place] [id number] [facility] [place] [address] [address] [place] [address] [place] [address] [place] [address] CHOICE CHOICE [facility] CHOICE Additional Source Comments The information contained in this document represents components of the legal health record. It is not the complete legal health record.[facility]
== END 2025-06-01 10:04 | disposition home or self-care (01) ==
LOC: HO.HSM 08:57
PROVIDERS: PCP Student in an Organized Health Care Education/Training Program; Visit Provider Nurse Practitioner
DX: R56.9 Unspecified convulsions (principal); R41.89 Other symptoms and signs involving cognitive functions and awareness
CPT/HCPCS: 99204

== ENCOUNTER 2025-06-28 08:10 | Outpatient (REF) | payer OTHER, SELFPAY ==
--- NOTE | ~2025-06-28 | XR_ITS ---
EXAMINATION: XR SHOULDER, LEFT CLINICAL INFORMATION: M25.512 - Pain in left shoulder COMPARISON: X-ray 04/26/2025 TECHNIQUE: Three views of the left shoulder. FINDINGS: Osteopenia. No visible acute fracture or dislocation. No suspicious bony lesion. Mild glenohumeral and acromioclavicular arthritis. No abnormal soft tissue calcification. XR/XR shoulder LT min 2V IMPRESSION: Degenerative changes as above. Electronically signed by: Alberto Guajardo MD 06/28/2025 12:41 PM EST
== END 2025-06-28 08:11 | disposition home or self-care (01) ==
LOC: HO.HOSX 08:10
DX: S42.035D Nondisplaced fracture of lateral end of left clavicle, subsequent encounter for fracture with routine healing (principal); M25.612 Stiffness of left shoulder, not elsewhere classified
CPT/HCPCS: 73030

== ENCOUNTER 2025-06-28 11:30 | Outpatient (AMB) | payer OTHER, SELFPAY ==
--- NOTE | 2025-06-28 11:45 | A.OFFVIS_ITS ---
Vital Signs 06/28/25 11:49 Height 5 ft 2 in Weight 90 lb BMI 16.5 Intake Visit Reasons: OV-Left shoulder pain DOI 01/07/25 Intake Note: Rhys is a 55 year old right hand dominant female who presents today for a ROM Check status post Closed Left Clavicle Fracture, DOI: 01/04/2025. At his last visit, patient was referred to Physical Therapy for ROM and strengthening, as to lerated, of the left shoulder in the setting of an old clavicle fracture. Patient reports PT has been helpful however he is still having trouble bringing his shoulder above his head or to his back. He finds his ROM and strength have improved. He would like to continue PT. He has been using Icy Hot with some relief. Allergies meperidine (Demerol) Allergy (Unknown, Verified 06/28/25 11:47) Vomiting HPI HPI OV-Left shoulder pain DOI 01/07/25: Details: Rhys is a 55 year old right hand dominant female who presents today for a ROM Check status post Closed Left Clavicle Fracture, DOI: 01/04/2025. At his last visit, patient was referred to Physical Therapy for ROM and strengthening, as tolerated, of the left shoulder in the setting of an old clavicle fracture. Patient reports PT has been helpful however he is still having trouble bringing his shoulder above his head or to his back. He finds his ROM and strength have improved. He would like to continue PT. He has been using Icy Hot with some relief. Patient states that he would like to explore other options if further PT does not help. [facility] Medical History (Updated 04/26/25 @ 08:58 by RICKI Stephens) Asthma Intractable vomiting Diverticulitis Seizures Peptic ulcer disease Diverticulitis Calcaneus fracture Surgical History (Updated 04/26/25 @ 08:46 by TARIK Campbell) H/O colonoscopy History of esophagogastroduodenoscopy (EGD) History of back surgery History of hernia surgery Family History (Updated 06/01/25 @ 09:06 by Zachery Candelaria CMA) Father Heart disease Mother Leukemia Son No problems noted. Daughter No problems noted. Social History (Updated 04/26/25 @ 08:45 by TARIK Campbell) Household Members: Friend(s) Household Members Other:: 2 Housing: House Do you presently have visiting nurse or other home services: No Alcohol intake: current Alcohol intake frequency: a few times a month Alcohol type: beer Comment: 1:1 sitter Patient Tobacco Use Status: Former Tobacco user Tobacco use type: Cigar Substance Use Type: Marijuana Advance Directives Date on File: 12/26/20 service: No Current occupational status: retired Current occupation: rt handed Review of Systems Const All systems reviewed & are unremarkable except as noted in HPI and below Physical Exam Vital Signs: BMI result Body Mass Index 16.5 Extrem Other: Patient's left shoulder normal to inspection No erythema, ecchymosis, edema noted No lacerations, abrasions, open areas No evidence of infection Patient reports tenderness to palpation of the posterior and superior aspect of the left shoulder No tenderness to palpation at level of clavicle fracture No tenderness to palpation of bicipital groove, anterior shoulder, or elsewhere in the left shoulder Patient is able to forward flex the left shoulder to approximately 100 degrees, reports significant pain beyond this Patient is able to externally rotate to approximately 80 degrees with bilateral shoulders without difficulty Distal sensation intact Capillary refill brisk Results Reviewed Results Reviewed: X-rays obtained in the office today and independently reviewed by me, Paul Howe PA-C, demonstrate nondisplaced fracture of the left distal clavicle with evidence of good interval bony healing. Assessment & Plan Assessment & Plan (1) Closed left clavicular fracture: Code(s): S42.002A - Fracture of unspecified part of left clavicle, initial encounter for closed fracture Category: Medical (2) Stiffness of left shoulder joint: Code(s): M25.612 - Stiffness of left shoulder, not elsewhere classified Category: Medical Plan 1. Closed left clavicle fracture Date of injury 01/04/2025 With associated stiffness Patient is educated about this condition Patient is educated about the typical treatment course At this time, patient is rereferred to physical therapy for range of motion and strengthening as tolerated of the left shoulder in the setting of an old clavicle fracture Patient is educated he should go to PT to work on this range of motion exercises and that this is likely the best way to improve the function that he is missing Patient is educated that he may increase the amount of strengthening and active range of motion that he is doing at PT to further improve his range of motion, strength, and decrease his pain Patient understands this and is amenable to this plan Follow-up in 8-10 weeks for [id number] check, sooner with any acute conc erns Orders: Orders XR shoulder LT min 2V Today M25.512 - Pain in left shoulder PT Evaluation and Treatment Today M25.612 - Stiffness of left shoulder, not elsewhere classified, S42.002A - Fracture of unspecified part of left clavicle, initial encounter for closed fracture Coding Level of Care Code Est Pt Level 3 (53236) Diagnoses Closed left clavicular fracture S42.002A Stiffness of left shoulder joint M25.612
[2025-06-28 11:49] VITALS: BMI 16.5
== END 2025-06-28 11:59 | disposition home or self-care (01) ==
LOC: HO.HOS 11:31
DX: S42.002A Fracture of unspecified part of left clavicle, initial encounter for closed fracture (principal); M25.612 Stiffness of left shoulder, not elsewhere classified
CPT/HCPCS: 99213

== ENCOUNTER → 2025-06-28 11:38 | Outpatient (BNV) | payer OTHER, SELFPAY | PROVIDERS: Visit Provider Radiology Diagnostic Ultrasound | DX: M19.012 Primary osteoarthritis, left shoulder (principal) | CPT/HCPCS: 73030 ==

== ENCOUNTER 2025-06-29 10:09 | Outpatient (REF) | payer OTHER, SELFPAY ==
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
== END 2025-06-29 10:10 | disposition home or self-care (01) ==
LOC: HO.NEURO 10:09
PROVIDERS: PCP Internal Medicine; Visit Provider Nurse Practitioner
DX: R41.89 Other symptoms and signs involving cognitive functions and awareness (principal); R56.9 Unspecified convulsions
CPT/HCPCS: 95816

== ENCOUNTER → 2025-06-29 10:16 | Outpatient (BNV) | payer OTHER, SELFPAY | PROVIDERS: PCP Internal Medicine; Visit Provider Psychiatry & Neurology Neurology | DX: R41.89 Other symptoms and signs involving cognitive functions and awareness (principal) | CPT/HCPCS: 95816 ==

== ENCOUNTER 2025-07-27 09:00 | Outpatient (AMB) | payer OTHER, SELFPAY ==
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
[2025-07-27 09:08] VITALS: BP 102/60; PULSE 89; RESP 16; O2SAT 95; BMI 16.5
--- OUTSIDE RECORDS SUMMARY | 2025-07-27 10:09 | XMS_ITS | Clinical Summary ---
Author Organization [facility] Address [address] [place] [id number] Phone Care Team Providers Care Electronic Operator Name Role Phone Unavailable Primary Care Provider [...] file Insurance [facility] CHOICE JANE GOMEZ [id number] [facility] [place] [address] [place] [address] [place] [address] [place] [address] CHOICE CHOICE [facility] CHOICE Additional Source Comments The information contained in this document represents components of the legal health record. It is not the complete legal health record.[facility]
--- OUTSIDE RECORDS SUMMARY | 2025-07-27 10:09 | XMS_ITS | Clinical Summary ---
Author Organization [address] Address [address] [place] [address] Phone Care Team Providers Care [employer] Name Role Phone Andrew Gonzales MD Primary Care Provider [phone] Allergies Active Allergy Reactions Criticality Noted Date Comments Meperidine Hcl Nausea And Vomiting 05/17/2008 Medications albuterol HFA (PROAIR HFA ; PROVENTIL HFA ; VENTOLIN HFA) 90 mcg/actuation inhaler Inhale 2 Puffs into the lungs 4 times daily as needed for Cough or Wheezing. 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 07/25/2011 Radiculitis, cervical 07/25/2011 Rotator cuff tendinitis 07/25/2011 Asthma 05/17/2008 Overview (07/30/2024): Rare symptoms Lumbar disc disease 05/17/2008 Overview (07/30/2024): S/p surgical correction Work related On disability from the state Encounters Date Type Department Care Team Description 07/09/2025 12:00 PM EST Lab Draw Station - [address] Weight loss 07/09/2025 11:30 AM EST - 07/09/2025 11:59 PM EST Hospital Encounter XRAY - [address] [phone] Weight loss Discharge Disposition: Home or Self Care 07/09/2025 11:00 AM EST Office Visit Adult Medicine [address] [phone] Andrew Gonzales MD Weight loss (Primary Dx); Dementia, unspecified dementia severity, unspecified dementia type, unspecified whether behavioral, psychotic, or mood disturbance or anxiety (CMS/HCC V24, [facility] V28); Seizures (CMS/HCC V24, [facility] V28); Alcohol abuse; Colon cancer screening 07/06/2025 Telephone Adult Medicine [address] [phone] [place] 04/28/2025 Telephone Adult [address] [phone] Andrew Gonzales MD from Last 3 Months Immunizations Immunization Administration Dates Next Due Td Tetanus diptheria (Tdvax) 7yo and older 04/04 Tdap Tetanus diptheria acell ular pertussis (Boostrix; Adacel) 7yo and older 06/16/2019 Surgical History Surgery Date Site/Laterality Comments HERNIA REPAIR PROCEDURE: REPAIR INGUINAL HERNIA; COMMENT: left COLONOSCOPY 05/06/13 PROCEDURE: HISTORICAL COLONOSCOPY; COMMENT: normal with normal colonic biopsies. Repeat in ten yrs, under propofol BACK SURGERY PROCEDURE: HISTORICAL BACK SURGERY; COMMENT: [place] Medical History Medical History Date Comments Asthma [...] Used Date Smoking Tobacco: Every Day Cigarettes 0 Last attempted to quit: 08/12/1999 Smokeless Tobacco: [...] not to disclose 2024 3:10 PM EDT Last Filed Vital Signs Vital Sign Reading Time Taken Comments Blood Pressure 92/58 07/09/2025 11:09 AM EST Pulse 87 07/09/2025 11:09 AM EST Temperature 36.3 C (97.4 F) 07/09/2025 11:09 AM EST Respiratory Rate 15 07/09/2025 11:09 AM EST Oxygen Saturation 95% 07/09/2025 11:09 AM EST Inhaled Oxygen Concentration - - Weight 40.7 kg (89 lb 12.8 oz) 07/09/2025 11:09 AM EST Height 157.5 cm (5' 2 ) 07/09/2025 11:09 AM EST Body Mass Index 16.42 07/09/2025 11:09 AM EST Plan of Treatment Upcoming Encounters Date Type Department Care Team (Late st Contact Info) Description 08/23/2025 10:15 AM EST Office Visit Adult Medicine [facility] [address], [place] [phone] Quincy Caballero NP [address], [place] Health Maintenance Due Date Last Done Comments Hepatitis A Vaccines (1 of 2 - Risk 2-dose series) 02/18/1991 Hepatitis B Vaccines (1 of 3 - 19+ 3-dose series) 02/18/1991 Pneumococcal Vaccine: 50+ Years (1 of 2 - PCV) 02/18/1991 RSV Immunization Adult Patients (1 - Risk 50-74 years 1-dose series) 02/18/2022 Zoster Vaccines (1 of 2) 02/18/2022 Social Influencers of Health Screening 07/21/2022 Colorectal Cancer Screening: Colonoscopy 05/06/2023 05/06/2013 Depression Screening 08/12/2024 COVID-19 Vaccine (1 - 2024-2 6 season) 2025 Influenza Vaccine (#1) 2025 Cholesterol [...] Procedure Name Priority Date/Time Associated Diagnosis Comments CBC WITH AUTO DIFFERENTIAL Routine 07/09/2025 12:24 PM EST Weight loss CBC AND DIFFERENTIAL Routine 07/09/2025 12:24 PM EST Weight loss XR CHEST 2 VIEWS Routine 07/09/2025 11:5 1 AM EST Weight loss EXTERNAL NEUROLOGY REPORT 06/29/2025 HEPATITIS C SCREENING Routine 12/03/2023 LIPID PANEL Routine 10/09/2023 HIV SCREENING Routine 06/16/2019 COLONOSCOPY Routine 05/06/2013 from Last 3 Months or Most Recently Relevant to Health Maintenance Results * (ABNORMAL) CBC auto differential (07/09/2025 12:24 PM EST) WBC 6.8 4.8 - 10.8 K/mcL LAB HEMETOLOGY METHOD 07/09/2025 3:03 PM [facility] RBC 4.60 4.50 - 5.50 M/mcL LAB HEMETOLOGY METHOD 07/09/2025 3:03 PM [facility] Hemoglobin 13.3(L) 13.5 - 17.5 g/dL LAB HEMETOLOGY METHOD 07/09/2025 3:03 PM [facility] Hematocrit 40.8(L) 42.0 - 54.0 % LAB HEMETOLOGY METHOD 07/09/2025 3:03 PM [facility] MCV 88.7 79.0 - 98.0 FL LAB HEMETOLOGY METHOD 07/09/2025 3:03 PM [facility] MCH 28.9 27.0 - 32.0 pcg LAB HEMETOLOGY METHOD 07/09/2025 3:03 PM [facility] MCHC 32.6 32.0 - 37.0 g/dL LAB HEMETOLOGY METHOD 07/09/2025 3:03 PM [facility] RDW 15.7(H) 11.0 - 15.0 % LAB HEMETOLOGY METHOD 07/09/2025 3:03 PM [facility] Platelets 171 130 - 400 K/mcL LAB HEMETOLOGY METHOD 07/09/2025 3:03 PM [facility] MPV 10.7 7.0 - 11.0 FL LAB HEMETOLOGY METHOD 07/09/2025 3:03 PM [facility] NRBC 0.0 <1.0 % LAB HEMETOLOGY METHOD 07/09/2025 3:03 PM [facility] NRBC Absolute 0.00 <0.10 K/mcL LAB HEMETOLOGY METHOD 07/09/2025 3:03 PM [facility] Neutrophils Relative 49.7 % LAB HEMETOLOGY METHOD 07/09/2025 3:03 PM [facility] Lymphocytes Relative 36.8 % LAB HEMETOLOGY METHOD 07/09/2025 3:03 PM [facility] Monocytes Relative 9.6 % LAB HEMETOLOGY METHOD 07/09/2025 3:03 PM [facility] Eosinophils Relative 3.1 % LAB HEMETOLOGY METHOD 07/09/2025 3:03 PM [facility] Basophils Relative 0.7 % LAB HEMETOLOGY METHOD 07/09/2025 3:03 PM [facility] Immature Granulocytes Relative 0.1 % LAB HEMETOLOGY METHOD 07/09/2025 3:03 PM [facility] Neutrophils Absolute 3.36 1.50 - 7.00 K/mcL LAB HEMETOLOGY METHOD 07/09/2025 3:03 PM [facility] Lymphocytes Absolute 2.49 1.00 - 5.00 K/mcL LAB HEMETOLOGY METHOD 07/09/2025 3:03 PM [facility] Monocytes Absolute 0.65 0.20 - 1.00 K/mcL LAB HEMETOLOGY METHOD 07/09/2025 3:03 PM [facility] Eosinophils Absolute 0.21 0.00 - 0.50 K/mcL LAB HEMETOLOGY METHOD 07/09/2025 3:03 PM [facility] Basophils Absolute 0.05 0.00 - 0.20 K/mcL LAB HEMETOLOGY METHOD 07/09/2025 3:03 PM [facility] Immature Granulocytes Absolute 0.01 0.00 - 0.03 K/mcL LAB HEMETOLOGY METHOD 07/09/2025 3:03 PM EST [facility] Blood Venous blood specimen / Unknown Venipuncture / Unknown 07/09/2025 12:24 PM EST 07/09/2025 12:24 PM EST us Andrew Gonzales MD LAB BLOOD ORDERABLES Final Resul t [facility] [address] [place] [address], * XR Chest 2 Views (07/09/2025 11:51 AM EST) Anatomical Region Laterality Modality Body Radiographic Benita ging 07/09/2025 12:2 7 PM EST Impressions 07/09/2025 12:32 PM EST No acute cardiopulmonary process. -------- FINAL REPORT -------- Dictated By: Miguel Sher Dictated Date: 07/09/2025 12:27 ET Assigned Physician: Miguel Sher Reviewed and Electronically Signed By: Miguel Sher Signed Date: 07/09/2025 12:32 ET Workstation ID: [id number] Transcribed By: Self Edit Transcribed Date: 07/09/2025 12:27 ET Narrative 07/09/2025 12:32 PM EST HISTORY: weight loss TECHNIQUE: PA and lateral radiographs of the chest COMPARISON: Chest radiograph from 06/16/2019 FINDINGS: There is a normal cardiomediastinal silhouette. The lungs are clear. The osseous structures are intact. Procedure Note Miguel Sher MD - 07/09/2025 HISTORY: weight loss TECHNIQUE: PA and lateral radiographs of the chest COMPARISON: Chest radiograph from 06/16/2019 FINDINGS: There is a normal cardiomediastinal silhouette. The lungs are clear. Theosseous structures are intact. IMPRESSION: No acute cardiopulmonary process. -------- FINAL REPORT -------- Dictated By: Miguel Sher Dictated Date: 07/09/2025 12:27 ET Assigned Physician: Miguel Sher Reviewed and Electronically Signed By: Miguel Sher Signed Date: 07/09/2025 12:32 ET Workstation ID: [id number] Transcribed By: Self Edit Transcribed Date: 07/09/2025 12:27 ET Andrew Gonzales MD IMG XR PROCEDURES Final Result * External Neurology Report (06/29/2025) Provider Jeanette Onbase NEUROLOGY ORDERABLES Fin al Result * Hepatitis C Screening (12/03/2023) [facility] Hepatitis C Screening abstracted Historical Provider HEALTH MAINTENANCE Final Result * Lipid panel (10/09/2023) [facility] LDL/HDL Ratio 2 0 - 4 Triglycerides 60 0 - 150 mg/dL Cholesterol 191 0 - 200 mg/dL HDL 117 >=40 mg/dL LDL Cholesterol 62 >=40 mg/dL Blood Venous blood specimen / Unknown Result [facility] Historical Provider LAB BLOOD ORDERABLES Jennifer l Result * HIV Screening (06/16/2019) [facility] HIV Screening abstracted Historical Provider HEALTH MAINTENANCE Final Result * Colonoscopy (05/06/2013) [facility] Colonoscopy normal, abstracted Anatomical Region Laterality Modality Other Historical Provider HEALTH MAINTENANCE Final Result from Last 3 Months or Most Recently Relevant to Health Maintenance [id number] Care Teams [employer] Relationship Specialty Start Date End Date Andrew Gonzales MD [address] [place] [address] PCP - General Internal Medicine 06/17/17
== END 2025-07-27 09:29 | disposition home or self-care (01) ==
LOC: HO.HSM 09:01
PROVIDERS: PCP Student in an Organized Health Care Education/Training Program; Visit Provider Nurse Practitioner
DX: R56.9 Unspecified convulsions (principal); R41.89 Other symptoms and signs involving cognitive functions and awareness
CPT/HCPCS: 99213